=== PATIENT | female | born 1945 | race Caucasian/White ===

== ENCOUNTER → 2016-08-07 | Outpatient (CLI) | payer MEDICARE, OTHER ==
[2016-08-07 14:55] LABS: ABSOLUTE LYMPHOCYTES (AUTO) 1.2 10^3/uL (0.5-4.7); ABSOLUTE MONOCYTES (AUTO) 0.3 10^3/uL (0.1-1.4); ABSOLUTE NEUT (AUTO) 13.1 10^3/uL (1.7-8.2); BASOPHILS % (AUTO) 0.1 % (0-2); HEMATOCRIT 38.4 % (36.0-47.0); HEMOGLOBIN 11.7 g/dL (12.0-15.5); HGB HCT DIFFERENCE -3.3; LYMPHOCYTES % (AUTO) 7.9 % (13-45); MEAN CORPUSCULAR HEMOGLOBIN 24.1 pg (27.0-33.4); MEAN CORPUSCULAR HGB CONC 30.4 g/dL (32.0-36.0); MEAN CORPUSCULAR VOLUME 79 fl (80-97); MONOCYTES % (AUTO) 2.3 % (3-13); RED BLOOD COUNT 4.85 10^6/uL (3.72-5.28); RED CELL DISTRIBUTION WIDTH 16.5 % (11.5-14.0); SEGMENTED NEUTROPHILS % (AUTO) 89.7 % (42-78); WHITE BLOOD COUNT 14.6 10^3/uL (4.0-10.5)
== END ==
LOC: OD 14:00
PROVIDERS: ATTEND Nurse Practitioner Adult Health
DX: R05 Cough (principal)
CPT/HCPCS: 36415; 71020; 85025

== ENCOUNTER 2016-08-18 13:41 | Inpatient (IN) | payer MEDICARE, OTHER ==
[2016-08-18] MEDS ORDERED: GLUCAGON,HUMAN RECOMB 1 MG INJ IM PRN (16:46)
[2016-08-18] MEDS ORDERED: DEXTROSE 50%-WATER 25 GM/50 ML DISP.SYRIN IV PRN ×2 (16:46)
[2016-08-18] MEDS ORDERED: DEXTROSE 40% GEL 15 GM TUBE PO PRN ×2 (16:46)
--- NOTE | 2016-08-18 17:06 | PDOC H&P ---
History of Present Illness Admission Date/PCP: 08/18/16 13:41 ELIZABETH SOLER NP Patient complains of: The patient comes into the office complaining of bilateral breast lesions that are draining and perineum bowel occult abscess that is draining with some lower extremity lesions that are draining. She has been referred to the wound clinic but did not make an appointment and have been discharged History of Present Illness: ABISAI JOHNSON is a 71 year old female Past Medical History Cardiac Medical History: Reports: Coronary Artery Disease, Hyperlipidema, Hypertension, Peripheral Vascular Disease Pulmonary Medical History: Reports: Asthma, Chronic Obstructive Pulmonary Disease (COPD) Endocrine Medical History: Reports: Diabetes Mellitus Type 2, Hypothyroidism Renal/ Medical History: Reports: Chronic Kidney Disease GI Medical History: Reports: Gastroesophageal Reflux Disease, Hiatal Hernia Musculoskeltal Medical History: Reports: Arthritis - Rheumatoid arthritis Skin Medical History: Reports: Other Psychiatric Medical History: Reports: Depression Past Surgical History Past Surgical History: Reports: Cardiac Catheterization, Cholecystectomy, Hysterectomy, Orthopedic Surgery - back surgery x 2, left ankle ORIF, Vascular Surgery - Left renal artery stent Social History Information Source: Patient Lives with: Family Smoking Status: Former Smoker Frequency of Alcohol Use: None Hx Recreational Drug Use: No Drugs: None Hx Prescription Drug Abuse: No Family History Family History: Reviewed & Not Pertinent, CAD Parental Family History Reviewed: Yes Children Family History Reviewed: Yes Sibling(s) Family History Reviewed.: Yes Medication/Allergy Home Medications: Amlodipine Besylate [Norvasc 10 mg Tablet] 10 mg PO QAM 08/18/16 Duloxetine HCl [Cymbalta] 60 mg PO DAILY 08/18/16 Empagliflozin [Jardiance] 10 mg PO QAM 08/18/16 Glipizide [Glucotrol 10 mg Tablet] 10 mg PO BID 08/18/16 Insulin Glargine,Hum.rec.anlog [Toujeo Solostar] 60 units SQ DAILY 08/18/16 Levothyroxine Sodium [Synthroid] 125 mcg PO QAM 08/18/16 Lisinopril [Prinivil] 20 mg PO QAM 08/18/16 Lorazepam [Ativan] 1.5 mg PO QHS 08/18/16 Metformin HCl [Metformin HCl ER] 500 mg PO BID 08/18/16 Montelukast Sodium [Singulair 10 mg Tablet] 10 mg PO QHS 08/18/16 Mupirocin [Bactroban 2% Ointment 22 gm] 1 applic TOP TID 08/18/16 NPH, Human Insulin Isophane [Humulin N (NPH) Insulin 100 unit/mL] 25 units SQ AC 08/18/16 [place]-3 Acid Ethyl Esters [Lovaza 1 gm Capsule] 1 cap PO BID 08/18/16 Omeprazole 20 mg PO QHS 08/18/16 Prednisone [Deltasone 20 mg Tablet] 20 mg PO DAILY 08/18/16 Travoprost (Benzalkonium) [Travatan 0.004% Eye Drop] 1 drop OP QHS 08/18/16 Allergies/Adverse Reactions: codeine [Codeine] Allergy (Intermediate, Verified 12/30/15 18:36) itching Review of Systems All systems: reviewed and no additional remarkable complaints except as stated Physical Exam Vital Signs: Temp Pulse Resp BP Pulse Ox 97.8 F 105 H 18 173/97 H 95 08/18/16 14:02 08/18/16 14:02 08/18/16 14:02 08/18/16 14:02 08/18/16 14:02 Intake & Output 08/17/16 08/18/16 08/19/16 06:59 06:59 06:59 Weight 95 kg General appearance: PRESENT: severe distress Head exam: PRESENT: atraumatic Eye exam: PRESENT: conjunctiva pink Neck exam: ABSENT: carotid bruit Respiratory exam: PRESENT: rhonchi Cardiovascular exam: PRESENT: RRR, +S1, +S2 Pulses: PRESENT: +1 pedal pulses bilateral GI/Abdominal exam: PRESENT: normal bowel sounds, soft Extremities exam: PRESENT: tenderness Musculoskeletal exam: PRESENT: tenderness Neurological exam: PRESENT: awake Skin exam: PRESENT: erythema, skin tears, warm Additional comments: Bilateral medial aspect breast open sores with drainage. Periumbilical abscess with drainage of pus Right mid tibial shaft open wound with drainage. Left multiple excoriations lower extremity Assessment & Plan - Diagnosis (1) Cellulitis of foot Is this a current diagnosis for this admission?: YesPlan: Surgical evaluation. Leg elevation. Antibiotics (2) Failure of outpatient treatment Is this a current diagnosis for this admission?: Yes (3) Insulin dependent diabetes mellitus Is this a current diagnosis for this admission?: YesPlan: We'll start Accu-Cheks and insulin protocol (4) Cellulitis Qualifiers: Site of cellulitis: trunk Site of cellulitis of trunk: abdominal wall Qualified Code(s): L03.311 - Cellulitis of abdominal wall Is this a current diagnosis for this admission?: YesPlan: Surgical evaluation with local wound care and IV antibiotics (5) COPD (chronic obstructive pulmonary disease) Is this a current diagnosis for this admission?: YesPlan: We'll continue with nebulization treatments (6) Obstructive sleep apnea Is this a current diagnosis for this admission?: YesPlan: We'll start this CPap (7) CAD (coronary artery disease) Qualifiers: Coronary Disease-Associated Artery/Lesion type: [place] artery [place] vs. transplanted heart: [place] heart Is this a current diagnosis for this admission?: YesPlan: Continue present medications (8) Hypothyroidism (acquired) Is this a current diagnosis for this admission?: YesPlan: Continue current treatment
[2016-08-18] MEDS ORDERED: (PENDING PHARMACY ID) (Metformin Hcl [Metformin Hcl Er] 500 MG) PO SCH (18:00)
[2016-08-18 18:08] LABS: HEMATOCRIT 32.9 % (36.0-47.0); HEMOGLOBIN 10.5 g/dL (12.0-15.5); HGB HCT DIFFERENCE -1.4; MEAN CORPUSCULAR HEMOGLOBIN 24.3 pg (27.0-33.4); MEAN CORPUSCULAR HGB CONC 31.8 g/dL (32.0-36.0); MEAN CORPUSCULAR VOLUME 76 fl (80-97); RED BLOOD COUNT 4.31 10^6/uL (3.72-5.28); RED CELL DISTRIBUTION WIDTH 16.5 % (11.5-14.0); WHITE BLOOD COUNT 12.9 10^3/uL (4.0-10.5)
[2016-08-18 18:20] LABS: ALANINE AMINOTRANSFERASE 52 U/L (9-52); ALBUMIN 3.3 g/dL (3.5-5.0); ALKALINE PHOSPHATASE 122 U/L (38-126); ANION GAP 9 (5-19); ASPARTATE AMINO TRANSFERASE 47 U/L (14-36); BILIRUBIN,TOTAL 0.5 mg/dL (0.2-1.3); BLOOD UREA NITROGEN 16 mg/dL (7-20); CALCIUM 9.1 mg/dL (8.4-10.2); CARBON DIOXIDE 33 mmol/L (22-30); CHLORIDE 96 mmol/L (98-107); CREATININE RESULT 0.69 mg/dL (0.52-1.25); GLUCOSE 156 mg/dL (75-110); POTASSIUM 3.6 mmol/L (3.6-5.0); SODIUM 138.3 mmol/L (137-145); TOTAL PROTEIN 6.3 g/dL (6.3-8.2)
[2016-08-18] MEDS: INSULIN LISPRO 100 UNIT/ML 3 ML VIAL SUBCUT PRN ×2 (18:30→21:15)
[2016-08-18] MEDS: NORMAL SALINE 1000 ML 1,000 ML IV PRN (18:30)
[2016-08-18] MEDS: OMEGA-3 ACID ETHYL ESTERS 1 GM CAPSULE PO SCH (18:30)
[2016-08-18 19:11] LABS: BAND NEUTROPHILS % (MANUAL) 1 % (3-5); BASOPHILS % (MANUAL) 1 % (0-2); EOSINOPHILS % (MANUAL) 0 % (0-6); LYMPHOCYTES % (MANUAL) 15 % (13-45); TOTAL CELLS COUNTED 100
[2016-08-18 19:15] LABS: ANISOCYTOSIS 1+; HYPOCHROMASIA 1+; MICROCYTOSIS SLIGHT; OVALOCYTES SLIGHT; POIKILOCYTOSIS SLIGHT; POLYCHROMASIA SLIGHT
[2016-08-18] MEDS ORDERED: ENOXAPARIN SODIUM INJ 40 MG/0.4 ML DISP.SYRIN SUBCUT ONE (19:30)
[2016-08-18] MEDS: IPRATROPIUM/ALBUTEROL 0.5-2.5 MG/3 ML AMPUL NEB SCH (19:32)
[2016-08-18] MEDS: OXYCODONE HCL IR 5 MG TABLET PO PRN (21:01)
[2016-08-18] MEDS: LANSOPRAZOLE 15 MG TAB.RAP.DR PO SCH (21:01)
[2016-08-18] MEDS: LORAZEPAM 1 MG TABLET PO SCH (21:15)
[2016-08-18] MEDS ORDERED: (PENDING PHARMACY ID) (Travoprost (Benzalkonium) [Travatan 0.004% Eye Drop] 1 DROP) OU SCH (22:00)
[2016-08-18] MEDS ORDERED: VANCOMYCIN HCL 0 MG in DEXTROSE 5%-WATER 250 ML IV NR (23:00)
[2016-08-18] MEDS: PIPERACILLIN SODIUM/TAZOBACTAM 3.375 GM in NORMAL SALINE 100 ML IV SCH (23:05)
[2016-08-18] MEDS ORDERED: VANCOMYCIN HCL INJ 1000 MG VIAL ONE (23:31)
[2016-08-19] MEDS ORDERED: VANCOMYCIN HCL 750 MG in DEXTROSE 5%-WATER 250 ML IV ONE ×2
[2016-08-19] MEDS: PIPERACILLIN SODIUM/TAZOBACTAM 3.375 GM in NORMAL SALINE 100 ML IV SCH ×4 (02:28→21:37)
[2016-08-19] MEDS: OXYCODONE HCL IR 5 MG TABLET PO PRN ×3 (04:56→18:15)
[2016-08-19] MEDS ORDERED: (PENDING PHARMACY ID) (Lisinopril [Prinivil] 20 MG) PO SCH (08:00)
[2016-08-19] MEDS ORDERED: VANCOMYCIN HCL 750 MG in DEXTROSE 5%-WATER 250 ML IV SCH (08:00)
[2016-08-19] MEDS ORDERED: (PENDING PHARMACY ID) (Levothyroxine Sodium [Synthroid] 125 MCG) PO SCH (08:00)
[2016-08-19] MEDS: ENOXAPARIN SODIUM INJ 40 MG/0.4 ML DISP.SYRIN SUBCUT SCH (08:28)
[2016-08-19] MEDS: LISINOPRIL 10 MG TABLET PO SCH (08:29)
[2016-08-19] MEDS: LEVOTHYROXINE SODIUM 0.025 MG TABLET PO SCH (08:29)
[2016-08-19] MEDS: LEVOTHYROXINE SODIUM 0.1 MG TABLET PO SCH (08:29)
[2016-08-19] MEDS: AMLODIPINE BESYLATE 10 MG TABLET PO SCH (08:29)
--- NOTE | 2016-08-19 08:49 | PDOC PROGRESS REPORT ---
Subjective Progress Note for:: 08/19/16 Subjective:: The patient states to feel much better. The wounds have been cleaned by nursing and is presently awaiting surgical evaluation for possible debridement Physical Exam Vital Signs: Temp Pulse Resp BP Pulse Ox 98.1 F 85 18 166/68 H 100 08/19/16 00:00 08/19/16 00:00 08/19/16 00:00 08/19/16 00:00 08/19/16 00:00 Intake & Output 08/18/16 08/19/16 08/20/16 06:59 06:59 06:59 Intake Total 1150 Output Total 3200 Balance -205 Weight 95 kg General appearance: PRESENT: mild distress Head exam: PRESENT: atraumatic Eye exam: PRESENT: conjunctiva pink Neck exam: ABSENT: carotid bruit Respiratory exam: PRESENT: rhonchi Cardiovascular exam: PRESENT: RRR, +S1, +S2 Pulses: PRESENT: +1 pedal pulses bilateral GI/Abdominal exam: PRESENT: normal bowel sounds, soft Extremities exam: PRESENT: tenderness Neurological exam: PRESENT: alert, awake Skin exam: PRESENT: abrasion, erythema, skin tears Results Laboratory Results: 08/18/16 17:50 08/18/16 17:50 08/18/16 08/18/16 08/19/16 17:50 17:50 04:41 WBC 12.9 H RBC 4.31 Hgb 10.5 L Hct 32.9 L MCV 76 L MCH 24.3 L MCHC 31.8 L RDW 16.5 H Plt Count 233 Seg Neutrophils % Not Reportable Lymphocytes % Not Reportable Monocytes % Not Reportable Eosinophils % Not Reportable Basophils % Not Reportable Absolute Neutrophils Not Reportable Absolute Lymphocytes Not Reportable Absolute Monocytes Not Reportable Absolute Eosinophils Not Reportable Absolute Basophils Not Reportable Sodium 138.3 Potassium 3.6 Chloride 96 L Carbon Dioxide 33 H Anion Gap 9 BUN 16 Creatinine 0.69 Est GFR ( Amer) > 60 Est GFR (Non-Af Amer) > 60 Glucose 156 H Calcium 9.1 Magnesium 1.9 Total Bilirubin 0.5 AST 47 H ALT 52 Alkaline Phosphatase 122 Total Protein 6.3 Albumin 3.3 L TSH 08/19/16 04:41 WBC RBC Hgb Hct MCV MCH MCHC RDW Plt Count Seg Neutrophils % Lymphocytes % Monocytes % Eosinophils % Basophils % Absolute Neutrophils Absolute Lymphocytes Absolute Monocytes Absolute Eosinophils Absolute Basophils Sodium Potassium Chloride Carbon Dioxide Anion Gap BUN Creatinine Est GFR ( Amer) Est GFR (Non-Af Amer) Glucose Calcium Magnesium Total Bilirubin AST ALT Alkaline Phosphatase Total Protein Albumin TSH 0.47 Assessment & Plan - Diagnosis (1) Cellulitis of foot Is this a current diagnosis for this admission?: YesPlan: Surgical evaluation. Leg elevation. Antibiotics (2) Failure of outpatient treatment Is this a current diagnosis for this admission?: Yes (3) Insulin dependent diabetes mellitus Is this a current diagnosis for this admission?: YesPlan: We'll start Accu-Cheks and insulin protocol (4) Cellulitis Qualifiers: Site of cellulitis: trunk Site of cellulitis of trunk: abdominal wall Qualified Code(s): L03.311 - Cellulitis of abdominal wall Is this a current diagnosis for this admission?: YesPlan: Surgical evaluation with local wound care and IV antibiotics (5) COPD (chronic obstructive pulmonary disease) Is this a current diagnosis for this admission?: YesPlan: We'll continue with nebulization treatments (6) Obstructive sleep apnea Is this a current diagnosis for this admission?: Yes (7) CAD (coronary artery disease) Qualifiers: Coronary Disease-Associated Artery/Lesion type: [place] artery [place] vs. transplanted heart: [place] heart Is this a current diagnosis for this admission?: YesPlan: Continue present medications (8) Hypothyroidism (acquired) Is this a current diagnosis for this admission?: YesPlan: Continue current treatment
[2016-08-19] MEDS: IPRATROPIUM/ALBUTEROL 0.5-2.5 MG/3 ML AMPUL NEB SCH ×4 (09:08→19:25)
[2016-08-19] MEDS: DULOXETINE HCL 30 MG CAPSULE.DR PO SCH (09:21)
[2016-08-19] MEDS: INSULIN LISPRO 100 UNIT/ML 3 ML VIAL SUBCUT PRN ×4 (09:21→22:20)
[2016-08-19] MEDS: OMEGA-3 ACID ETHYL ESTERS 1 GM CAPSULE PO SCH ×2 (09:21→16:55)
[2016-08-19] MEDS: NORMAL SALINE 1000 ML 1,000 ML IV PRN ×2 (09:22→23:20)
[2016-08-19] MEDS ORDERED: INSULIN GLARGINE HUM REC ANLOG 60 UNIT SQ SCH (10:00)
[2016-08-19] MEDS: VANCOMYCIN HCL 1,250 MG in DEXTROSE 5%-WATER 250 ML IV SCH ×2 (11:15→23:15)
[2016-08-19] MEDS: PREDNISONE 10 MG TABLET PO SCH (11:25)
[2016-08-19] MEDS: BACITRACIN ZINC OINTMENT 15 GM TP SCH (12:28)
[2016-08-19] MEDS ORDERED: INSULIN LISPRO 100 UNIT/ML 3 ML VIAL SUBCUT ONE (12:30)
[2016-08-19] MEDS: INSULIN LISPRO 100 UNIT/ML 3 ML VIAL SUBCUT SCH (16:54)
[2016-08-19] MEDS: METFORMIN HCL 500 MG TABLET PO SCH (16:55)
[2016-08-19] MEDS: INSULIN GLARGINE SUBCUT SCH ×2 (20:23→22:23)
[2016-08-19] MEDS: TAPENTADOL PO SCH ×2 (20:23→22:29)
[2016-08-19] MEDS: LORAZEPAM 1 MG TABLET PO SCH (21:37)
[2016-08-19] MEDS: LANSOPRAZOLE 15 MG TAB.RAP.DR PO SCH (21:37)
[2016-08-19] MEDS ORDERED: INSULIN GLARGINE,HUM.REC.ANLOG 300 UNIT/3 ML INSULN.PEN SUBCUT SCH (22:00)
--- NOTE | 2016-08-20 00:05 | PDOC CONSULTATION ---
History of Present Illness Admission Date/PCP: 08/18/16 13:41 ELIZABETH SOLER NP History of Present Illness: 71-year-old white female with multiple skin lesions. Patient reports history of skin lesions for years. The wounds are diffuse throughout her body. Some of her current skin lesions have been present for a year. She denies ever having an abscess. She denies picking at the lesions. She reports diabetes and rheumatoid arthritis. Her rheumatoid arthritis is refractory to multiple treatments. She has been on therapy, methotrexate and is currently on 20 mg prednisone per day. She reports diffuse pain and at times debilitation due to pain secondary to her arthritis. Approximately 1.5 years ago she was found in wound care clinic and tried a variety of ointments and dressings. In addition she has tried various [id number] solutions as well including triple antibiotic ointment, Neosporin ointment and other creams. She reports these wounds typically are covered and have a thin exudate type drainage. Currently 2 of the areas have surrounding skin changes including erythema and swelling. The tissue areas involved with surrounding skin changes are one lesion on her abdomen and another lesion on her left neff. Other than the skin lesions she reports chronic pain and debilitation secondary to her diabetic neuropathy and rheumatoid arthritis. She denies fevers, chills, nausea, vomiting, chest pain, shortness breath. Although her records states she has coronary artery disease, she reports having coronary catheterization and having conflicting information from the same doctor at different times, once telling her she had no disease in her coronary vessels, and another time informing her she had disease. She does have a history of peripheral vascular disease in that she has had left renal artery stenting. Past Medical History Cardiac Medical History: Reports: Coronary Artery Disease, DVT - Reports history of right knee blood clot, Hyperlipidema, Hypertension, Peripheral Vascular Disease - Left renal artery stenting Pulmonary Medical History: Reports: Asthma, Chronic Obstructive Pulmonary Disease (COPD), Sleep Apnea Endocrine Medical History: Reports: Diabetes Mellitus Type 2, Hypothyroidism Renal/ Medical History: Reports: Chronic Kidney Disease Malignancy Medical History: Reports: Cervical Cancer GI Medical History: Reports: Gastroesophageal Reflux Disease, Hiatal Hernia Musculoskeltal Medical History: Reports: Arthritis - Rheumatoid arthritis Skin Medical History: Reports: Other - Long history of skin lesions Psychiatric Medical History: Reports: Depression Past Surgical History Past Surgical History: Reports: Cardiac Catheterization, Cholecystectomy, Hysterectomy, Orthopedic Surgery - back surgery x 2, left ankle ORIF, right ankle surgery, Vascular Surgery - Left renal artery stent, Other - Right eardrum surgery in 1969 Social History Information Source: Patient Lives with: Spouse/Significant other Smoking Status: Former Smoker Number of Years Smokin Last Time Smoked: 2003 Frequency of Alcohol Use: None Hx Recreational Drug Use: No Drugs: None Hx Prescription Drug Abuse: No Family History Family History: CAD, COPD, CVA, DM, Malignancy Parental Family History Reviewed: Yes Children Family History Reviewed: Yes Sibling(s) Family History Reviewed.: Yes Medication/Allergy Home Medications: Albuterol Sulfate [Proair HFA] 2 puff PO Q4 08/18/16 Amlodipine Besylate [Norvasc 10 mg Tablet] 10 mg PO QAM 08/18/16 Doxycycline Hyclate 100 mg PO Q12 08/18/16 Duloxetine HCl [Cymbalta] 60 mg PO DAILY 08/18/16 Empagliflozin [Jardiance] 10 mg PO QAM 08/18/16 Glipizide [Glucotrol 10 mg Tablet] 10 mg PO BID 08/18/16 Insulin Glargine,Hum.rec.anlog [Toujeo Solostar] 60 units SQ DAILY 08/18/16 Levothyroxine Sodium [Synthroid] 125 mcg PO QAM 08/18/16 Lisinopril [Prinivil] 20 mg PO QAM 08/18/16 Lorazepam [Ativan] 1.5 mg PO QHS 08/18/16 Metformin HCl [Metformin HCl ER] 500 mg PO BID 08/18/16 Montelukast Sodium [Singulair 10 mg Tablet] 10 mg PO QHS 08/18/16 Mupirocin [Bactroban 2% Ointment 22 gm] 1 applic TOP TID 08/18/16 NPH, Human Insulin Isophane [Humulin N (NPH) Insulin 100 unit/mL] 25 units SQ AC 08/18/16 [place]-3 Acid Ethyl Esters [Lovaza 1 gm Capsule] 1 cap PO BID 08/18/16 Omeprazole 20 mg PO QHS 08/18/16 Oxycodone HCl 15 mg PO TIDP PRN 08/18/16 Prednisone [Deltasone 20 mg Tablet] 20 mg PO DAILY 08/18/16 Tapentadol HCl [Nucynta ER] 150 mg PO Q12 08/18/16 Travoprost (Benzalkonium) [Travatan 0.004% Eye Drop] 1 drop OP QHS 08/18/16 Allergies/Adverse Reactions: codeine [Codeine] Allergy (Intermediate, Verified 08/18/16 20:31) itching Review of Systems All systems: reviewed and no additional remarkable complaints except as stated Physical Exam Vital Signs: Temp Pulse Resp BP Pulse Ox 98.5 F 73 20 152/88 H 100 08/19/16 11:24 08/19/16 15:49 08/19/16 15:49 08/19/16 11:24 08/19/16 15:49 Intake & Output 08/18/16 08/19/16 08/20/16 06:59 06:59 06:59 Intake Total 1150 2150 Output Total 3200 2400 Balance -2050 -250 Weight 95 kg General appearance: PRESENT: no acute distress, obese Head exam: PRESENT: normocephalic Eye exam: PRESENT: EOMI Mouth exam: PRESENT: tongue midline Teeth exam: PRESENT: other - Upper dentures Neck exam: ABSENT: JVD, lymphadenopathy, tenderness, thyromegaly Respiratory exam: PRESENT: wheezes Cardiovascular exam: PRESENT: RRR, systolic murmur GI/Abdominal exam: PRESENT: soft. ABSENT: distended, tenderness Musculoskeletal exam: PRESENT: deformity - Arthritic changes of her joints, as well as Charcot deformities of her bilateral feet/toes. Neurological exam: PRESENT: alert, oriented to person, oriented to place, oriented to time, oriented to situation Psychiatric exam: PRESENT: appropriate affect, normal mood Skin exam: PRESENT: other - All skin lesions are stage II with the exception of the left neff lesion which is stage III. Right breast: 4 lesions, 1.5 cm, 1 cm, 8 mm, 8 mm. Left breast: 3 lesions, 5 cm, 7 mm, 5 mm. Abdomen/suprapubic: 4 lesions, 1.5 cm, 1.2 cm, 9 mm, and one large one in her central abdomen which measures 7 cm x 4 cm. This large lesion has anywhere from 5-10 cm of circumferential surrounding blanching erythema consistent with cellulitis. Left neff: 1.5 cm with anywhere from 5-8 cm of circumferential surrounding blanching erythema consistent with cellulitis. Some sub-5 mm skin lesions on toes around toenail beds and other places not specifically itemized above. Results Laboratory Results: 08/18/16 17:50 08/18/16 17:50 08/18/16 08/19/16 08/19/16 17:50 04:41 04:41 WBC 12.9 H RBC 4.31 Hgb 10.5 L Hct 32.9 L MCV 76 L MCH 24.3 L MCHC 31.8 L RDW 16.5 H Plt Count 233 Magnesium 1.9 TSH 0.47 Assessment & Plan - Diagnosis (1) Cellulitis of foot Is this a current diagnosis for this admission?: YesPlan: Agree with Broad-spectrum antimicrobial coverage. Anticipate the cellulitis will heal, but healing of the lesions will be more difficult. See below. (2) Chronic skin ulcer Qualifiers: Non-pressure ulcer stage: limited to breakdown of skin Qualified Code(s ): L98.491 - Non-pressure chronic ulcer of skin of other sites limited to breakdown of skin Is this a current diagnosis for this admission?: YesPlan: Long-standing lesions. Suspect multifactorial etiology: Potential factors include rheumatoid disease itself, diabetes, poor wound healing of what may otherwise be insignificant small lesions. We discussed her high-dose prednisone , her diabetic neuropathy, her diabetic suppression of the immune/wound healing system, diabetic microvascular changes as likely contributory etiologies. Maybe some form of diabetic dermopathy. She may well have a relative malnutrition despite her obesity which may impair wound healing. I recommended that she consult her industrial relations manager to see if rheumatoid arthritis itself may be causative in the skin lesions. Also recommend dermatology consult. Recommend the patient be patched back into wound care clinic. Recommend daily dressings with a small amount of bacitracin on the sore with a small clean dry dressing over that. Avoid neomycin, Neosporin, triple antibiotic ointment due to potential acquired sensitivities. Surgery will sign off. Please reconsult as needed.
[2016-08-20] MEDS: OXYCODONE HCL IR 5 MG TABLET PO PRN ×3 (01:00→15:18)
[2016-08-20] MEDS: PIPERACILLIN SODIUM/TAZOBACTAM 3.375 GM in NORMAL SALINE 100 ML IV SCH ×4 (02:24→21:09)
[2016-08-20 05:23] LABS: HEMATOCRIT 32.1 % (36.0-47.0); HEMOGLOBIN 10.3 g/dL (12.0-15.5); HGB HCT DIFFERENCE -1.2; MEAN CORPUSCULAR HEMOGLOBIN 24.8 pg (27.0-33.4); MEAN CORPUSCULAR HGB CONC 32.2 g/dL (32.0-36.0); MEAN CORPUSCULAR VOLUME 77 fl (80-97); RED BLOOD COUNT 4.16 10^6/uL (3.72-5.28); RED CELL DISTRIBUTION WIDTH 16.3 % (11.5-14.0); WHITE BLOOD COUNT 9.2 10^3/uL (4.0-10.5)
[2016-08-20 05:33] LABS: ANION GAP 9 (5-19); BLOOD UREA NITROGEN 10 mg/dL (7-20); CARBON DIOXIDE 31 mmol/L (22-30); CHLORIDE 100 mmol/L (98-107); CREATININE RESULT 0.72 mg/dL (0.52-1.25); GLUCOSE 274 mg/dL (75-110); POTASSIUM 3.6 mmol/L (3.6-5.0); SODIUM 140.2 mmol/L (137-145)
[2016-08-20 06:03] LABS: BAND NEUTROPHILS % (MANUAL) 1 % (3-5); BASOPHILS % (MANUAL) 0 % (0-2); EOSINOPHILS % (MANUAL) 1 % (0-6); LYMPHOCYTES % (MANUAL) 16 % (13-45); TOTAL CELLS COUNTED 100
[2016-08-20 06:04] LABS: MICROCYTOSIS SLIGHT
[2016-08-20 06:05] LABS: OVALOCYTES SLIGHT; POLYCHROMASIA SLIGHT; TEAR DROP CELLS SLIGHT
[2016-08-20] MEDS: IPRATROPIUM/ALBUTEROL 0.5-2.5 MG/3 ML AMPUL NEB SCH ×4 (07:25→20:50)
[2016-08-20] MEDS: INSULIN LISPRO 100 UNIT/ML 3 ML VIAL SUBCUT PRN ×4 (08:24→21:09)
[2016-08-20] MEDS: LISINOPRIL 10 MG TABLET PO SCH (08:24)
[2016-08-20] MEDS: INSULIN LISPRO 100 UNIT/ML 3 ML VIAL SUBCUT SCH ×3 (08:24→16:56)
[2016-08-20] MEDS: ENOXAPARIN SODIUM INJ 40 MG/0.4 ML DISP.SYRIN SUBCUT SCH (08:24)
[2016-08-20] MEDS: LEVOTHYROXINE SODIUM 0.025 MG TABLET PO SCH (08:24)
[2016-08-20] MEDS: METFORMIN HCL 500 MG TABLET PO SCH ×2 (08:24→17:00)
[2016-08-20] MEDS: AMLODIPINE BESYLATE 10 MG TABLET PO SCH (08:25)
[2016-08-20] MEDS: LEVOTHYROXINE SODIUM 0.1 MG TABLET PO SCH (08:25)
--- NOTE | 2016-08-20 09:02 | PDOC PROGRESS REPORT ---
Subjective Progress Note for:: 08/20/16 Subjective:: The patient states to feel slightly better. She was seen by surgery and several of her wounds have been cleaned up. There has been a lot of confusion about her home medications and how she takes it. Physical Exam Vital Signs: Temp Pulse Resp BP Pulse Ox 98.3 F 95 16 151/65 H 99 08/20/16 07:44 08/20/16 07:44 08/20/16 07:44 08/20/16 07:44 08/20/16 07:44 Intake & Output 08/19/16 08/20/16 08/21/16 06:59 06:59 06:59 Intake Total 1150 4040 Output Total 3200 4900 Balance -0 -860 Weight 95 kg General appearance: PRESENT: mild distress Head exam: PRESENT: atraumatic Eye exam: PRESENT: conjunctiva pink Neck exam: ABSENT: carotid bruit Respiratory exam: PRESENT: rhonchi Cardiovascular exam: PRESENT: RRR, +S1, +S2 Pulses: PRESENT: +1 pedal pulses bilateral GI/Abdominal exam: PRESENT: soft Extremities exam: PRESENT: tenderness Musculoskeletal exam: PRESENT: other Neurological exam: PRESENT: alert Skin exam: PRESENT: abrasion, skin tears Results Laboratory Results: 08/20/16 04:31 08/20/16 04:31 08/18/16 08/20/16 08/20/16 17:50 04:31 04:31 WBC 12.9 H 9.2 RBC 4.31 4.16 Hgb 10.5 L 10.3 L Hct 32.9 L 32.1 L MCV 76 L 77 L MCH 24.3 L 24.8 L MCHC 31.8 L 32.2 RDW 16.5 H 16.3 H Plt Count 233 199 Seg Neutrophils % Not Reportable Lymphocytes % Not Reportable Monocytes % Not Reportable Eosinophils % Not Reportable Basophils % Not Reportable Absolute Neutrophils Not Reportable Absolute Lymphocytes Not Reportable Absolute Monocytes Not Reportable Absolute Eosinophils Not Reportable Absolute Basophils Not Reportable Sodium 140.2 Potassium 3.6 Chloride 100 Carbon Dioxide 31 H Anion Gap 9 BUN 10 Creatinine 0.72 Est GFR ( Amer) > 60 Est GFR (Non-Af Amer) > 60 Glucose 274 H Calcium 9.0 Assessment & Plan - Diagnosis (1) Cellulitis of foot Is this a current diagnosis for this admission?: YesPlan: Surgical evaluation. Leg elevation. Antibiotics (2) Failure of outpatient treatment Is this a current diagnosis for this admission?: YesPlan: The superficial wounds wearing not responding to outpatient treatment (3) Insulin dependent diabetes mellitus Is this a current diagnosis for this admission?: YesPlan: Poorly controlled because of need to readjust medications. (4) Cellulitis Qualifiers: Site of cellulitis: trunk Site of cellulitis of trunk: abdominal wall Qualified Code(s): L03.311 - Cellulitis of abdominal wall Is this a current diagnosis for this admission?: YesPlan: Controlled with local care and IV antibiotics (5) COPD (chronic obstructive pulmonary disease) Is this a current diagnosis for this admission?: YesPlan: We'll continue with nebulization treatments (6) Obstructive sleep apnea Is this a current diagnosis for this admission?: Yes (7) CAD (coronary artery disease) Qualifiers: Coronary Disease-Associated Artery/Lesion type: [place] artery [place] vs. transplanted heart: [place] heart Is this a current diagnosis for this admission?: Yes (8) Hypothyroidism (acquired) Is this a current diagnosis for this admission?: Yes (9) Rheumatoid arthritis Is this a current diagnosis for this admission?: YesPlan: Presently only on prednisone. The patient states that none of the other biologicals worked or had side effects. We will continue with prednisone and refer patient comes in outpatient to see a demurrage man
[2016-08-20] MEDS ORDERED: (PENDING PHARMACY ID) (Tapentadol Hcl [Nucynta Er] 150 MG) PO SCH (10:00)
[2016-08-20] MEDS: OMEGA-3 ACID ETHYL ESTERS 1 GM CAPSULE PO SCH ×2 (10:44→16:58)
[2016-08-20] MEDS: DULOXETINE HCL 30 MG CAPSULE.DR PO SCH (10:44)
[2016-08-20] MEDS: PREDNISONE 10 MG TABLET PO SCH (10:44)
[2016-08-20] MEDS: DOCUSATE SODIUM 100 MG CAPSULE PO SCH ×2 (10:44→16:58)
[2016-08-20] MEDS: POLYETHYLENE GLYCOL 3350 POWDER 17 GM/1 PACKET PO SCH (10:45)
[2016-08-20] MEDS: TAPENTADOL PO SCH ×2 (10:45→21:00)
[2016-08-20] MEDS: VANCOMYCIN HCL 1,250 MG in DEXTROSE 5%-WATER 250 ML IV SCH ×2 (10:46→22:25)
[2016-08-20] MEDS: BACITRACIN ZINC OINTMENT 15 GM TP SCH (12:08)
[2016-08-20] MEDS: LATANOPROST 0.005% OPH SOLN 2.5 ML OU SCH (21:00)
[2016-08-20] MEDS: INSULIN GLARGINE SUBCUT SCH (21:00)
[2016-08-20] MEDS: LANSOPRAZOLE 15 MG TAB.RAP.DR PO SCH (21:09)
[2016-08-20] MEDS: LORAZEPAM 1 MG TABLET PO SCH (21:09)
[2016-08-20] MEDS ORDERED: INSULIN GLARGINE,HUM.REC.ANLOG 300 UNIT/3 ML INSULN.PEN SUBCUT SCH (22:00)
[2016-08-21] MEDS: PIPERACILLIN SODIUM/TAZOBACTAM 3.375 GM in NORMAL SALINE 100 ML IV SCH ×4 (02:15→20:08)
[2016-08-21] MEDS: ACETAMINOPHEN 325 MG TABLET PO PRN ×2 (04:20→14:23)
[2016-08-21] MEDS: AMLODIPINE BESYLATE 10 MG TABLET PO SCH (07:31)
[2016-08-21] MEDS: LEVOTHYROXINE SODIUM 0.025 MG TABLET PO SCH (07:31)
[2016-08-21] MEDS: LISINOPRIL 10 MG TABLET PO SCH (07:31)
[2016-08-21] MEDS: METFORMIN HCL 500 MG TABLET PO SCH (07:32)
[2016-08-21] MEDS: LEVOTHYROXINE SODIUM 0.1 MG TABLET PO SCH (07:32)
[2016-08-21] MEDS: INSULIN LISPRO 100 UNIT/ML 3 ML VIAL SUBCUT SCH ×3 (07:32→17:01)
[2016-08-21] MEDS: OXYCODONE HCL IR 5 MG TABLET PO PRN ×3 (07:32→23:42)
[2016-08-21] MEDS: INSULIN LISPRO 100 UNIT/ML 3 ML VIAL SUBCUT PRN ×3 (07:47→17:12)
[2016-08-21] MEDS: ENOXAPARIN SODIUM INJ 40 MG/0.4 ML DISP.SYRIN SUBCUT SCH (07:48)
[2016-08-21] MEDS: IPRATROPIUM/ALBUTEROL 0.5-2.5 MG/3 ML AMPUL NEB SCH ×4 (07:49→20:41)
[2016-08-21] MEDS: VANCOMYCIN HCL 1,250 MG in DEXTROSE 5%-WATER 250 ML IV SCH ×2 (09:44→21:23)
[2016-08-21] MEDS: POLYETHYLENE GLYCOL 3350 POWDER 17 GM/1 PACKET PO SCH (09:44)
[2016-08-21] MEDS: PREDNISONE 10 MG TABLET PO SCH (09:44)
[2016-08-21] MEDS: DULOXETINE HCL 30 MG CAPSULE.DR PO SCH (09:44)
[2016-08-21] MEDS: DOCUSATE SODIUM 100 MG CAPSULE PO SCH ×2 (09:44→17:00)
[2016-08-21] MEDS: OMEGA-3 ACID ETHYL ESTERS 1 GM CAPSULE PO SCH ×2 (09:44→17:00)
[2016-08-21] MEDS ORDERED: INSULIN GLARGINE,HUM.REC.ANLOG 300 UNIT/3 ML INSULN.PEN SUBCUT SCH (10:00)
[2016-08-21] MEDS: TAPENTADOL PO SCH ×2 (10:51→21:55)
[2016-08-21] MEDS: BACITRACIN ZINC OINTMENT 15 GM TP SCH (11:49)
--- NOTE | 2016-08-21 15:54 | PDOC PROGRESS REPORT ---
Subjective Progress Note for:: 08/21/16 Subjective:: Patient states that redness and discomfort in her left leg has improved. She also states that she does not take metformin and has not taken his medication for years. He complaints of somatic pain and would like pain medication. She is in a pain contract outside of the hospital. Patient denies fever, chills, headache, new focal weakness, chest pain, shortness of breath, abdominal pain, nausea, vomiting, diarrhea, constipation. Physical Exam Vital Signs: Temp Pulse Resp BP Pulse Ox 98.0 F 101 H 14 147/68 H 98 08/21/16 11:29 08/21/16 12:52 08/21/16 12:52 08/21/16 11:29 08/21/16 12:52 Intake & Output 08/20/16 08/21/16 08/22/16 06:59 06:59 06:59 Intake Total 4040 5030 Output Total 4900 2900 Balance -860 2130 Weight 97.6 kg GENERAL: No acute distress HEENT: Conjunctiva clear, nonicteric, moist mucous membranes, no JVD, midline trachea RESPIRATORY: Clear to auscultation bilaterally, no wheezes, no rhonchi CARDIAC: Regular rate and rhythm, no murmurs/gallops/rubs ABDOMEN: Soft, nondistended, nontender, positive bowel sounds, no rebound, no guarding EXTREMETIES: No edema, cyanosis, clubbing NEUROLOGIC: Alert, oriented to person/place/time, CN's grossly intact, no focal deficits SKIN: Numerous small ulcerative skin lesions (approximately 1 cm) over multiple areas on chest, abdomen, and lower extremities PSYCH: Normal mood, normal affect Results Laboratory Results: 08/20/16 04:31 08/20/16 04:31 Assessment & Plan - Diagnosis (1) Multiple wounds of skin Is this a current diagnosis for this admission?: YesPlan: Appearance looks like disseminated MRSA infection. Continue IV Zosyn and IV vancomycin for now. Blood cultures negative. Check wound culture. (2) Cellulitis of leg without foot, left Is this a current diagnosis for this admission?: Yes (3) Chronic pain Is this a current diagnosis for this admission?: YesPlan: Continue when necessary oxycodone. Continue Cymbalta. Patient is an outpatient pain management contract. (4) HTN (hypertension) Qualifiers: Hypertension type: essential hypertension Qualified Code(s): I10 - Essential (primary) hypertension Is this a current diagnosis for this admission?: YesPlan: Continue Norvasc 10 mg daily, lisinopril 20 mg daily. (5) Hypothyroidism Qualifiers: Hypothyroidism type: unspecified Qualified Code(s): E03.9 - Hypothyroidism, unspecified Is this a current diagnosis for this admission?: YesPlan: Continue Synthroid. (6) Insulin dependent diabetes mellitus Is this a current diagnosis for this admission?: YesPlan: Remains uncontrolled. Toujeo increased to 80 units subcutaneous daily on 2016. Increase Humalog to 25 units subcutaneous every before meals. Resume glipizide 10 mg twice daily. Discontinue metformin as patient states she does not take this medication. Check hemoglobin A1c. (7) Iron deficiency anemia Qualifiers: Iron deficiency anemia type: unspecified iron deficiency Qualified Code (s): D50.9 - Iron deficiency anemia, unspecified Is this a current diagnosis for this admission?: Yes - Time Time Spent with patient: 35 or more minutes
[2016-08-21] MEDS ORDERED: METFORMIN HCL 500 MG TABLET PO SCH (16:00)
[2016-08-21] MEDS: GLIPIZIDE 10 MG TABLET PO SCH (17:00)
[2016-08-21] MEDS: LORAZEPAM 1 MG TABLET PO SCH (21:23)
[2016-08-21] MEDS: LANSOPRAZOLE 15 MG TAB.RAP.DR PO SCH (21:23)
[2016-08-21] MEDS: LATANOPROST 0.005% OPH SOLN 2.5 ML OU SCH (21:39)
[2016-08-21] MEDS: INSULIN GLARGINE SUBCUT SCH (21:45)
[2016-08-22] MEDS: PIPERACILLIN SODIUM/TAZOBACTAM 3.375 GM in NORMAL SALINE 100 ML IV SCH ×4 (02:55→20:56)
[2016-08-22 04:30] LABS: HEMATOCRIT 31.4 % (36.0-47.0); HEMOGLOBIN 10.1 g/dL (12.0-15.5); HGB HCT DIFFERENCE -1.1; MEAN CORPUSCULAR HEMOGLOBIN 24.7 pg (27.0-33.4); MEAN CORPUSCULAR HGB CONC 32.2 g/dL (32.0-36.0); MEAN CORPUSCULAR VOLUME 77 fl (80-97); RED BLOOD COUNT 4.09 10^6/uL (3.72-5.28); RED CELL DISTRIBUTION WIDTH 16.4 % (11.5-14.0); WHITE BLOOD COUNT 8.7 10^3/uL (4.0-10.5)
[2016-08-22 04:43] LABS: ANION GAP 10 (5-19); BLOOD UREA NITROGEN 13 mg/dL (7-20); CALCIUM 9.4 mg/dL (8.4-10.2); CARBON DIOXIDE 29 mmol/L (22-30); CHLORIDE 103 mmol/L (98-107); GLUCOSE 177 mg/dL (75-110); POTASSIUM 3.7 mmol/L (3.6-5.0); SODIUM 141.6 mmol/L (137-145)
[2016-08-22 04:51] LABS: BAND NEUTROPHILS % (MANUAL) 2 % (3-5); BASOPHILS % (MANUAL) 0 % (0-2); EOSINOPHILS % (MANUAL) 3 % (0-6); LYMPHOCYTES % (MANUAL) 17 % (13-45); TOTAL CELLS COUNTED 100
[2016-08-22 04:53] LABS: ANISOCYTOSIS 1+; HYPOCHROMASIA 1+; POLYCHROMASIA SLIGHT; TOXIC GRANULATION SLIGHT
[2016-08-22] MEDS: ACETAMINOPHEN 325 MG TABLET PO PRN ×2 (05:55→15:17)
[2016-08-22] MEDS: IPRATROPIUM/ALBUTEROL 0.5-2.5 MG/3 ML AMPUL NEB SCH ×4 (08:11→19:49)
[2016-08-22] MEDS: LEVOTHYROXINE SODIUM 0.1 MG TABLET PO SCH (08:24)
[2016-08-22] MEDS: LEVOTHYROXINE SODIUM 0.025 MG TABLET PO SCH (08:24)
[2016-08-22] MEDS: INSULIN LISPRO 100 UNIT/ML 3 ML VIAL SUBCUT PRN ×3 (08:25→16:30)
[2016-08-22] MEDS: OXYCODONE HCL IR 5 MG TABLET PO PRN ×2 (08:25→16:59)
[2016-08-22] MEDS: AMLODIPINE BESYLATE 10 MG TABLET PO SCH (08:25)
[2016-08-22] MEDS: INSULIN LISPRO 100 UNIT/ML 3 ML VIAL SUBCUT SCH ×3 (08:25→16:59)
[2016-08-22] MEDS: ENOXAPARIN SODIUM INJ 40 MG/0.4 ML DISP.SYRIN SUBCUT SCH (08:25)
[2016-08-22] MEDS: LISINOPRIL 10 MG TABLET PO SCH (08:25)
[2016-08-22] MEDS: VANCOMYCIN HCL 1,250 MG in DEXTROSE 5%-WATER 250 ML IV SCH ×2 (11:09→21:48)
[2016-08-22] MEDS: GLIPIZIDE 10 MG TABLET PO SCH ×2 (11:13→17:01)
[2016-08-22] MEDS: PREDNISONE 10 MG TABLET PO SCH (11:13)
[2016-08-22] MEDS: DULOXETINE HCL 30 MG CAPSULE.DR PO SCH (11:14)
[2016-08-22] MEDS: POLYETHYLENE GLYCOL 3350 POWDER 17 GM/1 PACKET PO SCH (11:14)
[2016-08-22] MEDS: OMEGA-3 ACID ETHYL ESTERS 1 GM CAPSULE PO SCH ×2 (11:14→17:00)
[2016-08-22] MEDS: DOCUSATE SODIUM 100 MG CAPSULE PO SCH ×2 (11:14→17:01)
--- NOTE | 2016-08-22 14:43 | PDOC PROGRESS REPORT ---
Subjective Progress Note for:: 08/22/16 Subjective:: Patient states that redness and discomfort in her left leg has improved. She complaints of somatic pain and would like pain medication. She is in a pain contract outside of the hospital. Patient denies fever, chills, headache, new focal weakness, chest pain, shortness of breath, abdominal pain, nausea, vomiting, diarrhea, constipation. Physical Exam Vital Signs: Temp Pulse Resp BP Pulse Ox 97.7 F 82 16 146/77 H 100 08/22/16 12:00 08/22/16 12:17 08/22/16 12:08/22/16 12:00 08/22/16 12:00 Intake & Output 08/21/16 08/22/16 08/23/16 06:59 06:59 06:59 Intake Total 5030 2830 410 Output Total 2900 7300 1100 Balance 2130 -9460 -690 Weight 97.6 kg 97.7 kg GENERAL: No acute distress HEENT: Conjunctiva clear, nonicteric, moist mucous membranes, no JVD, midline trachea RESPIRATORY: Clear to auscultation bilaterally, no wheezes, no rhonchi CARDIAC: Regular rate and rhythm, no murmurs/gallops/rubs ABDOMEN: Soft, nondistended, nontender, positive bowel sounds, no rebound, no guarding EXTREMETIES: No edema, cyanosis, clubbing NEUROLOGIC: Alert, oriented to person/place/time, CN's grossly intact, no focal deficits SKIN: Numerous small ulcerative skin lesions (approximately 1 cm) over multiple areas on chest, abdomen, and lower extremities PSYCH: Normal mood, normal affect Results Laboratory Results: 08/22/16 03:50 08/22/16 03:50 08/22/16 08/22/16 03:50 03:50 WBC 8.7 RBC 4.09 Hgb 10.1 L Hct 31.4 L MCV 77 L MCH 24.7 L MCHC 32.2 RDW 16.4 H Plt Count 200 Seg Neutrophils % Not Reportable Lymphocytes % Not Reportable Monocytes % Not Reportable Eosinophils % Not Reportable Basophils % Not Reportable Absolute Neutrophils Not Reportable Absolute Lymphocytes Not Reportable Absolute Monocytes Not Reportable Absolute Eosinophils Not Reportable Absolute Basophils Not Reportable Sodium 141.6 Potassium 3.7 Chloride 103 Carbon Dioxide 29 Anion Gap 10 BUN 13 Creatinine 0.70 Est GFR ( Amer) > 60 Est GFR (Non-Af Amer) > 60 Glucose 177 H Calcium 9.4 Assessment & Plan - Diagnosis (1) Multiple wounds of skin Is this a current diagnosis for this admission?: YesPlan: Appearance looks like disseminated MRSA infection. Wound culture growing gram- positive cocci. Continue IV Zosyn and IV vancomycin for now. Blood cultures negative. (2) Cellulitis of leg without foot, left Is this a current diagnosis for this admission?: Yes (3) Chronic pain Is this a current diagnosis for this admission?: YesPlan: Continue when necessary oxycodone. Continue Cymbalta. Add MS Contin 15 mg twice daily. Patient is an outpatient pain management contract. (4) HTN (hypertension) Qualifiers: Hypertension type: essential hypertension Qualified Code(s): I10 - Essential (primary) hypertension Is this a current diagnosis for this admission?: YesPlan: Continue Norvasc 10 mg daily, lisinopril 20 mg daily. (5) Hypothyroidism Qualifiers: Hypothyroidism type: unspecified Qualified Code(s): E03.9 - Hypothyroidism, unspecified Is this a current diagnosis for this admission?: YesPlan: Continue Synthroid. (6) Insulin dependent diabetes mellitus Is this a current diagnosis for this admission?: YesPlan: Toujeo increased to 80 units subcutaneous daily on 08/20/2016. Increase Humalog to 25 units subcutaneous every before meals. Resume glipizide 10 mg twice daily. Discontinue metformin as patient states she does not take this medication. Hemoglobin A1c 9.7 indicating poor overall control. (7) Iron deficiency anemia Qualifiers: Iron deficiency anemia type: unspecified iron deficiency Qualified Code (s): D50.9 - Iron deficiency anemia, unspecified Is this a current diagnosis for this admission?: YesPlan: Start iron supplementation. - Time Time Spent with patient: 35 or more minutes
[2016-08-22] MEDS: BACITRACIN ZINC OINTMENT 15 GM TP SCH (15:23)
[2016-08-22] MEDS ORDERED: MORPHINE SULFATE SR 15 MG TABLET PO SCH (18:00)
[2016-08-22] MEDS: LORAZEPAM 1 MG TABLET PO SCH (21:47)
[2016-08-22] MEDS: INSULIN GLARGINE SUBCUT SCH (21:47)
[2016-08-22] MEDS: LATANOPROST 0.005% OPH SOLN 2.5 ML OU SCH (21:47)
[2016-08-22] MEDS: LANSOPRAZOLE 15 MG TAB.RAP.DR PO SCH (21:47)
[2016-08-22] MEDS: TAPENTADOL PO SCH (21:59)
[2016-08-23] MEDS: OXYCODONE HCL IR 5 MG TABLET PO PRN ×3 (00:27→16:57)
[2016-08-23] MEDS: PIPERACILLIN SODIUM/TAZOBACTAM 3.375 GM in NORMAL SALINE 100 ML IV SCH ×4 (05:21→20:40)
[2016-08-23] MEDS: TAPENTADOL PO SCH ×3 (05:22→22:23)
[2016-08-23] MEDS: IPRATROPIUM/ALBUTEROL 0.5-2.5 MG/3 ML AMPUL NEB SCH ×2 (07:45→12:00)
[2016-08-23] MEDS: INSULIN LISPRO 100 UNIT/ML 3 ML VIAL SUBCUT SCH ×3 (08:37→16:57)
[2016-08-23] MEDS: LISINOPRIL 10 MG TABLET PO SCH ×2 (08:37→22:20)
[2016-08-23] MEDS: ENOXAPARIN SODIUM INJ 40 MG/0.4 ML DISP.SYRIN SUBCUT SCH (08:37)
[2016-08-23] MEDS: INSULIN LISPRO 100 UNIT/ML 3 ML VIAL SUBCUT PRN ×2 (08:37→16:57)
[2016-08-23] MEDS: LEVOTHYROXINE SODIUM 0.1 MG TABLET PO SCH (08:38)
[2016-08-23] MEDS: AMLODIPINE BESYLATE 10 MG TABLET PO SCH (08:38)
[2016-08-23] MEDS: LEVOTHYROXINE SODIUM 0.025 MG TABLET PO SCH (08:38)
[2016-08-23] MEDS: GLIPIZIDE 10 MG TABLET PO SCH ×2 (10:12→16:58)
[2016-08-23] MEDS: VANCOMYCIN HCL 1,250 MG in DEXTROSE 5%-WATER 250 ML IV SCH ×2 (10:13→22:21)
[2016-08-23] MEDS: DULOXETINE HCL 30 MG CAPSULE.DR PO SCH (10:13)
[2016-08-23] MEDS: POLYETHYLENE GLYCOL 3350 POWDER 17 GM/1 PACKET PO SCH (10:13)
[2016-08-23] MEDS: FERROUS SULFATE 325 MG TABLET PO SCH (10:13)
[2016-08-23] MEDS: PREDNISONE 10 MG TABLET PO SCH (10:13)
[2016-08-23] MEDS: DOCUSATE SODIUM 100 MG CAPSULE PO SCH ×2 (10:13→16:57)
[2016-08-23] MEDS: OMEGA-3 ACID ETHYL ESTERS 1 GM CAPSULE PO SCH ×2 (10:13→16:58)
[2016-08-23] MEDS ORDERED: PREDNISONE 20 MG TABLET PO ONE (12:00)
[2016-08-23] MEDS ORDERED: IPRATROPIUM/ALBUTEROL 0.5-2.5 MG/3 ML AMPUL NEB PRN (12:07)
[2016-08-23] MEDS: BACITRACIN ZINC OINTMENT 15 GM TP SCH (13:10)
--- NOTE | 2016-08-23 14:09 | PDOC PROGRESS REPORT ---
Subjective Progress Note for:: 08/23/16 Subjective:: Patient states that redness and discomfort in her left leg has improved. She complaints of somatic pain and would like pain medication. She is in a pain contract outside of the hospital. Patient denies fever, chills, headache, new focal weakness, chest pain, shortness of breath, abdominal pain, nausea, vomiting, diarrhea, constipation. Physical Exam Vital Signs: Temp Pulse Resp BP Pulse Ox 98.6 F 90 16 176/92 H 99 08/23/16 12:00 08/23/16 12:00 08/23/16 12:00 08/23/16 12:00 08/23/16 12:00 Intake & Output 08/22/16 08/23/16 08/24/16 06:59 06:59 06:59 Intake Total 2830 4057 Output Total 7300 4950 Balance -4240 -893 Weight 97.7 kg 98.7 kg GENERAL: No acute distress HEENT: Conjunctiva clear, nonicteric, moist mucous membranes, no JVD, midline trachea RESPIRATORY: Clear to auscultation bilaterally, no wheezes, no rhonchi CARDIAC: Regular rate and rhythm, no murmurs/gallops/rubs ABDOMEN: Soft, nondistended, nontender, positive bowel sounds, no rebound, no guarding EXTREMETIES: No edema, cyanosis, clubbing NEUROLOGIC: Alert, oriented to person/place/time, CN's grossly intact, no focal deficits SKIN: Numerous small ulcerative skin lesions (approximately 1 cm) over multiple areas on chest, abdomen, and lower extremities PSYCH: Normal mood, normal affect Results Laboratory Results: 08/22/16 03:50 08/22/16 03:50 08/21/16 16:02 Leg - Left Gram Stain - Final Assessment & Plan - Diagnosis (1) Multiple wounds of skin Is this a current diagnosis for this admission?: YesPlan: Appearance looks like disseminated MRSA infection. Wound culture growing gram- positive cocci. Continue IV Zosyn and IV vancomycin for now. Blood cultures negative. (2) Cellulitis of leg without foot, left Is this a current diagnosis for this admission?: Yes (3) Chronic pain Is this a current diagnosis for this admission?: YesPlan: Chronic opiate dependent secondary to severe long-standing rheumatoid arthritis. Continue when necessary oxycodone. Continue Cymbalta. Continue outpatient Nucynta. Patient is an outpatient pain management contract. (4) HTN (hypertension) Qualifiers: Hypertension type: essential hypertension Qualified Code(s): I10 - Essential (primary) hypertension Is this a current diagnosis for this admission?: Yes (5) Hypothyroidism Qualifiers: Hypothyroidism type: unspecified Qualified Code(s): E03.9 - Hypothyroidism, unspecified Is this a current diagnosis for this admission?: Yes (6) Insulin dependent diabetes mellitus Is this a current diagnosis for this admission?: Yes (7) Iron deficiency anemia Qualifiers: Iron deficiency anemia type: unspecified iron deficiency Qualified Code (s): D50.9 - Iron deficiency anemia, unspecified Is this a current diagnosis for this admission?: Yes (8) Rheumatoid arthritis Is this a current diagnosis for this admission?: YesPlan: Increase prednisone to 20 mg daily. In discussion with patient she has failed/ attempted multiple disease modifying agents to include methotrexate, Enbrel. - Time Time Spent with patient: 35 or more minutes
[2016-08-23] MEDS: LATANOPROST 0.005% OPH SOLN 2.5 ML OU SCH (22:20)
[2016-08-23] MEDS: LORAZEPAM 1 MG TABLET PO SCH (22:20)
[2016-08-23] MEDS: LANSOPRAZOLE 15 MG TAB.RAP.DR PO SCH (22:20)
[2016-08-23] MEDS: INSULIN GLARGINE SUBCUT SCH (22:21)
[2016-08-23] MEDS: LORAZEPAM INJ 2 MG/1 ML VIAL IV PRN (23:03)
[2016-08-24] MEDS: PIPERACILLIN SODIUM/TAZOBACTAM 3.375 GM in NORMAL SALINE 100 ML IV SCH (03:27)
[2016-08-24] MEDS: TAPENTADOL PO SCH ×3 (06:25→21:33)
--- NOTE | 2016-08-24 08:00 | PDOC PROGRESS REPORT ---
Subjective Progress Note for:: 08/24/16 Subjective:: The patient states to feel better. She is still having a lot of pain in her joints. Her wounds are healing well. Her blood sugars better controlled. Physical Exam Vital Signs: Temp Pulse Resp BP Pulse Ox 98.3 F 73 17 149/60 H 100 08/23/16 23:47 08/23/16 23:47 08/23/16 23:47 08/23/16 23:47 08/23/16 23:47 Intake & Output 08/23/16 08/24/16 08/25/16 06:59 06:59 06:59 Intake Total 4057 3065 Output Total 4950 7060 Balance -893 -9251 Weight 98.7 kg 101.3 kg General appearance: PRESENT: mild distress Head exam: PRESENT: atraumatic Eye exam: PRESENT: conjunctiva pink Neck exam: PRESENT: tenderness Respiratory exam: PRESENT: rhonchi Cardiovascular exam: PRESENT: +S1, +S2 Pulses: PRESENT: +1 pedal pulses bilateral Vascular exam: PRESENT: other GI/Abdominal exam: PRESENT: soft Extremities exam: PRESENT: tenderness Musculoskeletal exam: PRESENT: tenderness Neurological exam: PRESENT: alert, awake Skin exam: PRESENT: skin tears Results Laboratory Results: 08/22/16 03:50 08/22/16 03:50 08/18/16 19:20 Blood Blood Culture - Final NO GROWTH IN 5 DAYS 08/18/16 17:50 Blood Blood Culture - Final NO GROWTH IN 5 DAYS 08/21/16 16:02 Leg - Left Gram Stain - Final 08/21/16 16:02 Leg - Left Wound Culture - Final Staphylococcus Aureus Skin Angela Assessment & Plan - Diagnosis (1) Cellulitis of foot Is this a current diagnosis for this admission?: YesPlan: Improving. We'll stop the IV antibiotics and start by mouth. The patient is growing staph aureus (2) Failure of outpatient treatment Is this a current diagnosis for this admission?: Yes (3) Insulin dependent diabetes mellitus Is this a current diagnosis for this admission?: YesPlan: The blood sugars are still high but improving with adjustment on insulin and other medications (4) Cellulitis Qualifiers: Site of cellulitis: trunk Site of cellulitis of trunk: abdominal wall Qualified Code(s): L03.311 - Cellulitis of abdominal wall Is this a current diagnosis for this admission?: YesPlan: Several open wounds with positive cultures for staph aureus (5) COPD (chronic obstructive pulmonary disease) Is this a current diagnosis for this admission?: Yes (6) Obstructive sleep apnea Is this a current diagnosis for this admission?: Yes (7) CAD (coronary artery disease) Qualifiers: Coronary Disease-Associated Artery/Lesion type: [place] artery [place] vs. transplanted heart: [place] heart Is this a current diagnosis for this admission?: Yes (8) Hypothyroidism (acquired) Is this a current diagnosis for this admission?: Yes (9) Rheumatoid arthritis Is this a current diagnosis for this admission?: YesPlan: Diffuse pain in the joint with high rheumatoid factor. Will need further evaluation as an outpatient with fire safety inspector
[2016-08-24] MEDS: OXYCODONE HCL IR 5 MG TABLET PO PRN ×2 (09:10→17:28)
[2016-08-24] MEDS: DOCUSATE SODIUM 100 MG CAPSULE PO SCH ×2 (09:10→17:22)
[2016-08-24] MEDS: FERROUS SULFATE 325 MG TABLET PO SCH (09:10)
[2016-08-24] MEDS: LEVOTHYROXINE SODIUM 0.1 MG TABLET PO SCH (09:10)
[2016-08-24] MEDS: AMLODIPINE BESYLATE 10 MG TABLET PO SCH (09:11)
[2016-08-24] MEDS: SULFAMETHOXAZOLE/TRIMETHOPRIM 800-160 MG TABLET PO SCH ×2 (09:12→17:21)
[2016-08-24] MEDS: DULOXETINE HCL 30 MG CAPSULE.DR PO SCH (09:12)
[2016-08-24] MEDS: LISINOPRIL 10 MG TABLET PO SCH ×2 (09:13→21:33)
[2016-08-24] MEDS: ENOXAPARIN SODIUM INJ 40 MG/0.4 ML DISP.SYRIN SUBCUT SCH (09:13)
[2016-08-24] MEDS: LEVOTHYROXINE SODIUM 0.025 MG TABLET PO SCH (09:13)
[2016-08-24] MEDS: POLYETHYLENE GLYCOL 3350 POWDER 17 GM/1 PACKET PO SCH (09:13)
[2016-08-24] MEDS: OMEGA-3 ACID ETHYL ESTERS 1 GM CAPSULE PO SCH ×2 (09:13→17:21)
[2016-08-24] MEDS: GLIPIZIDE 10 MG TABLET PO SCH ×2 (09:13→17:22)
[2016-08-24] MEDS: INSULIN LISPRO 100 UNIT/ML 3 ML VIAL SUBCUT PRN (09:14)
[2016-08-24] MEDS ORDERED: PREDNISONE 10 MG TABLET PO SCH (10:00)
[2016-08-24] MEDS: INSULIN LISPRO 100 UNIT/ML 3 ML VIAL SUBCUT SCH ×2 (11:32→16:33)
[2016-08-24] MEDS: BACITRACIN ZINC OINTMENT 15 GM TP SCH (11:32)
[2016-08-24] MEDS: LANSOPRAZOLE 15 MG TAB.RAP.DR PO SCH (21:33)
[2016-08-24] MEDS: LORAZEPAM 1 MG TABLET PO SCH (21:33)
[2016-08-24] MEDS: INSULIN GLARGINE SUBCUT SCH (21:33)
[2016-08-24] MEDS: LATANOPROST 0.005% OPH SOLN 2.5 ML OU SCH (21:33)
[2016-08-25] MEDS: OXYCODONE HCL IR 5 MG TABLET PO PRN (01:10)
[2016-08-25] MEDS: LORAZEPAM INJ 2 MG/1 ML VIAL IV PRN (01:10)
[2016-08-25] MEDS: TAPENTADOL PO SCH (05:10)
--- NOTE | 2016-08-25 08:12 | PDOC DISCHARGE SUMMARY ---
General - Admit/Disc Date/PCP Admission Date/Primary Care Provider: 08/18/16 13:41 ELIZABETH SOLER NP Discharge Date: 08/25/16 - Discharge Diagnosis (1) Cellulitis of foot Is this a current diagnosis for this admission?: YesSummary: Improved with local treatment and antibiotics (2) Failure of outpatient treatment Is this a current diagnosis for this admission?: Yes (3) Insulin dependent diabetes mellitus Is this a current diagnosis for this admission?: YesSummary: Improved control with adjustment of insulin's (4) Cellulitis Is this a current diagnosis for this admission?: YesSummary: Improved with local treatment and debridement by surgery (5) COPD (chronic obstructive pulmonary disease) Is this a current diagnosis for this admission?: YesSummary: Stable (6) Obstructive sleep apnea Is this a current diagnosis for this admission?: YesSummary: Stable and controlled with inhalers (7) CAD (coronary artery disease) Is this a current diagnosis for this admission?: YesSummary: Stable and controlled with medications. (8) Hypothyroidism (acquired) Is this a current diagnosis for this admission?: YesSummary: Controlled with medication (9) Rheumatoid arthritis Is this a current diagnosis for this admission?: YesSummary: Poorly controlled. The patient is intolerant to multiple medications. She is presently scheduled for a follow-up with sap crm developer for possible use of new Biologics - Additional Information Discharge Diet: Diabetic Discharge Activity: Activity As Tolerated Home Medications: Albuterol Sulfate [Proair HFA] 2 puff PO Q4 08/18/16 Amlodipine Besylate [Norvasc 10 mg Tablet] 10 mg PO QAM 08/18/16 Duloxetine HCl [Cymbalta] 60 mg PO DAILY 08/18/16 Empagliflozin [Jardiance] 10 mg PO QAM 08/18/16 Glipizide [Glucotrol 10 mg Tablet] 10 mg PO BID 08/18/16 Insulin Glargine,Hum.rec.anlog [Ebony Cardoso] 60 units SQ DAILY 08/18/16 Levothyroxine Sodium [Synthroid] 125 mcg PO QAM 08/18/16 Lisinopril [Prinivil] 20 mg PO QAM 08/18/16 Lorazepam [Ativan] 1.5 mg PO QHS 08/18/16 Metformin HCl [Metformin HCl ER] 500 mg PO BID 08/18/16 Montelukast Sodium [Singulair 10 mg Tablet] 10 mg PO QHS 08/18/16 Mupirocin [Bactroban 2% Ointment 22 gm] 1 applic TOP TID 08/18/16 NPH, Human Insulin Isophane [Humulin N (NPH) Insulin 100 unit/mL] 25 units SQ AC 08/18/16 [place]-3 Acid Ethyl Esters [Lovaza 1 gm Capsule] 1 cap PO BID 08/18/16 Omeprazole 20 mg PO QHS 08/18/16 Oxycodone HCl 15 mg PO TIDP PRN 08/18/16 Prednisone [Deltasone 20 mg Tablet] 20 mg PO DAILY 08/18/16 Tapentadol HCl [Nucynta ER] 150 mg PO Q12 08/18/16 Travoprost (Benzalkonium) [Travatan 0.004% Eye Drop] 1 drop OP QHS 08/18/16 Sulfamethoxazole/Trimethoprim [Septra-Ds 800-160 mg Tablet] 1 tab PO BID #20 tablet 08/25/16 Hospital Course Hospital Course: The patient did well after the hospitalization she was seen by the surgery and had her wounds clean debridement and addressed. She was started on IV antibiotics which have helped with her symptomatology. She was started on paper sealant and vancomycin. Her cultures grew staph aureus which was sensitive to Bactrim. The patient was switched to Bactrim. Her ROM rheumatoid arthritis was acting up and prednisone needed to be readjusted. her blood sugars were not well-controlled because of high dose of prednisone and needed to be adjusted with insulin Physical Exam Vital Signs: Temp Pulse Resp BP Pulse Ox 98.3 F 74 17 168/77 H 99 08/25/16 00:04 08/25/16 00:04 08/25/16 00:04 08/25/16 00:04 08/25/16 01:57 Intake & Output 08/24/16 08/25/16 08/26/16 06:59 06:59 06:59 Intake Total 3065 2935 Output Total 8780 3400 Balance -1785 -465 Weight 101.3 kg 102.8 kg General appearance: PRESENT: no acute distress Head exam: PRESENT: atraumatic Eye exam: PRESENT: conjunctiva pink Neck exam: ABSENT: carotid bruit, JVD Respiratory exam: PRESENT: rhonchi Cardiovascular exam: PRESENT: RRR, +S1, +S2 Pulses: PRESENT: +1 pedal pulses bilateral GI/Abdominal exam: PRESENT: normal bowel sounds, soft Extremities exam: PRESENT: tenderness Musculoskeletal exam: PRESENT: other Neurological exam: PRESENT: alert, awake Skin exam: PRESENT: abrasion, skin tears Results Laboratory Results: 08/22/16 03:50 08/22/16 03:50
[2016-08-25 08:33] VITALS: BP 173/97
[2016-08-25] MEDS: LEVOTHYROXINE SODIUM 0.025 MG TABLET PO SCH (08:46)
[2016-08-25] MEDS: AMLODIPINE BESYLATE 10 MG TABLET PO SCH (08:46)
[2016-08-25] MEDS: LEVOTHYROXINE SODIUM 0.1 MG TABLET PO SCH (08:46)
[2016-08-25] MEDS: INSULIN LISPRO 100 UNIT/ML 3 ML VIAL SUBCUT SCH (08:48)
[2016-08-25] MEDS: ENOXAPARIN SODIUM INJ 40 MG/0.4 ML DISP.SYRIN SUBCUT SCH (08:53)
[2016-08-25] MEDS ORDERED: BACITRACIN ZINC OINTMENT 15 GM TP SCH (11:00)
[2016-08-25] MEDS ORDERED: LORAZEPAM 1 MG TABLET PO SCH (22:00)
== END 2016-08-25 09:45 | disposition home health service (06) | DRG 593 ==
LOC: 5 13:41
PROVIDERS: ADMIT Internal Medicine; ATTEND Internal Medicine
DX: L97.821 Non-pressure chronic ulcer of other part of left lower leg limited to breakdown of skin (principal); L03.116 Cellulitis of left lower limb; L03.311 Cellulitis of abdominal wall; F11.20 Opioid dependence, uncomplicated; N61.1 Abscess of the breast and nipple; L98.491 Non-pressure chronic ulcer of skin of other sites limited to breakdown of skin; L98.9 Disorder of the skin and subcutaneous tissue, unspecified; G89.29 Other chronic pain; M06.9 Rheumatoid arthritis, unspecified; I25.10 Atherosclerotic heart disease of native coronary artery without angina pectoris; E03.9 Hypothyroidism, unspecified; E11.9 Type 2 diabetes mellitus without complications; E78.5 Hyperlipidemia, unspecified; I10 Essential (primary) hypertension; I73.9 Peripheral vascular disease, unspecified; J44.9 Chronic obstructive pulmonary disease, unspecified; J45.909 Unspecified asthma, uncomplicated; D50.9 Iron deficiency anemia, unspecified; K21.9 Gastro-esophageal reflux disease without esophagitis; G47.33 Obstructive sleep apnea (adult) (pediatric); B95.61 Methicillin susceptible Staphylococcus aureus infection as the cause of diseases classified elsewhere; Z87.891 Personal history of nicotine dependence; Z79.84 Long term (current) use of oral hypoglycemic drugs; Z79.4 Long term (current) use of insulin; Z79.899 Other long term (current) drug therapy
CPT/HCPCS: 36415; 80048; 80053; 80202; 82962; 83036; 83735; 84443; 85025; 86430; 87040; 87070; 87077; 87186; 87205; 94640; 94799; G8978-GP; G8979-GP; J1650; J1815; J2060; J2543; J3370; J3490; J7030; J7060; J7512; J7620

== ENCOUNTER 2016-10-07 12:23 | Emergency (ER) | payer MEDICARE, OTHER ==
--- NOTE | 2016-10-07 12:46 | ER Document Report ---
ED General - General Stated Complaint: NAUSEA/VOMITING Mode of Arrival: Medic Information source: Patient, Emergency Med Personnel TRAVEL OUTSIDE OF THE [place] IN LAST 30 DAYS: No - HPI Onset: Other - 2-3 WEEKS Onset/Duration: Gradual Quality of pain: Dull - CHRONIC, IN L.E.'s, POST-TRAUMATIC Severity: Moderate Associated symptoms: Nausea, Vomiting, Sweating - NOCTURNAL. denies: Chest pain , Chills, Fever Exacerbated by: Food Relieved by: Denies Similar symptoms previously: Yes Recently seen / treated by doctor: Yes - 2 WKS AGO, VOMITING PROBLEM NOT DISCUSSED - Related Data Allergies/Adverse Reactions: codeine [Codeine] Allergy (Intermediate, Verified 08/18/16 20:31) itching Past Medical History - General Information source: Patient - Social History Smoking Status: Never Smoker Cigarette use (# per day): No Chew tobacco use (# tins/day): No Frequency of alcohol use: None Drug Abuse: None Lives with: Family Family History: CAD, COPD, CVA, DM, Malignancy - Past Medical History Cardiac Medical History: Reports: Hx Coronary Artery Disease, Hx DVT - Reports history of right knee blood clot, Hx Hypercholesterolemia, Hx Hypertension, Hx Peripheral Vascular Disease - Left renal artery stenting Pulmonary Medical History: Reports: Hx Asthma, Hx COPD, Hx Sleep Apnea EENT Medical History: Reports: None Neurological Medical History: Reports: None Endocrine Medical History: Reports: Hx Diabetes Mellitus Type 2, Hx Hypothyroidism Renal/ Medical History: Reports: None Malignancy Medical History: Reports: Hx Cervical Cancer GI Medical History: Reports: Hx Gastroesophageal Reflux Disease, Hx Hiatal Hernia Musculoskeltal Medical History: Reports Hx Arthritis - Rheumatoid arthritis Psychiatric Medical History: Reports: Hx Depression Traumatic Medical History: Reports: Hx Fractures Past Surgical History: Reports: Hx Cardiac Catheterization, Hx Cholecystectomy, Hx Hysterectomy, Hx Orthopedic Surgery - back surgery x 2, left ankle ORIF, right ankle surgery, Hx Vascular Surgery - Left renal artery stent, Other - Right eardrum surgery in 1968 - Immunizations Hx Diphtheria, Pertussis, Tetanus Vaccination: No Review of Systems - Review of Systems Constitutional: Diaphoresis, Weakness. denies: Chills, Fever EENT: No symptoms reported Cardiovascular: No symptoms reported Respiratory: No symptoms reported Gastrointestinal: See HPI Genitourinary: No symptoms reported Female Genitourinary: Post menopausal Musculoskeletal: See HPI Skin: No symptoms reported Neurological/Psychological: No symptoms reported Physical Exam - Vital signs Vitals: Resp Pulse Ox 10 L 81 L 10/07/16 13:13 10/07/16 13:13 Interpretation: Hypertensive - General General appearance: Appears well, Alert In distress: None - HEENT Head: Normocephalic Eyes: Normal Conjunctiva: Normal Ears: Normal Nasal: Normal Mouth/Lips: Normal Mucous membranes: Dry Pharynx: Normal Neck: Normal, Supple - Respiratory Respiratory status: No respiratory distress Breath sounds: Normal - Cardiovascular Rhythm: Regular Heart sounds: Normal auscultation Murmur: No - Abdominal Inspection: Normal Distension: No distension Bowel sounds: Normal Tenderness: Nontender - Back Back: Normal - Extremities General upper extremity: Normal inspection General lower extremity: Normal inspection - Neurological Neuro grossly intact: Yes Cognition: Normal Orientation: AAOx4 - Psychological Associated symptoms: Normal affect, Normal mood - Skin Skin Temperature: Warm Skin Moisture: Dry Skin Color: Normal Skin Turgor: Elastic Skin irregularity: other - NUMEROUS ECCHYMOSES OF VARYING AGES. SEVERAL PARTIAL- THICKNESS ULCERATIONS SCATTERED ON TORSO & L.E.'s Course - Re-evaluation Re-evalutation: 10/07/16 18:55 Patient states she feels somewhat improved. Results of laboratory and radiographic studies discussed. Strategies for managing nausea and maintaining hydration discussed. - Vital Signs Vital signs: Temp Pulse Resp BP Pulse Ox 98.1 F 72 22 H 174/84 H 100 10/07/16 13:25 10/07/16 13:25 10/07/16 18:01 10/07/16 18:01 10/07/16 18:01 - Laboratory Result Diagrams: 10/07/16 13:16 10/07/16 13:16 Laboratory results interpreted by me: 10/07/16 10/07/16 10/07/16 13:16 13:16 14:52 WBC 14.5 H Hgb 11.4 L Hct 35.8 L MCV 75 L MCH 24.0 L MCHC 31.8 L RDW 17.9 H Seg Neuts % (Manual) 81 H Band Neutrophils % 1 L Lymphocytes % (Manual) 8 L Metamyelocytes % 2 H Myelocytes % 1 H Abs Neuts (Manual) 12.3 H Potassium 3.4 L Alkaline Phosphatase 131 H Urine Protein >=500 H - Diagnostic Test Radiology reviewed: Image reviewed, Reports reviewed Discharge - Discharge Clinical Impression: Dehydration Vomiting Qualifiers: Vomiting type: unspecified Vomiting Intractability: non-intractable Nausea presence: with nausea Qualified Code(s): R11.2 - Nausea with vomiting, unspecified Condition: Stable Disposition: HOME, SELF-CARE Instructions: Vomiting ([facility]), Intravenous (IV) Fluids ([facility]), Dehydration ([facility]) Additional Instructions: REST, DRINK PLENTY OF FLUIDS. YOU MAY TAKE ZOFRAN IF NEEDED FOR NAUSEA CONTROL. CONTINUE ALL OTHER MEDS USUAL. FOLLOW UP WITH DR. Vivar, CALL OFFICE TOMORROW FOR APPOINTMENT. Prescriptions: Ondansetron [Zofran Odt 4 mg Tablet] 1 - 2 tab PO Q4H #10 [email or web address] Referrals: ETHAN LATHAM MD [Primary Care Provider] - Follow up in 3-5 days
[2016-10-07 13:51] LABS: HEMATOCRIT 35.8 % (36.0-47.0); HEMOGLOBIN 11.4 g/dL (12.0-15.5); HGB HCT DIFFERENCE -1.6; MEAN CORPUSCULAR HGB CONC 31.8 g/dL (32.0-36.0); MEAN CORPUSCULAR VOLUME 75 fl (80-97); RED BLOOD COUNT 4.74 10^6/uL (3.72-5.28); RED CELL DISTRIBUTION WIDTH 17.9 % (11.5-14.0); WHITE BLOOD COUNT 14.5 10^3/uL (4.0-10.5)
[2016-10-07 14:14] LABS: ALANINE AMINOTRANSFERASE 49 U/L (9-52); ALBUMIN 3.7 g/dL (3.5-5.0); ALKALINE PHOSPHATASE 131 U/L (38-126); ANION GAP 15 (5-19); ASPARTATE AMINO TRANSFERASE 35 U/L (14-36); BILIRUBIN,DIRECT 0.3 mg/dL (0.0-0.4); BILIRUBIN,TOTAL 0.6 mg/dL (0.2-1.3); BLOOD UREA NITROGEN 19 mg/dL (7-20); CALCIUM 9.3 mg/dL (8.4-10.2); CARBON DIOXIDE 29 mmol/L (22-30); CHLORIDE 101 mmol/L (98-107); CREATININE RESULT 0.79 mg/dL (0.52-1.25); GLUCOSE 92 mg/dL (75-110); LIPASE 224.3 U/L (23-300); POTASSIUM 3.4 mmol/L (3.6-5.0); SODIUM 144.6 mmol/L (137-145); TOTAL PROTEIN 6.3 g/dL (6.3-8.2)
[2016-10-07 14:21] LABS: BAND NEUTROPHILS % (MANUAL) 1 % (3-5); BASOPHILS % (MANUAL) 0 % (0-2); EOSINOPHILS % (MANUAL) 0 % (0-6); LYMPHOCYTES % (MANUAL) 8 % (13-45); TOTAL CELLS COUNTED 100
[2016-10-07 14:23] LABS: ANISOCYTOSIS 1+; MICROCYTOSIS 1+; TOXIC GRANULATION SLIGHT
[2016-10-07] MEDS ORDERED: NORMAL SALINE 1000 ML 1,000 ML IV ONE ×2 (14:51→16:36)
[2016-10-07 15:04] LABS: APPEARANCE,URINE SLIGHTLY-CLOUDY; BILIRUBIN,URINE NEGATIVE (NEGATIVE); GLUCOSE, URINE NEGATIVE (NEGATIVE); KETONES,URINE NEGATIVE (NEGATIVE); LEUKOCYTE ESTERASE,URINE NEGATIVE (NEGATIVE); NITRITE,URINE NEGATIVE (NEGATIVE); PROTEIN,URINE >=500 mg/dL (NEGATIVE); UROBILINOGEN,URINE NEGATIVE mg/dL (<2.0)
[2016-10-07] MEDS ORDERED: HYDROMORPHONE HCL INJ/PF 2 MG/ML AMPULE IV ONE (16:00)
[2016-10-07] MEDS ORDERED: ONDANSETRON HCL INJ/PF 4 MG/2 ML SDV IV ONE (16:00)
[2016-10-07] MEDS ORDERED: ONDANSETRON ODT 4 MG TAB (6 TAB/DSPK) PO PRN (19:01)
[2016-10-07 20:48] VITALS: BP 169/86
[2016-10-08 16:42] LABS: PATH REVIEW PATHOLOGIST REVIEWED
== END 2016-10-07 20:15 | disposition home or self-care (01) ==
LOC: ER 12:23
DX: R11.2 Nausea with vomiting, unspecified (principal); R61 Generalized hyperhidrosis; R53.1 Weakness; R58 Hemorrhage, not elsewhere classified; E11.622 Type 2 diabetes mellitus with other skin ulcer; L98.499 Non-pressure chronic ulcer of skin of other sites with unspecified severity; I25.10 Atherosclerotic heart disease of native coronary artery without angina pectoris; I10 Essential (primary) hypertension; J44.9 Chronic obstructive pulmonary disease, unspecified; Z85.41 Personal history of malignant neoplasm of cervix uteri; Z88.5 Allergy status to narcotic agent; Z86.718 Personal history of other venous thrombosis and embolism
CPT/HCPCS: 99284; 96361; 96374; 96375; 36415; 83690; 85025; 80053; 81001; 74022; J1170; J2405; J7030; A9270

== ENCOUNTER 2016-11-05 12:34 | Emergency (ER) | payer MEDICARE, OTHER ==
[2016-11-05] MEDS ORDERED: NORMAL SALINE 1000 ML 1,000 ML IV ONE ×2 (12:53→14:27)
[2016-11-05] MEDS ORDERED: KETOROLAC TROMETHAMINE INJ/PF 30 MG/1 ML SDV IV ONE (13:08)
[2016-11-05 14:02] LABS: HEMOGLOBIN 10.3 g/dL (12.0-15.5); HGB HCT DIFFERENCE -2.1; MEAN CORPUSCULAR HGB CONC 31.3 g/dL (32.0-36.0); MEAN CORPUSCULAR VOLUME 77 fl (80-97); RED BLOOD COUNT 4.31 10^6/uL (3.72-5.28); RED CELL DISTRIBUTION WIDTH 17.7 % (11.5-14.0); WHITE BLOOD COUNT 12.6 10^3/uL (4.0-10.5)
[2016-11-05 14:13] LABS: BLOOD UREA NITROGEN 24 mg/dL (7-20); CALCIUM 8.6 mg/dL (8.4-10.2); CARBON DIOXIDE 25 mmol/L (22-30); CHLORIDE 98 mmol/L (98-107); CREATININE RESULT 0.79 mg/dL (0.52-1.25); POTASSIUM 5.1 mmol/L (3.6-5.0)
[2016-11-05 14:14] LABS: ANION GAP 14 (5-19); LIPASE 179.6 U/L (23-300)
[2016-11-05 14:15] LABS: CREATINE KINASE < 20 U/L (30-135)
[2016-11-05 14:22] LABS: GLUCOSE 457 mg/dL (75-110)
[2016-11-05 14:26] LABS: BAND NEUTROPHILS % (MANUAL) 1 % (3-5); BASOPHILS % (MANUAL) 1 % (0-2); EOSINOPHILS % (MANUAL) 0 % (0-6); LYMPHOCYTES % (MANUAL) 8 % (13-45); TOTAL CELLS COUNTED 100
[2016-11-05] MEDS ORDERED: INSULIN REG, HUMAN 100 UNIT/ML 3 ML VIAL (PYX) SUBCUT ONE ×2 (14:27→15:22)
[2016-11-05 14:29] LABS: ANISOCYTOSIS 1+; MICROCYTOSIS SLIGHT; TOXIC GRANULATION 1+
[2016-11-05 15:24] LABS: APPEARANCE,URINE CLEAR; BILIRUBIN,URINE NEGATIVE (NEGATIVE); GLUCOSE, URINE >=500 mg/dL (NEGATIVE); KETONES,URINE NEGATIVE (NEGATIVE); LEUKOCYTE ESTERASE,URINE NEGATIVE (NEGATIVE); NITRITE,URINE NEGATIVE (NEGATIVE); PROTEIN,URINE 30 mg/dL (NEGATIVE); URINE SPECIFIC GRAVITY 1.024; UROBILINOGEN,URINE NEGATIVE mg/dL (<2.0)
[2016-11-05] MEDS ORDERED: CLINDAMYCIN HCL 150 MG CAPSULE PO ONE (15:54)
--- NOTE | 2016-11-05 16:01 | ER Document Report ---
ED General - General Chief Complaint: Pain All Over Stated Complaint: BLOOD SUGAR PROBLEM TRAVEL OUTSIDE OF THE [place] IN LAST 30 DAYS: No - HPI Patient complains to provider of: diffuse pain elevated blood sugar Notes: Patient coming in complaining of pain all over ongoing for greater than a week. Patient states recently was seen by her primary care physician due to some skin ulcerations that may be infected was prescribed clindamycin. Patient states she also does see a chronic pain management however that she is having diffuse myalgias. Denies any fevers chills nausea vomiting diarrhea. Patient also is concerned her blood sugars are elevated. Blood sugar was good at 500 upon EMS arrival. Patient denies any recent travel or changes in her medications so for the antibiotic which she has not filled yet. - Related Data Allergies/Adverse Reactions: codeine [Codeine] Allergy (Intermediate, Verified 11/05/16 14:07) itching Past Medical History - Social History Smoking Status: Former Smoker Chew tobacco use (# tins/day): No Frequency of alcohol use: None Drug Abuse: None Family History: CAD, COPD, CVA, DM, Malignancy - Past Medical History Cardiac Medical History: Reports: Hx Coronary Artery Disease, Hx DVT - Reports history of right knee blood clot, Hx Hypercholesterolemia, Hx Hypertension, Hx Peripheral Vascular Disease - Left renal artery stenting Pulmonary Medical History: Reports: Hx Asthma, Hx Bronchitis, Hx COPD, Hx Pneumonia, Hx Sleep Apnea Endocrine Medical History: Reports: Hx Diabetes Mellitus Type 2, Hx Hypothyroidism Renal/ Medical History: Denies: Hx Peritoneal Dialysis Malignancy Medical History: Reports: Hx Cervical Cancer GI Medical History: Reports: Hx Gastroesophageal Reflux Disease, Hx Hiatal Hernia, Hx Ulcer - Diabetic wounds Musculoskeltal Medical History: Reports Hx Arthritis - Rheumatoid arthritis Psychiatric Medical History: Reports: Hx Depression Traumatic Medical History: Reports: Hx Fractures Past Surgical History: Reports: Hx Cardiac Catheterization, Hx Cholecystectomy, Hx Hysterectomy, Hx Orthopedic Surgery - back surgery x 2, left ankle ORIF, right ankle surgery, Hx Vascular Surgery - Left renal artery stent, Other - Right eardrum surgery in 1968 - Immunizations Hx Diphtheria, Pertussis, Tetanus Vaccination: No Review of Systems - Review of Systems Constitutional: No symptoms reported EENT: No symptoms reported Cardiovascular: No symptoms reported Respiratory: No symptoms reported Gastrointestinal: No symptoms reported Genitourinary: No symptoms reported Female Genitourinary: No symptoms reported Musculoskeletal: Other - Diffuse myalgias with wound infections Skin: No symptoms reported Hematologic/Lymphatic: No symptoms reported Neurological/Psychological: No symptoms reported Physical Exam - Vital signs Vitals: Resp Pulse Ox 16 96 11/05/16 13:52 11/05/16 13:52 Interpretation: Normal - General General appearance: Appears well, Alert - HEENT Head: Normocephalic, Atraumatic Eyes: Normal Pupils: PERRL - Respiratory Respiratory status: No respiratory distress Chest status: Nontender Breath sounds: Normal Chest palpation: Normal - Cardiovascular Rhythm: Regular Heart sounds: Normal auscultation Murmur: No - Abdominal Inspection: Normal Distension: No distension Bowel sounds: Normal Tenderness: Nontender Organomegaly: No organomegaly Notes: Patient has no abdominal wall wound looks to be infected with some surrounding cellulitis. Patient also has a wound on the left lower leg that is partially recently by 3 cm with some surrounding cellulitis. - Back Back: Normal, Nontender - Extremities General upper extremity: Normal inspection, Nontender, Normal color, Normal ROM , Normal temperature General lower extremity: Normal inspection, Nontender, Normal color, Normal ROM , Normal temperature, Normal weight bearing. No: Rao's sign - Neurological Neuro grossly intact: Yes Cognition: Normal Orientation: AAOx4 Rony Coma Scale Eye Opening: Spontaneous [place] Coma Scale Verbal: Oriented Rony Coma Scale Motor: Obeys Commands Rony Coma Scale Total: 15 Speech: Normal Motor strength normal: LUE, RUE, LLE, RLE Sensory: Normal - Psychological Associated symptoms: Normal affect, Normal mood - Skin Skin Temperature: Warm Skin Moisture: Dry Skin Color: Normal Course - Re-evaluation Re-evalutation: 11/05/16 15:59 Patient's lab work does not show any signs of a hHS or DKA. Patient was given subcutaneous insulin IV fluids urinalysis was negative. Patient will be given a dose or clindamycin here encouraged patient to have the prescription filled on her way home however no critical etiologies patient will be discharged home 11/05/16 16:00 Patient requesting to eat. - Vital Signs Vital signs: Temp Pulse Resp BP Pulse Ox 17 166/81 H 97 11/05/16 15:01 11/05/16 15:01 11/05/16 15:01 - Laboratory Result Diagrams: 11/05/16 13:49 11/05/16 13:49 Laboratory results interpreted by me: 11/05/16 11/05/16 11/05/16 13:49 13:49 13:49 WBC 12.6 H Hgb 10.3 L Hct 33.0 L MCV 77 L MCH 24.0 L MCHC 31.3 L RDW 17.7 H Seg Neuts % (Manual) 88 H Band Neutrophils % 1 L Lymphocytes % (Manual) 8 L Monocytes % (Manual) 1 L Myelocytes % 1 H Abs Neuts (Manual) 11.3 H Potassium 5.1 H BUN 24 H Glucose 457 H* POC Glucose Hemoglobin A1c % 9.4 H Creatine Kinase < 20 L Urine Protein Urine Glucose (UA) Urine Blood 11/05/16 11/05/16 15:10 15:19 WBC Hgb Hct MCV MCH MCHC RDW Seg Neuts % (Manual) Band Neutrophils % Lymphocytes % (Manual) Monocytes % (Manual) Myelocytes % Abs Neuts (Manual) Potassium BUN Glucose POC Glucose 429 H* Hemoglobin A1c % Creatine Kinase Urine Protein 30 H Urine Glucose (UA) >=500 H Urine Blood SMALL H Discharge - Discharge Clinical Impression: Hyperglycemia, Multiple wounds of skin, Wound infection Condition: Good Instructions: Wound Infection ([facility]), Hyperglycemia ([facility]) Additional Instructions: Please take your medication as prescribed. Please have your antibiotics filled. Return to the ER if symptoms worsen. Follow-up your primary care physician in the next 3-5 days Referrals: ETHAN LATHAM MD [Primary Care Provider] - Follow up in 3-5 days
[2016-11-05 16:50] VITALS: BP 177/88
[2016-11-06 19:54] LABS: PATH REVIEW PATHOLOGIST REVIEWED
== END 2016-11-05 16:54 | disposition home or self-care (01) ==
LOC: ER 12:34
DX: E11.65 Type 2 diabetes mellitus with hyperglycemia (principal); R52 Pain, unspecified; R73.9 Hyperglycemia, unspecified; Z87.891 Personal history of nicotine dependence; G89.29 Other chronic pain
CPT/HCPCS: 99285; 96361; 96374; 36415; 82962; 82550; 83690; 85025; 80048; 81001; 83036; A9270 ×2; J1885; J7030; J1815

== ENCOUNTER → 2016-11-16 | Outpatient (CLI) | payer MEDICARE, OTHER ==
[2016-11-16 13:39] LABS: HEMATOCRIT 34.4 % (36.0-47.0); HEMOGLOBIN 10.6 g/dL (12.0-15.5); HGB HCT DIFFERENCE -2.6; MEAN CORPUSCULAR HEMOGLOBIN 23.8 pg (27.0-33.4); MEAN CORPUSCULAR HGB CONC 30.8 g/dL (32.0-36.0); MEAN CORPUSCULAR VOLUME 77 fl (80-97); RED BLOOD COUNT 4.46 10^6/uL (3.72-5.28); RED CELL DISTRIBUTION WIDTH 17.5 % (11.5-14.0); WHITE BLOOD COUNT 17.4 10^3/uL (4.0-10.5)
[2016-11-16 13:58] LABS: ALANINE AMINOTRANSFERASE 69 U/L (9-52); ALBUMIN 3.8 g/dL (3.5-5.0); ALKALINE PHOSPHATASE 176 U/L (38-126); ANION GAP 13 (5-19); ASPARTATE AMINO TRANSFERASE 50 U/L (14-36); BASOPHILS % (MANUAL) 2 % (0-2); BILIRUBIN,DIRECT 0.4 mg/dL (0.0-0.4); BILIRUBIN,TOTAL 0.7 mg/dL (0.2-1.3); BLOOD UREA NITROGEN 19 mg/dL (7-20); CALCIUM 9.2 mg/dL (8.4-10.2); CARBON DIOXIDE 29 mmol/L (22-30); CHLORIDE 96 mmol/L (98-107); CREATININE RESULT 0.89 mg/dL (0.52-1.25); EOSINOPHILS % (MANUAL) 1 % (0-6); LYMPHOCYTES % (MANUAL) 6 % (13-45); POTASSIUM 4.7 mmol/L (3.6-5.0); SODIUM 138.3 mmol/L (137-145); TOTAL CELLS COUNTED 100; TOTAL PROTEIN 6.5 g/dL (6.3-8.2)
[2016-11-16 14:03] LABS: ANISOCYTOSIS 2+; HYPOCHROMASIA SLIGHT; MICROCYTOSIS SLIGHT; OVALOCYTES 1+; POIKILOCYTOSIS 1+; POLYCHROMASIA 1+; ROULEAUX 1+; TEAR DROP CELLS SLIGHT; TOXIC GRANULATION SLIGHT
[2016-11-16 14:09] LABS: GLUCOSE 416 mg/dL (75-110)
[2016-11-16 14:21] LABS: ERYTHROCYTE SEDIMENTATION RATE 53 mm/hr (0-30)
[2016-11-17 15:27] LABS: PATH REVIEW PATHOLOGIST REVIEWED
== END ==
LOC: WC 12:47
PROVIDERS: ATTEND Nurse Practitioner Family
DX: E11.621 Type 2 diabetes mellitus with foot ulcer (principal); L97.312 Non-pressure chronic ulcer of right ankle with fat layer exposed; L97.222 Non-pressure chronic ulcer of left calf with fat layer exposed
CPT/HCPCS: 36415; 80053; 83036; 85025; 85652; 86140

== ENCOUNTER 2016-11-18 15:33 | Emergency (ER) | payer MEDICARE ==
--- NOTE | 2016-11-18 15:51 | ER Document Report ---
ED Blood Sugar Problem - General Mode of Arrival: Medic Information source: Patient TRAVEL OUTSIDE OF THE [place] IN LAST 30 DAYS: No - HPI Patient complains to provider of: Hyperglycemia Onset: Just prior to arrival Associated symptoms: Other - see notes above <BHARAT HARVEY - Last Filed: 11/18/16 15:57> <MOI HUDSON - Last Filed: 11/18/16 19:46> - General Chief Complaint: High Blood Sugar Stated Complaint: BLOOD SUGAR ISSUE Time Seen by Provider: 11/18/16 15:43 Notes: 71 year old female with history of diabetes mellitus type I, CAD, hypertension, and hyperlipidema presents to the ED via EMS after having a blood sugar of 527 at a wound care clinic at 1455 this afternoon. Patient reports that she was not treated at the wound care clinic prior to arrival. Patient additionally complains of nausea, right rib pain, and hip pain. Patient reports to taking insulin this morning after checking her blood sugar which was in the "300s". Patient is on 40 mg Oxycontin QID and Ativan BID. (BHAART HARVEY) - Related Data Allergies/Adverse Reactions: codeine [Codeine] Allergy (Intermediate, Verified 11/18/16 16:57) itching Past Medical History - General Information source: Patient - Social History Smoking Status: Unknown if Ever Smoked Family History: CAD, COPD, CVA, DM, Malignancy - Past Medical History Cardiac Medical History: Reports: Hx Coronary Artery Disease, Hx DVT - Reports history of right knee blood clot, Hx Hypercholesterolemia, Hx Hypertension, Hx Peripheral Vascular Disease - Left renal artery stenting Pulmonary Medical History: Reports: Hx Asthma, Hx Bronchitis, Hx COPD, Hx Pneumonia, Hx Sleep Apnea Endocrine Medical History: Reports: Hx Diabetes Mellitus Type 2, Hx Hypothyroidism Renal/ Medical History: Denies: Hx Peritoneal Dialysis Malignancy Medical History: Reports: Hx Cervical Cancer GI Medical History: Reports: Hx Gastroesophageal Reflux Disease, Hx Hiatal Hernia, Hx Ulcer - Diabetic wounds Musculoskeltal Medical History: Reports Hx Arthritis - Rheumatoid arthritis Psychiatric Medical History: Reports: Hx Depression Traumatic Medical History: Reports: Hx Fractures Past Surgical History: Reports: Hx Cardiac Catheterization, Hx Cholecystectomy, Hx Hysterectomy, Hx Orthopedic Surgery - back surgery x 2, left ankle ORIF, right ankle surgery, Hx Vascular Surgery - Left renal artery stent, Other - Right eardrum surgery in 1968 - Immunizations Hx Diphtheria, Pertussis, Tetanus Vaccination: No <BHARAT HARVEY - Last Filed: 11/18/16 15:57> Review of Systems - Review of Systems Constitutional: No symptoms reported EENT: No symptoms reported Cardiovascular: See HPI, Other - hyperglycemia Respiratory: No symptoms reported Gastrointestinal: See HPI, Nausea Genitourinary: No symptoms reported Female Genitourinary: No symptoms reported Musculoskeletal: See HPI, Other - hip and right rib pain. Skin: No symptoms reported Hematologic/Lymphatic: No symptoms reported Neurological/Psychological: No symptoms reported -: Yes All other systems reviewed and negative <DEVENDRA HARVEYUR - Last Filed: 11/18/16 15:57> Physical Exam - General General appearance: Alert In distress: None - HEENT Head: Normocephalic, Atraumatic Eyes: Normal Extraocular movements intact: Yes Pupils: PERRL - Respiratory Respiratory status: No respiratory distress Breath sounds: Normal - Cardiovascular Rhythm: Regular Heart sounds: Normal auscultation - Abdominal Inspection: Obese, Other - Skin sores with surrounding erythema to the lower abdomen and perineum.. No: Normal Distension: No distension Bowel sounds: Normal Tenderness: Nontender - Back Back: Normal - Extremities General upper extremity: Normal inspection, Normal ROM General lower extremity: Other - Skin sores with surrounding erythema to the left anterior leg. No: Normal inspection - Neurological Neuro grossly intact: Yes - Psychological Associated symptoms: Normal affect, Normal mood - Skin Skin Temperature: Warm Skin Moisture: Dry Skin Color: Normal Skin irregularity: other - See extremity exam above. <HARVEYBHARAT - Last Filed: 11/18/16 15:57> Course <HARVEYBHARAT - Last Filed: 11/18/16 15:57> - Laboratory Result Diagrams: 11/18/16 16:15 11/18/16 16:15 <MOI HUDSON - Last Filed: 11/18/16 19:46> - Re-evaluation Re-evalutation: 11/18/16 19:41 I attempted to discuss the patient's management of her diabetes. She is in such tremendous denial it was a waste of time. When I advised her to drink more fluids, she states she drinks lots of water started describing the containers and how much she is drinking, tiny how everyone tells her they can understand how she can be drinking so much water. Her urine specific gravity 1.028 and this discussion with nowhere. When trying to discuss her insulin regimens, she keeps saying she is tried all kinds of his insulins she keeps mentioning FRANSICO, she says Dr. Latham gave her a type and swelling and she couldn't afford. She cannot name any of the insulin that she is taking, she cannot tell me any doses that she is taking. When I asked her about using regular insulin for sliding scale, she states she has tried all that nothing works and she just related to give out. I've advised her to drink plenty of water despite what she thinks she is doing, to use her insulin dosing based on her blood sugars this evening, and to follow- up with her primary care provider tomorrow to review her diabetes management. An Accu-Chek is now 434. I had ordered insulin prior to 4 PM this afternoon, at the same time I ordered her Zofran. It appears that the ngmoco kicked out the insulin order an only put through the Zofran ordered. I discover this about 6 PM that she had never received insulin. She was then given 10 units of regular insulin, I suspect between the amount of time it has been since being given, and her unwillingness to drink plenty of water and stay hydrated, it may take some time before that regular insulin begins to act. (MOI HUDSON) - Vital Signs Vital signs: Temp Pulse Resp BP Pulse Ox 98.1 F 102 H 18 144/69 H 97 11/18/16 18:11 11/18/16 18:11 11/18/16 18:11 11/18/16 18:11 11/18/16 18:11 - Laboratory Laboratory results interpreted by me: 11/18/16 11/18/16 11/18/16 16:15 16:15 17:16 Hgb 9.8 L Hct 31.7 L MCV 77 L MCH 23.9 L MCHC 30.9 L RDW 17.5 H Band Neutrophils % 1 L Monocytes % (Manual) 0 L Metamyelocytes % 6 H Myelocytes % 1 H Abs Monocytes (Manual) 0.0 L Sodium 134.3 L Chloride 94 L Carbon Dioxide 32 H BUN 26 H Est GFR ( Amer) 51 L Est GFR (Non-Af Amer) 42 L Glucose 509 H* Direct Bilirubin 0.6 H ALT 57 H Alkaline Phosphatase 165 H Total Protein 6.0 L Albumin 3.3 L Urine Protein 30 H Urine Glucose (UA) >=500 H Discharge <BHARAT HARVEY - Last Filed: 11/18/16 15:57> <MOI HUDSON - Last Filed: 11/18/16 19:46> - Discharge Clinical Impression: Poorly controlled diabetes mellitus, 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 Chest her sugars and take additional insulin as needed. Drink more water. Follow-up with your doctor tomorrow to discuss your blood sugar management problems. RETURN TO THE EMERGENCY ROOM IF ANY NEW OR WORSENING SYMPTOMS. Referrals: ETHAN LATHAM MD [Primary Care Provider] - Follow up tomorrow [place] Attestation: 11/18/16 19:46 I personally performed the services described in the documentation, reviewed and edited the documentation which was dictated to the scribe in my presence, and it accurately records my words and actions. (MOI HUDSON) Scribe Documentation - Scribe Written by Ghazal:: Ghazal Mitchell, 11/18/2016 1608 acting as scribe for :: Hue <BHARAT HARVEY - Last Filed: 11/18/16 15:57>
[2016-11-18] MEDS ORDERED: ONDANSETRON 4 MG TAB.RAPDIS PO ONE (15:52)
[2016-11-18 17:00] LABS: HEMATOCRIT 31.7 % (36.0-47.0); HEMOGLOBIN 9.8 g/dL (12.0-15.5); HGB HCT DIFFERENCE -2.3; MEAN CORPUSCULAR HEMOGLOBIN 23.9 pg (27.0-33.4); MEAN CORPUSCULAR HGB CONC 30.9 g/dL (32.0-36.0); MEAN CORPUSCULAR VOLUME 77 fl (80-97); RED BLOOD COUNT 4.09 10^6/uL (3.72-5.28); RED CELL DISTRIBUTION WIDTH 17.5 % (11.5-14.0); WHITE BLOOD COUNT 9.1 10^3/uL (4.0-10.5)
[2016-11-18 17:18] LABS: ALANINE AMINOTRANSFERASE 57 U/L (9-52); ALBUMIN 3.3 g/dL (3.5-5.0); ALKALINE PHOSPHATASE 165 U/L (38-126); ANION GAP 8 (5-19); ASPARTATE AMINO TRANSFERASE 34 U/L (14-36); BILIRUBIN,DIRECT 0.6 mg/dL (0.0-0.4); BILIRUBIN,TOTAL 0.9 mg/dL (0.2-1.3); BLOOD UREA NITROGEN 26 mg/dL (7-20); CALCIUM 8.7 mg/dL (8.4-10.2); CARBON DIOXIDE 32 mmol/L (22-30); CHLORIDE 94 mmol/L (98-107); CREATININE RESULT 1.25 mg/dL (0.52-1.25); POTASSIUM 4.1 mmol/L (3.6-5.0); SODIUM 134.3 mmol/L (137-145)
[2016-11-18 17:40] LABS: GLUCOSE 509 mg/dL (75-110)
[2016-11-18 17:41] LABS: APPEARANCE,URINE CLEAR; BILIRUBIN,URINE NEGATIVE (NEGATIVE); GLUCOSE, URINE >=500 mg/dL (NEGATIVE); KETONES,URINE NEGATIVE (NEGATIVE); LEUKOCYTE ESTERASE,URINE NEGATIVE (NEGATIVE); NITRITE,URINE NEGATIVE (NEGATIVE); PROTEIN,URINE 30 mg/dL (NEGATIVE); URINE SPECIFIC GRAVITY 1.028; UROBILINOGEN,URINE NEGATIVE mg/dL (<2.0)
[2016-11-18 17:53] LABS: BAND NEUTROPHILS % (MANUAL) 1 % (3-5); BASOPHILS % (MANUAL) 0 % (0-2); EOSINOPHILS % (MANUAL) 1 % (0-6); LYMPHOCYTES % (MANUAL) 31 % (13-45); TOTAL CELLS COUNTED 100
[2016-11-18 17:56] LABS: ANISOCYTOSIS 1+; HYPOCHROMASIA 1+; MICROCYTOSIS SLIGHT; POLYCHROMASIA SLIGHT; TOXIC GRANULATION SLIGHT
[2016-11-18 17:57] LABS: TEAR DROP CELLS SLIGHT
[2016-11-18 18:12] VITALS: BP 144/69
[2016-11-18] MEDS ORDERED: INSULIN REG, HUMAN 100 UNIT/ML 3 ML VIAL (PYX) SUBCUT ONE (18:14)
[2016-11-20 15:09] LABS: PATH REVIEW PATHOLOGIST REVIEWED
== END 2016-11-18 20:33 | disposition home or self-care (01) ==
LOC: ER 15:33
DX: E11.622 Type 2 diabetes mellitus with other skin ulcer (principal); L98.499 Non-pressure chronic ulcer of skin of other sites with unspecified severity; Z79.4 Long term (current) use of insulin; I25.10 Atherosclerotic heart disease of native coronary artery without angina pectoris; I10 Essential (primary) hypertension; R11.0 Nausea; R07.81 Pleurodynia; M25.559 Pain in unspecified hip; J44.9 Chronic obstructive pulmonary disease, unspecified; Z79.891 Long term (current) use of opiate analgesic; Z79.899 Other long term (current) drug therapy; Z88.5 Allergy status to narcotic agent; Z86.718 Personal history of other venous thrombosis and embolism; Z85.41 Personal history of malignant neoplasm of cervix uteri
CPT/HCPCS: 99284; 36415; 82962; 85025; 80053; 81001; A9270 ×2; J1815; S0119

== ENCOUNTER 2016-11-19 18:31 | Inpatient (IN) | payer MEDICARE ==
--- NOTE | 2016-11-19 19:09 | ER Document Report ---
ED Hip Pain/Injury - General Chief Complaint: Hip Pain Stated Complaint: FALL/RIGHT HIP PAIN Time Seen by Provider: 11/19/16 18:40 Notes: The patient is a 71-year-old female, past medical history diabetes, COPD (on home 2L O2), chronic back pain, presents with right hip pain after she fell off a bedside commode earlier today. She was given 50 g of fentanyl by EMS prior to arrival. Pain is controlled. Patient denies numbness, tingling, head injury or neck pain. TRAVEL OUTSIDE OF THE [place] IN LAST 30 DAYS: No - Related Data Allergies/Adverse Reactions: codeine [Codeine] Allergy (Intermediate, Verified 11/19/16 18:33) itching Past Medical History - General Information source: Patient, Emergency Med Personnel - Social History Smoking Status: Unknown if Ever Smoked Family History: CAD, COPD, CVA, DM, Malignancy - Past Medical History Cardiac Medical History: Reports: Hx Coronary Artery Disease, Hx DVT - Reports history of right knee blood clot, Hx Hypercholesterolemia, Hx Hypertension, Hx Peripheral Vascular Disease - Left renal artery stenting Pulmonary Medical History: Reports: Hx Asthma, Hx Bronchitis, Hx COPD, Hx Pneumonia, Hx Sleep Apnea Endocrine Medical History: Reports: Hx Diabetes Mellitus Type 1, Hx Diabetes Mellitus Type 2, Hx Hypothyroidism Renal/ Medical History: Denies: Hx Peritoneal Dialysis Malignancy Medical History: Reports: Hx Cervical Cancer GI Medical History: Reports: Hx Gastroesophageal Reflux Disease, Hx Hiatal Hernia, Hx Ulcer - Diabetic wounds Musculoskeltal Medical History: Reports Hx Arthritis - Rheumatoid arthritis Psychiatric Medical History: Reports: Hx Depression Traumatic Medical History: Reports: Hx Fractures Past Surgical History: Reports: Hx Cardiac Catheterization, Hx Cholecystectomy, Hx Hysterectomy, Hx Orthopedic Surgery - back surgery x 2, left ankle ORIF, right ankle surgery, Hx Vascular Surgery - Left renal artery stent, Other - Right eardrum surgery in 1968 - Immunizations Hx Diphtheria, Pertussis, Tetanus Vaccination: No Review of Systems - Review of Systems Notes: REVIEW OF SYSTEMS: CONSTITUTIONAL: -fevers, -chills EENT: -eye pain, -difficulty swallowing, -nasal congestion CARDIOVASCULAR:-chest pain, -syncope. RESPIRATORY: -cough, -SOB GASTROINTESTINAL: -abdominal pain, -nausea, -vomiting, -diarrhea GENITOURINARY: -dysuria, -hematuria MUSCULOSKELETAL: -back pain, -neck pain, +right hip pain SKIN: -rash or skin lesions. HEMATOLOGIC: -easy bruising or bleeding. LYMPHATIC: -swollen, enlarged glands. NEUROLOGICAL: -altered mental status or loss of consciousness, -headache, - neurologic symptoms PSYCHIATRIC: -anxiety, -depression. ALL OTHER SYSTEMS REVIEWED AND NEGATIVE. Physical Exam - Vital signs Vitals: Resp 18 11/19/16 18:33 - Notes Notes: PHYSICAL EXAMINATION: GENERAL: In no acute distress. HEAD: Atraumatic, normocephalic. EYES: Extraocular movements intact, sclera anicteric, conjunctiva are normal. ENT: nares patent, oropharynx clear without exudates. Moist mucous membranes. NECK: Normal range of motion, supple without lymphadenopathy LUNGS: Breath sounds clear to auscultation bilaterally and equal. No wheezes rales or rhonchi. HEART: Regular rate and rhythm without murmurs ABDOMEN: Soft, nontender, normoactive bowel sounds. No guarding, no rebound. No masses appreciated. EXTREMITIES: Tenderness over right lateral hip with ecchymosis, Painful range of motion, no pitting or edema. No cyanosis. Strong distal pulses. NEUROLOGICAL: Cranial nerves grossly intact. Normal speech. Normal sensory, motor, and reflex exams. PSYCH: Normal mood, normal affect. SKIN: Warm, Dry, normal turgor, no rashes or lesions noted. Course - Re-evaluation Re-evalutation: 11/19/16 20:18 Pt with a spiral femur fracture. Spoke to Dr. Van and he recommends admission to hospitalist, nothing by mouth after midnight and he will operate tomorrow morning. Patient is neurovascularly intact distally. 11/19/16 22:[address] Houser and he recommends BiPAP for this patient because she often becomes hypercapnic, especially with pain medicine on board. Bicarbonate on chemistry is 34. Will admit patient to [facility] with plans for operation in the morning. - Vital Signs Vital signs: Temp Pulse Resp BP Pulse Ox 98.3 F 96 18 154/47 H 91 L 11/19/16 18:52 11/19/16 18:52 11/19/16 18:52 11/19/16 18:52 11/19/16 18:52 - Laboratory Result Diagrams: 11/19/16 20:04 11/19/16 20:04 Laboratory results interpreted by me: 11/19/16 11/19/16 20:04 20:04 WBC 10.9 H Hgb 9.3 L Hct 29.7 L MCV 76 L MCH 23.8 L MCHC 31.4 L RDW 17.9 H Band Neutrophils % 2 L Sodium 134.8 L Chloride 92 L Carbon Dioxide 34 H Glucose 286 H - Diagnostic Test Radiology reviewed: Image reviewed, Reports reviewed Radiology results interpreted by me: Right hip x-ray: Spiral proximal right femoral metaphyseal fracture with 3 cm of displacement and mild varus angulation. CXR: NAD Discharge - Discharge Clinical Impression: Femur fracture, right Qualifiers: Encounter type: initial encounter Femur location: proximal physis (incl. Salter -Mahmood) Salter-Mahmood Fracture Type: unspecified configuration Qualified Code(s ): S79.001A - Unspecified physeal fracture of upper end of right femur, initial encounter for closed fracture Condition: Stable Disposition: ADMITTED INPATIENT Admitting Provider: Hospitalist - [facility] Admitted: [facility] Referrals: ETHAN LATHAM MD [Primary Care Provider] - Follow up as needed
[2016-11-19 20:18] LABS: HEMATOCRIT 29.7 % (36.0-47.0); HEMOGLOBIN 9.3 g/dL (12.0-15.5); HGB HCT DIFFERENCE -1.8; MEAN CORPUSCULAR HEMOGLOBIN 23.8 pg (27.0-33.4); MEAN CORPUSCULAR HGB CONC 31.4 g/dL (32.0-36.0); MEAN CORPUSCULAR VOLUME 76 fl (80-97); RED BLOOD COUNT 3.91 10^6/uL (3.72-5.28); RED CELL DISTRIBUTION WIDTH 17.9 % (11.5-14.0); WHITE BLOOD COUNT 10.9 10^3/uL (4.0-10.5)
[2016-11-19] MEDS: MORPHINE SULFATE 10 MG/ML INJ IV PRN (20:19)
[2016-11-19 20:26] LABS: PROTHROMBIN TIME 12.9 SEC (11.4-15.4)
[2016-11-19 20:27] LABS: PARTIAL THROMBOPLASTIN TIME 29.3 SEC (23.5-35.8)
[2016-11-19 20:35] LABS: ANION GAP 9 (5-19); BLOOD UREA NITROGEN 12 mg/dL (7-20); CALCIUM 8.7 mg/dL (8.4-10.2); CARBON DIOXIDE 34 mmol/L (22-30); CHLORIDE 92 mmol/L (98-107); CREATININE RESULT 0.75 mg/dL (0.52-1.25); GLUCOSE 286 mg/dL (75-110); POTASSIUM 3.7 mmol/L (3.6-5.0); SODIUM 134.8 mmol/L (137-145)
[2016-11-19 20:40] LABS: BAND NEUTROPHILS % (MANUAL) 2 % (3-5); BASOPHILS % (MANUAL) 1 % (0-2); EOSINOPHILS % (MANUAL) 1 % (0-6); LYMPHOCYTES % (MANUAL) 17 % (13-45); TOTAL CELLS COUNTED 100
[2016-11-19 20:41] LABS: ANISOCYTOSIS 1+; HYPOCHROMASIA SLIGHT; MICROCYTOSIS 1+
[2016-11-19] MEDS ORDERED: ONDANSETRON HCL INJ/PF 4 MG/2 ML SDV IV PRN (22:08)
[2016-11-19] MEDS ORDERED: INSULIN LISPRO 100 UNIT/ML 3 ML VIAL SUBCUT PRN (22:08)
[2016-11-19] MEDS ORDERED: DEXTROSE 40% GEL 15 GM TUBE PO PRN ×2 (22:08)
[2016-11-19] MEDS ORDERED: GLUCAGON,HUMAN RECOMB 1 MG INJ IM PRN (22:08)
[2016-11-19] MEDS ORDERED: MAGNESIUM HYDROXIDE SUSP 30 ML UDCUP PO PRN (22:08)
[2016-11-19] MEDS ORDERED: MAG HYDROX/AL HYDROX/SIMETH SUSP 30 ML UDCUP PO PRN (22:08)
[2016-11-19] MEDS ORDERED: DEXTROSE 50%-WATER 25 GM/50 ML DISP.SYRIN IV PRN ×2 (22:08)
[2016-11-19] MEDS ORDERED: NORMAL SALINE 1000 ML 1,000 ML IV ONE (22:17)
[2016-11-19] MEDS ORDERED: IRON SUCROSE COMPLEX 100 MG in NORMAL SALINE 100 ML IV ONE (22:19)
[2016-11-19 22:48] LABS: ARTERIAL BLOOD BASE EXCESS 8.6 mmol/L; ARTERIAL BLOOD O2 SATURATION 97.8 % (94-98)
[2016-11-19 22:58] LABS: CREATINE KINASE MB 0.41 ng/mL (<4.55); TROPONIN I 0.03 ng/mL
[2016-11-19] MEDS ORDERED: IRON SUCROSE COMPLEX INJ/PF 100 MG/5 ML SDV IV PRN (23:01)
[2016-11-20] MEDS: MORPHINE SULFATE 10 MG/ML INJ IV PRN ×6 (00:38→20:02)
--- NOTE | 2016-11-20 01:05 | PDOC H&P ---
History of Present Illness Admission Date/PCP: 11/19/16 22:09 ETHAN LATHAM, Patient complains of: Fall and right hip pain History of Present Illness: ABISAI JOHNSON is a 71 year old female with a past medical history of home option dependent COPD, chronic pain, poorly controlled diabetes, recurrentCellulitis Will obtain blood and wound culture repeat CBC, continue empiric antibiotic coverage for community-acquired MRSA with double coverage and symptomatic management. Consider surgical consultation if not significantly improved with follow-up evaluation. , Diabetic foot, morbid obesity, obstructive sleep apnea , iron deficiency anemia, coronary artery disease, peripheral vascular disease, Rheumatoid arthritis and depression. Patient been her usual state of health until approximately 1 hour prior to presentation sustaining a fall off the bedside commode resulting in right-sided hip pain and deformity with external rotation and shortening. In the emergency room she has imaging of the hip revealing fracture. She is treated symptomatically and referred to the hospitalist for admission. Patient denies prior dizziness palpitations or chest pain and admits to multiple previous falls. She denies loss of consciousness or other injuries. Past Medical History Cardiac Medical History: Reports: Coronary Artery Disease, DVT - Reports history of right knee blood clot, Hyperlipidema, Hypertension, Peripheral Vascular Disease - Left renal artery stenting Pulmonary Medical History: Reports: Asthma, Bronchitis, Chronic Obstructive Pulmonary Disease (COPD), Pneumonia, Sleep Apnea Endocrine Medical History: Reports: Diabetes Mellitus Type 1, Diabetes Mellitus Type 2, Hypothyroidism Malignancy Medical History: Reports: Cervical Cancer GI Medical History: Reports: Gastroesophageal Reflux Disease, Hiatal Hernia Musculoskeltal Medical History: Reports: Arthritis - Rheumatoid arthritis Psychiatric Medical History: Reports: Depression Past Surgical History Past Surgical History: Reports: Cardiac Catheterization, Cholecystectomy, Hysterectomy, Orthopedic Surgery - back surgery x 2, left ankle ORIF, right ankle surgery, Vascular Surgery - Left renal artery stent, Other - Right eardrum surgery in 1968 Social History Information Source: Patient, [facility] Records Smoking Status: Unknown if Ever Smoked Frequency of Alcohol Use: None Hx Recreational Drug Use: No Drugs: None Hx Prescription Drug Abuse: No - Advance Directive Resuscitation Status: Full Code Family History Family History: CAD, COPD, CVA, DM, Malignancy Parental Family History Reviewed: Yes Children Family History Reviewed: Yes Sibling(s) Family History Reviewed.: Yes Medication/Allergy Home Medications: Albuterol Sulfate [Proair HFA] 2 puff PO Q4 08/18/16 Amlodipine Besylate [Norvasc 10 mg Tablet] 10 mg PO QAM 08/18/16 Duloxetine HCl [Cymbalta] 60 mg PO DAILY 08/18/16 Empagliflozin [Jardiance] 10 mg PO QAM 08/18/16 Glipizide [Glucotrol 10 mg Tablet] 10 mg PO BID 08/18/16 Insulin Glargine,Hum.rec.anlog [Toujeo Solostar] 60 units SQ DAILY 08/18/16 Levothyroxine Sodium [Synthroid] 125 mcg PO QAM 08/18/16 Lisinopril [Prinivil] 20 mg PO QAM 08/18/16 Lorazepam [Ativan] 1.5 mg PO QHS 08/18/16 Metformin HCl [Metformin HCl ER] 500 mg PO BID 08/18/16 Montelukast Sodium [Singulair 10 mg Tablet] 10 mg PO QHS 08/18/16 Mupirocin [Bactroban 2% Ointment 22 gm] 1 applic TOP TID 08/18/16 NPH, Human Insulin Isophane [Humulin N (NPH) Insulin 100 unit/mL] 25 units SQ AC 08/18/16 [place]-3 Acid Ethyl Esters [Lovaza 1 gm Capsule] 1 cap PO BID 08/18/16 Omeprazole 20 mg PO QHS 08/18/16 Oxycodone HCl 15 mg PO TIDP PRN 08/18/16 Prednisone [Deltasone 20 mg Tablet] 20 mg PO DAILY 08/18/16 Tapentadol HCl [Nucynta ER] 150 mg PO Q12 08/18/16 Travoprost (Benzalkonium) [Travatan 0.004% Eye Drop] 1 drop OP QHS 08/18/16 Sulfamethoxazole/Trimethoprim [Septra-Ds 800-160 mg Tablet] 1 tab PO BID #20 tablet 08/25/16 Ondansetron [Zofran Odt 4 mg Tablet] 1 - 2 tab PO Q4H #10 tab.rapdis 10/07/16 Allergies/Adverse Reactions: codeine [Codeine] Allergy (Intermediate, Verified 11/19/16 18:33) itching Review of Systems Constitutional: PRESENT: fatigue, weakness. ABSENT: chills, fever(s), headache( s), night sweats Eyes: PRESENT: other. ABSENT: visual disturbances Ears: ABSENT: hearing changes Cardiovascular: ABSENT: chest pain, dyspnea on exertion, edema, orthropnea, palpitations Respiratory: PRESENT: dyspnea. ABSENT: cough, hemoptysis, sputum Gastrointestinal: PRESENT: abdominal pain - Several 2 cm x 2 cm eschar and associated erythema, bloating, constipation, heartburn. ABSENT: coffee ground emesis, diarrhea, dysphagia, melena, nausea, vomiting Genitourinary: ABSENT: dysuria, hematuria Musculoskeletal: PRESENT: back pain, deformity, muscle weakness Integumentary: PRESENT: other - Several eschar and associated erythema to anterior abdominal wall, right leg erythema and edema Neurological: ABSENT: abnormal gait, abnormal speech, confusion, convulsions, dizziness, focal weakness, syncope, tingling, tremor(s), vertigo Psychiatric: ABSENT: anxiety, depression, homidical ideation, suicidal ideation Endocrine: ABSENT: cold intolerance, heat intolerance, polydipsia, polyuria Hematologic/Lymphatic: ABSENT: easy bleeding, easy bruising Physical Exam Vital Signs: Temp Pulse Resp BP Pulse Ox 98.3 F 96 16 110/99 H 99 11/19/16 18:52 11/19/16 18:52 11/19/16 23:01 11/19/16 23:01 11/19/16 23:01 General appearance: PRESENT: cooperative, disheveled, mild distress, morbidly obese Head exam: PRESENT: atraumatic, normocephalic Eye exam: PRESENT: conjunctival injection, EOMI, PERRLA. ABSENT: nystagmus, periorbital swelling, scleral icterus Ear exam: PRESENT: normal external ear exam Mouth exam: PRESENT: moist, tongue midline Neck exam: ABSENT: carotid bruit, JVD, lymphadenopathy, thyromegaly Respiratory exam: PRESENT: crackles, decreased breath sounds, prolonged expiratory phas, symmetrical. ABSENT: rhonchi, stridor, wheezes Cardiovascular exam: PRESENT: RRR. ABSENT: bradycardia, clicks, diastolic murmur, gallop Pulses: PRESENT: normal dorsalis pedis pul Vascular exam: PRESENT: normal capillary refill GI/Abdominal exam: PRESENT: hypoactive bowel sounds, normal bowel sounds, soft. ABSENT: distended, guarding, mass, organolmegaly, rebound, tenderness Torso Front/Back Image: 1 - Several eschar and associated erythema to anterior abdominal wall Rectal exam: PRESENT: deferred Extremities exam: PRESENT: +1 edema, other - Right thigh externally rotated and short, right leg erythema and edema. ABSENT: calf tenderness, clubbing Musculoskeletal exam: PRESENT: deformity - Right thigh externally rotated and shortened. ABSENT: ambulatory Neurological exam: PRESENT: awake, oriented to person, oriented to place, CN II- XII grossly intact. ABSENT: oriented to time, oriented to situation Psychiatric exam: PRESENT: appropriate affect, normal mood. ABSENT: homicidal ideation, suicidal ideation Skin exam: PRESENT: erythema - Several areas of ecchymosis and abdominal erythema, right leg erythema and edema. ABSENT: cyanosis, jaundice, mottled, pallor, petechiae, skin tears, urticaria, vesicles Results Laboratory Results: 11/19/16 22:32 Carbonic Acid 1.50 H HCO3/H2CO3 Ratio 22:1 ABG pH 7.45 ABG pCO2 49.7 H ABG pO2 100.8 H ABG HCO3 33.7 H ABG O2 Saturation 97.8 ABG Base Excess 8.6 FiO2 40% Impressions: Hip/Pelvis X-Ray 11/19/16 00:00 IMPRESSION: Spiral proximal right femoral metaphyseal fracture with 3 cm of displacement and mild varus angulation. Chest X-Ray 11/19/16 18:58 IMPRESSION: NO ACUTE RADIOGRAPHIC FINDING IN THE CHEST. Assessment & Plan - Diagnosis (1) Femur fracture, right Qualifiers: Encounter type: initial encounter Femur location: proximal physis ( incl. Salter-Mahmood) Salter-Mahmood Fracture Type: unspecified configuration Qualified Code(s): S79.001A - Unspecified physeal fracture of upper end of right femur, initial encounter for closed fracture Is this a current diagnosis for this admission?: YesPlan: Mechanical fall from commode, and minimally ambulatory with transfer from bed to commode only, complicated by coronary artery disease, oxygen dependent COPD, anemia, obstructive sleep apnea, diabetes, neuropathy, opiate dependent chronic pain and generalized deconditioning. She is at elevated risk for cardiopulmonary event at baseline and deconditioned secondary to chronic illness will obtain neurology consultation given history of chronic hypercapnic respiratory failure. (2) Opiate dependence, continuous Is this a current diagnosis for this admission?: YesPlan: Home regiment ordered with when necessary IV morphine (3) COPD (chronic obstructive pulmonary disease) Is this a current diagnosis for this admission?: YesPlan: Albuterol, Atrovent, incentive spirometry, flutter valve, BiPAP and pulmonology consult for high risk of hypercapnic respiratory failure perioperatively. (4) Cellulitis Qualifiers: Site of cellulitis: trunk Site of cellulitis of trunk: abdominal wall Qualified Code(s): L03.311 - Cellulitis of abdominal wall Is this a current diagnosis for this admission?: YesPlan: Including several lesions to the anterior abdominal wall. Will initiate empiric antibiotics, obtain blood cultures, CBC and surgical consultation for eschar removal (5) Cellulitis of leg without foot, left Is this a current diagnosis for this admission?: YesPlan: Complicated by peripheral vascular disease and uncontrolled diabetes. Empiric antibiotics and surgical consult (7) Iron deficiency anemia Qualifiers: Iron deficiency anemia type: unspecified iron deficiency Qualified Code (s): D50.9 - Iron deficiency anemia, unspecified Is this a current diagnosis for this admission?: YesPlan: Evaluate with anemia studies, transfuse for hemoglobin greater than 8 when necessary (8) Obstructive sleep apnea Is this a current diagnosis for this admission?: YesPlan: BiPAP and supportive care - Time Time Spent: 50 to 70 Minutes
[2016-11-20] MEDS ORDERED: IRON SUCROSE COMPLEX INJ/PF 100 MG/5 ML SDV IV ONE (01:40)
[2016-11-20] MEDS ORDERED: CEFTRIAXONE INJ 1000 MG VIAL IV PRN (02:00)
[2016-11-20] MEDS ORDERED: CEFTRIAXONE 1 GM/D5W RTU 1 GM/50 ML RTUPB IV ONE (02:00)
[2016-11-20] MEDS: IPRATROPIUM/ALBUTEROL 0.5-2.5 MG/3 ML AMPUL NEB SCH ×4 (02:29→20:39)
[2016-11-20 02:37] LABS: HEMATOCRIT 28.7 % (36.0-47.0); HEMOGLOBIN 9.1 g/dL (12.0-15.5); HGB HCT DIFFERENCE -1.4; MEAN CORPUSCULAR HEMOGLOBIN 23.6 pg (27.0-33.4); MEAN CORPUSCULAR HGB CONC 31.8 g/dL (32.0-36.0); MEAN CORPUSCULAR VOLUME 74 fl (80-97); RED BLOOD COUNT 3.87 10^6/uL (3.72-5.28); RED CELL DISTRIBUTION WIDTH 17.5 % (11.5-14.0); WHITE BLOOD COUNT 9.8 10^3/uL (4.0-10.5)
[2016-11-20 02:40] LABS: PROTHROMBIN TIME 13.1 SEC (11.4-15.4)
[2016-11-20 02:54] LABS: ANION GAP 10 (5-19); BLOOD UREA NITROGEN 10 mg/dL (7-20); CALCIUM 8.7 mg/dL (8.4-10.2); CARBON DIOXIDE 31 mmol/L (22-30); CHLORIDE 94 mmol/L (98-107); CREATINE KINASE 104 U/L (30-135); CREATININE RESULT 0.73 mg/dL (0.52-1.25); GLUCOSE 256 mg/dL (75-110); MAGNESIUM 1.7 mg/dL (1.6-2.3); POTASSIUM 3.4 mmol/L (3.6-5.0); SODIUM 135.2 mmol/L (137-145)
[2016-11-20 03:05] LABS: CREATINE KINASE MB 0.41 ng/mL (<4.55); TROPONIN I 0.029 ng/mL
[2016-11-20 03:12] LABS: BAND NEUTROPHILS % (MANUAL) 1 % (3-5); BASOPHILS % (MANUAL) 0 % (0-2); EOSINOPHILS % (MANUAL) 2 % (0-6); LYMPHOCYTES % (MANUAL) 12 % (13-45); TOTAL CELLS COUNTED 100
[2016-11-20 03:14] LABS: HYPOCHROMASIA 1+; POLYCHROMASIA SLIGHT; TOXIC GRANULATION SLIGHT
[2016-11-20 03:15] LABS: ANISOCYTOSIS 1+; MICROCYTOSIS 1+; POIKILOCYTOSIS 1+
[2016-11-20 03:16] LABS: STOMATOCYTES 1+
[2016-11-20] MEDS: HEPARIN SOD (PORCINE) 5,000 UNIT/ML 1 ML SYRINGE SUBCUT SCH ×3 (05:07→21:06)
[2016-11-20 09:31] LABS: CREATINE KINASE MB 0.36 ng/mL (<4.55); TROPONIN I 0.027 ng/mL
[2016-11-20] MEDS: AMLODIPINE BESYLATE 10 MG TABLET PO SCH (10:36)
[2016-11-20] MEDS: DULOXETINE HCL 30 MG CAPSULE.DR PO SCH (10:39)
[2016-11-20] MEDS: LISINOPRIL 10 MG TABLET PO SCH (10:39)
[2016-11-20] MEDS: DOCUSATE SODIUM 100 MG CAPSULE PO SCH ×2 (10:39→16:59)
[2016-11-20] MEDS: INSULIN GLARGINE,HUM.REC.ANLOG 300 UNIT/3 ML INSULN.PEN SUBCUT SCH (10:49)
--- NOTE | 2016-11-20 11:13 | PDOC PROGRESS REPORT ---
Subjective Progress Note for:: 11/20/16 Subjective:: Complains of pain in her hip. Physical Exam Vital Signs: Temp Pulse Resp BP Pulse Ox 100.3 F 103 H 18 167/74 H 96 11/20/16 07:16 11/20/16 07:16 11/20/16 07:16 11/20/16 07:16 11/20/16 07:16 Intake & Output 11/19/16 11/20/16 11/21/16 06:59 06:59 06:59 Intake Total 555 Output Total 700 Balance -145 Weight 93.6 kg General appearance: PRESENT: no acute distress Eye exam: PRESENT: conjunctiva pink. ABSENT: scleral icterus Ear exam: PRESENT: normal external ear exam Mouth exam: PRESENT: moist, tongue midline Neck exam: ABSENT: JVD Respiratory exam: PRESENT: clear to auscultation jaclyn. ABSENT: rales, rhonchi, wheezes Cardiovascular exam: PRESENT: RRR. ABSENT: diastolic murmur, rubs, systolic murmur GI/Abdominal exam: PRESENT: normal bowel sounds, soft. ABSENT: distended, guarding, mass, organolmegaly, rebound, tenderness Extremities exam: ABSENT: calf tenderness, clubbing, pedal edema Neurological exam: PRESENT: alert, awake, oriented to person, oriented to place , oriented to time, oriented to situation, CN II-XII grossly intact. ABSENT: motor sensory deficit Psychiatric exam: PRESENT: appropriate affect Skin exam: PRESENT: dry, intact, warm. ABSENT: cyanosis, rash Results Laboratory Results: 11/20/16 02:25 11/20/16 02:25 11/19/16 11/20/16 11/20/16 22:32 02:25 02:25 WBC 9.8 RBC 3.87 Hgb 9.1 L Hct 28.7 L MCV 74 L MCH 23.6 L MCHC 31.8 L RDW 17.5 H Plt Count 229 Seg Neutrophils % Not Reportable Lymphocytes % Not Reportable Monocytes % Not Reportable Eosinophils % Not Reportable Basophils % Not Reportable Absolute Neutrophils Not Reportable Absolute Lymphocytes Not Reportable Absolute Monocytes Not Reportable Absolute Eosinophils Not Reportable Absolute Basophils Not Reportable Carbonic Acid 1.50 H HCO3/H2CO3 Ratio 22:1 ABG pH 7.45 ABG pCO2 49.7 H ABG pO2 100.8 H ABG HCO3 33.7 H ABG O2 Saturation 97.8 ABG Base Excess 8.6 FiO2 40% Sodium 135.2 L Potassium 3.4 L Chloride 94 L Carbon Dioxide 31 H Anion Gap 10 BUN 10 Creatinine 0.73 Est GFR ( Amer) > 60 Est GFR (Non-Af Amer) > 60 Glucose 256 H Calcium 8.7 Magnesium 1.7 11/20/16 11/20/16 11/20/16 02:25 02:25 08:37 Creatine Kinase 104 113 CK-MB (CK-2) 0.41 Troponin I 0.029 11/20/16 08:37 Creatine Kinase CK-MB (CK-2) 0.36 Troponin I 0.027 Impressions: Hip/Pelvis X-Ray 11/19/16 00:00 IMPRESSION: Spiral proximal right femoral metaphyseal fracture with 3 cm of displacement and mild varus angulation. Chest X-Ray 11/19/16 18:58 IMPRESSION: NO ACUTE RADIOGRAPHIC FINDING IN THE CHEST. Assessment & Plan - Diagnosis (1) Femur fracture, right Qualifiers: Encounter type: initial encounter Femur location: proximal physis ( incl. Salter-Mahmood) Salter-Mahmood Fracture Type: unspecified configuration Qualified Code(s): S79.001A - Unspecified physeal fracture of upper end of right femur, initial encounter for closed fracture Is this a current diagnosis for this admission?: YesPlan: Patient have surgical repair once cleared from cardiology. I discussed with the family that the patient is high risk but will most likely need surgery. (2) Opiate dependence, continuous Is this a current diagnosis for this admission?: YesPlan: Continue with morphine when necessary. (3) Cellulitis of leg without foot, left Is this a current diagnosis for this admission?: YesPlan: Patient is on Rocephin. General surgery has been consulted because of this lesion. She reports that she had an outpatient arterial Doppler scheduled for today. (4) Rheumatoid arthritis Qualifiers: Rheumatoid arthritis location: multiple sites Rheumatoid factor presence: without rheumatoid factor Qualified Code(s): M06.09 - Rheumatoid arthritis without rheumatoid factor, multiple sites Is this a current diagnosis for this admission?: Yes (5) CAD (coronary artery disease) Qualifiers: Coronary Disease-Associated Artery/Lesion type: [place] artery [place] vs. transplanted heart: [place] heart Is this a current diagnosis for this admission?: YesPlan: Denies any chest pain. She is to be evaluated by cardiology today. (6) COPD (chronic obstructive pulmonary disease) Is this a current diagnosis for this admission?: YesPlan: Continue with nebulizers. Pulmonary consultation has been requested. 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 (8) Depression Is this a current diagnosis for this admission?: Yes (9) HTN (hypertension) Qualifiers: Hypertension type: essential hypertension Qualified Code(s): I10 - Essential (primary) hypertension Is this a current diagnosis for this admission?: YesPlan: Continue with lisinopril and Norvasc. (10) Hypothyroidism Qualifiers: Hypothyroidism type: unspecified Qualified Code(s): E03.9 - Hypothyroidism, unspecified Is this a current diagnosis for this admission?: YesPlan: Continue with home Synthroid dose. (11) Iron deficiency anemia Qualifiers: Iron deficiency anemia type: unspecified iron deficiency Qualified Code (s): D50.9 - Iron deficiency anemia, unspecified Is this a current diagnosis for this admission?: YesPlan: Patient has IV iron ordered. (12) Obstructive sleep apnea Is this a current diagnosis for this admission?: YesPlan: We'll use CPAP as needed. - Time Time Spent with patient: 25-34 minutes - Inpatient Certification Medical Necessity: Need Close Monitoring Due to Risk of Patient Decompensation, Need for Pain Control - Plan Summary Plan Summary: Patient will most likely go to surgery once cleared by pulmonary and cardiology.
--- NOTE | 2016-11-20 12:06 | EKG REPORT ---
SEVERITY:- ABNORMAL ECG - SINUS RHYTHM POSSIBLE LVH : Confirmed by: Vivian Donnelly 20-Nov-2016 12:06:05
--- NOTE | 2016-11-20 14:48 | CONSULTATION REPORT E ---
Consultation Report NAME: ABISAI JOHNSON : 1945 AGE: 71Y DATE: 11/20/2016 ROOM: 326 A TO: NILDA JOEL M.D. FROM: TORRIE MCCOLLUM M.D. Requesting Physician REASON FOR CONSULTATION: Patient with eschars in the abdomen with one area with redness. HISTORY OF PRESENT ILLNESS: This is a 71-year-old female who was admitted for a fracture of the right hip after a fall. She was noted to have some areas of eschar in the abdominal wall. The patient and daughter claim that this is from the needle for diabetes, injection with insulin. PAST HISTORY: The patient is a diabetic with coronary artery disease, DVT, hyperlipidemia, and peripheral vascular disease. Left artery stenting. Hypertension. Pulmonary: History of COPD, asthma and bronchitis. The patient used to smoke. Endocrine: Diabetes mellitus type 1 and type 2 and hypothyroidism. Malignancy medical history reports cervical cancer. GI: Reports GERD and hiatal hernia. Musculoskeletal medical history: History of rheumatoid arthritis. Psychiatric exam: Reports depression. PAST SURGICAL HISTORY: Cardiac catheterization, cholecystectomy, hysterectomy, back surgery x2, left ankle ORIF, right ankle, vascular surgery, left femoral artery stent, right eardrum surgery in 1968. SOCIAL HISTORY: Unknown if ever smoked. No alcohol use. No drug use. However, patient used to take OxyContin 60 mg t.i.d. for back pains. At the present time she takes 40 mg of OxyContin twice a day and oxycodone 5 mg p.o. every 4 hours p.r.n. for breakthrough pain. Denies drug or alcohol use. FAMILY HISTORY: COPD, coronary artery disease, CVA, diabetes mellitus, and malignancy. MEDICATION HISTORY: 1. Albuterol. 2. Amlodipine. 3. Duloxetine. 4. Glipizide. 5. Insulin Humulin. 6. Levothyroxine. 7. Metformin. 8. Lisinopril. 9. NPH. 10. Omeprazole. 11. Prednisone 20 mg p.o. daily. 12. Nucynta 150 mg p.o. every 12 hours. 13. Benzalkonium eye drops. 14. Ondansetron 1-2 times p.o. every 4 hours. ALLERGIES: CODEINE. REVIEW OF SYSTEMS: GENERAL: Complains of fatigue, weakness. EYES: No visual disturbance. EARS: No hearing changes. CARDIOVASCULAR: No chest pains. No dyspnea. RESPIRATORY: Present dyspnea with cough, hemoptysis, and sputum. GASTROINTESTINAL: Abdominal pains. PHYSICAL EXAMINATION: ABDOMEN: Has several 2 x 2 and 1 x 1-cm eschars in the abdomen. There is an area of associated erythema around the larger eschar in the upper abdomen or just above the umbilicus roughly measuring about 3 cm x 5 cm. There is no evidence of abscess but there is an area of redness around the larger eschar of the abdominal wall which roughly measures about 3 x 5 cm. LUNGS: Clear. HEART: Regular sinus rhythm. EXTREMITIES: Right leg is flexed, shortened and markedly tender on the right hip. She does have a fractured right hip. IMPRESSION: 1. Fractured right hip. 2. Multiple areas of small patches of skin necrosis about 1.5 cm x 2 cm in several spots with some mild cellulitis around the larger skin necrosis above the umbilicus. RECOMMENDATIONS: 1. I do not think there is need to drain since there is nothing to drain around the eschars. 2. Continue with IV antibiotic therapy. 3. Repair of the right hip fracture which will be done tomorrow. I will follow up the patient in the hospital to make sure she does not develop any abscess on all those eschars. FINAL DIAGNOSES: 1. Fractured right hip. 2. Eschars of the abdominal wall with mild cellulitis. DICTATING PHYSICIAN: NILDA JOEL M.D. [id number] [id number] ID: [id number] JOB#: [id number] ACCT: [id number] cc:NILDA JOEL M.D. >
[2016-11-20] MEDS: OXYCODONE HCL IR 5 MG TABLET PO PRN (14:50)
--- NOTE | 2016-11-20 15:23 | PDOC CONSULTATION ---
Consultation Consult Date: 11/20/16 Attending physician:: ASTRID CHACON Consult reason:: Right intertrochanteric hip fracture History of Present Illness Admission Date/PCP: 11/19/16 22:09 ETHAN FRANSICOBETSYMICHIIRINA, Patient complains of: Right hip pain History of Present Illness: 71-year-old female with several significant comorbidities who suffered a fall and suffered a right displaced intertrochanteric hip fracture. In the groin. Pain with any attempted range of motion. Has baseline poor sensation in bilateral lower extremities due to several decades of diabetes which is poorly controlled. He did have pain 10 out of 10. Pain anterior hip and lateral hip. Describes the pain is sharp when moved and dull at rest. Denies any other extremity injuries. Denies any lacerations or abrasions on the right hip. She does have a nonhealing ulcer in the left tibia. Patient was brought to the hospital by EMS. Past Medical History Cardiac Medical History: Reports: Coronary Artery Disease, DVT - Reports history of right knee blood clot, Hyperlipidema, Hypertension, Peripheral Vascular Disease - Left renal artery stenting Pulmonary Medical History: Reports: Asthma, Bronchitis, Chronic Obstructive Pulmonary Disease (COPD), Pneumonia, Sleep Apnea Endocrine Medical History: Reports: Diabetes Mellitus Type 1, Diabetes Mellitus Type 2, Hypothyroidism Malignancy Medical History: Reports: Cervical Cancer GI Medical History: Reports: Gastroesophageal Reflux Disease, Hiatal Hernia Musculoskeltal Medical History: Reports: Arthritis - Rheumatoid arthritis Psychiatric Medical History: Reports: Depression Past Surgical History Past Surgical History: Reports: Cardiac Catheterization, Cholecystectomy, Hysterectomy, Orthopedic Surgery - back surgery x 2, left ankle ORIF, right ankle surgery, Vascular Surgery - Left renal artery stent, Other - Right eardrum surgery in 1968 Social History Smoking Status: Unknown if Ever Smoked Frequency of Alcohol Use: None Hx Recreational Drug Use: No Drugs: None Hx Prescription Drug Abuse: No - Advance Directive Resuscitation Status: Full Code Family History Family History: CAD, COPD, CVA, DM, Malignancy Parental Family History Reviewed: No Children Family History Reviewed: No Sibling(s) Family History Reviewed.: No Medication/Allergy Home Medications: Amlodipine Besylate [Norvasc 10 mg Tablet] 10 mg PO QAM 08/18/16 Glipizide [Glucotrol 10 mg Tablet] 10 mg PO Q12 08/18/16 Insulin Glargine,Hum.rec.anlog [Toujeo Solostar] 60 units SQ DAILY 08/18/16 Levothyroxine Sodium [Synthroid] 125 mcg PO QAM 08/18/16 Lisinopril [Prinivil] 20 mg PO QAM 08/18/16 Lorazepam [Ativan] 1.5 mg PO QHS 08/18/16 Montelukast Sodium [Singulair 10 mg Tablet] 10 mg PO QHS 08/18/16 NPH, Human Insulin Isophane [Humulin N (NPH) Insulin 100 unit/mL] 40 units SQ AC 08/18/16 Omeprazole 20 mg PO QHS 08/18/16 Oxycodone HCl 15 mg PO TIDP PRN 08/18/16 Prednisone [Deltasone 20 mg Tablet] 20 mg PO DAILY 08/18/16 Travoprost (Benzalkonium) [Travatan 0.004% Eye Drop] 1 drop OU QHS 08/18/16 Duloxetine HCl 30 mg PO QHS 11/20/16 Allergies/Adverse Reactions: codeine [Codeine] Allergy (Intermediate, Verified 11/19/16 18:33) itching Review of Systems Constitutional: ABSENT: fever(s), headache(s) Eyes: ABSENT: visual disturbances Ears: ABSENT: hearing changes Cardiovascular: ABSENT: chest pain, palpitations Respiratory: ABSENT: cough, dyspnea, hemoptysis Gastrointestinal: ABSENT: abdominal pain, dysphagia, nausea, vomiting Genitourinary: ABSENT: difficulty urinating, hematuria Musculoskeletal: PRESENT: as per HPI Integumentary: PRESENT: wounds - 1 x 1 cm Nonhealing ulcer left anterior tibia Neurological: PRESENT: tingling, weakness Psychiatric: ABSENT: hallucinations, homidical ideation, suicidal ideation Hematologic/Lymphatic: ABSENT: easy bleeding, easy bruising Allergic/Immunologic: ABSENT: seasonal rhinorrhea Physical Exam Vital Signs: Temp Pulse Resp BP Pulse Ox 37.6 C 95 22 H 122/46 L 99 11/20/16 12:53 11/20/16 12:53 11/20/16 12:53 11/20/16 12:53 11/20/16 12:53 Intake & Output 11/19/16 11/20/16 11/21/16 06:59 06:59 06:59 Intake Total 555 0 Output Total 700 600 Balance -145 -600 Weight 93.6 kg General appearance: PRESENT: no acute distress, well-nourished Head exam: PRESENT: atraumatic Eye exam: PRESENT: EOMI. ABSENT: conjunctiva pink, nystagmus Ear exam: PRESENT: normal external ear exam Neck exam: ABSENT: lymphadenopathy, tenderness, thyromegaly Respiratory exam: PRESENT: symmetrical, unlabored. ABSENT: accessory muscle use , chest wall tenderness, tachypnea Pulses: PRESENT: +1 pedal pulses bilateral Vascular exam: PRESENT: normal capillary refill GI/Abdominal exam: PRESENT: soft. ABSENT: distended, organolmegaly, tenderness Skin exam: ABSENT: cyanosis, jaundice, rash, skin tears Adult Front & Back Image: 1 - Right lower extremity mildly shortened compared to the left. Paresthesias of the lower extremity second to diabetes neuropathy. She does have extension of the ankle and flexion of the ankle and extension and flexion of the toes. Good capillary refill. She is tender palpation over the anterior groin and lateral aspect of the hip. Any attempted range of motion is very painful. Results Laboratory Results: 11/20/16 02:25 11/20/16 02:25 11/19/16 11/20/16 11/20/16 22:32 02:25 02:25 WBC 9.8 RBC 3.87 Hgb 9.1 L Hct 28.7 L MCV 74 L MCH 23.6 L MCHC 31.8 L RDW 17.5 H Plt Count 229 Seg Neutrophils % Not Reportable Lymphocytes % Not Reportable Monocytes % Not Reportable Eosinophils % Not Reportable Basophils % Not Reportable Absolute Neutrophils Not Reportable Absolute Lymphocytes Not Reportable Absolute Monocytes Not Reportable Absolute Eosinophils Not Reportable Absolute Basophils Not Reportable Carbonic Acid 1.50 H HCO3/H2CO3 Ratio 22:1 ABG pH 7.45 ABG pCO2 49.7 H ABG pO2 100.8 H ABG HCO3 33.7 H ABG O2 Saturation 97.8 ABG Base Excess 8.6 FiO2 40% Sodium 135.2 L Potassium 3.4 L Chloride 94 L Carbon Dioxide 31 H Anion Gap 10 BUN 10 Creatinine 0.73 Est GFR ( Amer) > 60 Est GFR (Non-Af Amer) > 60 Glucose 256 H Calcium 8.7 Magnesium 1.7 11/20/16 11/20/16 11/20/16 02:25 02:25 08:37 Creatine Kinase 104 113 CK-MB (CK-2) 0.41 Troponin I 0.029 11/20/16 08:37 Creatine Kinase CK-MB (CK-2) 0.36 Troponin I 0.027 Impressions: Hip/Pelvis X-Ray 11/19/16 00:00 IMPRESSION: Spiral proximal right femoral metaphyseal fracture with 3 cm of displacement and mild varus angulation. Chest X-Ray 11/19/16 18:58 IMPRESSION: NO ACUTE RADIOGRAPHIC FINDING IN THE CHEST. Status: Image reviewed by me Assessment & Plan - Diagnosis (1) Intertrochanteric fracture of right femur Qualifiers: Encounter type: initial encounter Fracture type: closed Qualified Code(s): S72.141A - Displaced intertrochanteric fracture of right femur, initial encounter for closed fracture Is this a current diagnosis for this admission?: YesPlan: 71-year-old female with severe comorbidities with right displaced intertrochanteric hip fracture. Patient should be bedrest for now. Patient needs clearance from multiple specialties. Once she is optimized medically we can then proceed with intramedullary nailing of her right hip fracture. She is well aware that she is a high-risk candidate and was can benefits were discussed. Patient elected to proceed with surgery when possible.
[2016-11-20] MEDS: INSULIN LISPRO 100 UNIT/ML 3 ML VIAL SUBCUT PRN ×2 (16:58→23:23)
--- NOTE | 2016-11-20 18:06 | XCELERA REPORT ---
[address] [address] Transthoracic Echocardiogram Report Name: ABISAI JOHNSON Age: 71 yrs Gender: Female : 1945 Patient Status: Inpatient Patient Location: [id number]\S\326\S\A Study Date: 11/20/2016 11:59 AM Height: 63 in Weight: 206 lb BSA: 2.0 m2 Procedure: A two-dimensional transthoracic echocardiogram with color flow and Doppler was performed. Study Quality: Technically suboptimal. The study was technically limited with all images being suboptimal in quality. Reason For Study: MURMUR / PRE-OPERATIVE CARDIAC RISK ASSESSMENT. History: MURMUR / PRE-OPERATIVE CARDIAC RISK ASSESSMENT. Ordering Physician: JASMIN RENTERIA Performed By: Belinda Cabrera Interpretation Summary The left ventricle is normal in size. There is moderate concentric left ventricular hypertrophy. LV EF is > THAN 60% Left ventricular systolic function is normal. Doppler measurements suggest pseudonormalized left ventricular relaxation, which is associated with grade II/IV or mild to moderate diastolic dysfunction The left ventricular wall motion is normal. The right ventricle is grossly normal size. Cannot exclude RVH.Normal RV systolic function. The left atrium is mildly dilated. There is no evidence of mitral valve prolapse. There is no mitral valve stenosis. There is a trace amount of mitral regurgitation There is mild aortic stenosis There is a peak gradient of 19 mm of Hg. No aortic regurgitation is present. There is no tricuspid stenosis. There is a mild amount of tricuspid regurgitation Right ventricular systolic pressure is normal. RVSP is 28 mm of Hg , with RA mean of 5. There is no pericardial effusion. MMode/2D Measurements \T\ Calculations RVDd: 3.7 cm LVIDd: 4.2 cm FS: 29.2 % Ao root diam: 2.7 cm IVSd: 1.5 cm LVIDs: 2.9 cm EDV(Teich): 77.1 ml LVPWd: 1.5 cm ESV(Teich): 33.6 ml Ao root area: 5.7 cm2 EF(Teich): 56.5 % LA dimension: 4.1 cm Doppler Measurements \T\ Calculations MV E max ange: MV P1/2t max ange: Ao V2 max: LV V1 max P.0 cm/sec 89.8 cm/sec 214.2 cm/sec 13.5 mmHg MV A max ange: MV P1/2t: 67.5 msec Ao max PG: LV V1 max: 135.1 cm/sec 18.3 mmHg 183.7 cm/sec MV E/A: 0.71 MVA(P1/2t): 3.3 cm2 MV dec slope: 389.4 cm/sec2 MV dec time: 0.24 sec PA V2 max: TR max ange: 113.0 cm/sec 239.8 cm/sec PA max P.1 mmHgTR max P.0 mmHg Left Ventricle The left ventricle is normal in size. There is moderate concentric left ventricular hypertrophy. LV EF is > THAN 60%. Left ventricular systolic function is normal. Doppler measurements suggest pseudonormalized left ventricular relaxation, which is associated with grade II/IV or mild to moderate diastolic dysfunction. The left ventricular wall motion is normal. There is no thrombus. Right Ventricle The right ventricle is grossly normal size. The right ventricle is not well visualized secondary to technical limitations. Cannot exclude RVH.Normal RV systolic function. Atria The right atrium is normal. The left atrium is mildly dilated. Mitral Valve There is moderate mitral annular calcification. There is no evidence of mitral valve prolapse. There is no vegetation seen on the mitral valve. There is no mitral valve stenosis. There is a trace amount of mitral regurgitation. Aortic Valve There is no aortic valvular vegetation. There is mild aortic stenosis. There is a peak gradient of 19 mm of Hg. There is no LVOT obstruction. No aortic regurgitation is present. Tricuspid Valve There is no tricuspid stenosis. There is a mild amount of tricuspid regurgitation. Right ventricular systolic pressure is normal. RVSP is 28 mm of Hg , with RA mean of 5. Pulmonic Valve The pulmonic valve is not well visualized. Great Vessels The aortic root is not well visualized but is probably normal size. Effusions There is no pericardial effusion. : JASMIN RENTERIA > Jasmin Renteria
[2016-11-20] MEDS: MONTELUKAST SODIUM 10 MG TABLET PO SCH (21:12)
[2016-11-20] MEDS: CEFTRIAXONE 1 GM/D5W RTU 1 GM/50 ML RTUPB IV SCH (21:12)
[2016-11-20] MEDS ORDERED: (PENDING PHARMACY ID) (Travoprost (Benzalkonium) [Travatan 0.004% Eye Drop] 1 DROP) OU SCH (22:00)
[2016-11-20] MEDS ORDERED: TIOTROPIUM BROMIDE DPI 5 CAP/KIT (18 MCG/CAP) IH SCH (22:00)
[2016-11-20] MEDS: FLUTICASONE/SALMETEROL DISKUS 250-50 MCG/DOSE IH SCH (23:16)
[2016-11-21] MEDS: MORPHINE SULFATE 10 MG/ML INJ IV PRN ×7 (00:53→21:11)
[2016-11-21] MEDS: ACETAMINOPHEN 325 MG TABLET PO PRN (01:42)
[2016-11-21] MEDS: IPRATROPIUM/ALBUTEROL 0.5-2.5 MG/3 ML AMPUL NEB SCH ×4 (02:23→20:17)
[2016-11-21] MEDS: HEPARIN SOD (PORCINE) 5,000 UNIT/ML 1 ML SYRINGE SUBCUT SCH ×3 (05:06→21:10)
[2016-11-21 05:48] LABS: ABSOLUTE BASOPHILS # (AUTO) 0.1 10^3/uL (0.0-0.2); ABSOLUTE EOSINOPHILS # (AUTO) 0.1 10^3/uL (0.0-0.6); ABSOLUTE LYMPHOCYTES (AUTO) 1.6 10^3/uL (0.5-4.7); ABSOLUTE MONOCYTES (AUTO) 1.5 10^3/uL (0.1-1.4); ABSOLUTE NEUT (AUTO) 8.4 10^3/uL (1.7-8.2); BASOPHILS % (AUTO) 0.7 % (0-2); HEMATOCRIT 26.8 % (36.0-47.0); HEMOGLOBIN 8.5 g/dL (12.0-15.5); HGB HCT DIFFERENCE -1.3; LYMPHOCYTES % (AUTO) 13.4 % (13-45); MEAN CORPUSCULAR HEMOGLOBIN 23.8 pg (27.0-33.4); MEAN CORPUSCULAR HGB CONC 31.8 g/dL (32.0-36.0); MEAN CORPUSCULAR VOLUME 75 fl (80-97); MONOCYTES % (AUTO) 12.9 % (3-13); RED BLOOD COUNT 3.58 10^6/uL (3.72-5.28); RED CELL DISTRIBUTION WIDTH 17.5 % (11.5-14.0); WHITE BLOOD COUNT 11.6 10^3/uL (4.0-10.5)
[2016-11-21 06:05] LABS: ANION GAP 11 (5-19); BLOOD UREA NITROGEN 10 mg/dL (7-20); CALCIUM 8.3 mg/dL (8.4-10.2); CARBON DIOXIDE 28 mmol/L (22-30); CHLORIDE 92 mmol/L (98-107); CREATININE RESULT 0.83 mg/dL (0.52-1.25); GLUCOSE 235 mg/dL (75-110); POTASSIUM 3.4 mmol/L (3.6-5.0); SODIUM 131.2 mmol/L (137-145)
[2016-11-21] MEDS: INSULIN LISPRO 100 UNIT/ML 3 ML VIAL SUBCUT PRN ×3 (08:03→16:33)
[2016-11-21] MEDS: LISINOPRIL 10 MG TABLET PO SCH (08:37)
[2016-11-21] MEDS: AMLODIPINE BESYLATE 10 MG TABLET PO SCH (08:37)
[2016-11-21] MEDS: DULOXETINE HCL 30 MG CAPSULE.DR PO SCH (10:06)
[2016-11-21] MEDS: FLUTICASONE/SALMETEROL DISKUS 250-50 MCG/DOSE IH SCH (10:07)
[2016-11-21] MEDS: DOCUSATE SODIUM 100 MG CAPSULE PO SCH ×2 (10:07→17:04)
[2016-11-21] MEDS: INSULIN GLARGINE,HUM.REC.ANLOG 300 UNIT/3 ML INSULN.PEN SUBCUT SCH (10:09)
--- NOTE | 2016-11-21 10:42 | PDOC PROGRESS REPORT ---
Subjective Progress Note for:: 11/21/16 Subjective:: Complains of pain in her hip. Physical Exam Vital Signs: Temp Pulse Resp BP Pulse Ox 98.5 F 91 16 147/51 H 97 11/21/16 07:30 11/21/16 08:00 11/21/16 08:00 11/21/16 07:30 11/21/16 08:00 Intake & Output 11/20/16 11/21/16 11/22/16 06:59 06:59 06:59 Intake Total 555 1473 Output Total 700 1050 Balance -145 423 Weight 93.6 kg 95.8 kg General appearance: PRESENT: no acute distress Eye exam: PRESENT: conjunctiva pink. ABSENT: scleral icterus Ear exam: PRESENT: normal external ear exam Mouth exam: PRESENT: moist, tongue midline Neck exam: ABSENT: JVD Respiratory exam: PRESENT: clear to auscultation jaclyn. ABSENT: rales, rhonchi, wheezes Cardiovascular exam: PRESENT: RRR, systolic murmur. ABSENT: diastolic murmur, rubs GI/Abdominal exam: PRESENT: normal bowel sounds, soft. ABSENT: distended, guarding, mass, organolmegaly, rebound, tenderness Extremities exam: ABSENT: calf tenderness, clubbing, pedal edema Neurological exam: PRESENT: alert, awake, oriented to person, oriented to place , oriented to time, oriented to situation, CN II-XII grossly intact. ABSENT: motor sensory deficit Psychiatric exam: PRESENT: appropriate affect Skin exam: PRESENT: dry, intact, warm, other - Patient has ulcer on the left neff that is not erythematous or draining.. ABSENT: cyanosis, rash Results Laboratory Results: 11/21/16 05:36 11/21/16 05:36 11/21/16 11/21/16 05:36 05:36 WBC 11.6 H RBC 3.58 L Hgb 8.5 L Hct 26.8 L MCV 75 L MCH 23.8 L MCHC 31.8 L RDW 17.5 H Plt Count 236 Seg Neutrophils % 72.0 Lymphocytes % 13.4 Monocytes % 12.9 Eosinophils % 1.0 Basophils % 0.7 Absolute Neutrophils 8.4 H Absolute Lymphocytes 1.6 Absolute Monocytes 1.5 H Absolute Eosinophils 0.1 Absolute Basophils 0.1 Sodium 131.2 L Potassium 3.4 L Chloride 92 L Carbon Dioxide 28 Anion Gap 11 BUN 10 Creatinine 0.83 Est GFR ( Amer) > 60 Est GFR (Non-Af Amer) > 60 Glucose 235 H Calcium 8.3 L 11/20/16 11/20/16 11/20/16 02:25 02:25 08:37 Creatine Kinase 104 113 CK-MB (CK-2) 0.41 Troponin I 0.029 11/20/16 08:37 Creatine Kinase CK-MB (CK-2) 0.36 Troponin I 0.027 Impressions: Hip/Pelvis X-Ray 11/19/16 00:00 IMPRESSION: Spiral proximal right femoral metaphyseal fracture with 3 cm of displacement and mild varus angulation. Chest X-Ray 11/19/16 18:58 IMPRESSION: NO ACUTE RADIOGRAPHIC FINDING IN THE CHEST. Assessment & Plan - Diagnosis (1) Femur fracture, right Qualifiers: Encounter type: initial encounter Femur location: proximal physis ( incl. Salter-Mahmood) Salter-Mahmood Fracture Type: unspecified configuration Qualified Code(s): S79.001A - Unspecified physeal fracture of upper end of right femur, initial encounter for closed fracture Is this a current diagnosis for this admission?: YesPlan: Patient have surgical repair once cleared from cardiology. I discussed with the family that the patient is high risk but will need surgery. (2) Opiate dependence, continuous Is this a current diagnosis for this admission?: YesPlan: Continue with morphine when necessary. (3) Cellulitis of leg without foot, left Is this a current diagnosis for this admission?: YesPlan: Patient is on Rocephin. General surgery is following because of this lesion. (4) Rheumatoid arthritis Qualifiers: Rheumatoid arthritis location: multiple sites Rheumatoid factor presence: without rheumatoid factor Qualified Code(s): M06.09 - Rheumatoid arthritis without rheumatoid factor, multiple sites Is this a current diagnosis for this admission?: Yes (5) CAD (coronary artery disease) Qualifiers: Coronary Disease-Associated Artery/Lesion type: [place] artery [place] vs. transplanted heart: [place] heart Is this a current diagnosis for this admission?: YesPlan: Denies any chest pain. She has been evaluated by cardiology. (6) COPD (chronic obstructive pulmonary disease) Is this a current diagnosis for this admission?: YesPlan: Continue with nebulizers. 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 (8) Depression Is this a current diagnosis for this admission?: Yes (9) HTN (hypertension) Qualifiers: Hypertension type: essential hypertension Qualified Code(s): I10 - Essential (primary) hypertension Is this a current diagnosis for this admission?: YesPlan: Continue with lisinopril and Norvasc. (10) Hypothyroidism Qualifiers: Hypothyroidism type: unspecified Qualified Code(s): E03.9 - Hypothyroidism, unspecified Is this a current diagnosis for this admission?: YesPlan: Continue with home Synthroid dose. (11) Iron deficiency anemia Qualifiers: Iron deficiency anemia type: unspecified iron deficiency Qualified Code (s): D50.9 - Iron deficiency anemia, unspecified Is this a current diagnosis for this admission?: YesPlan: Patient has IV iron ordered. (12) Obstructive sleep apnea Is this a current diagnosis for this admission?: YesPlan: We'll use CPAP as needed. - Time Time Spent with patient: 25-34 minutes - Inpatient Certification Medical Necessity: Need Close Monitoring Due to Risk of Patient Decompensation
--- NOTE | 2016-11-21 11:51 | PDOC CONSULTATION ---
Consultation Consult Date: 11/21/16 Attending physician:: ASTRID LOZANOTEDARI Consult reason:: dyspnea/pre-op History of Present Illness Admission Date/PCP: 11/19/16 22:09 ETHAN LATHAM, History of Present Illness: 71-year-old female who suffered a fall and suffered a right displaced intertrochanteric hip fracture.She has AIDE,RA.COPD D Mellitus HTN.She is a poor historian but has BRYANT with ADL's She denies cough,hemoptysis and her PPD status is unknown.She denies h(x) of lung disease as a child or adolescent.She admits to exsposure to passive smoke as a child and adult.She has smoked 2 ppd 16 yo to 57 yo+ 81 py hx.She is uncertain as to her occupational exsposure to potential respiratory toxins.She has one dog and denies any recent travel.She denies anginal like chest pain ,sleeps 2 pillows admits to liited PND deies nocturnal cough andmits to edema.She has dianosis of AIDE with limited compliance with CPAP Past Medical History Cardiac Medical History: Reports: Coronary Artery Disease, DVT - Reports history of right knee blood clot, Hyperlipidema, Hypertension, Peripheral Vascular Disease - Left renal artery stenting Pulmonary Medical History: Reports: Asthma, Bronchitis, Chronic Obstructive Pulmonary Disease (COPD), Pneumonia, Respiratory Failure - hypercapnic, Sleep Apnea Endocrine Medical History: Reports: Diabetes Mellitus Type 1, Diabetes Mellitus Type 2, Hypothyroidism, Obesity Malignancy Medical History: Reports: Cervical Cancer GI Medical History: Reports: Gastroesophageal Reflux Disease, Hiatal Hernia Musculoskeltal Medical History: Reports: Arthritis - steroid dependent Rheumatoid arthritis Psychiatric Medical History: Reports: Depression Past Surgical History Past Surgical History: Reports: Cardiac Catheterization, Cholecystectomy, Hysterectomy, Orthopedic Surgery - back surgery x 2, left ankle ORIF, right ankle surgery, Vascular Surgery - Left renal artery stent, Other - Right eardrum surgery in 1968 Social History Information Source: Parent, [facility] Records Lives with: Alone Smoking Status: Former Smoker Cigarettes Packs Per Day: 2 Number of Years Smokin Last Time Smoked: 20 Passive smoke exposure as: Both Frequency of Alcohol Use: None Hx Recreational Drug Use: No Drugs: None Hx Prescription Drug Abuse: No Do you have pets?: Yes Have you had any respiratory illnesses as a child?: No Have you been exposed to any sick contacts recently?: No Have you had any recent respiratory illnesses?: No Have you travelled outside of [place] in the past 12 months?: No - Advance Directive Resuscitation Status: Full Code Family History Family History: CAD, COPD, CVA, DM, Malignancy Parental Family History Reviewed: Yes Children Family History Reviewed: Yes Sibling(s) Family History Reviewed.: Yes Medication/Allergy Home Medications: Amlodipine Besylate [Norvasc 10 mg Tablet] 10 mg PO QAM 08/18/16 Glipizide [Glucotrol 10 mg Tablet] 10 mg PO Q12 08/18/16 Insulin Glargine,Hum.rec.anlog [Toujeo Solostar] 60 units SQ DAILY 08/18/16 Levothyroxine Sodium [Synthroid] 125 mcg PO QAM 08/18/16 Lisinopril [Prinivil] 20 mg PO QAM 08/18/16 Lorazepam [Ativan] 1.5 mg PO QHS 08/18/16 Montelukast Sodium [Singulair 10 mg Tablet] 10 mg PO QHS 08/18/16 NPH, Human Insulin Isophane [Humulin N (NPH) Insulin 100 unit/mL] 40 units SQ AC 08/18/16 Omeprazole 20 mg PO QHS 08/18/16 Oxycodone HCl 15 mg PO TIDP PRN 08/18/16 Prednisone [Deltasone 20 mg Tablet] 20 mg PO DAILY 08/18/16 Travoprost (Benzalkonium) [Travatan 0.004% Eye Drop] 1 drop OU QHS 08/18/16 Duloxetine HCl 30 mg PO QHS 11/20/16 Allergies/Adverse Reactions: codeine [Codeine] Allergy (Intermediate, Verified 11/19/16 18:33) itching Physical Exam Vital Signs: Temp Pulse Resp BP Pulse Ox 98.5 F 91 16 147/51 H 97 11/21/16 07:30 11/21/16 08:00 11/21/16 08:00 11/21/16 07:30 11/21/16 08:00 Intake & Output 11/20/16 11/21/16 11/22/16 06:59 06:59 06:59 Intake Total 555 1473 Output Total 700 1050 Balance -145 423 Weight 93.6 kg 95.8 kg General appearance: PRESENT: cooperative, disheveled, mild distress, obese, well -developed Head exam: PRESENT: atraumatic, normocephalic Eye exam: PRESENT: conjunctiva pink, EOMI Mouth exam: PRESENT: dry mucosa, neck supple Neck exam: ABSENT: carotid bruit, JVD, lymphadenopathy, thyromegaly Respiratory exam: PRESENT: decreased breath sounds, prolonged expiratory phas, symmetrical, unlabored, wheezes Cardiovascular exam: PRESENT: RRR, +S1, +S2 Pulses: PRESENT: normal radial pulses GI/Abdominal exam: PRESENT: normal bowel sounds, soft. ABSENT: distended, guarding, mass, organolmegaly, rebound, tenderness Rectal exam: PRESENT: deferred Gentrourinary exam: PRESENT: indwelling catheter Neurological exam: PRESENT: awake Psychiatric exam: PRESENT: unusual affect Skin exam: PRESENT: dry, warm, other - diffuse subcutaneous eccymosis Results Laboratory Results: 11/21/16 05:36 11/21/16 05:36 11/21/16 11/21/16 05:36 05:36 WBC 11.6 H RBC 3.58 L Hgb 8.5 L Hct 26.8 L MCV 75 L MCH 23.8 L MCHC 31.8 L RDW 17.5 H Plt Count 236 Seg Neutrophils % 72.0 Lymphocytes % 13.4 Monocytes % 12.9 Eosinophils % 1.0 Basophils % 0.7 Absolute Neutrophils 8.4 H Absolute Lymphocytes 1.6 Absolute Monocytes 1.5 H Absolute Eosinophils 0.1 Absolute Basophils 0.1 Sodium 131.2 L Potassium 3.4 L Chloride 92 L Carbon Dioxide 28 Anion Gap 11 BUN 10 Creatinine 0.83 Est GFR ( Amer) > 60 Est GFR (Non-Af Amer) > 60 Glucose 235 H Calcium 8.3 L 11/20/16 11/20/16 11/20/16 02:25 02:25 08:37 Creatine Kinase 104 113 CK-MB (CK-2) 0.41 Troponin I 0.029 11/20/16 08:37 Creatine Kinase CK-MB (CK-2) 0.36 Troponin I 0.027 Impressions: Hip/Pelvis X-Ray 11/19/16 00:00 IMPRESSION: Spiral proximal right femoral metaphyseal fracture with 3 cm of displacement and mild varus angulation. Chest X-Ray 11/19/16 18:58 IMPRESSION: NO ACUTE RADIOGRAPHIC FINDING IN THE CHEST. Assessment & Plan - Diagnosis (1) Femur fracture, right Qualifiers: Encounter type: initial encounter Femur location: proximal physis ( incl. Salter-Mahmood) Salter-Mahmood Fracture Type: unspecified configuration Qualified Code(s): S79.001A - Unspecified physeal fracture of upper end of right femur, initial encounter for closed fracture Is this a current diagnosis for this admission?: YesPlan: as per surgery (2) Opiate dependence, continuous Is this a current diagnosis for this admission?: Yes (3) Rheumatoid arthritis Qualifiers: Rheumatoid arthritis location: multiple sites Rheumatoid factor presence: without rheumatoid factor Qualified Code(s): M06.09 - Rheumatoid arthritis without rheumatoid factor, multiple sites Is this a current diagnosis for this admission?: YesPlan: pain control will be a little more challenging than usual patient has been on lowdose prednisone for quite a while will need stress doses (4) COPD (chronic obstructive pulmonary disease) Is this a current diagnosis for this admission?: YesPlan: all bronchodilators per n patient appears to be a PCO2 retainer (5) 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
[2016-11-21] MEDS: IPRATROPIUM/ALBUTEROL 0.5-2.5 MG/3 ML AMPUL NEB PRN (12:03)
[2016-11-21] MEDS ORDERED: BUDESONIDE NEB 0.5 MG/2 ML AMPUL NEB ONE (13:00)
[2016-11-21] MEDS: METHYLPREDNISOLONE INJ 125 MG/2 ML SDV IV SCH ×2 (14:16→21:10)
--- NOTE | 2016-11-21 18:24 | PROGRESS NOTE E ---
Progress Note NAME: ABISAI JOHNSON : 1945 AGE: 71Y DATE: 11/21/2016 ROOM: 326 SUBJECTIVE: Her pain is better controlled now as far as her right hip fracture is concerned. Her eschars in the abdominal wall appear stable. They are still mild and reddish discolorization on the mid part but still no evidence of abscess. Impression: Cellulitis around eschars in mid abdomen PLAN: Continue on IV antibiotics. She is supposed to have her right hip fracture repaired tomorrow after cardiology clearance. DICTATING PHYSICIAN: NILDA JOEL M.D. [id number] PHY#: [id number] ID: [id number] JOB#: [id number] ACCT: [id number] cc: > MTDD
--- NOTE | 2016-11-21 18:29 | PROGRESS NOTE E ---
Progress Note NAME: ABISAI JOHNSON : 1945 AGE: 71Y DATE: 11/21/2016 ROOM: 326 SUBJECTIVE: Note that the patient was seen from 3:00 p.m. to 3:30 p.m. The patient complains of right hip pain and wants her surgery done. She has been seen by Dr. Granados, the systems software engineer. His consultation is awaited. The patient denies any chest pain or discomfort. There is no shortness of breath. There is no cough or wheezing. There is no PND or orthopnea. Her left lower leg ulcer is much improved. The eschar on the abdominal wall is also improved. There is no arrhythmia seen on the monitor. There are no TIA or CVA symptoms. There are no anginal symptoms. OBJECTIVE: GENERAL: On examination, the patient is moderately obese, in distress due to right hip pain. VITAL SIGNS: She is afebrile with a temperature of 98.2 degrees Fahrenheit. Pulse is 92 beats per minute. Blood pressure 127/97. Her respirations are 18 per minute. O2 saturations are 97% on 3 liters nasal cannula. HEAD: Atraumatic/normocephalic. EYES: Pupils are equal, round, regular, reactive to light and accommodation. Extraocular movements are normal. There is no conjunctival pallor. There is no scleral icterus. EARS, NOSE, AND THROAT: Negative. SKIN: There are multiple superficial ulcers of the skin of the abdomen, especially of the lower abdomen. There is also an ulcer on the left lower leg which seems to be healing. NECK: Supple. There is no JVD. Carotids are equal. There is no bruit. There is no JVD. There is no lymphadenopathy. There is no goiter. Trachea is central. LUNGS: Show diminished air entry, prolonged expiration, otherwise without any rhonchi, rales, or wheezing. On percussion, the patient is hyperresonant. HEART: S1, S2 is heard. There is no S3 gallop. There is no S4 gallop. There is a systolic murmur in the left sternal border and the apex. There is no rub. ABDOMEN: Soft, nontender. There is no hepatosplenomegaly. Bowel sounds are well heard. There are no tender areas or masses. EXTREMITIES: Femorals are diminished. There is no femoral bruit. Leg pulses are diminished. There is a healing ulcer on the left lower leg on the medial aspect. There is no DVT. There is no cyanosis or clubbing. CENTRAL NERVOUS SYSTEM: The patient is conscious, awake, alert, oriented x3 with no focal deficit. PSYCHIATRIC: The patient's judgement and insight are intact. Her affect is normal. DIAGNOSTIC DATA: The patient's echocardiogram done yesterday showed moderate concentric left ventricular hypertrophy with normal wall motion, LV diastolic dysfunction, LV ejection fraction of 60%. There is trace MR, and there is mild aortic stenosis which is hemodynamic insignificant. There is no aortic regurgitation. There is no tricuspid stenosis. There is mild amount of tricuspid regurgitation. Right ventricular systolic pressure is normal. Right ventricular systolic pressure is 28 mmHg with a RA mean of 5, and there is no pericardial effusion. The patient's white count is 11,600, hemoglobin is 8.5, hematocrit is 26.8, platelet count is 236,000. The patient's sodium is 131.2, potassium is 3.4, chloride is 92, the patient's CO2 is 28, the patient's BUN is 10, creatinine is 0.83, GFR is greater than 60, glucose is 264, calcium is 8.8. ASSESSMENT: 1. RIGHT HIP FRACTURE, FOR SURGERY. 2. COPD, SIGNIFICANT, ON HOME OXYGEN. 3. HYPERTENSION, WELL CONTROLLED. 4. HYPOKALEMIA AND HYPONATREMIA. 5. HISTORY OF LEFT RENAL ARTERY STENOSIS, STATUS POST STENT. 6. DIABETES MELLITUS TYPE 2, INSULIN DEPENDENT. 7. RHEUMATOID ARTHRITIS. 8. OBSTRUCTIVE SLEEP APNEA, INTOLERANT TO CPAP. 9. HISTORY OF ASTHMA. 10. HYPOTHYROIDISM. 11. DEPRESSION. 12. BACK PAIN, BY HISTORY. 13. SKIN ULCERS AND CELLULITIS OF THE ABDOMINAL WALL AND A HEALING ULCER OF THE LEFT LOWER LEG. 14. PREOPERATIVE CARDIOVASCULAR EXAMINATION FOR ASSESSMENT OF CARDIAC RISK OF THE PATIENT BEFORE SURGERY. RECOMMENDATIONS: Cardiac status is stable. Continue current medications. Note, I would address the patient's anemia or watch the patient's hemoglobin closely and transfuse when necessary. Also would get postoperatively serial cardiac enzymes and troponin-I. Also would monitor the patient perioperatively. As mentioned earlier, the patient will be at least moderate cardiac risk for this procedure. The pulmonary risks for this procedure will be determined by Dr. Granados. Note that this is highly complex medical decision making in this case in view of the patient's multiple comorbid conditions. Will follow with you postoperatively. Note 30 minutes spent on this patient with more than 50% of time spent on reviewing the patient medications and also discussion with other care-giving providers on the case. DICTATING PHYSICIAN: ISAEL RENTERIA M.D. [id number] PHY#: [id number] ID: [id number] JOB#: [id number] ACCT: [id number] cc:ISAEL RENTERIA M.D. >
--- NOTE | 2016-11-21 18:33 | CONSULTATION REPORT E ---
Consultation Report NAME: ABISAI JOHNSON : 1945 AGE: 71Y DATE: 11/20/2016 326 A TO: ISAEL RENTERIA M.D. FROM: TORRIE MCCOLLUM M.D. Requesting Physician REASON FOR CONSULTATION: Patient with murmur, diabetes mellitus, and multiple other medical problems, with hip fracture. Patient for preoperative cardiac risk assessment. HISTORY: The patient is a poor historian. The patient was seen and formal consultation rendered at 6:30 p.m. to 7:20 p.m., a total of 50 minutes was spent on this patient. The patient is a 71-year-old female with a history of oxygen dependent COPD, chronic pain, diabetes mellitus poorly controlled, history of frequent skin ulcers, eschar and cellulitis, and multiple other medical problems, who states that she accidentally tripped and fell and started having pain in the right hip region, and was found to have a right femoral neck fracture. The patient is for surgery for that. The patient denies any chest pain or discomfort. She denies any increased shortness of breath. There is no wheezing, cough, or sputum production. She has no chest pain. She has chronic orthopnea. There is no PND. There are no palpitations. There is no syncope. There is no history of dizziness, but does admit to multiple previous falls. PAST MEDICAL HISTORY: 1. No history of coronary artery disease, TN, or anginal symptoms. 2. History of diabetes mellitus. The patient states is very brittle and very difficult to control. 3. She also states she has recurrent ulcers in the foot and abdominal wall, and presently has a skin ulcer, eschar, and cellulitis of the abdominal wall, and also cellulitis and ulcer of the left leg. 4. History of rheumatoid arthritis and is steroid dependent. 5. History of significant COPD on home oxygen. She quit smoking many years ago. 6. History of obstructive sleep apnea and is intolerant to CPAP. 7. She states that she has had about 5 cardiac catheterizations. The last one was about 5 years ago, and was told that there was no significant coronary artery disease. 8. No history of congestive heart failure. 9. She does have palpitations, but there is no documented arrhythmia. 10. There is no history of TIA or CVA. 11. She has a history of hypertension and states that many years ago she had a left renal artery stent placed. She is on multiple medications and blood pressure is well controlled. 12. History of hypothyroidism. 13. History of depression. PAST SURGICAL HISTORY: 1. Cholecystectomy. 2. Hysterectomy. 3. Back surgery x2. 4. Left open reduction and internal fixation of the left ankle. 5. Acute trimalleolar fracture of the right ankle. 6. History of left renal artery stent placement for uncontrolled hypertension. ALLERGIES: Codeine makes her nauseated. FAMILY HISTORY: Positive for coronary artery disease and congestive heart failure in her mother. REVIEW OF SYMPTOMS: CONSTITUTIONAL: Denies any fever, chills, or rigors, but has generalized fatigue and malaise. HEAD: Denies any headaches or dizziness. EYES: No history of diplopia. No history of amaurosis fugax. EARS/NOSE: No history of hearing loss. No history of vertigo. No history of Meniere's disease. No history of hay fever, no history of nosebleeds, no history of nasal polyps. No history of altered taste sensation. No history of ulcers. No bleeding from gums. THROAT: There is no odynophagia or dysphagia. There is no recurrent sore throat. SKIN: History of recurrent ulcers and cellulitis as mentioned earlier in the abdominal wall and in the left leg. NECK: She has no history of swelling in the neck. There is no goiter. There is no neck pain. LUNGS: History of COPD, which is significant. She is on home oxygen. No recent symptoms suggestive of acute bronchitis or pneumonia. There is no history of pulmonary emboli. No history of pleuritic chest pain. No history of hemoptysis. She has a history of obstructive sleep apnea and is intolerant to CPAP. CARDIAC: History of hypertension. History of left renal artery stenosis, status post stent in the remote past. No history of TN. No history of congestive heart failure. No angina symptoms. No history of coronary artery disease. History of palpitations with no documented arrhythmia. No history of PND. She does have orthopnea. She has mild edema of the right lower extremity. She has dyspnea on exertion and is not very active. Dyspnea on exertion is because of COPD. She walks short distances with a walker. GI: There is a past history of GI bleed in December 2014. She states she did not have an endoscopy at that time because she did not want to be put to sleep, but since then she has not had any GI bleed. There is no fatty food intolerance. She has a history of IBS. Symptoms very occasional. There is no history of jaundice, no history of abdominal pain, no history of altered bowel movements, no hematemesis. 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 She says that she is not able to come off prednisone because of her rheumatoid arthritis. She has chronic back pain and has had 2 back surgeries. DIVISION SERVICE MANAGER: There is no history of TIA or CVA. No history of seizure or headaches. History of sleep apnea, intolerant to CPAP. The patient does have frequent falls, but no history of loss of consciousness. ENDOCRINE: History of brittle diabetes mellitus, insulin dependent. Does have some polyuria. She has history of hypothyroidism, on replacement. In December 2014, she was admitted with DKA. There is no hirsutism. PSYCHIATRIC: There is no history of anxiety. She has a history of depression. There is no suicidal or homicidal ideation. VASCULAR: No history of calf or buttock claudication. No history of DVT. HEMATOLOGY: No history of bleeding diathesis. No clotting disorders. RENAL: No history of chronic kidney disease. No symptoms of UTI. No history of hematuria or dysuria or pyuria. METABOLIC: The patient has a history of moderate obesity. There is no history of hyperlipidemia. She is a full code. Her daughter is her surrogate healthcare decision maker. MEDICATIONS: 1. Acetaminophen 650 mg q.4 hours as needed. 2. Amlodipine 10 mg p.o. daily. 3. Ceftriaxone 1 gram IVPB x1. 4. She is on hypoglycemic precautions that include dextrose gel 15 grams p.o. PRN and 30 grams p.o. PRN hypoglycemia. She is also on hypoglycemic precautions with dextrose 50 % IV and 25 grams IV PRN hypoglycemia, and also glucagon 1 mg IM PRN. 5. Cymbalta 60 mg p.o. daily. 6. Colace 100 mg p.o. twice daily. 7. Heparin 5000 units subcutaneously q.8 hours. 8. Ceftriaxone 1 gram IV piggyback at bedtime. 9. Iron sucrose 100 mg in normal saline x1 IV. 10. She did get NS 1000 mg IV. 11. Lantus insulin 30 units subcutaneously daily. 12. Accuchecks AC TID and HS with sliding scale regular insulin coverage.. 13. Ipratropium/albuterol [id number] treatment q.4 hours as needed. 14. Ipratropium/albuterol 3ml nebulizer treatment q.6 hours. 15. Levothyroxine 0.125 mg p.o. daily. 16. Lisinopril 20 mg p.o. every morning. 17. Magnesium hydroxide 30 mL p.o. at bedtime as needed. 18. Singulair 10 mg p.o. at bedtime. 19. Morphine sulfate 80 mg IV q.2 hours as needed. 20. Zofran 4 mg IV q.8 hours as needed. 21. Oxycodone 15 mg p.o. three times daily as needed. EXAMINATION: GENERAL: The patient is moderately obese. At this time, the patient is in minor distress due to pain in the right hip. VITAL SIGNS: Earlier, her temperature was 102 degrees Fahrenheit. The patient is not very well groomed. Her pulse is 97 beats per minute, blood pressure 139/45. Respirations 20 per minute. O2 sat is 93% on 2 liters nasal cannula. HEENT: Atraumatic/normocephalic. Pupils are equal, round, and regular, reactive to light and accommodation. Extraocular movements are normal. There is no conjunctival pallor. There is no scleral icterus. Ears: Tympanic membranes are intact. External auditory canals are clear. Nose: There is no deviated nasal septum. There is no inflammation of the nasal mucosa. Mouth: Mucous membranes in the mouth are moist. There are no ulcers. There is no bleeding of the gums. Throat: There is no redness of the oropharynx. There is no exudate in the throat. SKIN: There is ulcer, eschar, and cellulitis of the abdominal wall. She also has cellulitis of the left leg. There is some redness of the right leg with some edema. NECK: Supple. There is no JVD. Carotids equal. There is no bruit. There is no lymphadenopathy. There is no goiter. Trachea is center. LUNGS: Diminished air entry. Prolonged expiration, otherwise without rhonchi, rales, or wheezing. HEART: S1, S2 is heard. There is no S3 gallop. There is no S4 gallop. There is a systolic murmur in the left sternal border at the apex. There is no radiation. There is no rub. ABDOMEN: Soft, nontender. There is no hepatosplenomegaly. Bowel sounds well heard. Eschar, ulcer, and cellulitis of the abdominal wall, as mentioned earlier. EXTREMITIES: Leg pulses diminished. The right lower extremity has some redness to it. There are some ulcers of the left leg with eschar and cellulitis. DIVISION SERVICE MANAGER: The patient is conscious, awake, alert, oriented x3 with no deficits. PSYCHIATRIC: The patient's judgment and insight are intact. Her affect is slow. The patient's echocardiogram shows moderate LVH, normal left ventricular chamber size. LV ejection fraction 60%. Left ventricular systolic function is normal. Doppler measurements suggest pseudonormalization of the left ventricular relaxation, which is associated with grade 2/4, which is mild to moderate diastolic dysfunction. The right ventricular wall motion is normal. Right ventricle is grossly normal in size. Cannot exclude right ventricular hypertrophy. Normal right ventricular systolic function. The left atrium is mildly dilated. There is no evidence of mitral valve prolapse. There is no mitral valve stenosis. There is trace amount of mitral regurgitation. There is mild aortic stenosis, which is insignificant with peak gradient of 19 mmHg. There is no aortic regurgitation present. There is no tricuspid stenosis. There is a mild amount of tricuspid regurgitation. Right ventricular systolic pressure is normal with RVSP of 28 mmHg with RA mean of 5. There is no pericardial effusion. Note that this is a suboptimal quality study and technically limited with all images being suboptimal in quality. The patient's chest x-ray shows there is no acute infiltrate. There is no definite evidence of congestive heart failure. There is some cardiomegaly. The patient's EKG shows sinus rhythm, possible left ventricular hypertrophy. No acute ST changes. The patient's hip and pelvis x-ray shows a spiral proximal right femoral and metaphyseal fracture with 3 cm displacement and mild varus angulation. The patient's sodium was 135.2, potassium was 3.4, chloride 94, CO2 is 31. The patient's BUN is 10, creatinine 0.73. GFR is greater than 60. Glucose 240, calcium 8.7, magnesium 1.7. The patient's troponin-I is 0.03, 0.029, 0.27. The patient has a white count of 9800, hemoglobin 9.1, hematocrit 28.7, and platelet count is 229,000. The patient's pro time is 13.1, INR 0.97, PTT 29.3. The patient's ABG showed pH of 7.45, pCO2 of 49.7, pO2 is 100.8. O2 sats are 97.8% on FiO2 of 40%. IMPRESSION: 1. Right femoral fracture. 2. Chronic obstructive pulmonary disease, significant, on home oxygen. At present seems to be at baseline. 3. Hypertension. 4. History of left renal artery stenosis, status post stent. 5. Diabetes mellitus type 2, insulin dependent. 6. Rheumatoid arthritis. 7. Obstructive sleep apnea, intolerant to CPAP. 8. History of asthma, no recent attacks in a long time. 9. Hypothyroidism. 10. Depression. 11. Back pain per history, which is chronic. 12. Ulcer with eschar and cellulitis of the abdominal wall and cellulitis of the left leg. 13. Obesity. 14. Mild aortic stenosis which is hemodynamically insignificant. 15. Pre-operative cardiovascular exam for cardiac risk assessment. RECOMMENDATIONS: Cardiac status is stable. The patient has moderate LVH and has LV diastolic dysfunction, and needs to watch out for postoperative congestive heart failure or arrhythmias. Also, in spite of the lack of history of coronary artery disease, the patient has multiple CAD risk factors and preoperatively needs to be monitored for development of arrhythmias, and also the patient should have preoperative EKGs and cardiac enzymes. The patient will be moderate risk for this surgery. Continue oxygen and respiratory treatments. Continue antibiotics. Note a total of 50 minutes were spent on this patient, including more than 50% of the time spent in direct patient care, reviewing the patient's medications, and discussions of the echo findings, EKG findings, and laboratory findings with the patient. Note the patient's medications have been reviewed. Would not add any further medications. As mentioned earlier, will follow the patient postoperatively. Would get serial EKGs and enzymes and watch the patient for arrhythmias and for development of congestive heart failure. Note this is a patient with multiple medical problems, and also multiple CAD risk factors, and hence decision making is moderate to high complexity. Discussed with the hospitalist taking care of the patient. Will discuss with the orthopedic surgeon. Discussed with the patient. DICTATING PHYSICIAN: ISAEL RENTERIA M.D. [id number] PHLeslie#: [id number] ID: [id number] JOB#: [id number] ACCT: [id number] cc:ISAEL RENTERIA M.D. > RUPESH
--- NOTE | 2016-11-21 18:37 | CONSULTATION REPORT E ---
Consultation Report NAME: ABISAI JOHNSON : 1945 AGE: 71Y DATE: 11/20/2016 326 A TO: HERNÁN COSTA M.D. FROM: TORRIE MCCOLLUM M.D. Requesting Physician HISTORY OF PRESENT ILLNESS: The patient is a 71-year-old female with a past medical history of oxygen-dependent COPD, chronic back pain, poorly controlled diabetes, recurrent cellulitis, admitted today after sustaining a right hip fracture following a fall from the bedside commode. The patient is scheduled for surgery tomorrow. Consulted for preop pulmonary evaluation to [id number] respiratory failure. The patient denies any fever, chills, increased coughing or purulent sputum production or hemoptysis. The patient denies any chest pain. Basically she takes an inhaler but she forgot. The patient appeared to be slightly confused. No nausea, vomiting, diarrhea or abdominal pain. PAST MEDICAL HISTORY: 1. History of Coronary artery disease. 2. DVT, right knee. 3. Hyperlipidemia. 4. Hypertension. 5. Peripheral vascular disease. 6. Left renal artery stenting. 7. History of asthma. 8. Bronchitis. 9. COPD. 10. Pneumonia. 11. Sleep apnea. 12. Diabetes mellitus type 2. 13. Hypothyroidism. 14. Cervical cancer. 16. GERD. 17. Hiatal hernia. 18. Major depression. 19. Moderate arthritis. PAST SURGICAL HISTORY: 1. Cardiac cath. 2. Cholecystectomy. 3. Hysterectomy. 4. surgery. 5. Left ankle ORIF. 6. Right ankle surgery. 7. Vascular surgery, left. SOCIAL HISTORY: Smoking status: Unknown if ever smoked. Denies any alcohol use or recreational drug use. FAMILY HISTORY: CAD, COPD, stroke, diabetes and malignancy. HOME MEDICATIONS: 1. Albuterol inhaler. 2. Amlodipine. 3. Duloxetine. 4. Empagliflozin or Jardiance. 5. Glipizide. 6. Insulin. 7. Synthroid. 8. Lisinopril. 9. . 10. Metformin. 11. Singulair. 12. Bactroban. 13. NPH. 14. Omeprazole. 15. Oxycodone. 16. Prednisone 20 mg tablet p.o. daily. 17. Nucynta ER. 18. Travoprost. 19. Bactrim DS. ALLERGIES: CODEINE. REVIEW OF SYSTEMS: CONSTITUTIONAL: No fever or chills or headache. EYES: No eye pain, blurry vision or jaundice. Conjunctival hemorrhage on left side. EARS, NOSE AND THROAT: No ear drainage, no nasal discharge. HEAD/NECK: No swelling. RESPIRATION: Denies any increased shortness of breath, denies any purulent sputum production, hemoptysis or chest pain. Denies any acutely worsening dyspnea. Has history of asthma and COPD. CARDIAC: No history of recent chest pain, angina, orthopnea, palpitations or . GASTROINTESTINAL: No nausea, vomiting or abdominal pain. Has an eschar scar 2 cm x 2 cm. GENITOURINARY: No dysuria, hematuria or passage of stones. MUSCULOSKELETAL: Back pain, deformity and muscle weakness. NERVOUS SYSTEM: Positive slight confusion. No syncopal episode. PSYCHIATRIC: No anxiety, depression or suicidal ideation. ENDOCRINE: No cold intolerance or heat intolerance. No polyuria or polydipsia. HEMATOLOGIC: No history of easy bruising. PHYSICAL EXAMINATION: GENERAL: the patient is awake, slightly incoherent, slightly confused. VITAL SIGNS: Afebrile, not in acute respiratory distress with temperature 99.4 and a T-max of 100.3 earlier today. Pulse rate is 93, sinus rhythm. Respirations are 14. EYES: No jaundice or pallor. Conjunctival hemorrhage involving the left side. No periorbital hematoma. EARS, NOSE AND THROAT: No ear drainage, no nasal discharge. HEAD/NECK: No scalp swelling or tenderness. Neck supple. CHEST/LUNGS: No wheezing, no rhonchi, no coarse crackles. CARDIOVASCULAR: S1,S2 distinct. Normal rate and regular rhythm. ABDOMEN: Flabby, positive bowel sounds, soft, nondistended. EXTREMITIES: No joint swelling or cellulitis. DIAGNOSTIC DATA: CBC done today showed a white count of 9.8, hemoglobin 9.1, hematocrit is 28.7, platelet count is 239, bands 1%. 100%. Today the PT is 13.1, INR is 0.97. Blood gas yesterday, 11/19/2016, showed a pH of 7.45, PCO2 of 49.7, bicarb of 100%. Chemistries today showed sodium 135, potassium 3.4, chloride 94, CO2 31, BUN 10, creatinine is 0.73 and anion gap is 10. Glucose is more than 200, was 287. Calcium 8.7, magnesium 1.7, creatine kinase 104. CK-MB 0.236 and troponin I is 0.27. Chest x-ray done yesterday on 11/19/2016 showed absence of pulmonary infiltrate or pleural effusion or pneumonia or pneumothorax. ASSESSMENT: 1. COPD/bronchial asthma. Currently stable and not in acute exacerbation. 2. Recent left hip fracture, status post surgery. 3. Obstructive sleep apnea. The patient has been on CPAP machine. PLAN/RECOMMENDATIONS: 1. Optimize COPD and asthma treatment. 2. Will start the patient on Spiriva inhaler. 3. Resume patient's medications: 1) Spiriva inhaler 1 capsule daily, 2) Advair 50 mcg Diskhaler 1 puff b.i.d., 3) albuterol inhaler as needed. 4. Oxygen therapy to titrate to keep saturation 91% to 94%. 5. Patient is at moderate risk for developing postoperative pulmonary complications such as pneumonia, acute respiratory failure requiring prolonged mechanical ventilation, pneumothorax. If you have any questions, feel free to call me. DICTATING PHYSICIAN: HERNÁN COSTA M.D. [id number] PHY#: [id number] ID: [id number] JOB#: [id number] ACCT: [id number] cc:HERNÁN COSTA M.D. >
[2016-11-21] MEDS: BUDESONIDE NEB 0.5 MG/2 ML AMPUL NEB SCH (20:18)
[2016-11-21] MEDS: CEFTRIAXONE 1 GM/D5W RTU 1 GM/50 ML RTUPB IV SCH (21:10)
[2016-11-21] MEDS: MONTELUKAST SODIUM 10 MG TABLET PO SCH (21:10)
[2016-11-21] MEDS: OXYCODONE HCL IR 5 MG TABLET PO PRN (23:30)
[2016-11-22] MEDS: INSULIN LISPRO 100 UNIT/ML 3 ML VIAL SUBCUT PRN ×5 (00:41→17:39)
[2016-11-22] MEDS ORDERED: INSULIN REG, HUMAN 100 UNIT/ML 3 ML VIAL (PYX) IV ONE ×3 (00:45→06:30)
[2016-11-22] MEDS: IPRATROPIUM/ALBUTEROL 0.5-2.5 MG/3 ML AMPUL NEB SCH ×4 (01:55→20:31)
[2016-11-22] MEDS: METHYLPREDNISOLONE INJ 125 MG/2 ML SDV IV SCH (05:28)
[2016-11-22] MEDS: HEPARIN SOD (PORCINE) 5,000 UNIT/ML 1 ML SYRINGE SUBCUT SCH ×3 (05:28→21:04)
[2016-11-22] MEDS: MORPHINE SULFATE 10 MG/ML INJ IV PRN ×3 (05:48→16:26)
[2016-11-22 05:58] LABS: ABSOLUTE LYMPHOCYTES (AUTO) 0.4 10^3/uL (0.5-4.7); ABSOLUTE MONOCYTES (AUTO) 0.4 10^3/uL (0.1-1.4); ABSOLUTE NEUT (AUTO) 7.9 10^3/uL (1.7-8.2); BASOPHILS % (AUTO) 0.1 % (0-2); HEMATOCRIT 27.5 % (36.0-47.0); HEMOGLOBIN 8.8 g/dL (12.0-15.5); HGB HCT DIFFERENCE -1.1; LYMPHOCYTES % (AUTO) 5.1 % (13-45); MEAN CORPUSCULAR HEMOGLOBIN 24.7 pg (27.0-33.4); MEAN CORPUSCULAR HGB CONC 32.2 g/dL (32.0-36.0); MEAN CORPUSCULAR VOLUME 77 fl (80-97); MONOCYTES % (AUTO) 4.4 % (3-13); RED BLOOD COUNT 3.57 10^6/uL (3.72-5.28); RED CELL DISTRIBUTION WIDTH 17.5 % (11.5-14.0); SEGMENTED NEUTROPHILS % (AUTO) 90.4 % (42-78); WHITE BLOOD COUNT 8.7 10^3/uL (4.0-10.5)
[2016-11-22 06:24] LABS: ANION GAP 14 (5-19); BLOOD UREA NITROGEN 18 mg/dL (7-20); CALCIUM 8.9 mg/dL (8.4-10.2); CARBON DIOXIDE 26 mmol/L (22-30); CHLORIDE 92 mmol/L (98-107); CREATININE RESULT 0.81 mg/dL (0.52-1.25); SODIUM 131.6 mmol/L (137-145)
[2016-11-22] MEDS ORDERED: INSULIN REG, HUMAN 100 UNIT/ML 3 ML VIAL (PYX) ONE (06:33)
[2016-11-22 06:40] LABS: POTASSIUM 4.5 mmol/L (3.6-5.0)
[2016-11-22 07:10] LABS: GLUCOSE 542 mg/dL (75-110)
[2016-11-22] MEDS: BUDESONIDE NEB 0.5 MG/2 ML AMPUL NEB SCH ×2 (08:49→20:31)
[2016-11-22] MEDS: DULOXETINE HCL 30 MG CAPSULE.DR PO SCH ×2 (09:39→21:03)
[2016-11-22] MEDS: LISINOPRIL 10 MG TABLET PO SCH ×2 (09:39→21:02)
[2016-11-22] MEDS: AMLODIPINE BESYLATE 10 MG TABLET PO SCH (09:40)
[2016-11-22] MEDS: DOCUSATE SODIUM 100 MG CAPSULE PO SCH ×2 (09:40→17:03)
[2016-11-22] MEDS: INSULIN GLARGINE,HUM.REC.ANLOG 300 UNIT/3 ML INSULN.PEN SUBCUT SCH (09:41)
--- NOTE | 2016-11-22 11:48 | PROGRESS NOTE E ---
Progress Note NAME: ABISAI JOHNSON : 1945 AGE: 71Y DATE: 11/22/2016 ROOM: [facility] SUBJECTIVE: The cellulitis on her abdominal wall appears to be improving. Her white count remains normal at 8.7. However, her glucose today is markedly elevated to about 542. PLAN: She is awaiting medical clearance prior to repair of her hip fracture. In the meantime, continue with IV antibiotics. DICTATING PHYSICIAN: NILDA JOEL M.D. [id number] PHY#: [id number] ID: [id number] JOB#: [id number] ACCT: [id number] cc: >
[2016-11-22] MEDS ORDERED: LISINOPRIL 10 MG TABLET PO ONE (12:30)
[2016-11-22] MEDS ORDERED: OXYCODONE HCL SR 40 MG TABLET PO ONE (14:30)
--- NOTE | 2016-11-22 17:28 | PROGRESS NOTE E ---
Progress Note NAME: ABISAI JOHNSON : 1945 AGE: 71Y DATE: 11/22/2016 ROOM: 326 SUBJECTIVE: Note that the patient was seen between 9:45 a.m. and 10:15 a.m., a total of 30 minutes spent on this patient. The patient continues to have pain in the right hip but she denies any chest pain or discomfort. There is no shortness of breath. There is no PND or orthopnea. There is no arrhythmia seen on the monitor. The leg ulcer and cellulitis is much improved. As per the nurse and the patient, the patient's surgery has been postponed until tomorrow. OBJECTIVE: GENERAL: On examination, the patient is moderately obese, in distress due to right hip pain. VITAL SIGNS: She is afebrile with a temperature of 98 degrees Fahrenheit. Pulse is 85 beats per minute. Blood pressure 160/68. Respirations are 16 per minute. O2 saturations are 98% on 2 L nasal cannula. HEAD: Atraumatic, normocephalic. EYES: Pupils are equal, round, regular, reactive to light and accommodation. Extraocular movements are normal. There is no conjunctival pallor. There is no scleral icterus. EARS, NOSE, AND THROAT: Negative. SKIN: There are multiple superficial ulcers of the skin of the abdomen, especially of the lower abdomen with some cellulitis, which is much improved. There is also an ulcer on the left lower leg in the medial aspect which is also much improved. NECK: Supple. There is no JVD. Carotids are equal. There is no bruit. There is no JVD. There is no lymphadenopathy. There is no goiter. Trachea is central. LUNGS: Show diminished air entry, prolonged expiration, otherwise without any rhonchi, rales, or wheezing. On percussion, there is hyperresonance over the lungs. HEART: S1, S2 is heard. There is no S3 gallop. There is no S4 gallop. There is a systolic murmur in the left sternal border and the apex. There is no rub. ABDOMEN: Soft, obese, nontender. There is no hepatosplenomegaly. Bowel sounds are well heard. Superficial ulcer with eschar and cellulitis which is much improved in the abdominal wall. EXTREMITIES: Femorals are diminished. There are no femoral bruits. Leg pulses are diminished. There is a healing ulcer on the medial aspect. There is no DVT. There is no cyanosis or clubbing. CENTRAL NERVOUS SYSTEM: The patient is conscious, awake, alert, oriented x3 with no focal deficit. PSYCHIATRIC: The patient's judgment and insight are intact. Her affect is normal. DIAGNOSTIC DATA: The patient's white count is 8700, hemoglobin is 8.8, hematocrit is 37.5, platelet count is 235,000. The patient's sodium is 131.6, potassium is 4.5, chloride is 92, CO2 is 26. The patient's BUN is 18, creatinine is 0.81. GFR is greater than 60. Glucose is 542; earlier this morning it was 543. The patient's calcium is 8.9. The patient's serum iron is low at 11.8, TIBC is 286. The patient's ferritin at this time is 66. The patient's B12 is greater than 1000. Folate is 12. ASSESSMENT: 1. RIGHT HIP FRACTURE, FOR SURGERY. 2. COPD, SIGNIFICANT, ON HOME OXYGEN. 3. HYPERTENSION. Blood pressure elevated. Will give an extra dose of lisinopril now 20 mg and increase the lisinopril 20 mg to p.o. q.12 h. 4. HYPOKALEMIA, RESOLVED. 5. HYPONATREMIA. Sodium is still slightly low. 6. HISTORY OF LEFT RENAL ARTERY STENOSIS, STATUS POST STENT. 7. DIABETES MELLITUS TYPE 2, INSULIN DEPENDENT. 8. RHEUMATOID ARTHRITIS. 9. OBSTRUCTIVE SLEEP APNEA, INTOLERANT TO CPAP. 10. HISTORY OF ASTHMA. 11. HYPOTHYROIDISM. 12. DEPRESSION. 13. CHRONIC BACK PAIN. 14. SKIN ULCERS AND CELLULITIS OF THE ABDOMINAL WALL AND A HEALING ULCER OF THE LEFT LOWER LEG. Look much improved. 15. ANEMIA, IRON DEFICIT BUT WITH A HIGH FERRITIN. 16. PREOPERATIVE CARDIOVASCULAR EXAMINATION FOR CARDIAC RISK ASSESSMENT FOR THE SURGERY. RECOMMENDATIONS: The patient's medications were reviewed and the patient was given 1 extra dose of lisinopril p.o. now and we will increase the lisinopril to 20 mg p.o. q.12 h. We will watch and make sure the blood pressure is in stable condition. Note: I do not see the point of giving any iron since the patient's ferritin is high in spite of low serum iron. Continue her other medications. As mentioned earlier, the patient is for surgery tomorrow and she will be, as mentioned earlier, at moderate risk for the surgery for cardiac and pulmonary complications. The patient continues to be in need of high complex medical decision making in view of the patient's multiple comorbid conditions including the recent development of anemia. Will follow with you postoperatively. Postoperatively we will get serial cardiac enzymes, which is troponin I and also EKG. Note 30 minutes spent on this patient with more than 50% of the time spent on direct patient care, medication review, and also discussed with the hospitalist taking care of the patient. Will follow with you. Thanking you. DICTATING PHYSICIAN: ISAEL RENTERIA M.D. [id number] PHY#: [id number] ID: [id number] JOB#: [id number] ACCT: [id number] cc: >
[2016-11-22] MEDS: CEFTRIAXONE 1 GM/D5W RTU 1 GM/50 ML RTUPB IV SCH (21:02)
[2016-11-22] MEDS: OXYCODONE HCL SR 40 MG TABLET PO SCH (21:03)
[2016-11-22] MEDS: MONTELUKAST SODIUM 10 MG TABLET PO SCH (21:03)
[2016-11-22] MEDS: LORAZEPAM 1 MG TABLET PO PRN (23:14)
[2016-11-23] MEDS: INSULIN LISPRO 100 UNIT/ML 3 ML VIAL SUBCUT PRN ×5 (00:23→22:20)
[2016-11-23] MEDS ORDERED: INSULIN REG, HUMAN 100 UNIT/ML 3 ML VIAL (PYX) IV ONE ×2 (00:30→06:30)
[2016-11-23] MEDS: IPRATROPIUM/ALBUTEROL 0.5-2.5 MG/3 ML AMPUL NEB SCH ×4 (02:27→20:00)
[2016-11-23] MEDS: HEPARIN SOD (PORCINE) 5,000 UNIT/ML 1 ML SYRINGE SUBCUT SCH ×3 (05:09→21:09)
[2016-11-23 06:05] LABS: HEMATOCRIT 25.6 % (36.0-47.0); HGB HCT DIFFERENCE -1.6; MEAN CORPUSCULAR HGB CONC 31.4 g/dL (32.0-36.0); MEAN CORPUSCULAR VOLUME 76 fl (80-97); RED BLOOD COUNT 3.35 10^6/uL (3.72-5.28); RED CELL DISTRIBUTION WIDTH 17.6 % (11.5-14.0); WHITE BLOOD COUNT 15.1 10^3/uL (4.0-10.5)
[2016-11-23 06:23] LABS: ALANINE AMINOTRANSFERASE 31 U/L (9-52); ALKALINE PHOSPHATASE 111 U/L (38-126); ANION GAP 11 (5-19); ASPARTATE AMINO TRANSFERASE 15 U/L (14-36); BILIRUBIN,DIRECT 0.5 mg/dL (0.0-0.4); BILIRUBIN,TOTAL 0.6 mg/dL (0.2-1.3); BLOOD UREA NITROGEN 37 mg/dL (7-20); CALCIUM 9.3 mg/dL (8.4-10.2); CARBON DIOXIDE 29 mmol/L (22-30); CHLORIDE 91 mmol/L (98-107); CREATININE RESULT 1.07 mg/dL (0.52-1.25); MAGNESIUM 2.4 mg/dL (1.6-2.3); POTASSIUM 4.2 mmol/L (3.6-5.0); SODIUM 131.3 mmol/L (137-145); TOTAL PROTEIN 5.8 g/dL (6.3-8.2)
[2016-11-23] MEDS ORDERED: INSULIN REG, HUMAN 100 UNIT/ML 3 ML VIAL (PYX) ONE (06:24)
[2016-11-23] MEDS ORDERED: INSULIN REG, HUMAN 100 UNIT/ML 3 ML VIAL (PYX) SUBCUT ONE (06:30)
[2016-11-23] MEDS ORDERED: INSULIN REG, HUMAN 100 UNIT/ML 3 ML VIAL SUBCUT ONE (06:30)
[2016-11-23 06:31] LABS: BAND NEUTROPHILS % (MANUAL) 1 % (3-5); BASOPHILS % (MANUAL) 0 % (0-2); EOSINOPHILS % (MANUAL) 0 % (0-6); LYMPHOCYTES % (MANUAL) 6 % (13-45); TOTAL CELLS COUNTED 100
[2016-11-23 06:32] LABS: ANISOCYTOSIS 2+; POLYCHROMASIA SLIGHT
[2016-11-23 06:38] LABS: GLUCOSE 461 mg/dL (75-110)
[2016-11-23] MEDS ORDERED: NORMAL SALINE 250 ML IV PRN ×2 (08:36)
[2016-11-23] MEDS: BUDESONIDE NEB 0.5 MG/2 ML AMPUL NEB SCH ×2 (08:36→20:00)
--- NOTE | 2016-11-23 08:44 | PDOC PROGRESS REPORT ---
Subjective Progress Note for:: 11/23/16 Subjective:: The patient is complaining of some discomfort in that fractured hip. She denies any shortness of breath or chest pain. Her blood sugars are still elevated. Her labs show her to be anemic. Physical Exam Vital Signs: Temp Pulse Resp BP Pulse Ox 98.2 F 70 18 133/61 H 100 11/23/16 08:30 11/23/16 08:30 11/23/16 08:30 11/23/16 08:30 11/23/16 08:30 Intake & Output 11/22/16 11/23/16 11/24/16 06:59 06:59 06:59 Intake Total 2630 2120 Output Total 3550 3200 Balance -920 -1080 Weight 99 kg 99.5 kg General appearance: PRESENT: mild distress Head exam: PRESENT: atraumatic Eye exam: PRESENT: conjunctiva pink Neck exam: PRESENT: carotid bruit Respiratory exam: PRESENT: rhonchi Cardiovascular exam: PRESENT: RRR, +S1, +S2 Pulses: PRESENT: +1 pedal pulses bilateral Vascular exam: PRESENT: pallor GI/Abdominal exam: PRESENT: normal bowel sounds, soft Extremities exam: PRESENT: tenderness Musculoskeletal exam: PRESENT: tenderness Neurological exam: PRESENT: alert, awake Skin exam: PRESENT: skin tears Results Laboratory Results: 11/23/16 05:22 11/23/16 05:22 11/22/16 11/22/16 11/23/16 05:28 05:28 05:22 WBC 15.1 H RBC 3.35 L Hgb 8.0 L Hct 25.6 L MCV 76 L MCH 24.0 L MCHC 31.4 L RDW 17.6 H Plt Count 265 Seg Neutrophils % Not Reportable Lymphocytes % Not Reportable Monocytes % Not Reportable Eosinophils % Not Reportable Basophils % Not Reportable Absolute Neutrophils Not Reportable Absolute Lymphocytes Not Reportable Absolute Monocytes Not Reportable Absolute Eosinophils Not Reportable Absolute Basophils Not Reportable Retic Count (auto) 4.30 H Absolute Retic 0.154 H Sodium Potassium Chloride Carbon Dioxide Anion Gap BUN Creatinine Est GFR ( Amer) Est GFR (Non-Af Amer) Glucose Calcium Magnesium Iron 11.8 L TIBC 286 % Saturation 4 Ferritin 566.00 H Total Bilirubin AST ALT Alkaline Phosphatase Total Protein Albumin Vitamin B12 > 1000.0 H Folate 12.90 11/23/16 05:22 WBC RBC Hgb Hct MCV MCH MCHC RDW Plt Count Seg Neutrophils % Lymphocytes % Monocytes % Eosinophils % Basophils % Absolute Neutrophils Absolute Lymphocytes Absolute Monocytes Absolute Eosinophils Absolute Basophils Retic Count (auto) Absolute Retic Sodium 131.3 L Potassium 4.2 Chloride 91 L Carbon Dioxide 29 Anion Gap 11 BUN 37 H Creatinine 1.07 Est GFR ( Amer) > 60 Est GFR (Non-Af Amer) 51 L Glucose 461 H* Calcium 9.3 Magnesium 2.4 H Iron TIBC % Saturation Ferritin Total Bilirubin 0.6 AST 15 ALT 31 Alkaline Phosphatase 111 Total Protein 5.8 L Albumin 3.0 L Vitamin B12 Folate 11/20/16 11/20/16 11/20/16 02:25 02:25 08:37 Creatine Kinase 104 113 CK-MB (CK-2) 0.41 Troponin I 0.029 11/20/16 08:37 Creatine Kinase CK-MB (CK-2) 0.36 Troponin I 0.027 Impressions: Hip/Pelvis X-Ray 11/19/16 00:00 IMPRESSION: Spiral proximal right femoral metaphyseal fracture with 3 cm of displacement and mild varus angulation. Chest X-Ray 11/19/16 18:58 IMPRESSION: NO ACUTE RADIOGRAPHIC FINDING IN THE CHEST. Assessment & Plan - Diagnosis (1) Femur fracture, right Qualifiers: Encounter type: initial encounter Femur location: proximal physis ( incl. Salter-Mahmood) Salter-Mahmood Fracture Type: unspecified configuration Qualified Code(s): S79.001A - Unspecified physeal fracture of upper end of right femur, initial encounter for closed fracture Is this a current diagnosis for this admission?: YesPlan: Orthopedic on the case awaiting medical clearance for surgery (2) DM type 2 with diabetic chronic skin ulcer Is this a current diagnosis for this admission?: YesPlan: Poorly controlled due to noncompliance and high doses of steroids. We'll decrease the steroids. We'll start insulin with meals and basal. We'll continue with sliding scale (3) Rheumatoid arthritis Is this a current diagnosis for this admission?: YesPlan: We'll continue with prednisone (4) Obstructive sleep apnea Is this a current diagnosis for this admission?: YesPlan: Continue CPap (5) Hypothyroidism Qualifiers: Hypothyroidism type: unspecified Qualified Code(s): E03.9 - Hypothyroidism, unspecified Is this a current diagnosis for this admission?: YesPlan: Continue current treatment (6) Opiate dependence, continuous Is this a current diagnosis for this admission?: YesPlan: The patient is being followed by the pain management as an outpatient. We'll continue present narcotics (7) CAD (coronary artery disease) Qualifiers: Coronary Disease-Associated Artery/Lesion type: [place] artery [place] vs. transplanted heart: [place] heart Is this a current diagnosis for this admission?: YesPlan: We'll continue with cardiology recommendations (8) COPD (chronic obstructive pulmonary disease) Is this a current diagnosis for this admission?: YesPlan: We'll continue low dose steroids and inhalers as recommended by pulmonary (9) Chronic skin ulcer Qualifiers: Non-pressure ulcer stage: limited to breakdown of skin Qualified Code(s ): L98.491 - Non-pressure chronic ulcer of skin of other sites limited to breakdown of skin Is this a current diagnosis for this admission?: YesPlan: Continue antibiotics and recommendation by surgery.
[2016-11-23] MEDS: AMLODIPINE BESYLATE 10 MG TABLET PO SCH (09:20)
[2016-11-23] MEDS: OXYCODONE HCL SR 40 MG TABLET PO SCH ×2 (09:21→21:07)
[2016-11-23] MEDS: DOCUSATE SODIUM 100 MG CAPSULE PO SCH ×2 (09:21→17:29)
[2016-11-23] MEDS: PREDNISONE 20 MG TABLET PO SCH (09:21)
[2016-11-23] MEDS: LISINOPRIL 10 MG TABLET PO SCH ×2 (09:21→21:06)
[2016-11-23] MEDS ORDERED: INSULIN GLARGINE,HUM.REC.ANLOG 300 UNIT/3 ML INSULN.PEN SUBCUT SCH (10:00)
[2016-11-23] MEDS ORDERED: FUROSEMIDE INJ/PF 20 MG/2 ML SDV IV PRN (11:17)
--- NOTE | 2016-11-23 12:01 | PDOC PROGRESS REPORT ---
Subjective Progress Note for:: 11/22/16 Subjective:: will sign off for now as Dr Zazueta on case Physical Exam Vital Signs: Temp Pulse Resp BP Pulse Ox 98.3 F 81 16 122/45 L 98 11/22/16 04:00 11/22/16 04:00 11/22/16 04:00 11/22/16 04:00 11/22/16 04:00 Intake & Output 11/21/16 11/22/16 11/23/16 06:59 06:59 06:59 Intake Total 1473 2630 Output Total 1050 3550 Balance 423 -920 Weight 95.8 kg 99 kg Results Laboratory Results: 11/22/16 05:28 11/22/16 05:28 11/22/16 11/22/16 05:28 05:28 WBC 8.7 RBC 3.57 L Hgb 8.8 L Hct 27.5 L MCV 77 L MCH 24.7 L MCHC 32.2 RDW 17.5 H Plt Count 235 Seg Neutrophils % 90.4 H Lymphocytes % 5.1 L Monocytes % 4.4 Eosinophils % 0.0 Basophils % 0.1 Absolute Neutrophils 7.9 Absolute Lymphocytes 0.4 L Absolute Monocytes 0.4 Absolute Eosinophils 0.0 Absolute Basophils 0.0 Sodium 131.6 L Potassium 4.5 D Chloride 92 L Carbon Dioxide 26 Anion Gap 14 BUN 18 Creatinine 0.81 Est GFR ( Amer) > 60 Est GFR (Non-Af Amer) > 60 Glucose 542 H* Calcium 8.9 11/20/16 11/20/16 11/20/16 02:25 02:25 08:37 Creatine Kinase 104 113 CK-MB (CK-2) 0.41 Troponin I 0.029 11/20/16 08:37 Creatine Kinase CK-MB (CK-2) 0.36 Troponin I 0.027 Impressions: Hip/Pelvis X-Ray 11/19/16 00:00 IMPRESSION: Spiral proximal right femoral metaphyseal fracture with 3 cm of displacement and mild varus angulation. Chest X-Ray 11/19/16 18:58 IMPRESSION: NO ACUTE RADIOGRAPHIC FINDING IN THE CHEST. Assessment & Plan - Diagnosis (1) Femur fracture, right Qualifiers: Encounter type: initial encounter Femur location: proximal physis ( incl. Salter-Mahmood) Salter-Mahmood Fracture Type: unspecified configuration Qualified Code(s): S79.001A - Unspecified physeal fracture of upper end of right femur, initial encounter for closed fracture Is this a current diagnosis for this admission?: Yes (2) Opiate dependence, continuous Is this a current diagnosis for this admission?: Yes (3) Rheumatoid arthritis Qualifiers: Rheumatoid arthritis location: multiple sites Rheumatoid factor presence: without rheumatoid factor Qualified Code(s): M06.09 - Rheumatoid arthritis without rheumatoid factor, multiple sites Is this a current diagnosis for this admission?: Yes (4) COPD (chronic obstructive pulmonary disease) Is this a current diagnosis for this admission?: Yes (5) 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
[2016-11-23] MEDS: INSULIN LISPRO 100 UNIT/ML 3 ML VIAL SUBCUT SCH ×2 (12:05→16:49)
[2016-11-23] MEDS: OXYCODONE HCL IR 5 MG TABLET PO PRN ×2 (16:45→23:56)
[2016-11-23] MEDS: MONTELUKAST SODIUM 10 MG TABLET PO SCH (21:07)
[2016-11-23] MEDS: DULOXETINE HCL 30 MG CAPSULE.DR PO SCH (21:07)
[2016-11-23] MEDS: CEFTRIAXONE 1 GM/D5W RTU 1 GM/50 ML RTUPB IV SCH (21:08)
[2016-11-23 21:31] LABS: HEMATOCRIT 31.1 % (36.0-47.0); HEMOGLOBIN 9.8 g/dL (12.0-15.5); HGB HCT DIFFERENCE -1.7; MEAN CORPUSCULAR HEMOGLOBIN 24.6 pg (27.0-33.4); MEAN CORPUSCULAR HGB CONC 31.6 g/dL (32.0-36.0); MEAN CORPUSCULAR VOLUME 78 fl (80-97); RED CELL DISTRIBUTION WIDTH 17.7 % (11.5-14.0); WHITE BLOOD COUNT 13.9 10^3/uL (4.0-10.5)
[2016-11-23] MEDS: LORAZEPAM 1 MG TABLET PO PRN (22:21)
--- NOTE | 2016-11-23 23:28 | PROGRESS NOTE E ---
Progress Note NAME: ABISAI JOHNSON : 1945 AGE: 71Y DATE: 11/23/2016 ROOM: 326 SUBJECTIVE: Note that the patient was seen from 8:20 a.m. to 8:50 a.m. The patient's surgery is still postponed since the patient's blood sugars are uncontrolled and hemoglobin dropped to 8. The patient denies any chest pain or discomfort; in fact, her pain control is much better today and she is in a better mood and she is smiling a lot. Her daughter is with her. The patient denies any chest pain or discomfort. There is no wheezing. There is no cough or sputum production. There is no PND or orthopnea. Her ulcers in the abdominal wall and the leg are healing. There is no arrhythmia seen on the monitor. There are no TIA or CVA symptoms. OBJECTIVE: GENERAL: On examination, the patient is moderately obese, in no acute distress. She is well groomed. VITAL SIGNS: She is afebrile with a temperature of 98.2 degrees Fahrenheit. Pulse is 70 beats per minute. Blood pressure 133/61. Respirations are 18 per minute. O2 saturations are 100% on 3 L nasal cannula. HEAD: Atraumatic, normocephalic. EYES: Pupils are equal, round, regular, reactive to light and accommodation. Extraocular movements are normal. There is no conjunctival pallor. There is no scleral icterus. EARS, NOSE, AND THROAT: Negative. SKIN: There are multiple superficial ulcers of the skin of the abdomen, especially of the lower abdomen with some cellulitis, which is much improved. There is an ulcer on the left lower leg in the medial aspect which is also much healed. NECK: Supple. There is no JVD. Carotids are equal. There is no bruit. There is no JVD. There is no lymphadenopathy. There is no goiter. Trachea is central. LUNGS: Show diminished air entry, prolonged expiration, otherwise without any rhonchi, rales or wheezing. On percussion, there is hyperresonance over the lungs. HEART: S1, S2 is heard. There is no S3 gallop. There is no S4 gallop. There is a systolic murmur in the left sternal border and the apex. There is no rub. ABDOMEN: Soft, obese, nontender. There is no hepatosplenomegaly. Bowel sounds are well heard. Superficial ulcers with eschar and cellulitis which are much improved in the abdominal wall. EXTREMITIES: Femorals are diminished. There are no femoral bruits. Leg pulses are diminished. There is an almost healed ulcer on the medial aspect of the left lower leg. There is no DVT. There is no cyanosis or clubbing. CENTRAL NERVOUS SYSTEM: The patient is conscious, awake, alert, oriented x3 with no focal deficit. PSYCHIATRIC: The patient's judgment and insight are intact. Her affect is normal. DIAGNOSTIC DATA: The patient's 24-hr intake is 2120 mL; output is 3200 mL. The patient's white count is 15,100, hemoglobin is 8, hematocrit is 25.6, platelet count is 265,000. The patient's sodium is 131.3, potassium is 4.2, chloride is 91, CO2 is 29. The patient's BUN is 37, creatinine is 1.07. GFR now is slightly reduced at 51. Glucose is 461. Her calcium is 9.3, magnesium is 2.4 and liver function tests are normal, albumin is 3.0, total protein is 5.8. ASSESSMENT: 1. RIGHT HIP FRACTURE, FOR SURGERY. Surgery postponed due to anemia and uncontrolled blood sugar. 2. ANEMIA. Hemoglobin has dropped to 8. The patient will be getting 2 units of blood transfusion today to get the hemoglobin up. 3. HYPERTENSION. Blood pressure are well controlled on current doses of lisinopril. 4. HYPOKALEMIA, RESOLVED. 5. HYPONATREMIA. Sodium is much improved. It is 131.3. 6. HISTORY OF LEFT RENAL ARTERY STENOSIS, STATUS POST STENT. 7. DIABETES MELLITUS TYPE 2, INSULIN DEPENDENT WITH UNCONTROLLED BLOOD SUGARS. The patient's insulin has been increased. 8. RHEUMATOID ARTHRITIS. 9. OBSTRUCTIVE SLEEP APNEA, INTOLERANT TO CPAP. The patient now promises that she will start wearing the CPAP. I have told her that her right heart pressures are normal, and hence, she should consider wearing CPAP regularly if she is intolerant to the regular CPAP, she should try at least the nasal CPAP. This has been discussed with patient and patient's daughter. 10. HISTORY OF ASTHMA. 11. HYPOTHYROIDISM. 12. DEPRESSION. 13. CHRONIC BACK PAIN. 14. SKIN ULCERS AND CELLULITIS OF THE ABDOMINAL WALL AND AN ALMOST HEALED ULCER OF THE LEFT LOWER LEG. 15. PREOPERATIVE CARDIOVASCULAR EXAMINATION FOR CARDIAC RISK ASSESSMENT FOR THE SURGERY. As mentioned earlier, the patient in view of the comorbid conditions will be at moderate risk. PLAN: As outlined above. The patient will get blood transfusion, continue current medications. Her insulin will be increased. Once these are all settled, then with the blood sugar being well controlled and the hemoglobin being in a good range, the patient should be going for surgery soon, hopefully tomorrow. Discussed with Dr. Sevilla, the attending. Discussed with the patient and the patient's daughter. The patient's medications have been reviewed. Note: Up to 30 minutes spent on this patient with more than 50% of the time spent on direct patient care. Note: In spite of the patient being a moderate risk for surgery as per my assessment, the patient's medical decision making is highly complex in view of the multiple comorbid conditions and the patient's hemoglobin dropping to 8. Also need to know whether this is why the patient's hemoglobin has dropped to 8. Anemia studies will be done. Thanking you. DICTATING PHYSICIAN: ISAEL RENTERIA M.D. [id number] PHY#: [id number] ID: [id number] JOB#: [id number] ACCT: [id number] cc: >
[2016-11-24] MEDS: IPRATROPIUM/ALBUTEROL 0.5-2.5 MG/3 ML AMPUL NEB SCH ×4 (02:12→20:11)
[2016-11-24] MEDS: HEPARIN SOD (PORCINE) 5,000 UNIT/ML 1 ML SYRINGE SUBCUT SCH ×3 (05:00→21:57)
[2016-11-24 05:34] LABS: ABSOLUTE LYMPHOCYTES (AUTO) 1.4 10^3/uL (0.5-4.7); ABSOLUTE MONOCYTES (AUTO) 1.3 10^3/uL (0.1-1.4); ABSOLUTE NEUT (AUTO) 9.6 10^3/uL (1.7-8.2); BASOPHILS % (AUTO) 0.2 % (0-2); EOSINOPHILS % (AUTO) 0.3 % (0-6); HEMATOCRIT 31.8 % (36.0-47.0); HEMOGLOBIN 10.3 g/dL (12.0-15.5); HGB HCT DIFFERENCE -0.9; LYMPHOCYTES % (AUTO) 11.6 % (13-45); MEAN CORPUSCULAR HEMOGLOBIN 24.7 pg (27.0-33.4); MEAN CORPUSCULAR HGB CONC 32.5 g/dL (32.0-36.0); MEAN CORPUSCULAR VOLUME 76 fl (80-97); MONOCYTES % (AUTO) 10.4 % (3-13); RED BLOOD COUNT 4.18 10^6/uL (3.72-5.28); RED CELL DISTRIBUTION WIDTH 17.5 % (11.5-14.0); SEGMENTED NEUTROPHILS % (AUTO) 77.5 % (42-78); WHITE BLOOD COUNT 12.4 10^3/uL (4.0-10.5)
[2016-11-24 05:57] LABS: ALANINE AMINOTRANSFERASE 35 U/L (9-52); ALBUMIN 3.2 g/dL (3.5-5.0); ALKALINE PHOSPHATASE 114 U/L (38-126); ANION GAP 9 (5-19); ASPARTATE AMINO TRANSFERASE 21 U/L (14-36); BILIRUBIN,DIRECT 0.5 mg/dL (0.0-0.4); BILIRUBIN,TOTAL 0.8 mg/dL (0.2-1.3); BLOOD UREA NITROGEN 35 mg/dL (7-20); CALCIUM 9.6 mg/dL (8.4-10.2); CARBON DIOXIDE 34 mmol/L (22-30); CHLORIDE 95 mmol/L (98-107); CREATININE RESULT 0.88 mg/dL (0.52-1.25); GLUCOSE 257 mg/dL (75-110); POTASSIUM 4.2 mmol/L (3.6-5.0); SODIUM 138.2 mmol/L (137-145); TOTAL PROTEIN 6.1 g/dL (6.3-8.2)
[2016-11-24 06:16] LABS: PROTHROMBIN TIME 12.8 SEC (11.4-15.4)
[2016-11-24] MEDS: BUDESONIDE NEB 0.5 MG/2 ML AMPUL NEB SCH ×2 (08:22→20:11)
--- NOTE | 2016-11-24 08:50 | PDOC PROGRESS REPORT ---
Subjective Progress Note for:: 11/24/16 Subjective:: The patient is resting comfortably. She is still complaining of pain in the fractured hip. Her blood sugars are much better controlled. She is tolerated transfusion well. Physical Exam Vital Signs: Temp Pulse Resp BP Pulse Ox 98.2 F 76 18 163/76 H 96 11/24/16 07:23 11/24/16 08:24 11/24/16 08:24 11/24/16 07:23 11/24/16 08:24 Intake & Output 11/23/16 11/24/16 11/25/16 06:59 06:59 06:59 Intake Total 2120 1850 Output Total 3200 2600 Balance -1080 -750 Weight 99.5 kg 98.8 kg General appearance: PRESENT: mild distress Head exam: PRESENT: atraumatic Eye exam: PRESENT: conjunctiva pink Neck exam: ABSENT: carotid bruit Respiratory exam: PRESENT: rhonchi. ABSENT: wheezes Cardiovascular exam: PRESENT: +S1, +S2 Pulses: PRESENT: +1 pedal pulses bilateral Vascular exam: PRESENT: other GI/Abdominal exam: PRESENT: normal bowel sounds, soft Extremities exam: PRESENT: tenderness Musculoskeletal exam: PRESENT: tenderness Neurological exam: PRESENT: alert, awake Results Laboratory Results: 11/24/16 05:05 11/24/16 05:05 11/22/16 11/23/16 11/23/16 05:28 09:04 21:24 WBC 13.9 H RBC 4.00 Hgb 9.8 L Hct 31.1 L MCV 78 L MCH 24.6 L MCHC 31.6 L RDW 17.7 H Plt Count 277 Seg Neutrophils % Lymphocytes % Monocytes % Eosinophils % Basophils % Absolute Neutrophils Absolute Lymphocytes Absolute Monocytes Absolute Eosinophils Absolute Basophils Sodium Potassium Chloride Carbon Dioxide Anion Gap BUN Creatinine Est GFR ( Amer) Est GFR (Non-Af Amer) Glucose Calcium Transferrin 233 Total Bilirubin AST ALT Alkaline Phosphatase Total Protein Albumin TSH Blood Type O POSITIVE Antibody Screen NEGATIVE 11/24/16 11/24/16 11/24/16 05:05 05:05 05:05 WBC 12.4 H RBC 4.18 Hgb 10.3 L Hct 31.8 L MCV 76 L MCH 24.7 L MCHC 32.5 RDW 17.5 H Plt Count 285 Seg Neutrophils % 77.5 Lymphocytes % 11.6 L Monocytes % 10.4 Eosinophils % 0.3 Basophils % 0.2 Absolute Neutrophils 9.6 H Absolute Lymphocytes 1.4 Absolute Monocytes 1.3 Absolute Eosinophils 0.0 Absolute Basophils 0.0 Sodium 138.2 Potassium 4.2 Chloride 95 L Carbon Dioxide 34 H Anion Gap 9 BUN 35 H Creatinine 0.88 Est GFR ( Amer) > 60 Est GFR (Non-Af Amer) > 60 Glucose 257 H Calcium 9.6 Transferrin Total Bilirubin 0.8 AST 21 ALT 35 Alkaline Phosphatase 114 Total Protein 6.1 L Albumin 3.2 L TSH 1.74 Blood Type Antibody Screen 11/20/16 11/20/16 11/20/16 02:25 02:25 08:37 Creatine Kinase 104 113 CK-MB (CK-2) 0.41 Troponin I 0.029 11/20/16 08:37 Creatine Kinase CK-MB (CK-2) 0.36 Troponin I 0.027 Impressions: Hip/Pelvis X-Ray 11/19/16 00:00 IMPRESSION: Spiral proximal right femoral metaphyseal fracture with 3 cm of displacement and mild varus angulation. Chest X-Ray 11/19/16 18:58 IMPRESSION: NO ACUTE RADIOGRAPHIC FINDING IN THE CHEST. Assessment & Plan - Diagnosis (1) Femur fracture, right Qualifiers: Encounter type: initial encounter Femur location: proximal physis ( incl. 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 Is this a current diagnosis for this admission?: YesPlan: Blood sugars have improved with adjustment in insulin coverage (3) Rheumatoid arthritis Is this a current diagnosis for this admission?: YesPlan: Stable on current medications (4) Obstructive sleep apnea Is this a current diagnosis for this admission?: YesPlan: Continue CPap (5) Hypothyroidism Qualifiers: Hypothyroidism type: unspecified Qualified Code(s): E03.9 - Hypothyroidism, unspecified Is this a current diagnosis for this admission?: YesPlan: Continue current treatment (6) Opiate dependence, continuous Is this a current diagnosis for this admission?: Yes (7) CAD (coronary artery disease) Qualifiers: Coronary Disease-Associated Artery/Lesion type: [place] artery [place] vs. transplanted heart: [place] heart Is this a current diagnosis for this admission?: YesPlan: After the transfusion I think patient is stable enough to proceed with surgery. We will discuss with cardiology. Her H&H is 10.8 over 31 (8) COPD (chronic obstructive pulmonary disease) Is this a current diagnosis for this admission?: Yes (9) Chronic skin ulcer Qualifiers: Non-pressure ulcer stage: limited to breakdown of skin Qualified Code(s ): L98.491 - Non-pressure chronic ulcer of skin of other sites limited to breakdown of skin Is this a current diagnosis for this admission?: YesPlan: Stable without any erythema or drainage
[2016-11-24] MEDS: DOCUSATE SODIUM 100 MG CAPSULE PO SCH ×2 (09:47→17:05)
[2016-11-24] MEDS: PREDNISONE 20 MG TABLET PO SCH (09:47)
[2016-11-24] MEDS: OXYCODONE HCL SR 40 MG TABLET PO SCH ×2 (11:06→21:55)
[2016-11-24] MEDS: MORPHINE SULFATE 10 MG/ML INJ IV PRN ×3 (11:07→19:56)
[2016-11-24] MEDS: LISINOPRIL 10 MG TABLET PO SCH ×2 (11:07→21:55)
[2016-11-24] MEDS: INSULIN LISPRO 100 UNIT/ML 3 ML VIAL SUBCUT SCH ×2 (11:28→17:01)
[2016-11-24] MEDS: INSULIN GLARGINE,HUM.REC.ANLOG 300 UNIT/3 ML INSULN.PEN SUBCUT SCH (12:05)
--- NOTE | 2016-11-24 12:56 | PDOC PROGRESS REPORT ---
Subjective Progress Note for:: 11/24/16 Subjective:: Patient seems stable but complaining of significant discomfort in the right hip. Patient received blood transfusion, hemoglobin has improved. Pt is denying any chest arm or neck discomfort. Patient denying any PND, orthopnea. Patient denied any sustained palpitations, dizziness, syncope, near syncope. Patient denying any fever chills. Patient denying any other significant discomfort. Patient is maintaining sinus rhythm. Review of systems: Rest review of systems negative. Medications: Medications have been reviewed. Physical Exam Vital Signs: Temp Pulse Resp BP Pulse Ox 98.1 F 86 19 114/66 96 11/24/16 11:20 11/24/16 11:20 11/24/16 11:20 11/24/16 11:20 11/24/16 11:20 Intake & Output 11/23/16 11/24/16 11/25/16 06:59 06:59 06:59 Intake Total 2120 1850 0 Output Total 3200 2600 1500 Balance -1080 -750 -1500 Weight 99.5 kg 98.8 kg Exam: GENERAL: well-nourished and in no acute distress. Alert and oriented x3 HEAD: Atraumatic, normocephalic. EYES: Pupils equal round and reactive to light, extraocular movements intact, sclera anicteric, conjunctiva are normal. ENT: TMs normal, nares patent, oropharynx clear without exudates. Moist mucous membranes. No oral ulcerations or bleeding gums noted NECK: supple without lymphadenopathy. Trachea is central. No cervical or axillary lymphadenopathy noted. Carotids are 2+, JVD WNL LUNGS: Respiration seems nonlabored, no significant accessory muscle action noted. Breath sounds clear to auscultation bilaterally and equal noted. No wheezes rales or rhonchi noted. No significant dullness noted on percussion. CHEST: Palpation of the chest wall shows no significant chest wall tenderness. No other significant abnormalities noted. HEART: [place] [employer], No PSH, 1/6 SERGIO aortic area, 1/6 [place] systolic murmur mitral area, no rubs, no gallops. ABDOMEN: Soft, no significant tenderness appreciated, normoactive bowel sounds. No guarding, no rebound. No rigidity noted . No masses appreciated. EXTREMITIES: Pedal pulses are 1-2+, no calf tenderness noted. No clubbing or cyanosis.trace to 1+ pedal edema noted NEUROLOGICAL: Focused neurological exam showed no significant neurologic deficit. Normal speech, no focal weakness appreciated. PSYCH: Normal mood, normal affect. Judgment and insight within normal limits. SKIN: No significant ecchymosis, rash, ulcerations or signs of pruritus noted. MUSCULOSKELETAL EXAM: No significant joint swelling noted. Findings consistent with right hip fracture noted. Results Laboratory Results: 11/24/16 05:05 11/24/16 05:05 11/22/16 11/23/16 11/23/16 05:28 09:04 21:24 WBC 13.9 H RBC 4.00 Hgb 9.8 L Hct 31.1 L MCV 78 L MCH 24.6 L MCHC 31.6 L RDW 17.7 H Plt Count 277 Seg Neutrophils % Lymphocytes % Monocytes % Eosinophils % Basophils % Absolute Neutrophils Absolute Lymphocytes Absolute Monocytes Absolute Eosinophils Absolute Basophils Sodium Potassium Chloride Carbon Dioxide Anion Gap BUN Creatinine Est GFR ( Amer) Est GFR (Non-Af Amer) Glucose Calcium Transferrin 233 Total Bilirubin AST ALT Alkaline Phosphatase Total Protein Albumin TSH Blood Type O POSITIVE Antibody Screen NEGATIVE 11/24/16 11/24/16 11/24/16 05:05 05:05 05:05 WBC 12.4 H RBC 4.18 Hgb 10.3 L Hct 31.8 L MCV 76 L MCH 24.7 L MCHC 32.5 RDW 17.5 H Plt Count 285 Seg Neutrophils % 77.5 Lymphocytes % 11.6 L Monocytes % 10.4 Eosinophils % 0.3 Basophils % 0.2 Absolute Neutrophils 9.6 H Absolute Lymphocytes 1.4 Absolute Monocytes 1.3 Absolute Eosinophils 0.0 Absolute Basophils 0.0 Sodium 138.2 Potassium 4.2 Chloride 95 L Carbon Dioxide 34 H Anion Gap 9 BUN 35 H Creatinine 0.88 Est GFR ( Amer) > 60 Est GFR (Non-Af Amer) > 60 Glucose 257 H Calcium 9.6 Transferrin Total Bilirubin 0.8 AST 21 ALT 35 Alkaline Phosphatase 114 Total Protein 6.1 L Albumin 3.2 L TSH 1.74 Blood Type Antibody Screen 11/20/16 11/20/16 11/20/16 02:25 02:25 08:37 Creatine Kinase 104 113 CK-MB (CK-2) 0.41 Troponin I 0.029 11/20/16 08:37 Creatine Kinase CK-MB (CK-2) 0.36 Troponin I 0.027 Impressions: Hip/Pelvis X-Ray 11/19/16 00:00 IMPRESSION: Spiral proximal right femoral metaphyseal fracture with 3 cm of displacement and mild varus angulation. Chest X-Ray 11/19/16 18:58 IMPRESSION: NO ACUTE RADIOGRAPHIC FINDING IN THE CHEST. Assessment & Plan - Diagnosis (1) Intertrochanteric fracture of right femur Qualifiers: Encounter type: subsequent encounter Fracture type: closed Is this a current diagnosis for this admission?: Yes (2) CAD (coronary artery disease) Qualifiers: Coronary Disease-Associated Artery/Lesion type: [place] artery [place] vs. transplanted heart: [place] heart Associated angina: angina presence unspecified Qualified Code(s): I25.10 - Atherosclerotic heart disease of [place] coronary artery without angina pectoris Is this a current diagnosis for this admission?: Yes (3) COPD (chronic obstructive pulmonary disease) Qualifiers: COPD type: unspecified COPD Qualified Code(s): J44.9 - Chronic obstructive pulmonary disease, unspecified Is this a current diagnosis for this admission?: Yes (4) HTN (hypertension) Qualifiers: Hypertension type: essential hypertension Qualified Code(s): I10 - Essential (primary) hypertension Is this a current diagnosis for this admission?: Yes (5) Hyperglycemia due to type 2 diabetes mellitus Qualifiers: Diabetes mellitus skilled nursing insulin use: with skilled nursing use Qualified Code(s): E11.65 - Type 2 diabetes mellitus with hyperglycemia Is this a current diagnosis for this admission?: Yes - Notes Notes: Intertrochanteric fracture of right femur: Patient noted to be in normal sinus rhythm, has clear lung velásquez on exam, sinus rhythm on EKG, no clinical CHF. Patient cleared from cardiac standpoint. CAD: Patient has CAD. Currently stable without any angina or angina equivalent symptoms. Recommend continuing aggressive risk factor modification and medical management. COPD: Patient seems to have significant COPD with chronic respiratory failure. Attention may need to be paid postop regarding respiratory status. It may be worthwhile to involve pulmonary physician. HTN: Blood pressure goal in this patient is on 35/85 or less. This was discussed with the patient. Currently blood pressure under reasonable control. Hyperglycemia: Coming under better control. Patient generally stable from cardiac standpoint. Will follow postop. 2-D echo reports reviewed. - Time Time with patient: Greater than 35 minutes - CODE STATUS was discussed, patient remains full code. Surrogate decision-maker unchanged. Multiple medical problems were addressed.More than 50% of the time spent coordinating care, discussing management plans with involved caregivers. Management plans discussed with involved personnels. Medical decision making was of moderate to high complexity, patient's has multiple severe comorbidities. Medications reviewed and adjusted accordingly: Yes
--- NOTE | 2016-11-24 17:01 | PDOC PROGRESS REPORT ---
Subjective Progress Note for:: 11/24/16 Subjective:: remains in pain Physical Exam Vital Signs: Temp Pulse Resp BP Pulse Ox 98.2 F 76 18 163/76 H 96 11/24/16 07:23 11/24/16 08:24 11/24/16 08:24 11/24/16 07:23 11/24/16 08:24 Intake & Output 11/23/16 11/24/16 11/25/16 06:59 06:59 06:59 Intake Total 2120 1850 Output Total 3200 2600 Balance -1080 -750 Weight 99.5 kg 98.8 kg General appearance: PRESENT: cooperative, disheveled, mild distress Head exam: PRESENT: atraumatic Eye exam: PRESENT: conjunctiva pale, EOMI Mouth exam: PRESENT: dry mucosa, neck supple Neck exam: ABSENT: carotid bruit, JVD, lymphadenopathy, thyromegaly Respiratory exam: PRESENT: prolonged expiratory phas, rhonchi, symmetrical, unlabored, wheezes Cardiovascular exam: PRESENT: RRR, +S1, +S2 Pulses: PRESENT: normal radial pulses GI/Abdominal exam: PRESENT: normal bowel sounds, soft. ABSENT: distended, guarding, mass, organolmegaly, rebound, tenderness Rectal exam: PRESENT: deferred Neurological exam: PRESENT: alert, awake Psychiatric exam: PRESENT: agitated, anxious Skin exam: PRESENT: dry Results Laboratory Results: 11/24/16 05:05 11/24/16 05:05 11/22/16 11/23/16 11/23/16 05:28 09:04 21:24 WBC 13.9 H RBC 4.00 Hgb 9.8 L Hct 31.1 L MCV 78 L MCH 24.6 L MCHC 31.6 L RDW 17.7 H Plt Count 277 Seg Neutrophils % Lymphocytes % Monocytes % Eosinophils % Basophils % Absolute Neutrophils Absolute Lymphocytes Absolute Monocytes Absolute Eosinophils Absolute Basophils Sodium Potassium Chloride Carbon Dioxide Anion Gap BUN Creatinine Est GFR ( Amer) Est GFR (Non-Af Amer) Glucose Calcium Transferrin 233 Total Bilirubin AST ALT Alkaline Phosphatase Total Protein Albumin TSH Blood Type O POSITIVE Antibody Screen NEGATIVE 11/24/16 11/24/16 11/24/16 05:05 05:05 05:05 WBC 12.4 H RBC 4.18 Hgb 10.3 L Hct 31.8 L MCV 76 L MCH 24.7 L MCHC 32.5 RDW 17.5 H Plt Count 285 Seg Neutrophils % 77.5 Lymphocytes % 11.6 L Monocytes % 10.4 Eosinophils % 0.3 Basophils % 0.2 Absolute Neutrophils 9.6 H Absolute Lymphocytes 1.4 Absolute Monocytes 1.3 Absolute Eosinophils 0.0 Absolute Basophils 0.0 Sodium 138.2 Potassium 4.2 Chloride 95 L Carbon Dioxide 34 H Anion Gap 9 BUN 35 H Creatinine 0.88 Est GFR ( Amer) > 60 Est GFR (Non-Af Amer) > 60 Glucose 257 H Calcium 9.6 Transferrin Total Bilirubin 0.8 AST 21 ALT 35 Alkaline Phosphatase 114 Total Protein 6.1 L Albumin 3.2 L TSH 1.74 Blood Type Antibody Screen 11/20/16 11/20/16 11/20/16 02:25 02:25 08:37 Creatine Kinase 104 113 CK-MB (CK-2) 0.41 Troponin I 0.029 11/20/16 08:37 Creatine Kinase CK-MB (CK-2) 0.36 Troponin I 0.027 Impressions: Hip/Pelvis X-Ray 11/19/16 00:00 IMPRESSION: Spiral proximal right femoral metaphyseal fracture with 3 cm of displacement and mild varus angulation. Chest X-Ray 11/19/16 18:58 IMPRESSION: NO ACUTE RADIOGRAPHIC FINDING IN THE CHEST. Assessment & Plan - Diagnosis (1) Femur fracture, right Qualifiers: Encounter type: initial encounter Femur location: proximal physis ( incl. Salter-Mahmood) Salter-Mahmood Fracture Type: unspecified configuration Qualified Code(s): S79.001A - Unspecified physeal fracture of upper end of right femur, initial encounter for closed fracture Is this a current diagnosis for this admission?: Yes (2) Opiate dependence, continuous Is this a current diagnosis for this admission?: Yes (3) Rheumatoid arthritis Qualifiers: Rheumatoid arthritis location: multiple sites Rheumatoid factor presence: without rheumatoid factor Qualified Code(s): M06.09 - Rheumatoid arthritis without rheumatoid factor, multiple sites Is this a current diagnosis for this admission?: Yes (4) COPD (chronic obstructive pulmonary disease) Qualifiers: COPD type: unspecified COPD Qualified Code(s): J44.9 - Chronic obstructive pulmonary disease, unspecified Is this a current diagnosis for this admission?: Yes (5) 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
[2016-11-24] MEDS: OXYCODONE HCL IR 5 MG TABLET PO PRN (17:05)
--- NOTE | 2016-11-24 21:04 | PDOC PROGRESS REPORT ---
Subjective Progress Note for:: 11/24/16 Subjective:: Patient bedside on 1 L of oxygen. Complaining of right hip pain and agitated and wanted to have her hip fracture addressed surgically. No issues overnight. Finally cleared by all services. Physical Exam Vital Signs: Temp Pulse Resp BP Pulse Ox 37.1 C 84 20 157/80 H 96 11/24/16 19:59 11/24/16 20:06 11/24/16 19:59 11/24/16 19:59 11/24/16 19:59 Intake & Output 11/23/16 11/24/16 11/25/16 06:59 06:59 06:59 Intake Total 2120 1850 681 Output Total 3200 2600 2600 Balance -1169 -143 -7996 Weight 99.5 kg 98.8 kg General appearance: PRESENT: no acute distress Vascular exam: PRESENT: normal capillary refill Adult Front & Back Image: 1 - Swelling and tenderness palpation over the right thigh and hip and groin region. Sure. Rotated extremity. Baseline neuropathy. Normal capillary refill. Intact motor with flexion-extension of the toes and ankle. Results Laboratory Results: 11/24/16 05:05 11/24/16 05:05 11/22/16 11/23/16 11/24/16 05:28 21:24 05:05 WBC 13.9 H 12.4 H RBC 4.00 4.18 Hgb 9.8 L 10.3 L Hct 31.1 L 31.8 L MCV 78 L 76 L MCH 24.6 L 24.7 L MCHC 31.6 L 32.5 RDW 17.7 H 17.5 H Plt Count 277 285 Seg Neutrophils % 77.5 Lymphocytes % 11.6 L Monocytes % 10.4 Eosinophils % 0.3 Basophils % 0.2 Absolute Neutrophils 9.6 H Absolute Lymphocytes 1.4 Absolute Monocytes 1.3 Absolute Eosinophils 0.0 Absolute Basophils 0.0 Sodium Potassium Chloride Carbon Dioxide Anion Gap BUN Creatinine Est GFR ( Amer) Est GFR (Non-Af Amer) Glucose Calcium Transferrin 233 Total Bilirubin AST ALT Alkaline Phosphatase Total Protein Albumin TSH 11/24/16 11/24/16 05:05 05:05 WBC RBC Hgb Hct MCV MCH MCHC RDW Plt Count Seg Neutrophils % Lymphocytes % Monocytes % Eosinophils % Basophils % Absolute Neutrophils Absolute Lymphocytes Absolute Monocytes Absolute Eosinophils Absolute Basophils Sodium 138.2 Potassium 4.2 Chloride 95 L Carbon Dioxide 34 H Anion Gap 9 BUN 35 H Creatinine 0.88 Est GFR ( Amer) > 60 Est GFR (Non-Af Amer) > 60 Glucose 257 H Calcium 9.6 Transferrin Total Bilirubin 0.8 AST 21 ALT 35 Alkaline Phosphatase 114 Total Protein 6.1 L Albumin 3.2 L TSH 1.74 11/20/16 11/20/16 11/20/16 02:25 02:25 08:37 Creatine Kinase 104 113 CK-MB (CK-2) 0.41 Troponin I 0.029 11/20/16 08:37 Creatine Kinase CK-MB (CK-2) 0.36 Troponin I 0.027 Impressions: Hip/Pelvis X-Ray 11/19/16 00:00 IMPRESSION: Spiral proximal right femoral metaphyseal fracture with 3 cm of displacement and mild varus angulation. Chest X-Ray 11/19/16 18:58 IMPRESSION: NO ACUTE RADIOGRAPHIC FINDING IN THE CHEST. Status: Image reviewed by me Assessment & Plan - Diagnosis (1) Intertrochanteric fracture of right femur Qualifiers: Encounter type: subsequent encounter Fracture type: closed Is this a current diagnosis for this admission?: Yes - Plan Summary Plan Summary: 71-year-old female who is cleared for surgery but is a high risk patient. OR unavailable today to proceed with surgery. We will schedule her for tomorrow. Nothing by mouth after midnight. IV fluids after NPO status. Hold subcutaneous heparin. We'll proceed with cephalo-medullary nailing of right intertrochanteric hip fracture barring any issues next 24 hours.
[2016-11-24] MEDS: LORAZEPAM 1 MG TABLET PO PRN (21:53)
[2016-11-24] MEDS: CEFTRIAXONE 1 GM/D5W RTU 1 GM/50 ML RTUPB IV SCH (21:54)
[2016-11-24] MEDS: MONTELUKAST SODIUM 10 MG TABLET PO SCH (21:55)
[2016-11-24] MEDS: DULOXETINE HCL 30 MG CAPSULE.DR PO SCH (21:55)
[2016-11-25] MEDS: IPRATROPIUM/ALBUTEROL 0.5-2.5 MG/3 ML AMPUL NEB SCH ×4 (01:41→20:43)
[2016-11-25] MEDS: HEPARIN SOD (PORCINE) 5,000 UNIT/ML 1 ML SYRINGE SUBCUT SCH ×3 (06:00→21:18)
[2016-11-25] MEDS: BUDESONIDE NEB 0.5 MG/2 ML AMPUL NEB SCH ×2 (08:00→20:43)
[2016-11-25] MEDS: INSULIN LISPRO 100 UNIT/ML 3 ML VIAL SUBCUT SCH ×3 (08:00→16:00)
[2016-11-25] MEDS: AMLODIPINE BESYLATE 10 MG TABLET PO SCH (08:00)
[2016-11-25] MEDS: OXYCODONE HCL SR 40 MG TABLET PO SCH ×2 (10:00→21:15)
[2016-11-25] MEDS: INSULIN GLARGINE,HUM.REC.ANLOG 300 UNIT/3 ML INSULN.PEN SUBCUT SCH (10:00)
[2016-11-25] MEDS: LISINOPRIL 10 MG TABLET PO SCH ×2 (10:00→21:16)
[2016-11-25] MEDS: PREDNISONE 20 MG TABLET PO SCH (10:00)
[2016-11-25] MEDS: DOCUSATE SODIUM 100 MG CAPSULE PO SCH ×2 (10:00→20:19)
--- NOTE | 2016-11-25 16:41 | PROGRESS NOTE E ---
Progress Note NAME: ABISAI JOHNSON : 1945 AGE: 71Y DATE: 11/25/2016 ROOM: 326 SUBJECTIVE: The patient is complaining of not feeling well. She has converted into an atrial fibrillation this morning. She was scheduled to have a hip surgery, but unfortunately that needed to be rescheduled. Case was discussed with Cardiology and the patient was started on amiodarone drip. OBJECTIVE: NECK: Supple. No JVD, no bruits. CHEST: Scattered rhonchi, but no wheezing and no rales. HEART: S1 and S2, irregularly irregular. ABDOMEN: Soft. Bowel sounds positive. EXTREMITIES: No edema, cyanosis, or clubbing. Decreased pulses bilaterally. Tender to palpation over the fractured hip. ASSESSMENT: 1. NEW ONSET ATRIAL FIBRILLATION WITH RAPID VENTRICULAR RESPONSE. 2. CHRONIC OBSTRUCTIVE PULMONARY DISEASE. 3. RHEUMATOID ARTHRITIS. 4. HIP FRACTURE. 5. UNCONTROLLED [id number] DIABETES MELLITUS. PLAN: 1. We will postpone surgery. 2. We will start amiodarone drip. 3. Cardiology followup. 4. Continue IV fluids. 5. Possibly reschedule surgery for tomorrow if the patient's rate is controlled. ADDENDUM: The patient's family has been very upset about having to postpone the surgery. They wanted to transfer the patient to [facility] in [place]. Phone call made to the transfer center. Case was discussed with the transfer center. After several conversations on the phone and more than 30 minutes have been spent on the phone discussing the case, the [facility] is at full capacity and since the surgery can be performed here at [facility], they have declined accepting the patient on the transfer only because of family request. DICTATING PHYSICIAN: ETHAN LATHAM M.D. [id number] PHY#: [id number] ID: [id number] JOB#: [id number] ACCT: [id number] cc: >
[2016-11-25] MEDS ORDERED: DEXTROSE 5%-WATER 500 ML with AMIODARONE HCL 900 MG IV PRN ×2 (18:30)
[2016-11-25] MEDS: MORPHINE SULFATE 10 MG/ML INJ IV PRN (20:18)
[2016-11-25] MEDS: CEFTRIAXONE 1 GM/D5W RTU 1 GM/50 ML RTUPB IV SCH (21:14)
[2016-11-25] MEDS: DULOXETINE HCL 30 MG CAPSULE.DR PO SCH (21:15)
[2016-11-25] MEDS: MONTELUKAST SODIUM 10 MG TABLET PO SCH (21:15)
--- NOTE | 2016-11-25 22:12 | PDOC PROGRESS REPORT ---
Subjective Progress Note for:: 11/25/16 Subjective:: Patient complains of mild shortness of breath but severely complaining of significant discomfort in the right hip. Patient received blood transfusion, hemoglobin has improved. Pt is denying any chest arm or neck discomfort. Patient denying any PND, orthopnea. Patient was noted to go into atrial fibrillation. There are some contraindication for chronic anticoagulation at this point because of anemia and need for transfusion. Since atrial fibrillation is recent, felt that amiodarone therapy may help convert the patient can maintain sinus rhythm. This was therefore ordered. Review of systems: Rest review of systems negative. Medications: Medications have been reviewed. Physical Exam Vital Signs: Temp Pulse Resp BP Pulse Ox 98.6 F 87 16 155/68 H 96 11/25/16 20:15 11/25/16 20:43 11/25/16 20:43 11/25/16 21:01 11/25/16 20:43 Intake & Output 11/24/16 11/25/16 11/26/16 06:59 06:59 06:59 Intake Total 1850 986 Output Total 2600 3600 Balance -750 -2614 Weight 98.8 kg Exam: GENERAL: well-nourished and in no acute distress. Alert and oriented x3 HEAD: Atraumatic, normocephalic. EYES: Pupils equal round and reactive to light, extraocular movements intact, sclera anicteric, conjunctiva are normal. ENT: TMs normal, nares patent, oropharynx clear without exudates. Moist mucous membranes. No oral ulcerations or bleeding gums noted NECK: supple without lymphadenopathy. Trachea is central. No cervical or axillary lymphadenopathy noted. Carotids are 2+, JVD WNL LUNGS: Respiration seems nonlabored, no significant accessory muscle action noted. Few bibasilar coarse crackles are noted. No significant dullness noted on percussion. CHEST: Palpation of the chest wall shows no significant chest wall tenderness. No other significant abnormalities noted. HEART: [place], No PSH, 1/6 SERGIO aortic area, 1/6 stinson systolic murmur mitral area, no rubs, no gallops. ABDOMEN: Soft, no significant tenderness appreciated, normoactive bowel sounds. No guarding, no rebound. No rigidity noted . No masses appreciated. EXTREMITIES: Pedal pulses are 1-2+, no calf tenderness noted. No clubbing or cyanosis.trace to 1+ pedal edema noted NEUROLOGICAL: Focused neurological exam showed no significant neurologic deficit. Normal speech, no focal weakness appreciated. PSYCH: Normal mood, normal affect. Judgment and insight within normal limits. SKIN: No significant ecchymosis, rash, ulcerations or signs of pruritus noted. MUSCULOSKELETAL EXAM: No significant joint swelling noted. Findings of right hip fracture noted. Results Laboratory Results: 11/24/16 05:05 11/24/16 05:05 11/20/16 11/20/16 11/20/16 02:25 02:25 08:37 Creatine Kinase 104 113 CK-MB (CK-2) 0.41 Troponin I 0.029 11/20/16 08:37 Creatine Kinase CK-MB (CK-2) 0.36 Troponin I 0.027 Impressions: Hip/Pelvis X-Ray 11/19/16 00:00 IMPRESSION: Spiral proximal right femoral metaphyseal fracture with 3 cm of displacement and mild varus angulation. Chest X-Ray 11/19/16 18:58 IMPRESSION: NO ACUTE RADIOGRAPHIC FINDING IN THE CHEST. Assessment & Plan - Diagnosis (1) Atrial fibrillation Qualifiers: Atrial fibrillation type: paroxysmal Qualified Code(s): I48.0 - Paroxysmal atrial fibrillation Is this a current diagnosis for this admission?: Yes (2) Intertrochanteric fracture of right femur Qualifiers: Encounter type: subsequent encounter Fracture type: closed Is this a current diagnosis for this admission?: Yes (3) CAD (coronary artery disease) Qualifiers: Coronary Disease-Associated Artery/Lesion type: [place] artery [place] vs. transplanted heart: [place] heart Associated angina: angina presence unspecified Qualified Code(s): I25.10 - Atherosclerotic heart disease of [place] coronary artery without angina pectoris Is this a current diagnosis for this admission?: Yes (4) COPD (chronic obstructive pulmonary disease) Qualifiers: COPD type: unspecified COPD Qualified Code(s): J44.9 - Chronic obstructive pulmonary disease, unspecified Is this a current diagnosis for this admission?: Yes (5) HTN (hypertension) Qualifiers: Hypertension type: essential hypertension Qualified Code(s): I10 - Essential (primary) hypertension Is this a current diagnosis for this admission?: Yes (6) Hyperglycemia due to type 2 diabetes mellitus Qualifiers: Diabetes mellitus long-term insulin use: with long-term use Qualified Code(s): E11.65 - Type 2 diabetes mellitus with hyperglycemia Is this a current diagnosis for this admission?: Yes - Notes Notes: Atrial fibrillation: New onset. Have ordered amiodarone drip after bolus protocol. Side effects discussed. Intertrochanteric fracture of the right femur: There is overall increased risk because of significant COPD, atrial fibrillation, feel that the risks are acceptable. CAD: Symptomatically stable without any angina or angina equivalent symptom COPD: Being expectantly managed by roll cleaner. Hypertension: Stable. Hyperglycemia: Currently blood sugar in the better controlled. We will continue to follow. Will repeat EKG in the morning. - Time Time with patient: Greater than 35 minutes - CODE STATUS was discussed, patient remains full code. Surrogate decision-maker unchanged. Multiple medical problems were addressed. More than 50% of the time spent coordinating care, discussing management plans with involved caregivers. Management plans discussed with involved personnels. Medical decision making was of moderate to high complexity, patient's has multiple severe comorbidities. Amiodarone drip if needed by bolus orders written. Side effects discussed. Discussed with primary care attending. Risks of surgery discussed with the patient. Events of the data reviewed. Patient was declined for transfer therefore to have surgery here tomorrow. Medications reviewed and adjusted accordingly: Yes
[2016-11-25 23:16] LABS: ANION GAP 13 (5-19); BLOOD UREA NITROGEN 22 mg/dL (7-20); CALCIUM 8.8 mg/dL (8.4-10.2); CARBON DIOXIDE 30 mmol/L (22-30); CHLORIDE 92 mmol/L (98-107); GLUCOSE 379 mg/dL (75-110); POTASSIUM 3.9 mmol/L (3.6-5.0); SODIUM 134.9 mmol/L (137-145)
[2016-11-26] MEDS: RINGERS SOLUTION,LACTATED 1,000 ML IV PRN ×2 (00:06→10:32)
[2016-11-26] MEDS: INSULIN LISPRO 100 UNIT/ML 3 ML VIAL SUBCUT PRN ×5 (00:09→22:02)
[2016-11-26] MEDS: IPRATROPIUM/ALBUTEROL 0.5-2.5 MG/3 ML AMPUL NEB SCH ×4 (01:37→19:45)
[2016-11-26] MEDS: MORPHINE SULFATE 10 MG/ML INJ IV PRN ×7 (02:08→22:55)
[2016-11-26 03:39] LABS: ABSOLUTE BASOPHILS # (AUTO) 0.1 10^3/uL (0.0-0.2); ABSOLUTE EOSINOPHILS # (AUTO) 0.2 10^3/uL (0.0-0.6); ABSOLUTE LYMPHOCYTES (AUTO) 2.2 10^3/uL (0.5-4.7); ABSOLUTE MONOCYTES (AUTO) 1.3 10^3/uL (0.1-1.4); ABSOLUTE NEUT (AUTO) 12.8 10^3/uL (1.7-8.2); BASOPHILS % (AUTO) 0.5 % (0-2); HEMATOCRIT 36.7 % (36.0-47.0); HEMOGLOBIN 11.3 g/dL (12.0-15.5); HGB HCT DIFFERENCE -2.8; LYMPHOCYTES % (AUTO) 13.4 % (13-45); MEAN CORPUSCULAR HGB CONC 30.7 g/dL (32.0-36.0); MEAN CORPUSCULAR VOLUME 78 fl (80-97); MONOCYTES % (AUTO) 7.8 % (3-13); RED BLOOD COUNT 4.69 10^6/uL (3.72-5.28); RED CELL DISTRIBUTION WIDTH 18.4 % (11.5-14.0); SEGMENTED NEUTROPHILS % (AUTO) 77.3 % (42-78); WHITE BLOOD COUNT 16.6 10^3/uL (4.0-10.5)
[2016-11-26 03:58] LABS: ALANINE AMINOTRANSFERASE 33 U/L (9-52); ALBUMIN 3.1 g/dL (3.5-5.0); ALKALINE PHOSPHATASE 131 U/L (38-126); ANION GAP 9 (5-19); ASPARTATE AMINO TRANSFERASE 25 U/L (14-36); BILIRUBIN,DIRECT 0.5 mg/dL (0.0-0.4); BILIRUBIN,TOTAL 0.9 mg/dL (0.2-1.3); BLOOD UREA NITROGEN 21 mg/dL (7-20); CALCIUM 9.1 mg/dL (8.4-10.2); CARBON DIOXIDE 29 mmol/L (22-30); CHLORIDE 96 mmol/L (98-107); CREATININE RESULT 0.79 mg/dL (0.52-1.25); GLUCOSE 315 mg/dL (75-110); MAGNESIUM 1.8 mg/dL (1.6-2.3); POTASSIUM 3.8 mmol/L (3.6-5.0); SODIUM 134.3 mmol/L (137-145); TOTAL PROTEIN 5.9 g/dL (6.3-8.2)
[2016-11-26 04:25] LABS: CREATINE KINASE MB < 0.22 ng/mL (<4.55); TROPONIN I < 0.012 ng/mL
[2016-11-26] MEDS: HEPARIN SOD (PORCINE) 5,000 UNIT/ML 1 ML SYRINGE SUBCUT SCH ×3 (05:05→21:19)
[2016-11-26 05:45] LABS: PROTHROMBIN TIME 13.1 SEC (11.4-15.4)
[2016-11-26] MEDS: BUDESONIDE NEB 0.5 MG/2 ML AMPUL NEB SCH ×2 (07:49→19:45)
[2016-11-26 07:58] LABS: ABSOLUTE EOSINOPHILS # (AUTO) 0.1 10^3/uL (0.0-0.6); ABSOLUTE LYMPHOCYTES (AUTO) 1.4 10^3/uL (0.5-4.7); ABSOLUTE NEUT (AUTO) 6.5 10^3/uL (1.7-8.2); BASOPHILS % (AUTO) 0.2 % (0-2); EOSINOPHILS % (AUTO) 0.9 % (0-6); HEMATOCRIT 35.5 % (36.0-47.0); HEMOGLOBIN 11.7 g/dL (12.0-15.5); HGB HCT DIFFERENCE -0.4; LYMPHOCYTES % (AUTO) 15.6 % (13-45); MEAN CORPUSCULAR HEMOGLOBIN 25.1 pg (27.0-33.4); MEAN CORPUSCULAR HGB CONC 32.8 g/dL (32.0-36.0); MEAN CORPUSCULAR VOLUME 76 fl (80-97); MONOCYTES % (AUTO) 10.9 % (3-13); RED BLOOD COUNT 4.65 10^6/uL (3.72-5.28); RED CELL DISTRIBUTION WIDTH 17.9 % (11.5-14.0); SEGMENTED NEUTROPHILS % (AUTO) 72.4 % (42-78)
[2016-11-26] MEDS ORDERED: PHENYLEPHRINE HCL INJ/PF 10 MG/1 ML SDV ONE (08:05)
[2016-11-26] MEDS ORDERED: DEXAMETHASONE SOD PHOSPHATE INJ 4 MG/1 ML VIAL ONE (08:05)
[2016-11-26] MEDS ORDERED: ONDANSETRON HCL INJ/PF 4 MG/2 ML SDV ONE (08:05)
[2016-11-26] MEDS: AMLODIPINE BESYLATE 10 MG TABLET PO SCH (08:18)
[2016-11-26] MEDS: INSULIN LISPRO 100 UNIT/ML 3 ML VIAL SUBCUT SCH ×4 (08:33→19:45)
--- NOTE | 2016-11-26 08:38 | PDOC PROGRESS REPORT ---
Subjective Progress Note for:: 11/26/16 Physical Exam Vital Signs: Temp Pulse Resp BP Pulse Ox 98.6 F 86 18 138/76 H 96 11/26/16 07:29 11/26/16 07:50 11/26/16 07:50 11/26/16 07:29 11/26/16 07:50 Intake & Output 11/25/16 11/26/16 11/27/16 06:59 06:59 06:59 Intake Total 986 852 Output Total 3600 725 Balance -2614 127 Weight 98.7 kg General appearance: PRESENT: mild distress Head exam: PRESENT: atraumatic Eye exam: PRESENT: conjunctival injection Neck exam: ABSENT: carotid bruit Respiratory exam: PRESENT: rhonchi Cardiovascular exam: PRESENT: irregular rhythm Vascular exam: PRESENT: other GI/Abdominal exam: PRESENT: normal bowel sounds, soft Extremities exam: PRESENT: tenderness Musculoskeletal exam: PRESENT: tenderness Neurological exam: PRESENT: alert, awake Results Laboratory Results: 11/26/16 03:19 11/26/16 03:19 11/25/16 11/26/16 11/26/16 22:56 03:19 03:19 WBC 16.6 H RBC 4.69 Hgb 11.3 L Hct 36.7 MCV 78 L MCH 24.0 L MCHC 30.7 L RDW 18.4 H Plt Count 270 Seg Neutrophils % 77.3 Lymphocytes % 13.4 Monocytes % 7.8 Eosinophils % 1.0 Basophils % 0.5 Absolute Neutrophils 12.8 H Absolute Lymphocytes 2.2 Absolute Monocytes 1.3 Absolute Eosinophils 0.2 Absolute Basophils 0.1 Sodium 134.9 L 134.3 L Potassium 3.9 3.8 Chloride 92 L 96 L Carbon Dioxide 30 29 Anion Gap 13 9 BUN 22 H 21 H Creatinine 0.80 0.79 Est GFR ( Amer) > 60 > 60 Est GFR (Non-Af Amer) > 60 > 60 Glucose 379 H 315 H Calcium 8.8 9.1 Magnesium 1.8 Total Bilirubin 0.9 AST 25 ALT 33 Alkaline Phosphatase 131 H Total Protein 5.9 L Albumin 3.1 L 11/20/16 11/20/16 11/20/16 02:25 02:25 08:37 Creatine Kinase 104 113 CK-MB (CK-2) 0.41 Troponin I 0.029 11/20/16 11/26/16 11/26/16 08:37 03:19 03:19 Creatine Kinase < 20 L CK-MB (CK-2) 0.36 < 0.22 Troponin I 0.027 < 0.012 Impressions: Hip/Pelvis X-Ray 11/19/16 00:00 IMPRESSION: Spiral proximal right femoral metaphyseal fracture with 3 cm of displacement and mild varus angulation. Chest X-Ray 11/19/16 18:58 IMPRESSION: NO ACUTE RADIOGRAPHIC FINDING IN THE CHEST. Assessment & Plan - Diagnosis (1) Femur fracture, right Qualifiers: Encounter type: initial encounter Femur location: proximal physis ( incl. 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 Is this a current diagnosis for this admission?: YesPlan: Blood sugars have improved with adjustment in insulin coverage (3) Rheumatoid arthritis Is this a current diagnosis for this admission?: YesPlan: Stable on current medications (4) Obstructive sleep apnea Is this a current diagnosis for this admission?: YesPlan: Continue CPap (5) Hypothyroidism Qualifiers: Hypothyroidism type: unspecified Qualified Code(s): E03.9 - Hypothyroidism, unspecified Is this a current diagnosis for this admission?: Yes (6) Opiate dependence, continuous Is this a current diagnosis for this admission?: Yes (7) CAD (coronary artery disease) Qualifiers: Coronary Disease-Associated Artery/Lesion type: [place] artery [place] vs. transplanted heart: [place] heart Associated angina: angina presence unspecified Qualified Code(s): I25.10 - Atherosclerotic heart disease of [place] coronary artery without angina pectoris Is this a current diagnosis for this admission?: YesPlan: After the transfusion I think patient is stable enough to proceed with surgery. We will discuss with cardiology. Her H&H is 10.8 over 31 (8) COPD (chronic obstructive pulmonary disease) Qualifiers: COPD type: unspecified COPD Qualified Code(s): J44.9 - Chronic obstructive pulmonary disease, unspecified Is this a current diagnosis for this admission?: YesPlan: We'll continue low dose steroids and inhalers as recommended by pulmonary (9) Chronic skin ulcer Qualifiers: Non-pressure ulcer stage: limited to breakdown of skin Qualified Code(s ): L98.491 - Non-pressure chronic ulcer of skin of other sites limited to breakdown of skin Is this a current diagnosis for this admission?: Yes
[2016-11-26] MEDS: DOCUSATE SODIUM 100 MG CAPSULE PO SCH ×2 (10:06→18:46)
[2016-11-26] MEDS: PREDNISONE 20 MG TABLET PO SCH (10:06)
[2016-11-26] MEDS: OXYCODONE HCL SR 40 MG TABLET PO SCH ×2 (10:06→21:17)
[2016-11-26] MEDS: INSULIN GLARGINE,HUM.REC.ANLOG 300 UNIT/3 ML INSULN.PEN SUBCUT SCH (10:34)
[2016-11-26] MEDS: LISINOPRIL 10 MG TABLET PO SCH ×2 (10:36→21:18)
--- NOTE | 2016-11-26 10:36 | EKG REPORT ---
SEVERITY:- ABNORMAL ECG - SINUS RHYTHM LEFT VENTRICULAR HYPERTROPHY BORDERLINE PROLONGED QT INTERVAL : Confirmed by: Jasmin Mathur MD 26-Nov-2016 10:36:02
--- NOTE | 2016-11-26 10:56 | PDOC PROGRESS REPORT ---
Subjective Progress Note for:: 11/25/16 Subjective:: Please give me something to eat, and pain Physical Exam Vital Signs: Temp Pulse Resp BP Pulse Ox 98.6 F 86 18 158/76 H 96 11/26/16 07:29 11/26/16 07:50 11/26/16 07:50 11/26/16 09:01 11/26/16 07:50 Intake & Output 11/25/16 11/26/16 11/27/16 06:59 06:59 06:59 Intake Total 986 852 Output Total 3600 725 Balance -2614 127 Weight 98.7 kg General appearance: PRESENT: cooperative, disheveled, mild distress, obese, well -developed Head exam: PRESENT: atraumatic, normocephalic Eye exam: PRESENT: conjunctiva pale, EOMI Mouth exam: PRESENT: dry mucosa, neck supple Neck exam: ABSENT: carotid bruit, JVD, lymphadenopathy, thyromegaly Respiratory exam: PRESENT: rhonchi, symmetrical, unlabored, wheezes Cardiovascular exam: PRESENT: irregular rhythm Pulses: PRESENT: normal radial pulses GI/Abdominal exam: PRESENT: normal bowel sounds, soft. ABSENT: distended, guarding, mass, organolmegaly, rebound, tenderness Rectal exam: PRESENT: deferred Gentrourinary exam: PRESENT: indwelling catheter Neurological exam: PRESENT: awake Psychiatric exam: PRESENT: agitated, anxious Skin exam: PRESENT: dry, warm Results Laboratory Results: 11/26/16 03:19 11/26/16 03:19 11/25/16 11/26/16 11/26/16 22:56 03:19 03:19 WBC 16.6 H RBC 4.69 Hgb 11.3 L Hct 36.7 MCV 78 L MCH 24.0 L MCHC 30.7 L RDW 18.4 H Plt Count 270 Seg Neutrophils % 77.3 Lymphocytes % 13.4 Monocytes % 7.8 Eosinophils % 1.0 Basophils % 0.5 Absolute Neutrophils 12.8 H Absolute Lymphocytes 2.2 Absolute Monocytes 1.3 Absolute Eosinophils 0.2 Absolute Basophils 0.1 Sodium 134.9 L 134.3 L Potassium 3.9 3.8 Chloride 92 L 96 L Carbon Dioxide 30 29 Anion Gap 13 9 BUN 22 H 21 H Creatinine 0.80 0.79 Est GFR ( Amer) > 60 > 60 Est GFR (Non-Af Amer) > 60 > 60 Glucose 379 H 315 H Calcium 8.8 9.1 Magnesium 1.8 Total Bilirubin 0.9 AST 25 ALT 33 Alkaline Phosphatase 131 H Total Protein 5.9 L Albumin 3.1 L 11/20/16 11/20/16 11/20/16 02:25 02:25 08:37 Creatine Kinase 104 113 CK-MB (CK-2) 0.41 Troponin I 0.029 11/20/16 11/26/16 11/26/16 08:37 03:19 03:19 Creatine Kinase < 20 L CK-MB (CK-2) 0.36 < 0.22 Troponin I 0.027 < 0.012 Impressions: Hip/Pelvis X-Ray 11/19/16 00:00 IMPRESSION: Spiral proximal right femoral metaphyseal fracture with 3 cm of displacement and mild varus angulation. Chest X-Ray 11/19/16 18:58 IMPRESSION: NO ACUTE RADIOGRAPHIC FINDING IN THE CHEST. Assessment & Plan - Diagnosis (1) Femur fracture, right Qualifiers: Encounter type: initial encounter Femur location: proximal physis ( incl. Salter-Mahmood) Salter-Mahmood Fracture Type: unspecified configuration Qualified Code(s): S79.001A - Unspecified physeal fracture of upper end of right femur, initial encounter for closed fracture Is this a current diagnosis for this admission?: Yes (2) Opiate dependence, continuous Is this a current diagnosis for this admission?: Yes (3) Rheumatoid arthritis Qualifiers: Rheumatoid arthritis location: multiple sites Rheumatoid factor presence: without rheumatoid factor Qualified Code(s): M06.09 - Rheumatoid arthritis without rheumatoid factor, multiple sites Is this a current diagnosis for this admission?: Yes (4) COPD (chronic obstructive pulmonary disease) Qualifiers: COPD type: unspecified COPD Qualified Code(s): J44.9 - Chronic obstructive pulmonary disease, unspecified Is this a current diagnosis for this admission?: Yes (5) Glaucoma Qualifiers: Glaucoma type: unspecified type Laterality: unspecified laterality Qualified Code(s): H40.9 - Unspecified glaucoma (6) HTN (hypertension) Qualifiers: Hypertension type: essential hypertension Qualified Code(s): I10 - Essential (primary) hypertension Is this a current diagnosis for this admission?: Yes (7) Iron deficiency anemia Qualifiers: Iron deficiency anemia type: unspecified iron deficiency Qualified Code (s): D50.9 - Iron deficiency anemia, unspecified Is this a current diagnosis for this admission?: Yes (8) Atrial fibrillation Qualifiers: Atrial fibrillation type: paroxysmal Qualified Code(s): I48.0 - Paroxysmal atrial fibrillation Is this a current diagnosis for this admission?: YesPlan: Improving current ventricular Sinus rate 84
--- NOTE | 2016-11-26 10:59 | PDOC PROGRESS REPORT ---
Subjective Progress Note for:: 11/26/16 Subjective:: I am in pain Physical Exam Vital Signs: Temp Pulse Resp BP Pulse Ox 98.6 F 86 18 158/76 H 96 11/26/16 07:29 11/26/16 07:50 11/26/16 07:50 11/26/16 09:01 11/26/16 07:50 Intake & Output 11/25/16 11/26/16 11/27/16 06:59 06:59 06:59 Intake Total 986 852 Output Total 3600 725 Balance -2614 127 Weight 98.7 kg General appearance: PRESENT: disheveled, mild distress, obese, well-developed Head exam: PRESENT: atraumatic, normocephalic Eye exam: PRESENT: conjunctiva pale, EOMI Mouth exam: PRESENT: dry mucosa, neck supple Neck exam: ABSENT: carotid bruit, JVD, lymphadenopathy, thyromegaly Respiratory exam: PRESENT: decreased breath sounds, prolonged expiratory phas, rhonchi, symmetrical, unlabored Cardiovascular exam: PRESENT: RRR, +S1, +S2, other - Currently in a regular sinus rhythm Pulses: PRESENT: normal radial pulses GI/Abdominal exam: PRESENT: normal bowel sounds, soft. ABSENT: distended, guarding, mass, organolmegaly, rebound, tenderness Rectal exam: PRESENT: deferred Musculoskeletal exam: PRESENT: other - Right hip fracture Neurological exam: PRESENT: awake Psychiatric exam: PRESENT: anxious Skin exam: PRESENT: dry, warm Results Laboratory Results: 11/26/16 03:19 11/26/16 03:19 11/25/16 11/26/16 11/26/16 22:56 03:19 03:19 WBC 16.6 H RBC 4.69 Hgb 11.3 L Hct 36.7 MCV 78 L MCH 24.0 L MCHC 30.7 L RDW 18.4 H Plt Count 270 Seg Neutrophils % 77.3 Lymphocytes % 13.4 Monocytes % 7.8 Eosinophils % 1.0 Basophils % 0.5 Absolute Neutrophils 12.8 H Absolute Lymphocytes 2.2 Absolute Monocytes 1.3 Absolute Eosinophils 0.2 Absolute Basophils 0.1 Sodium 134.9 L 134.3 L Potassium 3.9 3.8 Chloride 92 L 96 L Carbon Dioxide 30 29 Anion Gap 13 9 BUN 22 H 21 H Creatinine 0.80 0.79 Est GFR ( Amer) > 60 > 60 Est GFR (Non-Af Amer) > 60 > 60 Glucose 379 H 315 H Calcium 8.8 9.1 Magnesium 1.8 Total Bilirubin 0.9 AST 25 ALT 33 Alkaline Phosphatase 131 H Total Protein 5.9 L Albumin 3.1 L 11/20/16 11/20/16 11/20/16 02:25 02:25 08:37 Creatine Kinase 104 113 CK-MB (CK-2) 0.41 Troponin I 0.029 11/20/16 11/26/16 11/26/16 08:37 03:19 03:19 Creatine Kinase < 20 L CK-MB (CK-2) 0.36 < 0.22 Troponin I 0.027 < 0.012 Impressions: Hip/Pelvis X-Ray 11/19/16 00:00 IMPRESSION: Spiral proximal right femoral metaphyseal fracture with 3 cm of displacement and mild varus angulation. Chest X-Ray 11/19/16 18:58 IMPRESSION: NO ACUTE RADIOGRAPHIC FINDING IN THE CHEST. Assessment & Plan - Diagnosis (1) Femur fracture, right Qualifiers: Encounter type: initial encounter Femur location: proximal physis ( incl. Salter-Mahmood) Salter-Mahmood Fracture Type: unspecified configuration Qualified Code(s): S79.001A - Unspecified physeal fracture of upper end of right femur, initial encounter for closed fracture Is this a current diagnosis for this admission?: YesPlan: Patient is again n.p.o. hopefully surgery will proceed today (2) Opiate dependence, continuous Is this a current diagnosis for this admission?: Yes (3) Rheumatoid arthritis Qualifiers: Rheumatoid arthritis location: multiple sites Rheumatoid factor presence: without rheumatoid factor Qualified Code(s): M06.09 - Rheumatoid arthritis without rheumatoid factor, multiple sites Is this a current diagnosis for this admission?: Yes (4) COPD (chronic obstructive pulmonary disease) Qualifiers: COPD type: unspecified COPD Qualified Code(s): J44.9 - Chronic obstructive pulmonary disease, unspecified Is this a current diagnosis for this admission?: Yes (5) Glaucoma Qualifiers: Glaucoma type: unspecified type Laterality: unspecified laterality Qualified Code(s): H40.9 - Unspecified glaucoma (6) HTN (hypertension) Qualifiers: Hypertension type: essential hypertension Qualified Code(s): I10 - Essential (primary) hypertension Is this a current diagnosis for this admission?: Yes (7) Iron deficiency anemia Qualifiers: Iron deficiency anemia type: unspecified iron deficiency Qualified Code (s): D50.9 - Iron deficiency anemia, unspecified Is this a current diagnosis for this admission?: Yes (8) Atrial fibrillation Qualifiers: Atrial fibrillation type: paroxysmal Qualified Code(s): I48.0 - Paroxysmal atrial fibrillation Is this a current diagnosis for this admission?: Yes
--- NOTE | 2016-11-26 11:23 | PDOC PROGRESS REPORT ---
Subjective Progress Note for:: 11/26/16 Subjective:: feeling ok. schedualed for surgery. no palpitations Physical Exam Vital Signs: Temp Pulse Resp BP Pulse Ox 98.6 F 86 18 158/76 H 96 11/26/16 07:29 11/26/16 07:50 11/26/16 07:50 11/26/16 09:01 11/26/16 07:50 Intake & Output 11/25/16 11/26/16 11/27/16 06:59 06:59 06:59 Intake Total 986 852 Output Total 3600 725 Balance -2614 127 Weight 98.7 kg General appearance: PRESENT: no acute distress Head exam: PRESENT: atraumatic Eye exam: PRESENT: conjunctiva pink Neck exam: PRESENT: other Respiratory exam: PRESENT: rhonchi Cardiovascular exam: PRESENT: irregular rhythm Pulses: PRESENT: +1 pedal pulses bilateral Vascular exam: PRESENT: other GI/Abdominal exam: PRESENT: normal bowel sounds, soft Extremities exam: PRESENT: tenderness Musculoskeletal exam: PRESENT: tenderness Neurological exam: PRESENT: alert, awake Results Laboratory Results: 11/26/16 03:19 11/26/16 03:19 11/25/16 11/25/16 11/26/16 04:42 22:56 03:19 WBC 9.0 16.6 H RBC 4.65 4.69 Hgb 11.7 L 11.3 L Hct 35.5 L 36.7 MCV 76 L 78 L MCH 25.1 L 24.0 L MCHC 32.8 30.7 L RDW 17.9 H 18.4 H Plt Count 286 270 Seg Neutrophils % 72.4 77.3 Lymphocytes % 15.6 13.4 Monocytes % 10.9 7.8 Eosinophils % 0.9 1.0 Basophils % 0.2 0.5 Absolute Neutrophils 6.5 12.8 H Absolute Lymphocytes 1.4 2.2 Absolute Monocytes 1.0 1.3 Absolute Eosinophils 0.1 0.2 Absolute Basophils 0.0 0.1 Sodium 134.9 L Potassium 3.9 Chloride 92 L Carbon Dioxide 30 Anion Gap 13 BUN 22 H Creatinine 0.80 Est GFR ( Amer) > 60 Est GFR (Non-Af Amer) > 60 Glucose 379 H Calcium 8.8 Magnesium Total Bilirubin AST ALT Alkaline Phosphatase Total Protein Albumin 11/26/16 03:19 WBC RBC Hgb Hct MCV MCH MCHC RDW Plt Count Seg Neutrophils % Lymphocytes % Monocytes % Eosinophils % Basophils % Absolute Neutrophils Absolute Lymphocytes Absolute Monocytes Absolute Eosinophils Absolute Basophils Sodium 134.3 L Potassium 3.8 Chloride 96 L Carbon Dioxide 29 Anion Gap 9 BUN 21 H Creatinine 0.79 Est GFR ( Amer) > 60 Est GFR (Non-Af Amer) > 60 Glucose 315 H Calcium 9.1 Magnesium 1.8 Total Bilirubin 0.9 AST 25 ALT 33 Alkaline Phosphatase 131 H Total Protein 5.9 L Albumin 3.1 L 11/20/16 11/20/16 11/20/16 02:25 02:25 08:37 Creatine Kinase 104 113 CK-MB (CK-2) 0.41 Troponin I 0.029 11/20/16 11/26/16 11/26/16 08:37 03:19 03:19 Creatine Kinase < 20 L CK-MB (CK-2) 0.36 < 0.22 Troponin I 0.027 < 0.012 Impressions: Hip/Pelvis X-Ray 11/19/16 00:00 IMPRESSION: Spiral proximal right femoral metaphyseal fracture with 3 cm of displacement and mild varus angulation. Chest X-Ray 11/19/16 18:58 IMPRESSION: NO ACUTE RADIOGRAPHIC FINDING IN THE CHEST. Assessment & Plan - Diagnosis (1) Femur fracture, right Qualifiers: Encounter type: initial encounter Femur location: proximal physis ( incl. 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 Is this a current diagnosis for this admission?: Yes (3) Rheumatoid arthritis Is this a current diagnosis for this admission?: YesPlan: Stable on current medications (4) Obstructive sleep apnea Is this a current diagnosis for this admission?: Yes (5) Hypothyroidism Qualifiers: Hypothyroidism type: unspecified Qualified Code(s): E03.9 - Hypothyroidism, unspecified Is this a current diagnosis for this admission?: Yes (6) Opiate dependence, continuous Is this a current diagnosis for this admission?: Yes (7) CAD (coronary artery disease) Qualifiers: Coronary Disease-Associated Artery/Lesion type: [place] artery [place] vs. transplanted heart: [place] heart Associated angina: angina presence unspecified Qualified Code(s): I25.10 - Atherosclerotic heart disease of [place] coronary artery without angina pectoris Is this a current diagnosis for this admission?: YesPlan: After the transfusion I think patient is stable enough to proceed with surgery. We will discuss with cardiology. Her H&H is 10.8 over 31 (8) COPD (chronic obstructive pulmonary disease) Qualifiers: COPD type: unspecified COPD Qualified Code(s): J44.9 - Chronic obstructive pulmonary disease, unspecified Is this a current diagnosis for this admission?: Yes (9) Chronic skin ulcer Qualifiers: Non-pressure ulcer stage: limited to breakdown of skin Qualified Code(s ): L98.491 - Non-pressure chronic ulcer of skin of other sites limited to breakdown of skin Is this a current diagnosis for this admission?: Yes (10) Atrial fibrillation Qualifiers: Atrial fibrillation type: paroxysmal Qualified Code(s): I48.0 - Paroxysmal atrial fibrillation Is this a current diagnosis for this admission?: YesPlan: controled with Amiodarone
[2016-11-26 11:38] LABS: PROTHROMBIN TIME 12.7 SEC (11.4-15.4)
[2016-11-26 11:47] LABS: CREATINE KINASE MB 0.23 ng/mL (<4.55)
[2016-11-26 11:48] LABS: TROPONIN I < 0.012 ng/mL
[2016-11-26] MEDS ORDERED: FENTANYL CITRATE INJ/PF 250 MCG/5 ML AMPULE ONE (13:36)
[2016-11-26] MEDS ORDERED: MIDAZOLAM 2 MG/2 ML INJ ONE (13:36)
[2016-11-26] MEDS ORDERED: PROPOFOL INJ 200 MG/20 ML VIAL IV ONE (13:36)
[2016-11-26] MEDS ORDERED: NORMAL SALINE 1000 ML 1,000 ML IV PRN (14:00)
[2016-11-26] MEDS ORDERED: DEXTROSE 5%-WATER 500 ML with AMIODARONE HCL 900 MG IV PRN ×2 (14:02)
[2016-11-26] MEDS ORDERED: PROMETHAZINE HCL INJ 25 MG/1 ML VIAL IV PRN (15:46)
[2016-11-26] MEDS ORDERED: DIPHENHYDRAMINE HCL 50 MG/ML VIAL IV PRN (15:46)
[2016-11-26] MEDS ORDERED: MEPERIDINE HCL/PF INJ 25 MG/1 ML DISP.SYRIN IV PRN (15:46)
[2016-11-26] MEDS ORDERED: MORPHINE SULFATE 10 MG/ML INJ IV PRN (15:46)
[2016-11-26] MEDS ORDERED: FENTANYL CITRATE INJ/PF 100 MCG/2 ML AMPUL IV PRN (15:46)
--- NOTE | 2016-11-26 16:39 | Operative Report ---
Operative Report DATE OF SURGERY: 11/26/16 PREOPERATIVE DIAGNOSIS: Right peritrochanteric hip fracture POSTOPERATIVE DIAGNOSIS: Same OPERATION: Follow medullary nailing of right peritrochanteric hip fracture SURGEON: KYLIE LIMON ANESTHESIA: GA TISSUE REMOVED OR ALTERED: None COMPLICATIONS: None ESTIMATED BLOOD LOSS: 50 mL INTRAOPERATIVE FINDINGS: As above PROCEDURE: Patient was seen and evaluated in the preoperative holding area. The right lower extremity was initialized and marked. Patient received cefepime and therefore no preoperative antibiotics were given. Patient was taken back to the operative room where transferred operative table. Patient was placed under spinal anesthesia. Once adequate anesthetized he was carefully placed onto the hip positioner the nonoperative lower extremity and bilateral upper extremities were carefully padded and the peroneal nerve was padded and on the nonoperative extremity. The operative extremity was placed in a traction along with adduction and internal rotation. A surgical team debriefing was performed ensuring all instrumentation was available, the surgical procedure was discussed with possible concerns reviewed. A timeout was done identifying correct patient, procedure and extremity everyone in attendance agree with this and verbalized no concerns. Reduction maneuver with the use of the hip traction table were done and C-arm fluoroscopy was used to confirm optimal reduction of the intertrochanteric fracture. Once this was confirmed the lower extremity was prepped with chlor prep and draped in a sterile fashion. At this point a small skin incision was made proximal to the greater trochanter. The guidewire was placed onto the tip of the trochanter advanced down to the level of the lesser trochanter. AP and lateral fluoroscopy was used to confirm appropriate placement of the guidewire. The skin incision was then extended and the underlying fascia opened up carefully to the tip of the greater trochanter. The entry reamer was then used and advanced to the level of the lesser trochanter. I removed the pin and reamer and then placed the long guide tip wire. I was able to feed the guidewire from the proximal fragment through the distal fragment and femoral shaft way down to the knee. I measured the appropriate length and proceeded to ream the canal all the way up to a 12.5 mm reamer. At this point Jose Martin long gamma nail was opened up and placed onto the aiming arm and advanced down the shaft of the femur. AP and lateral fluoroscopy was then used to confirm appropriate placement of the nail. Then turned my attention to the compression screw fixation in the femoral head. The trochars were advanced to the skin, a skin incision was made, careful dissection down to the fascia to the lateral femoral cortex was then partaken. The guidewire was then used and placed in the center center position with the tip apex distance less than 25 mm. Once this position was obtained the size of the compression screw was measured. AP and lateral fluoroscopy used to confirm appropriate placement of our guide wire. The step reamer was used to drill up through the femoral neck and head. I then carefully advanced the compression screw into position. AP and lateral fluoroscopy was done to confirm appropriate placement of the compression screw this was then locked into position proximally. The compression screw was then disengaged from its mounting device and the guidewire was removed. Lastly proceeded with locking of the nail distally. After removing the aiming arm we loosen the traction and abducted the leg allowing the centimeters to come to lateral. We use magnification and make sure we had perfect circles. After obtaining perfect circles me that 2 stab wound incisions over the 2 distal locking holes. A skin incision was made. Careful dissection done with a hemostat to the lateral cortex of the femur. I then drilled the near and far cortices. Measured the appropriate sized distal locking screw and secured it into position. I made sure in the dynamic hole I went distal to allow me to dynamize the nail at a later point. I repeated this procedure for the more proximal locking screw. At this point AP/lateral and oblique views of the proximal and distal aspect of the nail were taken confirming appropriate placement of the compression screw, distal locking screws and intramedullary nail. Once this was confirmed I proceeded with copious irrigation of the proximal and distal wounds. The deep tissues were closed with 0 Vicryl suture, subcutaneous tissues were closed with 2-0 Vicryl suture. The skin was closed sanju. A dressing was placed. Sponge counts, instrument counts and needle counts were correct. Patient was then transferred from the operating room table to the operating room stretcher. The was no intraoperative complications patient tolerated procedure well was stable to PACU. Implants used: Orion 11 x 410 mm 130 Short Gamma Nail with a 95 mm compression screw
[2016-11-26] MEDS ORDERED: INSULIN LISPRO 100 UNIT/ML 3 ML VIAL ONE (16:47)
[2016-11-26 17:11] LABS: CREATINE KINASE MB 0.27 ng/mL (<4.55); TROPONIN I < 0.012 ng/mL
[2016-11-26 17:15] LABS: ALANINE AMINOTRANSFERASE 34 U/L (9-52); ALBUMIN 3.2 g/dL (3.5-5.0); ALKALINE PHOSPHATASE 125 U/L (38-126); ANION GAP 10 (5-19); ASPARTATE AMINO TRANSFERASE 29 U/L (14-36); BILIRUBIN,TOTAL 0.9 mg/dL (0.2-1.3); BLOOD UREA NITROGEN 23 mg/dL (7-20); CALCIUM 9.2 mg/dL (8.4-10.2); CARBON DIOXIDE 31 mmol/L (22-30); CHLORIDE 98 mmol/L (98-107); CREATININE RESULT 0.69 mg/dL (0.52-1.25); GLUCOSE 286 mg/dL (75-110); POTASSIUM 3.7 mmol/L (3.6-5.0); SODIUM 139.4 mmol/L (137-145)
[2016-11-26 17:17] LABS: BILIRUBIN,DIRECT 0.6 mg/dL (0.0-0.4); TOTAL PROTEIN 6.1 g/dL (6.3-8.2)
[2016-11-26] MEDS: OXYCODONE HCL IR 5 MG TABLET PO PRN (18:51)
[2016-11-26] MEDS ORDERED: OXYCODONE HCL IR 5 MG TABLET PO PRN (19:43)
[2016-11-26] MEDS: LANSOPRAZOLE 30 MG TAB.RAP.DR PO SCH (21:17)
[2016-11-26] MEDS: CEFTRIAXONE 1 GM/D5W RTU 1 GM/50 ML RTUPB IV SCH (21:17)
[2016-11-26] MEDS: MONTELUKAST SODIUM 10 MG TABLET PO SCH (21:17)
[2016-11-26] MEDS: DULOXETINE HCL 30 MG CAPSULE.DR PO SCH (21:18)
[2016-11-26] MEDS: LORAZEPAM 1 MG TABLET PO PRN (22:01)
[2016-11-27] MEDS: IPRATROPIUM/ALBUTEROL 0.5-2.5 MG/3 ML AMPUL NEB SCH ×4 (02:01→20:54)
[2016-11-27] MEDS: MORPHINE SULFATE 10 MG/ML INJ IV PRN ×3 (04:16→20:30)
[2016-11-27] MEDS: HEPARIN SOD (PORCINE) 5,000 UNIT/ML 1 ML SYRINGE SUBCUT SCH ×3 (05:27→21:07)
[2016-11-27 07:07] LABS: ABSOLUTE MONOCYTES (AUTO) 0.7 10^3/uL (0.1-1.4); ABSOLUTE NEUT (AUTO) 12.5 10^3/uL (1.7-8.2); BASOPHILS % (AUTO) 0.1 % (0-2); HEMATOCRIT 32.2 % (36.0-47.0); HEMOGLOBIN 10.2 g/dL (12.0-15.5); HGB HCT DIFFERENCE -1.6; LYMPHOCYTES % (AUTO) 7.1 % (13-45); MEAN CORPUSCULAR HEMOGLOBIN 24.7 pg (27.0-33.4); MEAN CORPUSCULAR HGB CONC 31.7 g/dL (32.0-36.0); MEAN CORPUSCULAR VOLUME 78 fl (80-97); MONOCYTES % (AUTO) 4.8 % (3-13); RED BLOOD COUNT 4.14 10^6/uL (3.72-5.28); RED CELL DISTRIBUTION WIDTH 18.2 % (11.5-14.0); WHITE BLOOD COUNT 14.2 10^3/uL (4.0-10.5)
[2016-11-27 07:21] LABS: ALANINE AMINOTRANSFERASE 42 U/L (9-52); ALBUMIN 2.9 g/dL (3.5-5.0); ALKALINE PHOSPHATASE 121 U/L (38-126); ANION GAP 10 (5-19); ASPARTATE AMINO TRANSFERASE 31 U/L (14-36); BILIRUBIN,DIRECT 0.3 mg/dL (0.0-0.4); BILIRUBIN,TOTAL 0.6 mg/dL (0.2-1.3); BLOOD UREA NITROGEN 20 mg/dL (7-20); CALCIUM 8.4 mg/dL (8.4-10.2); CARBON DIOXIDE 27 mmol/L (22-30); CHLORIDE 98 mmol/L (98-107); CREATININE RESULT 0.76 mg/dL (0.52-1.25); GLUCOSE 309 mg/dL (75-110); POTASSIUM 5.1 mmol/L (3.6-5.0); SODIUM 134.7 mmol/L (137-145); TOTAL PROTEIN 5.3 g/dL (6.3-8.2)
[2016-11-27] MEDS: BUDESONIDE NEB 0.5 MG/2 ML AMPUL NEB SCH ×2 (07:58→20:55)
[2016-11-27] MEDS: INSULIN LISPRO 100 UNIT/ML 3 ML VIAL SUBCUT PRN ×4 (08:07→22:11)
[2016-11-27] MEDS: AMLODIPINE BESYLATE 10 MG TABLET PO SCH (08:07)
--- NOTE | 2016-11-27 08:12 | PDOC PROGRESS REPORT ---
Subjective Progress Note for:: 11/27/16 Subjective:: The patient states to feel slightly better. She is still having pain in the hip but that seemed to be improving. Physical Exam Vital Signs: Temp Pulse Resp BP Pulse Ox 98.1 F 79 18 127/74 H 98 11/27/16 04:17 11/27/16 08:00 11/27/16 08:00 11/27/16 04:17 11/27/16 08:00 Intake & Output 11/26/16 11/27/16 11/28/16 06:59 06:59 06:59 Intake Total 852 5073 Output Total 725 3260 Balance 127 1813 Weight 98.7 kg 98.6 kg General appearance: PRESENT: mild distress Eye exam: PRESENT: conjunctiva pink Neck exam: ABSENT: carotid bruit - 9 Respiratory exam: PRESENT: rhonchi Cardiovascular exam: PRESENT: irregular rhythm Pulses: PRESENT: +1 pedal pulses bilateral GI/Abdominal exam: PRESENT: normal bowel sounds - Today, soft Musculoskeletal exam: PRESENT: tenderness Neurological exam: PRESENT: alert, awake Results Laboratory Results: 11/27/16 06:15 11/27/16 06:15 11/25/16 11/25/16 11/25/16 04:42 04:42 09:53 WBC 9.0 RBC 4.65 Hgb 11.7 L Hct 35.5 L MCV 76 L MCH 25.1 L MCHC 32.8 RDW 17.9 H Plt Count 286 Seg Neutrophils % 72.4 Lymphocytes % 15.6 Monocytes % 10.9 Eosinophils % 0.9 Basophils % 0.2 Absolute Neutrophils 6.5 Absolute Lymphocytes 1.4 Absolute Monocytes 1.0 Absolute Eosinophils 0.1 Absolute Basophils 0.0 Sodium 139.4 Potassium 3.7 Chloride 98 Carbon Dioxide 31 H Anion Gap 10 BUN 23 H Creatinine 0.69 Est GFR ( Amer) > 60 Est GFR (Non-Af Amer) > 60 Glucose 286 H Calcium 9.2 Magnesium 1.7 Total Bilirubin 0.9 AST 29 ALT 34 Alkaline Phosphatase 125 Total Protein 6.1 L Albumin 3.2 L 11/27/16 11/27/16 06:15 06:15 WBC 14.2 H RBC 4.14 Hgb 10.2 L Hct 32.2 L MCV 78 L MCH 24.7 L MCHC 31.7 L RDW 18.2 H Plt Count 237 Seg Neutrophils % 88.0 H Lymphocytes % 7.1 L Monocytes % 4.8 Eosinophils % 0.0 Basophils % 0.1 Absolute Neutrophils 12.5 H Absolute Lymphocytes 1.0 Absolute Monocytes 0.7 Absolute Eosinophils 0.0 Absolute Basophils 0.0 Sodium 134.7 L Potassium 5.1 H Chloride 98 Carbon Dioxide 27 Anion Gap 10 BUN 20 Creatinine 0.76 Est GFR ( Amer) > 60 Est GFR (Non-Af Amer) > 60 Glucose 309 H Calcium 8.4 Magnesium Total Bilirubin 0.6 AST 31 ALT 42 Alkaline Phosphatase 121 Total Protein 5.3 L Albumin 2.9 L 11/20/16 11/20/16 11/20/16 02:25 02:25 08:37 Creatine Kinase 104 113 CK-MB (CK-2) 0.41 Troponin I 0.029 11/20/16 11/25/16 11/26/16 08:37 09:53 03:19 Creatine Kinase < 20 L CK-MB (CK-2) 0.36 0.27 Troponin I 0.027 < 0.012 11/26/16 11/26/16 11/26/16 03:19 10:55 10:55 Creatine Kinase 23 L CK-MB (CK-2) < 0.22 0.23 Troponin I < 0.012 < 0.012 Impressions: Chest X-Ray 11/19/16 18:58 IMPRESSION: NO ACUTE RADIOGRAPHIC FINDING IN THE CHEST. Fluoroscopy 11/26/16 00:00 IMPRESSION: IMAGE(S) OBTAINED DURING PROCEDURE. Hip/Pelvis X-Ray 11/26/16 00:00 IMPRESSION: IMAGE(S) OBTAINED DURING PROCEDURE. Assessment & Plan - Diagnosis (1) Femur fracture, right Qualifiers: Encounter type: initial encounter Femur location: proximal physis ( incl. Salter-Mahmood) Salter-Mahmood Fracture Type: unspecified configuration Qualified Code(s): S79.001A - Unspecified physeal fracture of upper end of right femur, initial encounter for closed fracture Is this a current diagnosis for this admission?: YesPlan: Status post surgical repair (2) Rheumatoid arthritis Is this a current diagnosis for this admission?: YesPlan: Stable continue current medication (3) Obstructive sleep apnea Is this a current diagnosis for this admission?: Yes (4) Hypothyroidism Qualifiers: Hypothyroidism type: unspecified Qualified Code(s): E03.9 - Hypothyroidism, unspecified Is this a current diagnosis for this admission?: Yes (5) Opiate dependence, continuous Is this a current diagnosis for this admission?: Yes (6) CAD (coronary artery disease) Qualifiers: Coronary Disease-Associated Artery/Lesion type: [place] artery [place] vs. transplanted heart: [place] heart Associated angina: angina presence unspecified Qualified Code(s): I25.10 - Atherosclerotic heart disease of [place] coronary artery without angina pectoris Is this a current diagnosis for this admission?: Yes (7) COPD (chronic obstructive pulmonary disease) Qualifiers: COPD type: unspecified COPD Qualified Code(s): J44.9 - Chronic obstructive pulmonary disease, unspecified Is this a current diagnosis for this admission?: YesPlan: We'll continue low dose steroids and inhalers as recommended by pulmonary (8) Chronic skin ulcer Qualifiers: Non-pressure ulcer stage: limited to breakdown of skin Qualified Code(s ): L98.491 - Non-pressure chronic ulcer of skin of other sites limited to breakdown of skin Is this a current diagnosis for this admission?: Yes (9) Atrial fibrillation Qualifiers: Atrial fibrillation type: paroxysmal Qualified Code(s): I48.0 - Paroxysmal atrial fibrillation Is this a current diagnosis for this admission?: YesPlan: Presently in rate control atrial fibrillation on amiodarone
[2016-11-27] MEDS: OXYCODONE HCL IR 5 MG TABLET PO PRN ×3 (08:25→18:05)
[2016-11-27] MEDS: LISINOPRIL 10 MG TABLET PO SCH ×2 (09:09→21:11)
[2016-11-27] MEDS: DOCUSATE SODIUM 100 MG CAPSULE PO SCH ×4 (09:10→18:05)
[2016-11-27] MEDS: OXYCODONE HCL SR 40 MG TABLET PO SCH ×2 (09:10→21:11)
[2016-11-27] MEDS: PREDNISONE 20 MG TABLET PO SCH (09:10)
[2016-11-27] MEDS: AMIODARONE HCL 200 MG TABLET PO SCH ×2 (09:11→18:05)
[2016-11-27] MEDS: INSULIN GLARGINE,HUM.REC.ANLOG 300 UNIT/3 ML INSULN.PEN SUBCUT SCH (09:13)
[2016-11-27] MEDS ORDERED: MAGNESIUM CITRATE 296 ML BOTTLE PO PRN (09:22)
[2016-11-27] MEDS: POLYETHYLENE GLYCOL 3350 POWDER 17 GM/1 PACKET PO SCH (11:08)
[2016-11-27] MEDS: INSULIN LISPRO 100 UNIT/ML 3 ML VIAL SUBCUT SCH ×2 (11:12→16:43)
--- NOTE | 2016-11-27 16:41 | PDOC PROGRESS REPORT ---
Subjective Progress Note for:: 11/27/16 Subjective:: Patient resting in bed. No issues overnight. Complains of some pain in the right hip as expected after surgery. Physical Exam Vital Signs: Temp Pulse Resp BP Pulse Ox 36.7 C 83 18 143/70 H 96 11/27/16 12:45 11/27/16 14:00 11/27/16 13:57 11/27/16 12:45 11/27/16 13:57 Intake & Output 11/26/16 11/27/16 11/28/16 06:59 06:59 06:59 Intake Total 852 5073 798 Output Total 725 3260 400 Balance 127 1813 398 Weight 98.7 kg 98.6 kg General appearance: PRESENT: no acute distress Adult Front & Back Image: 1 - 3 dressings and incisions are dry clean and intact. 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 No gross deformity of the extremity. Leg lengths are grossly equal. Results Laboratory Results: 11/27/16 06:15 11/27/16 06:15 11/25/16 11/25/16 11/27/16 04:42 09:53 06:15 WBC 14.2 H RBC 4.14 Hgb 10.2 L Hct 32.2 L MCV 78 L MCH 24.7 L MCHC 31.7 L RDW 18.2 H Plt Count 237 Seg Neutrophils % 88.0 H Lymphocytes % 7.1 L Monocytes % 4.8 Eosinophils % 0.0 Basophils % 0.1 Absolute Neutrophils 12.5 H Absolute Lymphocytes 1.0 Absolute Monocytes 0.7 Absolute Eosinophils 0.0 Absolute Basophils 0.0 Sodium 139.4 Potassium 3.7 Chloride 98 Carbon Dioxide 31 H Anion Gap 10 BUN 23 H Creatinine 0.69 Est GFR ( Amer) > 60 Est GFR (Non-Af Amer) > 60 Glucose 286 H Calcium 9.2 Magnesium 1.7 Total Bilirubin 0.9 AST 29 ALT 34 Alkaline Phosphatase 125 Total Protein 6.1 L Albumin 3.2 L 11/27/16 06:15 WBC RBC Hgb Hct MCV MCH MCHC RDW Plt Count Seg Neutrophils % Lymphocytes % Monocytes % Eosinophils % Basophils % Absolute Neutrophils Absolute Lymphocytes Absolute Monocytes Absolute Eosinophils Absolute Basophils Sodium 134.7 L Potassium 5.1 H Chloride 98 Carbon Dioxide 27 Anion Gap 10 BUN 20 Creatinine 0.76 Est GFR ( Amer) > 60 Est GFR (Non-Af Amer) > 60 Glucose 309 H Calcium 8.4 Magnesium Total Bilirubin 0.6 AST 31 ALT 42 Alkaline Phosphatase 121 Total Protein 5.3 L Albumin 2.9 L 11/20/16 11/20/16 11/20/16 02:25 02:25 08:37 Creatine Kinase 104 113 CK-MB (CK-2) 0.41 Troponin I 0.029 11/20/16 11/25/16 11/26/16 08:37 09:53 03:19 Creatine Kinase < 20 L CK-MB (CK-2) 0.36 0.27 Troponin I 0.027 < 0.012 11/26/16 11/26/16 11/26/16 03:19 10:55 10:55 Creatine Kinase 23 L CK-MB (CK-2) < 0.22 0.23 Troponin I < 0.012 < 0.012 Impressions: Chest X-Ray 11/19/16 18:58 IMPRESSION: NO ACUTE RADIOGRAPHIC FINDING IN THE CHEST. Fluoroscopy 11/26/16 00:00 IMPRESSION: IMAGE(S) OBTAINED DURING PROCEDURE. Hip/Pelvis X-Ray 11/26/16 00:00 IMPRESSION: IMAGE(S) OBTAINED DURING PROCEDURE. Assessment & Plan - Diagnosis (1) Intertrochanteric fracture of right femur Qualifiers: Encounter type: subsequent encounter Fracture type: closed Is this a current diagnosis for this admission?: Yes - Plan Summary Plan Summary: 71-year-old female who is postop day 1 from cephalo-medullary nailing of the right peritrochanteric hip fracture Patient to be toe-touch weightbearing and participate with physical therapy DVT prophylaxis Pain control Anticipate patient requiring [facility] facility at discharge Dressing change on Wednesday unless she saturates the dressing
[2016-11-27] MEDS: DULOXETINE HCL 30 MG CAPSULE.DR PO SCH (21:11)
[2016-11-27] MEDS: MONTELUKAST SODIUM 10 MG TABLET PO SCH (21:11)
[2016-11-27] MEDS: LANSOPRAZOLE 30 MG TAB.RAP.DR PO SCH (21:11)
[2016-11-27] MEDS: LORAZEPAM 1 MG TABLET PO PRN (22:14)
[2016-11-28] MEDS: MORPHINE SULFATE 10 MG/ML INJ IV PRN ×6 (00:23→23:38)
[2016-11-28] MEDS: IPRATROPIUM/ALBUTEROL 0.5-2.5 MG/3 ML AMPUL NEB SCH ×4 (02:23→20:07)
[2016-11-28] MEDS: HEPARIN SOD (PORCINE) 5,000 UNIT/ML 1 ML SYRINGE SUBCUT SCH ×3 (05:25→21:51)
[2016-11-28] MEDS: AMLODIPINE BESYLATE 10 MG TABLET PO SCH (08:23)
[2016-11-28] MEDS: INSULIN LISPRO 100 UNIT/ML 3 ML VIAL SUBCUT SCH ×3 (08:24→17:39)
[2016-11-28] MEDS: INSULIN LISPRO 100 UNIT/ML 3 ML VIAL SUBCUT PRN ×4 (08:24→22:17)
[2016-11-28] MEDS: BUDESONIDE NEB 0.5 MG/2 ML AMPUL NEB SCH ×2 (08:45→20:07)
[2016-11-28] MEDS: DOCUSATE SODIUM 100 MG CAPSULE PO SCH ×3 (10:21→17:39)
[2016-11-28] MEDS: OXYCODONE HCL SR 40 MG TABLET PO SCH ×2 (10:21→21:52)
[2016-11-28] MEDS: PREDNISONE 20 MG TABLET PO SCH (10:21)
[2016-11-28] MEDS: POLYETHYLENE GLYCOL 3350 POWDER 17 GM/1 PACKET PO SCH (10:22)
[2016-11-28] MEDS: AMIODARONE HCL 200 MG TABLET PO SCH ×2 (10:22→17:39)
[2016-11-28] MEDS: LISINOPRIL 10 MG TABLET PO SCH ×2 (10:25→21:51)
[2016-11-28] MEDS: INSULIN GLARGINE,HUM.REC.ANLOG 300 UNIT/3 ML INSULN.PEN SUBCUT SCH (10:26)
--- NOTE | 2016-11-28 14:18 | PDOC PROGRESS REPORT ---
Subjective Progress Note for:: 11/28/16 Subjective:: Patient is seen on morning rounds. She is resting in bed. She states right hip incision is still painful but improved from previous da. She denies any shortness of breath, chest pain or dyspnea. She denies any chest pain, palpitations or dizziness. She denies any nausea, abominal pain or diarrhea. Rest of review of systems are negative. Physical Exam Vital Signs: Temp Pulse Resp BP Pulse Ox 98.1 F 76 18 142/62 H 94 11/28/16 11:23 11/28/16 11:23 11/28/16 11:23 11/28/16 11:23 11/28/16 11:23 Intake & Output 11/27/16 11/28/16 11/29/16 06:59 06:59 06:59 Intake Total 5073 2588 1650 Output Total 3260 2900 500 Balance 1813 -312 1150 Weight 98.6 kg 99.9 kg General appearance: PRESENT: no acute distress, obese, well-developed, well- nourished Head exam: PRESENT: atraumatic, normocephalic Eye exam: PRESENT: conjunctiva pink, EOMI, PERRLA. ABSENT: scleral icterus Ear exam: PRESENT: normal external ear exam Mouth exam: PRESENT: moist, tongue midline Neck exam: ABSENT: carotid bruit, JVD, lymphadenopathy, thyromegaly Respiratory exam: PRESENT: clear to auscultation jaclyn. ABSENT: rales, rhonchi, wheezes Cardiovascular exam: PRESENT: RRR. ABSENT: diastolic murmur, rubs, systolic murmur Pulses: PRESENT: normal dorsalis pedis pul Vascular exam: PRESENT: normal capillary refill GI/Abdominal exam: PRESENT: normal bowel sounds, soft. ABSENT: distended, guarding, mass, organolmegaly, rebound, tenderness Rectal exam: PRESENT: deferred Extremities exam: PRESENT: full ROM. ABSENT: calf tenderness, clubbing, pedal edema Musculoskeletal exam: PRESENT: tenderness - right hip Neurological exam: PRESENT: alert, awake, oriented to person, oriented to place , oriented to time, oriented to situation, CN II-XII grossly intact. ABSENT: motor sensory deficit Psychiatric exam: PRESENT: appropriate affect, normal mood. ABSENT: homicidal ideation, suicidal ideation Skin exam: PRESENT: dry, intact, warm. ABSENT: cyanosis, rash Results Laboratory Results: 11/27/16 06:15 11/27/16 06:15 11/20/16 11/20/16 11/20/16 02:25 02:25 08:37 Creatine Kinase 104 113 CK-MB (CK-2) 0.41 Troponin I 0.029 11/20/16 11/25/16 11/26/16 08:37 09:53 03:19 Creatine Kinase < 20 L CK-MB (CK-2) 0.36 0.27 Troponin I 0.027 < 0.012 11/26/16 11/26/16 11/26/16 03:19 10:55 10:55 Creatine Kinase 23 L CK-MB (CK-2) < 0.22 0.23 Troponin I < 0.012 < 0.012 Impressions: Chest X-Ray 11/19/16 18:58 IMPRESSION: NO ACUTE RADIOGRAPHIC FINDING IN THE CHEST. Fluoroscopy 11/26/16 00:00 IMPRESSION: IMAGE(S) OBTAINED DURING PROCEDURE. Hip/Pelvis X-Ray 11/26/16 00:00 IMPRESSION: IMAGE(S) OBTAINED DURING PROCEDURE. Femur X-Ray 11/27/16 09:00 IMPRESSION: SATISFACTORY POSTOP EVALUATION RIGHT FEMUR ABOVE. Assessment & Plan - Diagnosis (1) Intertrochanteric fracture of right femur Qualifiers: Encounter type: initial encounter Fracture type: closed Qualified Code(s): S72.141A - Displaced intertrochanteric fracture of right femur, initial encounter for closed fracture Is this a current diagnosis for this admission?: YesPlan: Patient is status post ORIF of right hip. She is slowly increasing activity with physical therapy and nursing. She is agreeable to short-term rehab placement at [place] (2) Hypothyroidism (acquired) Is this a current diagnosis for this admission?: YesPlan: Continue statin (3) Atrial fibrillation Qualifiers: Atrial fibrillation type: paroxysmal Qualified Code(s): I48.0 - Paroxysmal atrial fibrillation Is this a current diagnosis for this admission?: YesPlan: Presently normal sinus rhythm. (4) Rheumatoid arthritis Qualifiers: Rheumatoid arthritis location: multiple sites Rheumatoid factor presence: without rheumatoid factor Qualified Code(s): M06.09 - Rheumatoid arthritis without rheumatoid factor, multiple sites Is this a current diagnosis for this admission?: Yes (5) CAD (coronary artery disease) Qualifiers: Coronary Disease-Associated Artery/Lesion type: [place] artery [place] vs. transplanted heart: [place] heart Associated angina: angina presence unspecified Qualified Code(s): I25.10 - Atherosclerotic heart disease of [place] coronary artery without angina pectoris Is this a current diagnosis for this admission?: YesPlan: Continue current medications (6) COPD (chronic obstructive pulmonary disease) Qualifiers: COPD type: unspecified COPD Qualified Code(s): J44.9 - Chronic obstructive pulmonary disease, unspecified Is this a current diagnosis for this admission?: YesPlan: Continue inhalers (7) HTN (hypertension) Qualifiers: Hypertension type: essential hypertension Qualified Code(s): I10 - Essential (primary) hypertension Is this a current diagnosis for this admission?: YesPlan: Presently normotensive on current medications (8) Insulin dependent diabetes mellitus Is this a current diagnosis for this admission?: YesPlan: Continue with sliding scale coverage - Time Time Spent with patient: 25-34 minutes Critical Time spent with patient: 15-24 minutes Medications reviewed and adjusted accordingly: Yes
--- NOTE | 2016-11-28 15:37 | PDOC PROGRESS REPORT ---
Subjective Progress Note for:: 11/28/16 Subjective:: Patient lying in bed comfortably. Continues to have some pain along the incision site but is improving. Denies chest pain or shortness of breath. Physical Exam Vital Signs: Temp Pulse Resp BP Pulse Ox 98.1 F 82 20 142/62 H 95 11/28/16 11:23 11/28/16 14:29 11/28/16 14:29 11/28/16 11:23 11/28/16 14:29 Intake & Output 11/27/16 11/28/16 11/29/16 06:59 06:59 06:59 Intake Total 5040 2588 1650 Output Total 3260 2900 500 Balance 1813 -312 1150 Weight 98.6 kg 99.9 kg Musculoskeletal exam: PRESENT: other - Right lower extremity: Dressing clean/dry /intact no erythema or drainage. No calf tenderness. Intact plantar flexion/ dorsiflexion. Results Laboratory Results: 11/27/16 06:15 11/27/16 06:15 11/20/16 11/20/16 11/20/16 02:25 02:25 08:37 Creatine Kinase 104 113 CK-MB (CK-2) 0.41 Troponin I 0.029 11/20/16 11/25/16 11/26/16 08:37 09:53 03:19 Creatine Kinase < 20 L CK-MB (CK-2) 0.36 0.27 Troponin I 0.027 < 0.012 11/26/16 11/26/16 11/26/16 03:19 10:55 10:55 Creatine Kinase 23 L CK-MB (CK-2) < 0.22 0.23 Troponin I < 0.012 < 0.012 Impressions: Chest X-Ray 11/19/16 18:58 IMPRESSION: NO ACUTE RADIOGRAPHIC FINDING IN THE CHEST. Fluoroscopy 11/26/16 00:00 IMPRESSION: IMAGE(S) OBTAINED DURING PROCEDURE. Hip/Pelvis X-Ray 11/26/16 00:00 IMPRESSION: IMAGE(S) OBTAINED DURING PROCEDURE. Femur X-Ray 11/27/16 09:00 IMPRESSION: SATISFACTORY POSTOP EVALUATION RIGHT FEMUR ABOVE. Assessment & Plan - Diagnosis (1) Intertrochanteric fracture of right femur Qualifiers: Encounter type: subsequent encounter Fracture type: closed Is this a current diagnosis for this admission?: YesPlan: Status post IM nail right intertrochanteric fracture #1 physical therapy #2 pain control #3 heparin for DVT prophylaxis #4 discharge planning patient will require [facility] facility.
[2016-11-28] MEDS: OXYCODONE HCL IR 5 MG TABLET PO PRN ×2 (16:36→20:55)
--- NOTE | 2016-11-28 17:45 | EKG REPORT ---
SEVERITY:- ABNORMAL ECG - ATRIAL FIBRILLATION, V-RATE 76-122 LVH WITH SECONDARY REPOLARIZATION ABNORMALITY : Confirmed by: Jasmin Mathur MD 28-Nov-2016 17:44:43
--- NOTE | 2016-11-28 17:49 | PDOC PROGRESS REPORT ---
Subjective Progress Note for:: 11/26/16 Subjective:: Pt is denying any chest arm or neck discomfort. Patient denying any PND, orthopnea. Patient converted to sinus rhythm. There are some contraindication for chronic anticoagulation at this point because of anemia and need for transfusion. Patient ready to go for surgery. Patient was seen in the morning. Review of systems: Rest review of systems negative. Medications: Medications have been reviewed. Physical Exam Vital Signs: Temp Pulse Resp BP Pulse Ox 98.2 F 93 14 134/66 H 92 11/26/16 17:44 11/26/16 20:33 11/26/16 20:00 11/26/16 17:44 11/26/16 20:00 Intake & Output 11/25/16 11/26/16 11/27/16 06:59 06:59 06:59 Intake Total 280 998 4845 Output Total 3600 725 1860 Balance -2614 127 1337 Weight 98.7 kg Exam: GENERAL: well-nourished and in no acute distress. Alert and oriented x3 HEAD: Atraumatic, normocephalic. EYES: Pupils equal round and reactive to light, extraocular movements intact, sclera anicteric, conjunctiva are normal. ENT: TMs normal, nares patent, oropharynx clear without exudates. Moist mucous membranes. No oral ulcerations or bleeding gums noted NECK: supple without lymphadenopathy. Trachea is central. No cervical or axillary lymphadenopathy noted. Carotids are 2+, JVD WNL LUNGS: Respiration seems nonlabored, no significant accessory muscle action noted. Breath sounds clear to auscultation bilaterally and equal noted. No wheezes rales or rhonchi noted. No significant dullness noted on percussion. CHEST: Palpation of the chest wall shows no significant chest wall tenderness. No other significant abnormalities noted. 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 ABDOMEN: Soft, no significant tenderness appreciated, normoactive bowel sounds. No guarding, no rebound. No rigidity noted . No masses appreciated. EXTREMITIES: Pedal pulses are 1-2+, no calf tenderness noted. No clubbing or cyanosis.trace to 1+ pedal edema noted NEUROLOGICAL: Focused neurological exam showed no significant neurologic deficit. Normal speech, no focal weakness appreciated. PSYCH: Normal mood, normal affect. Judgment and insight within normal limits. SKIN: No significant ecchymosis, rash, ulcerations or signs of pruritus noted. MUSCULOSKELETAL EXAM: No significant joint swelling noted. Findings of right hip fracture noted. Results Laboratory Results: 11/26/16 03:19 11/26/16 03:19 11/25/16 11/25/16 11/25/16 04:42 04:42 09:53 WBC 9.0 RBC 4.65 Hgb 11.7 L Hct 35.5 L MCV 76 L MCH 25.1 L MCHC 32.8 RDW 17.9 H Plt Count 286 Seg Neutrophils % 72.4 Lymphocytes % 15.6 Monocytes % 10.9 Eosinophils % 0.9 Basophils % 0.2 Absolute Neutrophils 6.5 Absolute Lymphocytes 1.4 Absolute Monocytes 1.0 Absolute Eosinophils 0.1 Absolute Basophils 0.0 Sodium 139.4 Potassium 3.7 Chloride 98 Carbon Dioxide 31 H Anion Gap 10 BUN 23 H Creatinine 0.69 Est GFR ( Amer) > 60 Est GFR (Non-Af Amer) > 60 Glucose 286 H Calcium 9.2 Magnesium 1.7 Total Bilirubin 0.9 AST 29 ALT 34 Alkaline Phosphatase 125 Total Protein 6.1 L Albumin 3.2 L 11/25/16 11/26/16 11/26/16 22:56 03:19 03:19 WBC 16.6 H RBC 4.69 Hgb 11.3 L Hct 36.7 MCV 78 L MCH 24.0 L MCHC 30.7 L RDW 18.4 H Plt Count 270 Seg Neutrophils % 77.3 Lymphocytes % 13.4 Monocytes % 7.8 Eosinophils % 1.0 Basophils % 0.5 Absolute Neutrophils 12.8 H Absolute Lymphocytes 2.2 Absolute Monocytes 1.3 Absolute Eosinophils 0.2 Absolute Basophils 0.1 Sodium 134.9 L 134.3 L Potassium 3.9 3.8 Chloride 92 L 96 L Carbon Dioxide 30 29 Anion Gap 13 9 BUN 22 H 21 H Creatinine 0.80 0.79 Est GFR ( Amer) > 60 > 60 Est GFR (Non-Af Amer) > 60 > 60 Glucose 379 H 315 H Calcium 8.8 9.1 Magnesium 1.8 Total Bilirubin 0.9 AST 25 ALT 33 Alkaline Phosphatase 131 H Total Protein 5.9 L Albumin 3.1 L 11/20/16 11/20/16 11/20/16 02:25 02:25 08:37 Creatine Kinase 104 113 CK-MB (CK-2) 0.41 Troponin I 0.029 11/20/16 11/25/16 11/26/16 08:37 09:53 03:19 Creatine Kinase < 20 L CK-MB (CK-2) 0.36 0.27 Troponin I 0.027 < 0.012 11/26/16 11/26/16 11/26/16 03:19 10:55 10:55 Creatine Kinase 23 L CK-MB (CK-2) < 0.22 0.23 Troponin I < 0.012 < 0.012 Impressions: Chest X-Ray 11/19/16 18:58 IMPRESSION: NO ACUTE RADIOGRAPHIC FINDING IN THE CHEST. Fluoroscopy 11/26/16 00:00 IMPRESSION: IMAGE(S) OBTAINED DURING PROCEDURE. Hip/Pelvis X-Ray 11/26/16 00:00 IMPRESSION: IMAGE(S) OBTAINED DURING PROCEDURE. Assessment & Plan - Diagnosis (1) Atrial fibrillation Qualifiers: Atrial fibrillation type: paroxysmal Qualified Code(s): I48.0 - Paroxysmal atrial fibrillation Is this a current diagnosis for this admission?: Yes (2) Intertrochanteric fracture of right femur Qualifiers: Encounter type: subsequent encounter Fracture type: closed Is this a current diagnosis for this admission?: Yes (3) CAD (coronary artery disease) Qualifiers: Coronary Disease-Associated Artery/Lesion type: [place] artery [place] vs. transplanted heart: [place] heart Associated angina: angina presence unspecified Qualified Code(s): I25.10 - Atherosclerotic heart disease of [place] coronary artery without angina pectoris Is this a current diagnosis for this admission?: Yes (4) COPD (chronic obstructive pulmonary disease) Qualifiers: COPD type: unspecified COPD Qualified Code(s): J44.9 - Chronic obstructive pulmonary disease, unspecified Is this a current diagnosis for this admission?: Yes (5) HTN (hypertension) Qualifiers: Hypertension type: essential hypertension Qualified Code(s): I10 - Essential (primary) hypertension Is this a current diagnosis for this admission?: Yes (6) Hyperglycemia due to type 2 diabetes mellitus Qualifiers: Diabetes mellitus terminal clerk insulin use: with terminal clerk use Qualified Code(s): E11.65 - Type 2 diabetes mellitus with hyperglycemia Is this a current diagnosis for this admission?: Yes - Notes Notes: Patient cleared for surgery. Atrial fibrillation: New onset. Patient has converted to sinus rhythm. Amiodarone side effects discussed. Continue amiodarone until patient goes to surgery in intravenous form and then switch to p.o. This order was given to the nurse. Intertrochanteric fracture of the right femur: There is overall increased risk because of significant COPD, atrial fibrillation, feel that the risks are acceptable. CAD: Symptomatically stable without any angina or angina equivalent symptom COPD: Being expectantly managed by coal sample tester. Hypertension: Stable. Hyperglycemia: Currently blood sugar in the better controlled. We will continue to follow. Will repeat EKG in the morning. - Time Time with patient: 15-25 minutes - More than 50% of the time spent coordinating care, discussing management plans with involved caregivers. Management plans discussed with involved personnels. Medical decision making was of moderate to high complexity, patient's has multiple comorbidities. Medications reviewed and adjusted accordingly: Yes
--- NOTE | 2016-11-28 17:53 | PDOC PROGRESS REPORT ---
Subjective Progress Note for:: 11/27/16 Subjective:: Patient is postop day 1. Pt is denying any chest arm or neck discomfort. Patient denying any PND, orthopnea. Patient converted to sinus rhythm. There are some contraindication for chronic anticoagulation at this point because of anemia and need for transfusion. Patient had surgery and did well. Patient was seen in the morning. Review of systems: Rest review of systems negative. Medications: Medications have been reviewed. Physical Exam Vital Signs: Temp Pulse Resp BP Pulse Ox 98.2 F 83 20 128/63 H 94 11/27/16 19:39 11/27/16 20:55 11/27/16 20:55 11/27/16 19:39 11/27/16 20:55 Intake & Output 11/26/16 11/27/16 11/28/16 06:59 06:59 06:59 Intake Total 852 5073 1281 Output Total 725 3260 700 Balance 127 1813 581 Weight 98.7 kg 98.6 kg Exam: GENERAL: well-nourished and in no acute distress. Alert and oriented x3 HEAD: Atraumatic, normocephalic. EYES: Pupils equal round and reactive to light, extraocular movements intact, sclera anicteric, conjunctiva are normal. ENT: TMs normal, nares patent, oropharynx clear without exudates. Moist mucous membranes. No oral ulcerations or bleeding gums noted NECK: supple without lymphadenopathy. Trachea is central. No cervical or axillary lymphadenopathy noted. Carotids are 2+, JVD WNL LUNGS: Respiration seems nonlabored, no significant accessory muscle action noted. Breath sounds clear to auscultation bilaterally and equal noted. No wheezes rales or rhonchi noted. No significant dullness noted on percussion. CHEST: Palpation of the chest wall shows no significant chest wall tenderness. No other significant abnormalities noted. 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 ABDOMEN: Soft, no significant tenderness appreciated, normoactive bowel sounds. No guarding, no rebound. No rigidity noted . No masses appreciated. EXTREMITIES: Pedal pulses are 1-2+, no calf tenderness noted. No clubbing or cyanosis.trace to 1+ pedal edema noted NEUROLOGICAL: Focused neurological exam showed no significant neurologic deficit. Normal speech, no focal weakness appreciated. PSYCH: Normal mood, normal affect. Judgment and insight within normal limits. SKIN: No significant ecchymosis, rash, ulcerations or signs of pruritus noted. MUSCULOSKELETAL EXAM: No significant joint swelling noted. Patient is postop findings of hip surgery. Results Laboratory Results: 11/27/16 06:15 11/27/16 06:15 11/27/16 11/27/16 06:15 06:15 WBC 14.2 H RBC 4.14 Hgb 10.2 L Hct 32.2 L MCV 78 L MCH 24.7 L MCHC 31.7 L RDW 18.2 H Plt Count 237 Seg Neutrophils % 88.0 H Lymphocytes % 7.1 L Monocytes % 4.8 Eosinophils % 0.0 Basophils % 0.1 Absolute Neutrophils 12.5 H Absolute Lymphocytes 1.0 Absolute Monocytes 0.7 Absolute Eosinophils 0.0 Absolute Basophils 0.0 Sodium 134.7 L Potassium 5.1 H Chloride 98 Carbon Dioxide 27 Anion Gap 10 BUN 20 Creatinine 0.76 Est GFR ( Amer) > 60 Est GFR (Non-Af Amer) > 60 Glucose 309 H Calcium 8.4 Total Bilirubin 0.6 AST 31 ALT 42 Alkaline Phosphatase 121 Total Protein 5.3 L Albumin 2.9 L 11/20/16 11/20/16 11/20/16 02:25 02:25 08:37 Creatine Kinase 104 113 CK-MB (CK-2) 0.41 Troponin I 0.029 11/20/16 11/25/16 11/26/16 08:37 09:53 03:19 Creatine Kinase < 20 L CK-MB (CK-2) 0.36 0.27 Troponin I 0.027 < 0.012 11/26/16 11/26/16 11/26/16 03:19 10:55 10:55 Creatine Kinase 23 L CK-MB (CK-2) < 0.22 0.23 Troponin I < 0.012 < 0.012 Impressions: Chest X-Ray 11/19/16 18:58 IMPRESSION: NO ACUTE RADIOGRAPHIC FINDING IN THE CHEST. Fluoroscopy 11/26/16 00:00 IMPRESSION: IMAGE(S) OBTAINED DURING PROCEDURE. Hip/Pelvis X-Ray 11/26/16 00:00 IMPRESSION: IMAGE(S) OBTAINED DURING PROCEDURE. Femur X-Ray 11/27/16 09:00 IMPRESSION: SATISFACTORY POSTOP EVALUATION RIGHT FEMUR ABOVE. Assessment & Plan - Diagnosis (1) Atrial fibrillation Qualifiers: Atrial fibrillation type: paroxysmal Qualified Code(s): I48.0 - Paroxysmal atrial fibrillation Is this a current diagnosis for this admission?: Yes (2) Intertrochanteric fracture of right femur Qualifiers: Encounter type: subsequent encounter Fracture type: closed Is this a current diagnosis for this admission?: Yes (3) CAD (coronary artery disease) Qualifiers: Coronary Disease-Associated Artery/Lesion type: [place] artery [place] vs. transplanted heart: [place] heart Associated angina: angina presence unspecified Qualified Code(s): I25.10 - Atherosclerotic heart disease of [place] coronary artery without angina pectoris Is this a current diagnosis for this admission?: Yes (4) COPD (chronic obstructive pulmonary disease) Qualifiers: COPD type: unspecified COPD Qualified Code(s): J44.9 - Chronic obstructive pulmonary disease, unspecified Is this a current diagnosis for this admission?: Yes (5) HTN (hypertension) Qualifiers: Hypertension type: essential hypertension Qualified Code(s): I10 - Essential (primary) hypertension Is this a current diagnosis for this admission?: Yes (6) Hyperglycemia due to type 2 diabetes mellitus Qualifiers: Diabetes mellitus watermaster insulin use: with group home use Qualified Code(s): E11.65 - Type 2 diabetes mellitus with hyperglycemia Is this a current diagnosis for this admission?: Yes - Notes Notes: Atrial fibrillation: Patient now on p.o. amiodarone. Anticoagulation is not being considered at this time. Patient is maintaining sinus rhythm. Amiodarone side effects discussed. Aim would be to give it just for 1 month.. Intertrochanteric fracture of the right femur: Patient is now status post surgery and has done well.. CAD: Symptomatically stable without any angina or angina equivalent symptom COPD: Currently stable. Hypertension: Stable. Hyperglycemia: Currently blood sugar in the better controlled. We will continue to follow. If patient remains stable we will sign off in the morning. Patient should follow-up with me in the office for atrial fibrillation and amiodarone management. - Time Time with patient: 15-25 minutes - More than 50% of the time spent coordinating care, discussing management plans with involved caregivers. Management plans discussed with involved personnels. Medical decision making was of moderate to high complexity, patient's has multiple comorbidities. Medications reviewed and adjusted accordingly: Yes
--- NOTE | 2016-11-28 17:57 | PDOC PROGRESS REPORT ---
Subjective Progress Note for:: 11/28/16 Subjective:: Patient has remained stable postop. She has not ambulated much. Patient remains in sinus rhythm. Pt is denying any chest arm or neck discomfort. Patient denying any PND, orthopnea. Patient was seen in the morning. Review of systems: Rest review of systems negative. Medications: Medications have been reviewed. Physical Exam Vital Signs: Temp Pulse Resp BP Pulse Ox 98.0 F 77 17 150/64 H 96 11/28/16 16:24 11/28/16 16:24 11/28/16 16:24 11/28/16 16:24 11/28/16 16:24 Intake & Output 11/27/16 11/28/16 11/29/16 06:59 06:59 06:59 Intake Total 5073 2588 2476 Output Total 3260 2900 1425 Balance 1813 -312 1051 Weight 98.6 kg 99.9 kg Exam: GENERAL: well-nourished and in no acute distress. Alert and oriented x3 HEAD: Atraumatic, normocephalic. EYES: Pupils equal round and reactive to light, extraocular movements intact, sclera anicteric, conjunctiva are normal. ENT: TMs normal, nares patent, oropharynx clear without exudates. Moist mucous membranes. No oral ulcerations or bleeding gums noted NECK: supple without lymphadenopathy. Trachea is central. No cervical or axillary lymphadenopathy noted. Carotids are 2+, JVD WNL LUNGS: Respiration seems nonlabored, no significant accessory muscle action noted. Breath sounds clear to auscultation bilaterally and equal noted. No wheezes rales or rhonchi noted. No significant dullness noted on percussion. CHEST: Palpation of the chest wall shows no significant chest wall tenderness. No other significant abnormalities noted. 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 ABDOMEN: Soft, no significant tenderness appreciated, normoactive bowel sounds. No guarding, no rebound. No rigidity noted . No masses appreciated. EXTREMITIES: Pedal pulses are 1-2+, no calf tenderness noted. No clubbing or cyanosis.trace to 1+ pedal edema noted NEUROLOGICAL: Focused neurological exam showed no significant neurologic deficit. Normal speech, no focal weakness appreciated. PSYCH: Normal mood, normal affect. Judgment and insight within normal limits. SKIN: No significant ecchymosis, rash, ulcerations or signs of pruritus noted. MUSCULOSKELETAL EXAM: No significant joint swelling noted. Postop right hip surgery changes Results Laboratory Results: 11/27/16 06:15 11/27/16 06:15 11/20/16 11/20/16 11/20/16 02:25 02:25 08:37 Creatine Kinase 104 113 CK-MB (CK-2) 0.41 Troponin I 0.029 11/20/16 11/25/16 11/26/16 08:37 09:53 03:19 Creatine Kinase < 20 L CK-MB (CK-2) 0.36 0.27 Troponin I 0.027 < 0.012 11/26/16 11/26/16 11/26/16 03:19 10:55 10:55 Creatine Kinase 23 L CK-MB (CK-2) < 0.22 0.23 Troponin I < 0.012 < 0.012 Impressions: Chest X-Ray 11/19/16 18:58 IMPRESSION: NO ACUTE RADIOGRAPHIC FINDING IN THE CHEST. Fluoroscopy 11/26/16 00:00 IMPRESSION: IMAGE(S) OBTAINED DURING PROCEDURE. Hip/Pelvis X-Ray 11/26/16 00:00 IMPRESSION: IMAGE(S) OBTAINED DURING PROCEDURE. Femur X-Ray 11/27/16 09:00 IMPRESSION: SATISFACTORY POSTOP EVALUATION RIGHT FEMUR ABOVE. Assessment & Plan - Diagnosis (1) Atrial fibrillation Qualifiers: Atrial fibrillation type: paroxysmal Qualified Code(s): I48.0 - Paroxysmal atrial fibrillation Is this a current diagnosis for this admission?: Yes (2) Intertrochanteric fracture of right femur Qualifiers: Encounter type: subsequent encounter Fracture type: closed Is this a current diagnosis for this admission?: Yes (3) CAD (coronary artery disease) Qualifiers: Coronary Disease-Associated Artery/Lesion type: [place] artery [place] vs. transplanted heart: [place] heart Associated angina: angina presence unspecified Qualified Code(s): I25.10 - Atherosclerotic heart disease of [place] coronary artery without angina pectoris Is this a current diagnosis for this admission?: Yes (4) COPD (chronic obstructive pulmonary disease) Qualifiers: COPD type: unspecified COPD Qualified Code(s): J44.9 - Chronic obstructive pulmonary disease, unspecified Is this a current diagnosis for this admission?: Yes (5) HTN (hypertension) Qualifiers: Hypertension type: essential hypertension Qualified Code(s): I10 - Essential (primary) hypertension Is this a current diagnosis for this admission?: Yes (6) Hyperglycemia due to type 2 diabetes mellitus Qualifiers: Diabetes mellitus senior living insulin use: with senior living use Qualified Code(s): E11.65 - Type 2 diabetes mellitus with hyperglycemia Is this a current diagnosis for this admission?: Yes - Notes Notes: Atrial fibrillation: New onset. Continue amiodarone in twice daily dosing.. Side effects discussed. Intertrochanteric fracture of the right femur: Stable post surgery. Patient may need rehab. CAD: Symptomatically stable without any angina or angina equivalent symptom COPD: Being expectantly managed by supply chain engineer. Hypertension: Stable. Hyperglycemia: Currently blood sugar in the better controlled. We will be happy to follow patient in the office. - Time Time with patient: 15-25 minutes - Patient stable. Will sign off. Please reconsult if needed. Atrial fibrillation probably precipitated by pain. However if there is recurrence of atrial fibrillation, consider chronic anticoagulation Medications reviewed and adjusted accordingly: Yes
[2016-11-28 19:28] LABS: CREATINE KINASE MB 0.22 ng/mL (<4.55); TROPONIN I < 0.012 ng/mL
[2016-11-28] MEDS: LORAZEPAM 1 MG TABLET PO PRN (20:55)
[2016-11-28] MEDS: MONTELUKAST SODIUM 10 MG TABLET PO SCH (21:52)
[2016-11-28] MEDS: LANSOPRAZOLE 30 MG TAB.RAP.DR PO SCH (21:52)
[2016-11-28] MEDS: DULOXETINE HCL 30 MG CAPSULE.DR PO SCH (21:52)
[2016-11-29] MEDS: IPRATROPIUM/ALBUTEROL 0.5-2.5 MG/3 ML AMPUL NEB SCH ×4 (02:09→20:08)
[2016-11-29] MEDS: LEVOTHYROXINE SODIUM 0.05 MG TABLET PO SCH (06:01)
[2016-11-29] MEDS: HEPARIN SOD (PORCINE) 5,000 UNIT/ML 1 ML SYRINGE SUBCUT SCH ×3 (06:01→22:03)
[2016-11-29] MEDS: OXYCODONE HCL IR 5 MG TABLET PO PRN ×3 (06:45→19:34)
[2016-11-29] MEDS: BUDESONIDE NEB 0.5 MG/2 ML AMPUL NEB SCH ×2 (08:32→20:08)
[2016-11-29] MEDS: OXYCODONE HCL SR 40 MG TABLET PO SCH ×2 (09:05→22:03)
[2016-11-29] MEDS: DOCUSATE SODIUM 100 MG CAPSULE PO SCH ×3 (09:05→18:12)
[2016-11-29] MEDS: AMLODIPINE BESYLATE 10 MG TABLET PO SCH (09:05)
[2016-11-29] MEDS: PREDNISONE 20 MG TABLET PO SCH (09:05)
[2016-11-29] MEDS: INSULIN LISPRO 100 UNIT/ML 3 ML VIAL SUBCUT SCH ×3 (09:06→18:12)
[2016-11-29] MEDS: AMIODARONE HCL 200 MG TABLET PO SCH ×2 (09:06→18:12)
[2016-11-29] MEDS: INSULIN LISPRO 100 UNIT/ML 3 ML VIAL SUBCUT PRN ×4 (09:06→22:03)
[2016-11-29] MEDS: LISINOPRIL 10 MG TABLET PO SCH ×2 (09:06→22:02)
[2016-11-29] MEDS: POLYETHYLENE GLYCOL 3350 POWDER 17 GM/1 PACKET PO SCH (09:06)
[2016-11-29] MEDS: INSULIN GLARGINE,HUM.REC.ANLOG 300 UNIT/3 ML INSULN.PEN SUBCUT SCH (09:13)
[2016-11-29] MEDS: MORPHINE SULFATE 10 MG/ML INJ IV PRN ×3 (10:36→23:40)
--- NOTE | 2016-11-29 11:12 | PDOC PROGRESS REPORT ---
Subjective Progress Note for:: 11/29/16 Subjective:: Patient is seen on morning rounds. She is resting in bed. She states right hip is hurting at the present time because she just got done with physical therapy. She denies any shortness of breath, cough or dyspnea. She denies any chest pain, palpitations or dizziness. She denies any nausea, abdominal pain or diarrhea. Rest of review of systems are negative. Physical Exam Vital Signs: Temp Pulse Resp BP Pulse Ox 98.5 F 73 18 151/67 H 95 11/29/16 07:02 11/29/16 08:32 11/29/16 08:32 11/29/16 07:02 11/29/16 08:32 Intake & Output 11/28/16 11/29/16 11/30/16 06:59 06:59 06:59 Intake Total 2588 3429 Output Total 2900 4225 Balance -312 -796 Weight 99.9 kg 102 kg General appearance: PRESENT: no acute distress, obese, well-developed, well- nourished Head exam: PRESENT: atraumatic, normocephalic Eye exam: PRESENT: conjunctiva pink, EOMI, PERRLA. ABSENT: scleral icterus Ear exam: PRESENT: normal external ear exam Mouth exam: PRESENT: moist, tongue midline Neck exam: ABSENT: carotid bruit, JVD, lymphadenopathy, thyromegaly Respiratory exam: PRESENT: clear to auscultation jaclyn. ABSENT: rales, rhonchi, wheezes Cardiovascular exam: PRESENT: RRR. ABSENT: diastolic murmur, rubs, systolic murmur Pulses: PRESENT: normal [place] pedis pul Vascular exam: PRESENT: normal capillary refill GI/Abdominal exam: PRESENT: normal bowel sounds, soft. ABSENT: distended, guarding, mass, organolmegaly, rebound, tenderness Rectal exam: PRESENT: deferred Extremities exam: PRESENT: tenderness - right hip, other - left ankle chronic deformity Neurological exam: PRESENT: alert, awake, oriented to person, oriented to place , oriented to time, oriented to situation, CN II-XII grossly intact. ABSENT: motor sensory deficit Psychiatric exam: PRESENT: appropriate affect, normal mood. ABSENT: homicidal ideation, suicidal ideation Skin exam: PRESENT: dry, intact, warm. ABSENT: cyanosis, rash Results Laboratory Results: 11/27/16 06:15 11/27/16 06:15 11/20/16 11/20/16 11/20/16 02:25 02:25 08:37 Creatine Kinase 104 113 CK-MB (CK-2) 0.41 Troponin I 0.029 11/20/16 11/25/16 11/25/16 08:37 09:53 19:20 Creatine Kinase CK-MB (CK-2) 0.36 0.27 0.22 Troponin I 0.027 < 0.012 < 0.012 11/25/16 11/26/16 11/26/16 19:20 03:19 03:19 Creatine Kinase 23 L < 20 L CK-MB (CK-2) < 0.22 Troponin I < 0.012 11/26/16 11/26/16 10:55 10:55 Creatine Kinase 23 L CK-MB (CK-2) 0.23 Troponin I < 0.012 Impressions: Chest X-Ray 11/19/16 18:58 IMPRESSION: NO ACUTE RADIOGRAPHIC FINDING IN THE CHEST. Fluoroscopy 11/26/16 00:00 IMPRESSION: IMAGE(S) OBTAINED DURING PROCEDURE. Hip/Pelvis X-Ray 11/26/16 00:00 IMPRESSION: IMAGE(S) OBTAINED DURING PROCEDURE. Femur X-Ray 11/27/16 09:00 IMPRESSION: SATISFACTORY POSTOP EVALUATION RIGHT FEMUR ABOVE. Assessment & Plan - Diagnosis (1) Intertrochanteric fracture of right femur Qualifiers: Encounter type: subsequent encounter Fracture type: closed Is this a current diagnosis for this admission?: YesPlan: Patient is status post ORIF of right hip. She is slowly increasing activity with physical therapy and nursing. She is agreeable to short-term rehab placement at [facility] (2) Hypothyroidism (acquired) Is this a current diagnosis for this admission?: YesPlan: Continue statin (3) Atrial fibrillation Qualifiers: Atrial fibrillation type: paroxysmal Qualified Code(s): I48.0 - Paroxysmal atrial fibrillation Is this a current diagnosis for this admission?: YesPlan: Presently normal sinus rhythm. Cardiology is following (4) Rheumatoid arthritis Qualifiers: Rheumatoid arthritis location: multiple sites Rheumatoid factor presence: without rheumatoid factor Qualified Code(s): M06.09 - Rheumatoid arthritis without rheumatoid factor, multiple sites Is this a current diagnosis for this admission?: Yes (5) CAD (coronary artery disease) Qualifiers: Coronary Disease-Associated Artery/Lesion type: [place] artery [place] vs. transplanted heart: [place] heart Associated angina: angina presence unspecified Qualified Code(s): I25.10 - Atherosclerotic heart disease of [place] coronary artery without angina pectoris Is this a current diagnosis for this admission?: YesPlan: Continue current medications (6) COPD (chronic obstructive pulmonary disease) Qualifiers: COPD type: unspecified COPD Qualified Code(s): J44.9 - Chronic obstructive pulmonary disease, unspecified Is this a current diagnosis for this admission?: YesPlan: Continue inhalers (7) HTN (hypertension) Qualifiers: Hypertension type: essential hypertension Qualified Code(s): I10 - Essential (primary) hypertension Is this a current diagnosis for this admission?: YesPlan: Presently normotensive on current medications (8) Insulin dependent diabetes mellitus Is this a current diagnosis for this admission?: YesPlan: Continue with sliding scale coverage - Time Time Spent with patient: 25-34 minutes Critical Time spent with patient: 15-24 minutes Medications reviewed and adjusted accordingly: Yes Anticipated discharge: Acute Rehab Within: when bed available
[2016-11-29] MEDS: LORAZEPAM 1 MG TABLET PO PRN ×2 (12:29→22:12)
[2016-11-29] MEDS: DULOXETINE HCL 30 MG CAPSULE.DR PO SCH (22:02)
[2016-11-29] MEDS: LANSOPRAZOLE 30 MG TAB.RAP.DR PO SCH (22:02)
[2016-11-29] MEDS: GLIPIZIDE 10 MG TABLET PO SCH (22:02)
[2016-11-29] MEDS: MONTELUKAST SODIUM 10 MG TABLET PO SCH (22:02)
[2016-11-30] MEDS: IPRATROPIUM/ALBUTEROL 0.5-2.5 MG/3 ML AMPUL NEB SCH ×4 (02:10→20:19)
[2016-11-30] MEDS: HEPARIN SOD (PORCINE) 5,000 UNIT/ML 1 ML SYRINGE SUBCUT SCH ×3 (05:35→21:13)
[2016-11-30] MEDS: OXYCODONE HCL IR 5 MG TABLET PO PRN ×3 (05:39→19:55)
[2016-11-30 05:44] LABS: HEMOGLOBIN 9.8 g/dL (12.0-15.5); HGB HCT DIFFERENCE -0.6; MEAN CORPUSCULAR HGB CONC 32.6 g/dL (32.0-36.0); MEAN CORPUSCULAR VOLUME 77 fl (80-97); RED CELL DISTRIBUTION WIDTH 17.9 % (11.5-14.0); WHITE BLOOD COUNT 9.5 10^3/uL (4.0-10.5)
[2016-11-30] MEDS: LEVOTHYROXINE SODIUM 0.05 MG TABLET PO SCH (06:04)
[2016-11-30 06:05] LABS: ANION GAP 7 (5-19); BLOOD UREA NITROGEN 21 mg/dL (7-20); CALCIUM 8.9 mg/dL (8.4-10.2); CARBON DIOXIDE 32 mmol/L (22-30); CHLORIDE 101 mmol/L (98-107); CREATININE RESULT 0.75 mg/dL (0.52-1.25); GLUCOSE 74 mg/dL (75-110); POTASSIUM 4.2 mmol/L (3.6-5.0); SODIUM 139.8 mmol/L (137-145)
[2016-11-30] MEDS: MORPHINE SULFATE 10 MG/ML INJ IV PRN ×4 (06:34→22:53)
[2016-11-30 06:41] LABS: ANISOCYTOSIS 1+; BAND NEUTROPHILS % (MANUAL) 4 % (3-5); BASOPHILS % (MANUAL) 0 % (0-2); EOSINOPHILS % (MANUAL) 1 % (0-6); LYMPHOCYTES % (MANUAL) 19 % (13-45); MICROCYTOSIS SLIGHT; TOTAL CELLS COUNTED 100
[2016-11-30 06:44] LABS: OVALOCYTES SLIGHT; POIKILOCYTOSIS SLIGHT; POLYCHROMASIA SLIGHT; TARGET CELLS SLIGHT; TEAR DROP CELLS SLIGHT
[2016-11-30 06:45] LABS: HYPOCHROMASIA SLIGHT
[2016-11-30] MEDS: BUDESONIDE NEB 0.5 MG/2 ML AMPUL NEB SCH ×2 (07:52→20:19)
[2016-11-30] MEDS: INSULIN LISPRO 100 UNIT/ML 3 ML VIAL SUBCUT SCH ×3 (08:34→17:49)
[2016-11-30] MEDS: AMLODIPINE BESYLATE 10 MG TABLET PO SCH (08:34)
--- NOTE | 2016-11-30 08:46 | PDOC PROGRESS REPORT ---
Subjective Progress Note for:: 11/30/16 Subjective:: The patient states to feel better. She is still not able to ambulate. She did sit up in the bed with physical therapy. She is complaining of not having had a bowel movement. Long discussion about the rehab and possibly long term placement because of prior fusion of the left hip and no pending of the right hip Physical Exam Vital Signs: Temp Pulse Resp BP Pulse Ox 98.1 F 74 18 152/68 H 98 11/30/16 04:16 11/30/16 07:54 11/30/16 07:54 11/30/16 04:16 11/30/16 07:54 Intake & Output 11/29/16 11/30/16 12/01/16 06:59 06:59 06:59 Intake Total 3429 1940 Output Total 4225 4100 Balance -796 -2160 Weight 102 kg 101.1 kg General appearance: PRESENT: mild distress Head exam: PRESENT: atraumatic Eye exam: PRESENT: conjunctiva pink Respiratory exam: PRESENT: clear to auscultation jaclyn Cardiovascular exam: PRESENT: RRR, +S1, +S2 Pulses: PRESENT: +1 pedal pulses bilateral Vascular exam: PRESENT: other GI/Abdominal exam: PRESENT: normal bowel sounds, soft Extremities exam: PRESENT: tenderness Musculoskeletal exam: PRESENT: other. ABSENT: ambulatory Neurological exam: PRESENT: alert, awake Results Laboratory Results: 11/30/16 04:52 11/30/16 04:52 11/30/16 11/30/16 04:52 04:52 WBC 9.5 RBC 3.90 Hgb 9.8 L Hct 30.0 L MCV 77 L MCH 25.0 L MCHC 32.6 RDW 17.9 H Plt Count 256 Seg Neutrophils % Not Reportable Lymphocytes % Not Reportable Monocytes % Not Reportable Eosinophils % Not Reportable Basophils % Not Reportable Absolute Neutrophils Not Reportable Absolute Lymphocytes Not Reportable Absolute Monocytes Not Reportable Absolute Eosinophils Not Reportable Absolute Basophils Not Reportable Sodium 139.8 Potassium 4.2 Chloride 101 Carbon Dioxide 32 H Anion Gap 7 BUN 21 H Creatinine 0.75 Est GFR ( Amer) > 60 Est GFR (Non-Af Amer) > 60 Glucose 74 L Calcium 8.9 11/20/16 11/20/16 11/20/16 02:25 02:25 08:37 Creatine Kinase 104 113 CK-MB (CK-2) 0.41 Troponin I 0.029 11/20/16 11/25/16 11/25/16 08:37 09:53 19:20 Creatine Kinase CK-MB (CK-2) 0.36 0.27 0.22 Troponin I 0.027 < 0.012 < 0.012 11/25/16 11/26/16 11/26/16 19:20 03:19 03:19 Creatine Kinase 23 L < 20 L CK-MB (CK-2) < 0.22 Troponin I < 0.012 11/26/16 11/26/16 10:55 10:55 Creatine Kinase 23 L CK-MB (CK-2) 0.23 Troponin I < 0.012 Impressions: Chest X-Ray 11/19/16 18:58 IMPRESSION: NO ACUTE RADIOGRAPHIC FINDING IN THE CHEST. Fluoroscopy 11/26/16 00:00 IMPRESSION: IMAGE(S) OBTAINED DURING PROCEDURE. Hip/Pelvis X-Ray 11/26/16 00:00 IMPRESSION: IMAGE(S) OBTAINED DURING PROCEDURE. Femur X-Ray 11/27/16 09:00 IMPRESSION: SATISFACTORY POSTOP EVALUATION RIGHT FEMUR ABOVE. Assessment & Plan - Diagnosis (1) Femur fracture, right Qualifiers: Encounter type: initial encounter Femur location: proximal physis ( incl. Salter-Mahmood) Salter-Mahmood Fracture Type: unspecified configuration Qualified Code(s): S79.001A - Unspecified physeal fracture of upper end of right femur, initial encounter for closed fracture Is this a current diagnosis for this admission?: YesPlan: Continue with physical therapy. Discussing rehab placement (2) Rheumatoid arthritis Is this a current diagnosis for this admission?: YesPlan: We will continue current medications (3) Obstructive sleep apnea Is this a current diagnosis for this admission?: Yes (4) Hypothyroidism Qualifiers: Hypothyroidism type: unspecified Qualified Code(s): E03.9 - Hypothyroidism, unspecified Is this a current diagnosis for this admission?: YesPlan: Continue current treatment (5) Opiate dependence, continuous Is this a current diagnosis for this admission?: YesPlan: The patient is being followed by the pain management as an outpatient. We'll continue present narcotics (6) CAD (coronary artery disease) Qualifiers: Coronary Disease-Associated Artery/Lesion type: [place] artery [place] vs. transplanted heart: [place] heart Associated angina: angina presence unspecified Qualified Code(s): I25.10 - Atherosclerotic heart disease of [place] coronary artery without angina pectoris Is this a current diagnosis for this admission?: Yes (7) COPD (chronic obstructive pulmonary disease) Qualifiers: COPD type: unspecified COPD Qualified Code(s): J44.9 - Chronic obstructive pulmonary disease, unspecified Is this a current diagnosis for this admission?: YesPlan: Continue incentive spirometry and flutter valve with all the nab treatments (8) Chronic skin ulcer Qualifiers: Non-pressure ulcer stage: limited to breakdown of skin Qualified Code(s ): L98.491 - Non-pressure chronic ulcer of skin of other sites limited to breakdown of skin Is this a current diagnosis for this admission?: Yes (9) Atrial fibrillation Qualifiers: Atrial fibrillation type: paroxysmal Qualified Code(s): I48.0 - Paroxysmal atrial fibrillation Is this a current diagnosis for this admission?: YesPlan: Presently on amiodarone. Will discuss with cardiology if we need to stop it
[2016-11-30] MEDS ORDERED: MINERAL OIL ENEMA 133 ML PR PRN (10:00)
[2016-11-30] MEDS ORDERED: MAGNESIUM CITRATE 296 ML BOTTLE PO ONE (10:00)
[2016-11-30] MEDS: DOCUSATE SODIUM 100 MG CAPSULE PO SCH ×3 (10:12→17:49)
[2016-11-30] MEDS: OXYCODONE HCL SR 40 MG TABLET PO SCH ×2 (10:12→21:13)
[2016-11-30] MEDS: GLIPIZIDE 10 MG TABLET PO SCH ×2 (10:13→21:12)
[2016-11-30] MEDS: PREDNISONE 20 MG TABLET PO SCH (10:13)
[2016-11-30] MEDS: AMIODARONE HCL 200 MG TABLET PO SCH ×2 (10:13→17:49)
[2016-11-30] MEDS: LISINOPRIL 10 MG TABLET PO SCH ×2 (10:13→21:12)
[2016-11-30] MEDS: POLYETHYLENE GLYCOL 3350 POWDER 17 GM/1 PACKET PO SCH (10:16)
[2016-11-30] MEDS: INSULIN GLARGINE,HUM.REC.ANLOG 300 UNIT/3 ML INSULN.PEN SUBCUT SCH (10:56)
[2016-11-30] MEDS: LORAZEPAM 1 MG TABLET PO PRN (15:57)
[2016-11-30] MEDS: LANSOPRAZOLE 30 MG TAB.RAP.DR PO SCH (21:13)
[2016-11-30] MEDS: MONTELUKAST SODIUM 10 MG TABLET PO SCH (21:13)
[2016-11-30] MEDS: DULOXETINE HCL 30 MG CAPSULE.DR PO SCH (21:13)
[2016-11-30] MEDS: INSULIN LISPRO 100 UNIT/ML 3 ML VIAL SUBCUT PRN (22:56)
[2016-12-01] MEDS: IPRATROPIUM/ALBUTEROL 0.5-2.5 MG/3 ML AMPUL NEB SCH ×4 (01:55→20:43)
[2016-12-01] MEDS: OXYCODONE HCL IR 5 MG TABLET PO PRN ×4 (05:05→20:18)
[2016-12-01] MEDS: HEPARIN SOD (PORCINE) 5,000 UNIT/ML 1 ML SYRINGE SUBCUT SCH ×3 (05:06→21:26)
[2016-12-01] MEDS: MORPHINE SULFATE 10 MG/ML INJ IV PRN ×2 (06:26→10:15)
[2016-12-01] MEDS: AMLODIPINE BESYLATE 10 MG TABLET PO SCH (08:12)
[2016-12-01] MEDS: INSULIN LISPRO 100 UNIT/ML 3 ML VIAL SUBCUT PRN ×3 (08:13→22:27)
[2016-12-01] MEDS: INSULIN LISPRO 100 UNIT/ML 3 ML VIAL SUBCUT SCH ×3 (08:13→16:49)
[2016-12-01] MEDS: BUDESONIDE NEB 0.5 MG/2 ML AMPUL NEB SCH ×2 (08:25→20:43)
--- NOTE | 2016-12-01 08:39 | PDOC PROGRESS REPORT ---
Subjective Progress Note for:: 12/01/16 Subjective:: The patient states to feel better. Had a good bowel movement. Long discussion about the rehab. The patient does not want to go to [facility]. Physical Exam Vital Signs: Temp Pulse Resp BP Pulse Ox 98.3 F 87 16 147/63 H 95 12/01/16 07:12 12/01/16 08:27 12/01/16 08:27 12/01/16 07:12 12/01/16 08:27 Intake & Output 11/30/16 12/01/16 12/02/16 06:59 06:59 06:59 Intake Total 1940 1340 Output Total 4100 2750 Balance -2160 -1410 Weight 101.1 kg 101 kg General appearance: PRESENT: no acute distress Head exam: PRESENT: atraumatic Eye exam: PRESENT: conjunctiva pink Neck exam: ABSENT: carotid bruit Respiratory exam: PRESENT: rhonchi Cardiovascular exam: PRESENT: +S1, +S2 Pulses: PRESENT: +1 pedal pulses bilateral GI/Abdominal exam: PRESENT: normal bowel sounds, soft Extremities exam: PRESENT: tenderness Musculoskeletal exam: PRESENT: tenderness Neurological exam: PRESENT: alert, awake Results Laboratory Results: 11/30/16 04:52 11/30/16 04:52 11/20/16 11/20/16 11/20/16 02:25 02:25 08:37 Creatine Kinase 104 113 CK-MB (CK-2) 0.41 Troponin I 0.029 11/20/16 11/25/16 11/25/16 08:37 09:53 19:20 Creatine Kinase CK-MB (CK-2) 0.36 0.27 0.22 Troponin I 0.027 < 0.012 < 0.012 11/25/16 11/26/16 11/26/16 19:20 03:19 03:19 Creatine Kinase 23 L < 20 L CK-MB (CK-2) < 0.22 Troponin I < 0.012 11/26/16 11/26/16 10:55 10:55 Creatine Kinase 23 L CK-MB (CK-2) 0.23 Troponin I < 0.012 Impressions: Chest X-Ray 11/19/16 18:58 IMPRESSION: NO ACUTE RADIOGRAPHIC FINDING IN THE CHEST. Fluoroscopy 11/26/16 00:00 IMPRESSION: IMAGE(S) OBTAINED DURING PROCEDURE. Hip/Pelvis X-Ray 11/26/16 00:00 IMPRESSION: IMAGE(S) OBTAINED DURING PROCEDURE. Femur X-Ray 11/27/16 09:00 IMPRESSION: SATISFACTORY POSTOP EVALUATION RIGHT FEMUR ABOVE. Assessment & Plan - Diagnosis (1) Femur fracture, right Qualifiers: Encounter type: initial encounter Femur location: proximal physis ( incl. Salter-Mahmood) Salter-Mahmood Fracture Type: unspecified configuration Qualified Code(s): S79.001A - Unspecified physeal fracture of upper end of right femur, initial encounter for closed fracture Is this a current diagnosis for this admission?: YesPlan: Continue physical therapy and work on arrangements for the rehab (2) Rheumatoid arthritis Is this a current diagnosis for this admission?: YesPlan: We will continue current medications (3) Obstructive sleep apnea Is this a current diagnosis for this admission?: YesPlan: Continue CPap (4) Hypothyroidism Qualifiers: Hypothyroidism type: unspecified Qualified Code(s): E03.9 - Hypothyroidism, unspecified Is this a current diagnosis for this admission?: YesPlan: We will need to recheck a thyroid TSH level because of the amiodarone (5) Opiate dependence, continuous Is this a current diagnosis for this admission?: YesPlan: The patient is being followed by the pain management as an outpatient. We'll continue present narcotics (6) CAD (coronary artery disease) Qualifiers: Coronary Disease-Associated Artery/Lesion type: [place] artery [place] vs. transplanted heart: [place] heart Associated angina: angina presence unspecified Qualified Code(s): I25.10 - Atherosclerotic heart disease of [place] coronary artery without angina pectoris Is this a current diagnosis for this admission?: Yes (7) COPD (chronic obstructive pulmonary disease) Qualifiers: COPD type: unspecified COPD Qualified Code(s): J44.9 - Chronic obstructive pulmonary disease, unspecified Is this a current diagnosis for this admission?: Yes (8) Chronic skin ulcer Qualifiers: Non-pressure ulcer stage: limited to breakdown of skin Qualified Code(s ): L98.491 - Non-pressure chronic ulcer of skin of other sites limited to breakdown of skin Is this a current diagnosis for this admission?: Yes (9) Atrial fibrillation Qualifiers: Atrial fibrillation type: paroxysmal Qualified Code(s): I48.0 - Paroxysmal atrial fibrillation Is this a current diagnosis for this admission?: YesPlan: Past with cardiology. Continue amiodarone at 200 mg twice a day for 30 days
[2016-12-01] MEDS: GLIPIZIDE 10 MG TABLET PO SCH ×2 (09:20→21:16)
[2016-12-01] MEDS: LISINOPRIL 10 MG TABLET PO SCH ×2 (09:20→21:16)
[2016-12-01] MEDS: DOCUSATE SODIUM 100 MG CAPSULE PO SCH ×3 (09:20→18:41)
[2016-12-01] MEDS: AMIODARONE HCL 200 MG TABLET PO SCH ×2 (09:21→18:41)
[2016-12-01] MEDS: PREDNISONE 20 MG TABLET PO SCH (09:21)
[2016-12-01] MEDS: INSULIN GLARGINE,HUM.REC.ANLOG 300 UNIT/3 ML INSULN.PEN SUBCUT SCH (09:21)
[2016-12-01] MEDS: POLYETHYLENE GLYCOL 3350 POWDER 17 GM/1 PACKET PO SCH (09:21)
[2016-12-01] MEDS: OXYCODONE HCL SR 40 MG TABLET PO SCH ×2 (09:21→21:16)
--- NOTE | 2016-12-01 10:01 | PDOC PROGRESS REPORT ---
Subjective Subjective:: Patient undergoing physical therapy. Continues to have some pain along the incision site but is improving. Denies chest pain or shortness of breath. Physical Exam Vital Signs: Temp Pulse Resp BP Pulse Ox 98.3 F 87 16 147/63 H 95 12/01/16 07:12 12/01/16 08:27 12/01/16 08:27 12/01/16 07:12 12/01/16 08:27 Intake & Output 11/30/16 12/01/16 12/02/16 06:59 06:59 06:59 Intake Total 1940 1340 Output Total 4100 2750 Balance -2160 -1410 Weight 101.1 kg 101 kg Musculoskeletal exam: PRESENT: other - Right lower extremity: Dressing clean/dry /intact no erythema or drainage. No evidence of limb length inequality. No malrotation. Intact plantar flexion/dorsiflexion. No calf tenderness. Results Laboratory Results: 11/30/16 04:52 11/30/16 04:52 11/20/16 11/20/16 11/20/16 02:25 02:25 08:37 Creatine Kinase 104 113 CK-MB (CK-2) 0.41 Troponin I 0.029 11/20/16 11/25/16 11/25/16 08:37 09:53 19:20 Creatine Kinase CK-MB (CK-2) 0.36 0.27 0.22 Troponin I 0.027 < 0.012 < 0.012 11/25/16 11/26/16 11/26/16 19:20 03:19 03:19 Creatine Kinase 23 L < 20 L CK-MB (CK-2) < 0.22 Troponin I < 0.012 11/26/16 11/26/16 10:55 10:55 Creatine Kinase 23 L CK-MB (CK-2) 0.23 Troponin I < 0.012 Impressions: Chest X-Ray 11/19/16 18:58 IMPRESSION: NO ACUTE RADIOGRAPHIC FINDING IN THE CHEST. Fluoroscopy 11/26/16 00:00 IMPRESSION: IMAGE(S) OBTAINED DURING PROCEDURE. Hip/Pelvis X-Ray 11/26/16 00:00 IMPRESSION: IMAGE(S) OBTAINED DURING PROCEDURE. Femur X-Ray 11/27/16 09:00 IMPRESSION: SATISFACTORY POSTOP EVALUATION RIGHT FEMUR ABOVE. Assessment & Plan - Diagnosis (1) Intertrochanteric fracture of right femur Qualifiers: Encounter type: subsequent encounter Fracture type: closed Is this a current diagnosis for this admission?: YesPlan: Status post IM nail right intertrochanteric fracture #1 physical therapy touch down WB #2 pain control #3 heparin for DVT prophylaxis #4 discharge planning patient will require retirement facility.
[2016-12-01] MEDS: IPRATROPIUM/ALBUTEROL 0.5-2.5 MG/3 ML AMPUL NEB PRN (14:09)
--- NOTE | 2016-12-01 19:40 | PDOC PROGRESS REPORT ---
Subjective Progress Note for:: 12/01/16 Subjective:: Patient has remained stable postop. Patient remains in sinus rhythm. Pt is denying any chest arm or neck discomfort. Patient denying any PND, orthopnea. Patient was seen in the morning. Review of systems: Rest review of systems negative. Medications: Medications have been reviewed. Physical Exam Vital Signs: Temp Pulse Resp BP Pulse Ox 98.1 F 73 18 126/60 H 94 12/01/16 16:01 12/01/16 16:01 12/01/16 16:01 12/01/16 16:01 12/01/16 16:01 Intake & Output 11/30/16 12/01/16 12/02/16 06:59 06:59 06:59 Intake Total 1940 1340 1176 Output Total 4100 2750 1400 Balance -2160 -1410 -224 Weight 101.1 kg 101 kg Exam: GENERAL: well-nourished and in no acute distress. Alert and oriented x3 HEAD: Atraumatic, normocephalic. EYES: Pupils equal round and reactive to light, extraocular movements intact, sclera anicteric, conjunctiva are normal. ENT: TMs normal, nares patent, oropharynx clear without exudates. Moist mucous membranes. No oral ulcerations or bleeding gums noted NECK: supple without lymphadenopathy. Trachea is central. No cervical or axillary lymphadenopathy noted. Carotids are 2+, JVD WNL LUNGS: Respiration seems nonlabored, no significant accessory muscle action noted. Few bibasilar coarse crackles noted. CHEST: Palpation of the chest wall shows no significant chest wall tenderness. No other significant abnormalities noted. HEART: [place] [employer] GUM CANDY, No PSH, 1/6 SERGIO aortic area, 1/6 stinson systolic murmur mitral area, no rubs, no gallops. ABDOMEN: Soft, no significant tenderness appreciated, normoactive bowel sounds. No guarding, no rebound. No rigidity noted . No masses appreciated. EXTREMITIES: Pedal pulses are 1-2+, no calf tenderness noted. No clubbing or cyanosis.trace to 1+ pedal edema noted NEUROLOGICAL: Focused neurological exam showed no significant neurologic deficit. Normal speech, no focal weakness appreciated. PSYCH: Normal mood, normal affect. Judgment and insight within normal limits. SKIN: No significant ecchymosis, rash, slight ulceration noted in the left leg area MUSCULOSKELETAL EXAM: No significant joint swelling noted. Postsurgical changes noted right hip. Results Laboratory Results: 11/30/16 04:52 11/30/16 04:52 11/20/16 11/20/16 11/20/16 02:25 02:25 08:37 Creatine Kinase 104 113 CK-MB (CK-2) 0.41 Troponin I 0.029 11/20/16 11/25/16 11/25/16 08:37 09:53 19:20 Creatine Kinase CK-MB (CK-2) 0.36 0.27 0.22 Troponin I 0.027 < 0.012 < 0.012 11/25/16 11/26/16 11/26/16 19:20 03:19 03:19 Creatine Kinase 23 L < 20 L CK-MB (CK-2) < 0.22 Troponin I < 0.012 11/26/16 11/26/16 10:55 10:55 Creatine Kinase 23 L CK-MB (CK-2) 0.23 Troponin I < 0.012 Impressions: Chest X-Ray 11/19/16 18:58 IMPRESSION: NO ACUTE RADIOGRAPHIC FINDING IN THE CHEST. Fluoroscopy 11/26/16 00:00 IMPRESSION: IMAGE(S) OBTAINED DURING PROCEDURE. Hip/Pelvis X-Ray 11/26/16 00:00 IMPRESSION: IMAGE(S) OBTAINED DURING PROCEDURE. Femur X-Ray 11/27/16 09:00 IMPRESSION: SATISFACTORY POSTOP EVALUATION RIGHT FEMUR ABOVE. Assessment & Plan - Diagnosis (1) Atrial fibrillation Qualifiers: Atrial fibrillation type: paroxysmal Qualified Code(s): I48.0 - Paroxysmal atrial fibrillation Is this a current diagnosis for this admission?: Yes (2) Intertrochanteric fracture of right femur Qualifiers: Encounter type: subsequent encounter Fracture type: closed Is this a current diagnosis for this admission?: Yes (3) CAD (coronary artery disease) Qualifiers: Coronary Disease-Associated Artery/Lesion type: [place] artery [place] vs. transplanted heart: [place] heart Associated angina: angina presence unspecified Qualified Code(s): I25.10 - Atherosclerotic heart disease of [place] coronary artery without angina pectoris Is this a current diagnosis for this admission?: Yes (4) COPD (chronic obstructive pulmonary disease) Qualifiers: COPD type: unspecified COPD Qualified Code(s): J44.9 - Chronic obstructive pulmonary disease, unspecified Is this a current diagnosis for this admission?: Yes (5) HTN (hypertension) Qualifiers: Hypertension type: essential hypertension Qualified Code(s): I10 - Essential (primary) hypertension Is this a current diagnosis for this admission?: Yes (6) Hyperglycemia due to type 2 diabetes mellitus Qualifiers: Diabetes mellitus [place] insulin use: with halfway use Qualified Code(s): E11.65 - Type 2 diabetes mellitus with hyperglycemia Is this a current diagnosis for this admission?: Yes - Notes Notes: Patient has been seen intermittently but today I was called about duration of amiodarone therapy. At this point I would recommend just 1 month of amiodarone therapy. Patient has remained stable. Patient can follow-up with me if she wishes for dysrhythmia management. This was discussed with Dr. Sevilla. - Time Time with patient: Less than 15 minutes
[2016-12-01] MEDS: MONTELUKAST SODIUM 10 MG TABLET PO SCH (21:16)
[2016-12-01] MEDS: LANSOPRAZOLE 30 MG TAB.RAP.DR PO SCH (21:16)
[2016-12-01] MEDS: LORAZEPAM 1 MG TABLET PO PRN (21:17)
[2016-12-01] MEDS: DULOXETINE HCL 30 MG CAPSULE.DR PO SCH (21:17)
[2016-12-02] MEDS: OXYCODONE HCL IR 5 MG TABLET PO PRN ×5 (00:18→17:37)
[2016-12-02] MEDS: IPRATROPIUM/ALBUTEROL 0.5-2.5 MG/3 ML AMPUL NEB SCH ×4 (02:05→20:54)
[2016-12-02] MEDS: HEPARIN SOD (PORCINE) 5,000 UNIT/ML 1 ML SYRINGE SUBCUT SCH ×3 (05:39→22:27)
[2016-12-02 06:05] LABS: HEMOGLOBIN 9.7 g/dL (12.0-15.5); HGB HCT DIFFERENCE -1.9; MEAN CORPUSCULAR HEMOGLOBIN 24.4 pg (27.0-33.4); MEAN CORPUSCULAR HGB CONC 31.5 g/dL (32.0-36.0); MEAN CORPUSCULAR VOLUME 77 fl (80-97); RED CELL DISTRIBUTION WIDTH 18.5 % (11.5-14.0); WHITE BLOOD COUNT 10.7 10^3/uL (4.0-10.5)
[2016-12-02 06:22] LABS: ALANINE AMINOTRANSFERASE 52 U/L (9-52); ALKALINE PHOSPHATASE 151 U/L (38-126); ANION GAP 8 (5-19); ASPARTATE AMINO TRANSFERASE 42 U/L (14-36); BILIRUBIN,DIRECT 0.3 mg/dL (0.0-0.4); BILIRUBIN,TOTAL 0.5 mg/dL (0.2-1.3); BLOOD UREA NITROGEN 19 mg/dL (7-20); CALCIUM 9.5 mg/dL (8.4-10.2); CARBON DIOXIDE 32 mmol/L (22-30); CHLORIDE 100 mmol/L (98-107); CREATININE RESULT 0.79 mg/dL (0.52-1.25); GLUCOSE 110 mg/dL (75-110); POTASSIUM 4.7 mmol/L (3.6-5.0); TOTAL PROTEIN 5.6 g/dL (6.3-8.2)
[2016-12-02 06:32] LABS: BASOPHILS % (MANUAL) 0 % (0-2); EOSINOPHILS % (MANUAL) 3 % (0-6); LYMPHOCYTES % (MANUAL) 20 % (13-45); TOTAL CELLS COUNTED 100
[2016-12-02 06:36] LABS: ANISOCYTOSIS 1+; HYPOCHROMASIA 1+; MICROCYTOSIS SLIGHT; TOXIC GRANULATION SLIGHT
[2016-12-02] MEDS: BUDESONIDE NEB 0.5 MG/2 ML AMPUL NEB SCH ×2 (08:06→20:55)
--- NOTE | 2016-12-02 08:17 | PDOC PROGRESS REPORT ---
Subjective Progress Note for:: 12/02/16 Subjective:: The patient states to feel the same. She is still having pain in her hip Physical Exam Vital Signs: Temp Pulse Resp BP Pulse Ox 98.3 F 73 20 129/60 H 96 12/02/16 03:31 12/02/16 03:31 12/02/16 03:31 12/02/16 03:31 12/02/16 03:31 Intake & Output 12/01/16 12/02/16 12/03/16 06:59 06:59 06:59 Intake Total 1340 1886 Output Total 6460 4260 Balance -5261 -0298 Weight 101 kg 99.4 kg General appearance: PRESENT: mild distress Head exam: PRESENT: atraumatic Eye exam: PRESENT: conjunctiva pink Neck exam: ABSENT: carotid bruit Respiratory exam: PRESENT: rhonchi Cardiovascular exam: PRESENT: RRR, +S1, +S2 Pulses: PRESENT: +1 pedal pulses bilateral Vascular exam: PRESENT: pallor GI/Abdominal exam: PRESENT: soft Extremities exam: PRESENT: tenderness Musculoskeletal exam: PRESENT: tenderness Neurological exam: PRESENT: alert, awake Results Laboratory Results: 12/02/16 05:01 12/02/16 05:01 12/02/16 12/02/16 12/02/16 05:01 05:01 05:01 WBC 10.7 H RBC 4.00 Hgb 9.7 L Hct 31.0 L MCV 77 L MCH 24.4 L MCHC 31.5 L RDW 18.5 H Plt Count 288 Seg Neutrophils % Not Reportable Lymphocytes % Not Reportable Monocytes % Not Reportable Eosinophils % Not Reportable Basophils % Not Reportable Absolute Neutrophils Not Reportable Absolute Lymphocytes Not Reportable Absolute Monocytes Not Reportable Absolute Eosinophils Not Reportable Absolute Basophils Not Reportable Sodium 140.0 Potassium 4.7 Chloride 100 Carbon Dioxide 32 H Anion Gap 8 BUN 19 Creatinine 0.79 Est GFR ( Amer) > 60 Est GFR (Non-Af Amer) > 60 Glucose 110 Calcium 9.5 Total Bilirubin 0.5 AST 42 H ALT 52 Alkaline Phosphatase 151 H Total Protein 5.6 L Albumin 3.0 L TSH 2.98 11/20/16 11/20/16 11/20/16 02:25 02:25 08:37 Creatine Kinase 104 113 CK-MB (CK-2) 0.41 Troponin I 0.029 11/20/16 11/25/16 11/25/16 08:37 09:53 19:20 Creatine Kinase CK-MB (CK-2) 0.36 0.27 0.22 Troponin I 0.027 < 0.012 < 0.012 11/25/16 11/26/16 11/26/16 19:20 03:19 03:19 Creatine Kinase 23 L < 20 L CK-MB (CK-2) < 0.22 Troponin I < 0.012 11/26/16 11/26/16 10:55 10:55 Creatine Kinase 23 L CK-MB (CK-2) 0.23 Troponin I < 0.012 Impressions: Chest X-Ray 11/19/16 18:58 IMPRESSION: NO ACUTE RADIOGRAPHIC FINDING IN THE CHEST. Fluoroscopy 11/26/16 00:00 IMPRESSION: IMAGE(S) OBTAINED DURING PROCEDURE. Hip/Pelvis X-Ray 11/26/16 00:00 IMPRESSION: IMAGE(S) OBTAINED DURING PROCEDURE. Femur X-Ray 11/27/16 09:00 IMPRESSION: SATISFACTORY POSTOP EVALUATION RIGHT FEMUR ABOVE. Assessment & Plan - Diagnosis (1) Femur fracture, right Qualifiers: Encounter type: initial encounter Femur location: proximal physis ( incl. Salter-Mahmood) Salter-Mahmood Fracture Type: unspecified configuration Qualified Code(s): S79.001A - Unspecified physeal fracture of upper end of right femur, initial encounter for closed fracture Is this a current diagnosis for this admission?: YesPlan: Continue physical therapy and work on arrangements for the rehab (2) Rheumatoid arthritis Is this a current diagnosis for this admission?: YesPlan: We will continue current medications (3) Obstructive sleep apnea Is this a current diagnosis for this admission?: Yes (4) Hypothyroidism Qualifiers: Hypothyroidism type: unspecified Qualified Code(s): E03.9 - Hypothyroidism, unspecified Is this a current diagnosis for this admission?: YesPlan: We will need to recheck a thyroid TSH level because of the amiodarone (5) Opiate dependence, continuous Is this a current diagnosis for this admission?: YesPlan: The patient is being followed by the pain management as an outpatient. We'll continue present narcotics (6) CAD (coronary artery disease) Qualifiers: Coronary Disease-Associated Artery/Lesion type: [place] artery [place] vs. transplanted heart: [place] heart Associated angina: angina presence unspecified Qualified Code(s): I25.10 - Atherosclerotic heart disease of [place] coronary artery without angina pectoris Is this a current diagnosis for this admission?: Yes (7) COPD (chronic obstructive pulmonary disease) Qualifiers: COPD type: unspecified COPD Qualified Code(s): J44.9 - Chronic obstructive pulmonary disease, unspecified Is this a current diagnosis for this admission?: Yes (8) Chronic skin ulcer Qualifiers: Non-pressure ulcer stage: limited to breakdown of skin Qualified Code(s ): L98.491 - Non-pressure chronic ulcer of skin of other sites limited to breakdown of skin Is this a current diagnosis for this admission?: YesPlan: Stable without any erythema or drainage (9) Atrial fibrillation Qualifiers: Atrial fibrillation type: paroxysmal Qualified Code(s): I48.0 - Paroxysmal atrial fibrillation Is this a current diagnosis for this admission?: YesPlan: Past with cardiology. Continue amiodarone at 200 mg twice a day for 30 days
[2016-12-02] MEDS: GLIPIZIDE 10 MG TABLET PO SCH ×2 (09:04→22:26)
[2016-12-02] MEDS: OXYCODONE HCL SR 40 MG TABLET PO SCH ×2 (09:04→22:27)
[2016-12-02] MEDS: LISINOPRIL 10 MG TABLET PO SCH ×2 (09:04→22:26)
[2016-12-02] MEDS: AMIODARONE HCL 200 MG TABLET PO SCH ×2 (09:05→17:35)
[2016-12-02] MEDS: DOCUSATE SODIUM 100 MG CAPSULE PO SCH ×3 (09:05→17:37)
[2016-12-02] MEDS: AMLODIPINE BESYLATE 10 MG TABLET PO SCH (09:05)
[2016-12-02] MEDS: PREDNISONE 20 MG TABLET PO SCH (09:05)
[2016-12-02] MEDS: POLYETHYLENE GLYCOL 3350 POWDER 17 GM/1 PACKET PO SCH (09:05)
[2016-12-02] MEDS: INSULIN LISPRO 100 UNIT/ML 3 ML VIAL SUBCUT SCH ×3 (09:06→17:35)
[2016-12-02] MEDS: INSULIN GLARGINE,HUM.REC.ANLOG 300 UNIT/3 ML INSULN.PEN SUBCUT SCH (10:54)
[2016-12-02] MEDS: INSULIN LISPRO 100 UNIT/ML 3 ML VIAL SUBCUT PRN ×3 (12:22→22:27)
--- NOTE | 2016-12-02 12:51 | PDOC PROGRESS REPORT ---
Subjective Progress Note for:: 12/02/16 Subjective:: Patient seated in bed with physical therapy. Was unable to stand with a walker. Still complaining of hip pain. No issues overnight. Physical Exam Vital Signs: Temp Pulse Resp BP Pulse Ox 36.6 C 75 16 137/61 H 97 12/02/16 10:59 12/02/16 10:59 12/02/16 10:59 12/02/16 10:59 12/02/16 10:59 Intake & Output 12/01/16 12/02/16 12/03/16 06:59 06:59 06:59 Intake Total 1340 1886 Output Total 2750 4400 Balance -1410 -1638 Weight 101 kg 99.4 kg General appearance: PRESENT: no acute distress Adult Front & Back Image: 1 - Dressing with minimal drainage. Joseph and incision are dry clean and intact. Baseline neuropathy distally with motor intact 5 out of 5. Results Laboratory Results: 12/02/16 05:01 12/02/16 05:01 12/02/16 12/02/16 12/02/16 05:01 05:01 05:01 WBC 10.7 H RBC 4.00 Hgb 9.7 L Hct 31.0 L MCV 77 L MCH 24.4 L MCHC 31.5 L RDW 18.5 H Plt Count 288 Seg Neutrophils % Not Reportable Lymphocytes % Not Reportable Monocytes % Not Reportable Eosinophils % Not Reportable Basophils % Not Reportable Absolute Neutrophils Not Reportable Absolute Lymphocytes Not Reportable Absolute Monocytes Not Reportable Absolute Eosinophils Not Reportable Absolute Basophils Not Reportable Sodium 140.0 Potassium 4.7 Chloride 100 Carbon Dioxide 32 H Anion Gap 8 BUN 19 Creatinine 0.79 Est GFR ( Amer) > 60 Est GFR (Non-Af Amer) > 60 Glucose 110 Calcium 9.5 Total Bilirubin 0.5 AST 42 H ALT 52 Alkaline Phosphatase 151 H Total Protein 5.6 L Albumin 3.0 L TSH 2.98 11/20/16 11/20/16 11/20/16 02:25 02:25 08:37 Creatine Kinase 104 113 CK-MB (CK-2) 0.41 Troponin I 0.029 11/20/16 11/25/16 11/25/16 08:37 09:53 19:20 Creatine Kinase CK-MB (CK-2) 0.36 0.27 0.22 Troponin I 0.027 < 0.012 < 0.012 11/25/16 11/26/16 11/26/16 19:20 03:19 03:19 Creatine Kinase 23 L < 20 L CK-MB (CK-2) < 0.22 Troponin I < 0.012 11/26/16 11/26/16 10:55 10:55 Creatine Kinase 23 L CK-MB (CK-2) 0.23 Troponin I < 0.012 Impressions: Chest X-Ray 11/19/16 18:58 IMPRESSION: NO ACUTE RADIOGRAPHIC FINDING IN THE CHEST. Fluoroscopy 11/26/16 00:00 IMPRESSION: IMAGE(S) OBTAINED DURING PROCEDURE. Hip/Pelvis X-Ray 11/26/16 00:00 IMPRESSION: IMAGE(S) OBTAINED DURING PROCEDURE. Femur X-Ray 11/27/16 09:00 IMPRESSION: SATISFACTORY POSTOP EVALUATION RIGHT FEMUR ABOVE. Status: Image reviewed by me Assessment & Plan - Diagnosis (1) Intertrochanteric fracture of right femur Qualifiers: Encounter type: subsequent encounter Fracture type: closed Is this a current diagnosis for this admission?: Yes - Plan Summary Plan Summary: Patient is status post cephalo-medullary nailing of her hip fracture. Continue toe-touch weightbearing and physical therapy. Anticipate patient requiring alf facility. I understand she has a bed at [facility] potentially in the next 24-48 hours. Patient is a pain management patient with significant pain and requiring significant amount of narcotics. Dressing change will be done today. Continue DVT prophylaxis
[2016-12-02] MEDS ORDERED: LEVOTHYROXINE SODIUM 0.1 MG TABLET PO ONE (13:30)
[2016-12-02] MEDS ORDERED: LEVOTHYROXINE SODIUM 0.05 MG TABLET PO ONE (13:30)
[2016-12-02] MEDS ORDERED: LEVOTHYROXINE SODIUM 0.025 MG TABLET PO ONE (13:30)
--- NOTE | 2016-12-02 17:27 | Pulmonary Function Test ---
Pulmonary Function Test Date of Procedure:: 11/23/16 INDICATION:: Dyspnea preoperative Referring Provider: Tino Granados MD - Report Spirometry: FVC 1.50 L 55% postbronchodilator therapy 1.88 L 69% FEV1 1.08 % 50% postbronchodilator therapy 1.35 L 62% FVC/FEV1 68% postbronchodilator therapy therapy 72% predicted 72% Impression: No evidence for obstructive ventilatory defect. Significant restrictive ventilatory defect suggested by spirometry by way of decrease in FVC .Restrictive defect cannot be diagnosed based on spirometry alone if warranted a complete pulmonary function test suggested
[2016-12-02] MEDS: MONTELUKAST SODIUM 10 MG TABLET PO SCH (22:26)
[2016-12-02] MEDS: LANSOPRAZOLE 30 MG TAB.RAP.DR PO SCH (22:26)
[2016-12-02] MEDS: DULOXETINE HCL 30 MG CAPSULE.DR PO SCH (22:27)
[2016-12-02] MEDS: LORAZEPAM 1 MG TABLET PO PRN (23:58)
[2016-12-03] MEDS: IPRATROPIUM/ALBUTEROL 0.5-2.5 MG/3 ML AMPUL NEB SCH ×4 (01:34→19:30)
[2016-12-03] MEDS: OXYCODONE HCL IR 5 MG TABLET PO PRN ×5 (03:23→19:23)
[2016-12-03] MEDS: HEPARIN SOD (PORCINE) 5,000 UNIT/ML 1 ML SYRINGE SUBCUT SCH ×2 (05:58→14:47)
[2016-12-03] MEDS: ACETAMINOPHEN 325 MG TABLET PO PRN ×2 (06:01→14:46)
[2016-12-03] MEDS ORDERED: LEVOTHYROXINE SODIUM 0.1 MG TABLET PO SCH (07:00)
[2016-12-03] MEDS ORDERED: LEVOTHYROXINE SODIUM 0.025 MG TABLET PO SCH (07:00)
[2016-12-03] MEDS ORDERED: LEVOTHYROXINE SODIUM 0.05 MG TABLET PO SCH (07:00)
[2016-12-03] MEDS: INSULIN LISPRO 100 UNIT/ML 3 ML VIAL SUBCUT SCH ×3 (07:26→17:48)
[2016-12-03] MEDS: AMLODIPINE BESYLATE 10 MG TABLET PO SCH (07:28)
[2016-12-03] MEDS: LORAZEPAM 1 MG TABLET PO PRN ×2 (07:29→15:37)
[2016-12-03] MEDS: BUDESONIDE NEB 0.5 MG/2 ML AMPUL NEB SCH ×2 (08:26→19:30)
[2016-12-03] MEDS: DOCUSATE SODIUM 100 MG CAPSULE PO SCH ×3 (10:06→17:50)
[2016-12-03] MEDS: POLYETHYLENE GLYCOL 3350 POWDER 17 GM/1 PACKET PO SCH (10:06)
[2016-12-03] MEDS: GLIPIZIDE 10 MG TABLET PO SCH (10:06)
[2016-12-03] MEDS: LISINOPRIL 10 MG TABLET PO SCH (10:07)
[2016-12-03] MEDS: PREDNISONE 20 MG TABLET PO SCH (10:07)
[2016-12-03] MEDS: OXYCODONE HCL SR 40 MG TABLET PO SCH (10:07)
[2016-12-03] MEDS: AMIODARONE HCL 200 MG TABLET PO SCH ×2 (10:07→17:50)
[2016-12-03] MEDS: INSULIN GLARGINE,HUM.REC.ANLOG 300 UNIT/3 ML INSULN.PEN SUBCUT SCH (10:08)
--- NOTE | 2016-12-03 10:50 | RADIOLOGY REPORT (SQ) ---
EXAM DESCRIPTION: HIP RIGHT AP/LATERAL COMPLETED DATE/TIME: 12/03/2016 9:58 am REASON FOR STUDY: pain, sp surgery COMPARISON: None. NUMBER OF VIEWS: Two views. TECHNIQUE: AP pelvis and additional frog-leg view of the right hip. LIMITATIONS: None. FINDINGS: MINERALIZATION: Osteopenia. RIGHT HIP: There is been open reduction and internal fixation of a right hip fracture. A long medull pablo miguel ángel extends down to just above the knee were is secured by 2 screws. A long cannulated screw ext ends through the femoral neck. On the frog-leg view of the hip there is a long sharp fragment that e xtends into the soft tissues. LEFT HIP: Joint space narrowing with marginal osteophytes on the femoral head and subchondral cysts. PUBIS AND ISCHIUM: No fracture. PELVIS: No fracture. SACRUM: No fracture or dislocation. No worrisome bone lesions. LOWER LUMBAR SPINE: No fracture or dislocation. No worrisome bone lesions. No significant disc disea se. SOFT TISSUES: No findings. OTHER: No other significant finding. IMPRESSION: ORIF of the right hip with findings as described. TECHNICAL DOCUMENTATION: JOB ID: [id number]- All Rights Reserved
[2016-12-03] MEDS: INSULIN LISPRO 100 UNIT/ML 3 ML VIAL SUBCUT PRN (11:13)
--- NOTE | 2016-12-03 12:17 | PDOC TRANSFER SUMMARY ---
General - Admit/Disc Date/PCP Admission Date/Primary Care Provider: 11/19/16 22:09 ETHAN LATHAM, Discharge Date: 12/03/16 - Discharge Diagnosis (1) Femur fracture, right Is this a current diagnosis for this admission?: YesSummary: Continue physical therapy. Continue DVT prophylaxis the patient not being very active with Lovenox 40 mg daily. (2) Rheumatoid arthritis Is this a current diagnosis for this admission?: YesSummary: Continue p.o. steroids and pain medication (3) Obstructive sleep apnea Is this a current diagnosis for this admission?: Yes (4) Hypothyroidism Is this a current diagnosis for this admission?: YesSummary: Current medications (5) Opiate dependence, continuous Is this a current diagnosis for this admission?: YesSummary: We will need to follow-up with pain management Dariana Rich as an outpatient (6) CAD (coronary artery disease) Is this a current diagnosis for this admission?: Yes (7) COPD (chronic obstructive pulmonary disease) Is this a current diagnosis for this admission?: YesSummary: Continue nebulization treatments and steroids (8) Chronic skin ulcer Is this a current diagnosis for this admission?: Yes (9) Atrial fibrillation Is this a current diagnosis for this admission?: YesSummary: Continue amiodarone 200 mg twice a day for 30 days and then follow-up with Dr. Donnelly - Additional Information Resuscitation Status: Full Code Discharge Diet: Diabetic Discharge Activity: Supervised Activity Home Medications: Amlodipine Besylate [Norvasc 10 mg Tablet] 10 mg PO QAM 08/18/16 Glipizide [Glucotrol 10 mg Tablet] 10 mg PO Q12 08/18/16 Levothyroxine Sodium [Synthroid] 125 mcg PO QAM 08/18/16 Lisinopril [Prinivil] 20 mg PO QAM 08/18/16 NPH, Human Insulin Isophane [Humulin N (NPH) Insulin 100 unit/mL] 40 units SQ AC 08/18/16 Omeprazole 20 mg PO QHS 08/18/16 Oxycodone HCl 15 mg PO TIDP PRN 08/18/16 Prednisone [Deltasone 20 mg Tablet] 20 mg PO DAILY 08/18/16 Travoprost (Benzalkonium) [Travatan 0.004% Eye Drop] 1 drop OU QHS 08/18/16 Duloxetine HCl 30 mg PO QHS 11/20/16 Oxycodone HCl [Oxycontin] 40 mg PO Q12 12/02/16 Acetaminophen [Tylenol 325 mg Tablet] 650 mg PO Q4HP PRN #0 tablet 12/03/16 Amiodarone HCl [Cordarone 200 mg Tablet] 200 mg PO BID #0 tablet 12/03/16 Budesonide [Pulmicort Neb 0.5 mg/2 ml Ampul] 0.5 mg NEB RTQ12 #0 ampul.neb 12/03 Docusate Sodium [Colace 100 mg Capsule] 100 mg PO TID #0 capsule 12/03/16 Insulin Glargine,Hum.rec.anlog [Lantus Insulin 100 Unit/mL] 70 unit SUBCUT DAILY #0 insuln.pen 12/03/16 Insulin Lispro [Humalog Insulin (Lispro) 100 unit/mL] 0 - 12 unit SUBCUT ACHSP PRN #0 unit 12/03/16 Insulin Lispro [Humalog Insulin (Lispro) 100 unit/mL] 15 unit SUBCUT AC #0 unit 12/03/16 Ipratropium/Albuterol Sulfate [Duoneb 3 ml Ampul] 3 ml NEB RTQ6 #0 vial.neb Lorazepam [Ativan 1 mg Tablet] 1.5 mg PO Q8HP PRN #60 tablet 12/03/16 Oxycodone HCl [Oxy-Ir 5 mg Tablet] 15 mg PO Q4HP PRN #90 tablet 12/03/16 Oxycodone HCl [Oxycontin Sr 40 mg Tablet] 40 mg PO Q12 #60 tab.sr.12h 12/03/16 Polyethylene Glycol 3350 [Miralax Powder 17 gm/Packet] 17 gm PO DAILY #0 powd.pack 12/03/16 History of Present Illness Admission Date/PCP: 11/19/16 22:09 ETHAN LATHAM, History of Present Illness: 71-year-old female who suffered a fall and suffered a right displaced intertrochanteric hip fracture.She has AIDE,RA.COPD D Mellitus HTN.She is a poor historian but has BRYANT with ADL's She denies cough,hemoptysis and her PPD status is unknown.She denies h(x) of lung disease as a child or adolescent.She admits to exsposure to passive smoke as a child and adult.She has smoked 2 ppd 16 yo to 57 yo+ 81 py hx.She is uncertain as to her occupational exsposure to potential respiratory toxins.She has one dog and denies any recent travel.She denies anginal like chest pain ,sleeps 2 pillows admits to liited PND deies nocturnal cough andmits to edema.She has dianosis of AIDE with limited compliance with CPAP Hospital Course Hospital Course: The patient was admitted because of hip fracture. Scheduled for surgical repair of the right hip. Unfortunately she has developed atrial fibrillation and the surgery needed to be postponed. She was started on amiodarone drip and converted to normal sinus rhythm and was continued on amiodarone 200 mg twice a day by cardiology. Blood sugars were not very well controlled until insulins have been readjusted because of steroid use due to rheumatoid arthritis. He did quite well over the next several days unfortunately because of her rheumatoid arthritis and prior fusion of her left hip the patient is not very mobile and is going to require long-term physical therapy at the rehab center. Physical Exam Vital Signs: Temp Pulse Resp BP Pulse Ox 98.5 F 71 18 142/65 H 95 12/03/16 03:39 12/03/16 08:26 12/03/16 08:26 12/03/16 03:39 12/03/16 08:26 Intake & Output 12/02/16 12/03/16 12/04/16 06:59 06:59 06:59 Intake Total 1886 1779 Output Total 4400 2100 Balance -2514 -321 Weight 99.4 kg 100.2 kg General appearance: PRESENT: mild distress Head exam: PRESENT: atraumatic Eye exam: PRESENT: conjunctiva pink Neck exam: ABSENT: carotid bruit Respiratory exam: PRESENT: rhonchi Cardiovascular exam: PRESENT: RRR, +S1, +S2 Pulses: PRESENT: +1 pedal pulses bilateral Vascular exam: PRESENT: other GI/Abdominal exam: PRESENT: normal bowel sounds, soft Musculoskeletal exam: PRESENT: tenderness Neurological exam: PRESENT: awake Results Laboratory Results: 12/02/16 05:01 12/02/16 05:01 11/20/16 11/20/16 11/20/16 02:25 02:25 08:37 Creatine Kinase 104 113 CK-MB (CK-2) 0.41 Troponin I 0.029 11/20/16 11/25/16 11/25/16 08:37 09:53 19:20 Creatine Kinase CK-MB (CK-2) 0.36 0.27 0.22 Troponin I 0.027 < 0.012 < 0.012 11/25/16 11/26/16 11/26/16 19:20 03:19 03:19 Creatine Kinase 23 L < 20 L CK-MB (CK-2) < 0.22 Troponin I < 0.012 11/26/16 11/26/16 10:55 10:55 Creatine Kinase 23 L CK-MB (CK-2) 0.23 Troponin I < 0.012 Impressions: Chest X-Ray 11/19/16 18:58 IMPRESSION: NO ACUTE RADIOGRAPHIC FINDING IN THE CHEST. Fluoroscopy 11/26/16 00:00 IMPRESSION: IMAGE(S) OBTAINED DURING PROCEDURE. Femur X-Ray 11/27/16 09:00 IMPRESSION: SATISFACTORY POSTOP EVALUATION RIGHT FEMUR ABOVE. Hip/Pelvis X-Ray 12/03/16 00:00 IMPRESSION: ORIF of the right hip with findings as described. Transfer Plan - Disposition Transfer Plan: Patient is being [facility] Please continue with physical therapy and contact orthopedics for any recommendations. Contact pain management Dariana Rich for any further recommendation in adjusting her chronic narcotic use. - Time Spent with Patient Time spent with patient: Greater than 30 Minutes
[2016-12-03] MEDS ORDERED: ONDANSETRON HCL INJ/PF 4 MG/2 ML SDV IV PRN (15:04)
[2016-12-03 16:07] VITALS: BP 152/68
--- NOTE | 2016-12-06 19:41 | PDOC PROGRESS REPORT ---
Subjective Progress Note for:: 11/27/16 Subjective:: lethargic Physical Exam Vital Signs: Temp Pulse Resp BP Pulse Ox 98.2 F 76 20 143/69 H 100 11/30/16 20:07 11/30/16 20:07 11/30/16 20:07 11/30/16 20:07 11/30/16 20:07 Intake & Output 11/29/16 11/30/16 12/01/16 06:59 06:59 06:59 Intake Total 3429 1940 1048 Output Total 4220 4100 1200 Balance -796 -2160 -152 Weight 102 kg 101.1 kg General appearance: PRESENT: disheveled, obese Head exam: PRESENT: atraumatic, normocephalic Eye exam: PRESENT: conjunctiva pale, EOMI Mouth exam: PRESENT: dry mucosa, neck supple Neck exam: ABSENT: carotid bruit, JVD, lymphadenopathy, thyromegaly Respiratory exam: PRESENT: decreased breath sounds, prolonged expiratory phas, rhonchi, symmetrical, unlabored Cardiovascular exam: PRESENT: RRR, +S1, +S2 Pulses: PRESENT: normal radial pulses GI/Abdominal exam: PRESENT: normal bowel sounds, soft. ABSENT: distended, guarding, mass, organolmegaly, rebound, tenderness Rectal exam: PRESENT: deferred Gentrourinary exam: PRESENT: indwelling catheter Neurological exam: PRESENT: altered Skin exam: PRESENT: dry, warm Results Laboratory Results: 11/30/16 04:52 11/30/16 04:52 11/30/16 11/30/16 04:52 04:52 WBC 9.5 RBC 3.90 Hgb 9.8 L Hct 30.0 L MCV 77 L MCH 25.0 L MCHC 32.6 RDW 17.9 H Plt Count 256 Seg Neutrophils % Not Reportable Lymphocytes % Not Reportable Monocytes % Not Reportable Eosinophils % Not Reportable Basophils % Not Reportable Absolute Neutrophils Not Reportable Absolute Lymphocytes Not Reportable Absolute Monocytes Not Reportable Absolute Eosinophils Not Reportable Absolute Basophils Not Reportable Sodium 139.8 Potassium 4.2 Chloride 101 Carbon Dioxide 32 H Anion Gap 7 BUN 21 H Creatinine 0.75 Est GFR ( Amer) > 60 Est GFR (Non-Af Amer) > 60 Glucose 74 L Calcium 8.9 05/12/17 05/12/17 05/12/17 02:25 02:25 08:37 Creatine Kinase 104 113 CK-MB (CK-2) 0.41 Troponin I 0.029 11/20/16 11/25/16 11/25/16 08:37 09:53 19:20 Creatine Kinase CK-MB (CK-2) 0.36 0.27 0.22 Troponin I 0.027 < 0.012 < 0.012 11/25/16 11/26/16 11/26/16 19:20 03:19 03:19 Creatine Kinase 23 L < 20 L CK-MB (CK-2) < 0.22 Troponin I < 0.012 11/26/16 11/26/16 10:55 10:55 Creatine Kinase 23 L CK-MB (CK-2) 0.23 Troponin I < 0.012 Impressions: Chest X-Ray 11/19/16 18:58 IMPRESSION: NO ACUTE RADIOGRAPHIC FINDING IN THE CHEST. Fluoroscopy 11/26/16 00:00 IMPRESSION: IMAGE(S) OBTAINED DURING PROCEDURE. Hip/Pelvis X-Ray 11/26/16 00:00 IMPRESSION: IMAGE(S) OBTAINED DURING PROCEDURE. Femur X-Ray 11/27/16 09:00 IMPRESSION: SATISFACTORY POSTOP EVALUATION RIGHT FEMUR ABOVE. Assessment & Plan - Diagnosis (1) Femur fracture, right Qualifiers: Encounter type: initial encounter Femur location: proximal physis ( incl. Salter-Mahmood) Salter-Mahmood Fracture Type: unspecified configuration Qualified Code(s): S79.001A - Unspecified physeal fracture of upper end of right femur, initial encounter for closed fracture Is this a current diagnosis for this admission?: Yes (2) Opiate dependence, continuous Is this a current diagnosis for this admission?: Yes (3) Rheumatoid arthritis Qualifiers: Rheumatoid arthritis location: multiple sites Rheumatoid factor presence: without rheumatoid factor Qualified Code(s): M06.09 - Rheumatoid arthritis without rheumatoid factor, multiple sites Is this a current diagnosis for this admission?: Yes (4) COPD (chronic obstructive pulmonary disease) Qualifiers: COPD type: unspecified COPD Qualified Code(s): J44.9 - Chronic obstructive pulmonary disease, unspecified Is this a current diagnosis for this admission?: Yes (5) Glaucoma Qualifiers: Glaucoma type: unspecified type Laterality: unspecified laterality Qualified Code(s): H40.9 - Unspecified glaucoma (6) HTN (hypertension) Qualifiers: Hypertension type: essential hypertension Qualified Code(s): I10 - Essential (primary) hypertension Is this a current diagnosis for this admission?: Yes (7) Iron deficiency anemia Qualifiers: Iron deficiency anemia type: unspecified iron deficiency Qualified Code (s): D50.9 - Iron deficiency anemia, unspecified Is this a current diagnosis for this admission?: Yes (8) Atrial fibrillation Qualifiers: Atrial fibrillation type: paroxysmal Qualified Code(s): I48.0 - Paroxysmal atrial fibrillation Is this a current diagnosis for this admission?: Yes
--- NOTE | 2016-12-06 19:46 | PDOC PROGRESS REPORT ---
Subjective Progress Note for:: 11/30/16 Physical Exam Vital Signs: Temp Pulse Resp BP Pulse Ox 98.2 F 76 20 143/69 H 100 11/30/16 20:07 11/30/16 20:07 11/30/16 20:07 11/30/16 20:07 11/30/16 20:07 Intake & Output 11/29/16 11/30/16 12/01/16 06:59 06:59 06:59 Intake Total 3429 1940 1048 Output Total 4222 4100 1200 Balance -796 -2160 -152 Weight 102 kg 101.1 kg General appearance: PRESENT: disheveled, mild distress, obese Head exam: PRESENT: atraumatic, normocephalic Eye exam: PRESENT: conjunctiva pale, EOMI Mouth exam: PRESENT: dry mucosa, neck supple Neck exam: ABSENT: carotid bruit, JVD, lymphadenopathy, thyromegaly Respiratory exam: PRESENT: decreased breath sounds, prolonged expiratory phas, rhonchi, unlabored Cardiovascular exam: PRESENT: irregular rhythm Pulses: PRESENT: normal radial pulses GI/Abdominal exam: PRESENT: normal bowel sounds, soft. ABSENT: distended, guarding, mass, organolmegaly, rebound, tenderness Rectal exam: PRESENT: deferred Gentrourinary exam: PRESENT: indwelling catheter Neurological exam: PRESENT: awake Psychiatric exam: PRESENT: flat affect Skin exam: PRESENT: dry, warm Results Laboratory Results: 11/30/16 04:52 11/30/16 04:52 11/30/16 11/30/16 04:52 04:52 WBC 9.5 RBC 3.90 Hgb 9.8 L Hct 30.0 L MCV 77 L MCH 25.0 L MCHC 32.6 RDW 17.9 H Plt Count 256 Seg Neutrophils % Not Reportable Lymphocytes % Not Reportable Monocytes % Not Reportable Eosinophils % Not Reportable Basophils % Not Reportable Absolute Neutrophils Not Reportable Absolute Lymphocytes Not Reportable Absolute Monocytes Not Reportable Absolute Eosinophils Not Reportable Absolute Basophils Not Reportable Sodium 139.8 Potassium 4.2 Chloride 101 Carbon Dioxide 32 H Anion Gap 7 BUN 21 H Creatinine 0.75 Est GFR ( Amer) > 60 Est GFR (Non-Af Amer) > 60 Glucose 74 L Calcium 8.9 11/20/16 11/20/16 11/20/16 02:25 02:25 08:37 Creatine Kinase 104 113 CK-MB (CK-2) 0.41 Troponin I 0.029 11/20/16 11/25/16 11/25/16 08:37 09:53 19:20 Creatine Kinase CK-MB (CK-2) 0.36 0.27 0.22 Troponin I 0.027 < 0.012 < 0.012 11/25/16 11/26/16 11/26/16 19:20 03:19 03:19 Creatine Kinase 23 L < 20 L CK-MB (CK-2) < 0.22 Troponin I < 0.012 11/26/16 11/26/16 10:55 10:55 Creatine Kinase 23 L CK-MB (CK-2) 0.23 Troponin I < 0.012 Impressions: Chest X-Ray 11/19/16 18:58 IMPRESSION: NO ACUTE RADIOGRAPHIC FINDING IN THE CHEST. Fluoroscopy 11/26/16 00:00 IMPRESSION: IMAGE(S) OBTAINED DURING PROCEDURE. Hip/Pelvis X-Ray 11/26/16 00:00 IMPRESSION: IMAGE(S) OBTAINED DURING PROCEDURE. Femur X-Ray 11/27/16 09:00 IMPRESSION: SATISFACTORY POSTOP EVALUATION RIGHT FEMUR ABOVE. Assessment & Plan - Diagnosis (1) Femur fracture, right Qualifiers: Encounter type: initial encounter Femur location: proximal physis ( incl. Salter-Mahmood) Salter-Mahmood Fracture Type: unspecified configuration Qualified Code(s): S79.001A - Unspecified physeal fracture of upper end of right femur, initial encounter for closed fracture Is this a current diagnosis for this admission?: Yes (2) Opiate dependence, continuous Is this a current diagnosis for this admission?: Yes (3) Rheumatoid arthritis Qualifiers: Rheumatoid arthritis location: multiple sites Rheumatoid factor presence: without rheumatoid factor Qualified Code(s): M06.09 - Rheumatoid arthritis without rheumatoid factor, multiple sites Is this a current diagnosis for this admission?: Yes (4) COPD (chronic obstructive pulmonary disease) Qualifiers: COPD type: unspecified COPD Qualified Code(s): J44.9 - Chronic obstructive pulmonary disease, unspecified Is this a current diagnosis for this admission?: Yes (5) Glaucoma Qualifiers: Glaucoma type: unspecified type Laterality: unspecified laterality Qualified Code(s): H40.9 - Unspecified glaucoma (6) HTN (hypertension) Qualifiers: Hypertension type: essential hypertension Qualified Code(s): I10 - Essential (primary) hypertension Is this a current diagnosis for this admission?: Yes (7) Iron deficiency anemia Qualifiers: Iron deficiency anemia type: unspecified iron deficiency Qualified Code (s): D50.9 - Iron deficiency anemia, unspecified Is this a current diagnosis for this admission?: Yes (8) Atrial fibrillation Qualifiers: Atrial fibrillation type: paroxysmal Qualified Code(s): I48.0 - Paroxysmal atrial fibrillation Is this a current diagnosis for this admission?: Yes
== END 2016-12-03 20:48 | DRG 481 ==
LOC: ER 18:31 → EH 22:09 → UNDOADMIN 22:11 → EH 22:11 → 3S 11-20
PROVIDERS: ADMIT Internal Medicine; ATTEND Internal Medicine
PROC: 30233N1 Transfusion of Nonautologous Red Blood Cells into Peripheral Vein, Percutaneous Approach (ICD-10-PCS; 2016-11-23)
PROC: 0QS604Z Reposition Right Upper Femur with Internal Fixation Device, Open Approach (ICD-10-PCS; principal; 2016-11-26 14:00)
DX: S72.141A Displaced intertrochanteric fracture of right femur, initial encounter for closed fracture (principal); E87.1 Hypo-osmolality and hyponatremia; F11.20 Opioid dependence, uncomplicated; L03.311 Cellulitis of abdominal wall; L03.116 Cellulitis of left lower limb; E87.6 Hypokalemia; E11.40 Type 2 diabetes mellitus with diabetic neuropathy, unspecified; E11.65 Type 2 diabetes mellitus with hyperglycemia; E03.9 Hypothyroidism, unspecified; J44.9 Chronic obstructive pulmonary disease, unspecified; I48.0 Paroxysmal atrial fibrillation; I73.9 Peripheral vascular disease, unspecified; K21.9 Gastro-esophageal reflux disease without esophagitis; K44.9 Diaphragmatic hernia without obstruction or gangrene; L98.491 Non-pressure chronic ulcer of skin of other sites limited to breakdown of skin; D50.9 Iron deficiency anemia, unspecified; M06.9 Rheumatoid arthritis, unspecified; H40.9 Unspecified glaucoma; I25.10 Atherosclerotic heart disease of native coronary artery without angina pectoris; G47.33 Obstructive sleep apnea (adult) (pediatric); L53.9 Erythematous condition, unspecified; E66.01 Morbid (severe) obesity due to excess calories; G89.29 Other chronic pain; F32.9 Major depressive disorder, single episode, unspecified; W18.11XA Fall from or off toilet without subsequent striking against object, initial encounter; Y93.9 Activity, unspecified; Y92.9 Unspecified place or not applicable; Z99.81 Dependence on supplemental oxygen; Z68.39 Body mass index [BMI] 39.0-39.9, adult; Z86.718 Personal history of other venous thrombosis and embolism; Z79.84 Long term (current) use of oral hypoglycemic drugs; Z79.4 Long term (current) use of insulin; Z79.899 Other long term (current) drug therapy; Z87.891 Personal history of nicotine dependence
CPT/HCPCS: 01230; 36415; 36430; 36600; 71010; 80048; 80053; 81001; 82550; 82553; 82607; 82728; 82746; 82803; 82962; 83036; 83540; 83550; 83735; 84443; 84466; 84484; 85025; 85027; 85045; 85610; 85652; 85730; 86140; 86850; 86900; 86901; 86920; 93005; 93010; 93306; 94010; 94640; 94660; 94667; 94668; 94799; 96374; 99285; C1713; G8978-GP; G8979-GP; G8987-GO; G8988-GO; J0282; J0696; J1100; J1644; J1756; J1815; J1940; J2250; J2270; J2370; J2405; J2704; J2930; J3010; J3490; J7030; J7060; J7120; J7512; J7620; P9016

== ENCOUNTER 2017-01-26 12:29 | Emergency (ER) | payer MEDICARE ==
[2017-01-26 13:21] LABS: HEMATOCRIT 33.7 % (36.0-47.0); HEMOGLOBIN 10.4 g/dL (12.0-15.5); HGB HCT DIFFERENCE -2.5; MEAN CORPUSCULAR HEMOGLOBIN 23.3 pg (27.0-33.4); MEAN CORPUSCULAR HGB CONC 30.9 g/dL (32.0-36.0); MEAN CORPUSCULAR VOLUME 76 fl (80-97); RED BLOOD COUNT 4.46 10^6/uL (3.72-5.28); RED CELL DISTRIBUTION WIDTH 17.5 % (11.5-14.0); WHITE BLOOD COUNT 12.5 10^3/uL (4.0-10.5)
[2017-01-26] MEDS ORDERED: OXYCODONE HCL IR 5 MG TABLET PO ONE (13:31)
[2017-01-26 13:36] LABS: ALANINE AMINOTRANSFERASE 48 U/L (9-52); ALBUMIN 3.1 g/dL (3.5-5.0); ALKALINE PHOSPHATASE 176 U/L (38-126); ANION GAP 9 (5-19); ASPARTATE AMINO TRANSFERASE 33 U/L (14-36); BILIRUBIN,DIRECT 0.4 mg/dL (0.0-0.4); BILIRUBIN,TOTAL 0.8 mg/dL (0.2-1.3); BLOOD UREA NITROGEN 11 mg/dL (7-20); CALCIUM 8.9 mg/dL (8.4-10.2); CARBON DIOXIDE 31 mmol/L (22-30); CHLORIDE 94 mmol/L (98-107); CREATININE RESULT 0.74 mg/dL (0.52-1.25); GLUCOSE 315 mg/dL (75-110); LIPASE 79.3 U/L (23-300); POTASSIUM 4.2 mmol/L (3.6-5.0); SODIUM 133.8 mmol/L (137-145); TOTAL PROTEIN 5.8 g/dL (6.3-8.2)
[2017-01-26 13:37] LABS: CREATINE KINASE < 20 U/L (30-135)
[2017-01-26 13:48] LABS: CREATINE KINASE MB 0.32 ng/mL (<4.55); TROPONIN I 0.013 ng/mL
--- NOTE | 2017-01-26 13:50 | RADIOLOGY REPORT (SQ) ---
EXAM DESCRIPTION: CHEST SINGLE VIEW COMPLETED DATE/TIME: 01/26/2017 1:40 pm REASON FOR STUDY: unwell feeling, nausea, sob COMPARISON: 11/19/2016 EXAM PARAMETERS: NUMBER OF VIEWS: One view. TECHNIQUE: Single frontal radiographic view of the chest acquired. RADIATION DOSE: NA LIMITATIONS: None. FINDINGS: LUNGS AND PLEURA: There is elevation the right hemidiaphragm with relatively low lung volu me. No acute infiltrate or effusion or mass is seen MEDIASTINUM AND HILAR STRUCTURES: No masses. Contour normal. HEART AND VASCULAR STRUCTURES: Heart normal in size. Normal vasculature. BONES: No acute findings. HARDWARE: None in the chest. OTHER: No other significant finding. IMPRESSION: NO ACUTE RADIOGRAPHIC FINDING IN THE CHEST. TECHNICAL DOCUMENTATION: JOB ID: [id number]
[2017-01-26 13:52] LABS: BAND NEUTROPHILS % (MANUAL) 1 % (3-5); BASOPHILS % (MANUAL) 0 % (0-2); EOSINOPHILS % (MANUAL) 0 % (0-6); LYMPHOCYTES % (MANUAL) 9 % (13-45); TOTAL CELLS COUNTED 100
[2017-01-26 13:55] LABS: ANISOCYTOSIS 2+; HYPOCHROMASIA SLIGHT; MICROCYTOSIS 1+; POLYCHROMASIA SLIGHT; TOXIC GRANULATION SLIGHT
[2017-01-26 13:56] LABS: APPEARANCE,URINE CLEAR; BILIRUBIN,URINE NEGATIVE (NEGATIVE); GLUCOSE, URINE >=500 mg/dL (NEGATIVE); KETONES,URINE 20 mg/dL (NEGATIVE); LEUKOCYTE ESTERASE,URINE TRACE (NEGATIVE); NITRITE,URINE NEGATIVE (NEGATIVE); PROTEIN,URINE 100 mg/dL (NEGATIVE); UROBILINOGEN,URINE NEGATIVE mg/dL (<2.0)
--- NOTE | 2017-01-26 14:42 | ER Document Report ---
ED GI/ - General Chief Complaint: Nausea/Vomiting Stated Complaint: NAUSEA Time Seen by Provider: 01/26/17 12:50 Mode of Arrival: Medic Information source: Patient Notes: This 71-year-old female who presents to the ER via EMS today for "bone pain all over" her body. Patient states that she fractured her right hip on November 19 and since that time all of her bones all over her body have been hurting her. Patient also complains of nausea and vomiting 3-4 days. She complains of chest pain that comes and goes for approximately 1 week with epigastric pain and also lower abdominal pain with burning with urination. Denies any fevers or chills that she knows of. She does have pain medication at home that she takes for the hip fracture pain. She does have a primary care provider. She denies any diarrhea. TRAVEL OUTSIDE OF THE [place] IN LAST 30 DAYS: No - Related Data Allergies/Adverse Reactions: codeine [Codeine] Allergy (Intermediate, Verified 11/19/16 18:33) itching Past Medical History - General Information source: Patient - Social History Smoking Status: Unknown if Ever Smoked Family History: CAD, COPD, CVA, DM, Malignancy - Past Medical History Cardiac Medical History: Reports: Hx Coronary Artery Disease, Hx DVT - Reports history of right knee blood clot, Hx Hypercholesterolemia, Hx Hypertension, Hx Peripheral Vascular Disease - Left renal artery stenting Pulmonary Medical History: Reports: Hx Asthma, Hx Bronchitis, Hx COPD, Hx Pneumonia, Hx Respiratory Failure - hypercapnic, Hx Sleep Apnea Endocrine Medical History: Reports: Hx Diabetes Mellitus Type 1, Hx Diabetes Mellitus Type 2, Hx Hypothyroidism Renal/ Medical History: Denies: Hx Peritoneal Dialysis Malignancy Medical History: Reports: Hx Cervical Cancer GI Medical History: Reports: Hx Gastroesophageal Reflux Disease, Hx Hiatal Hernia, Hx Ulcer - Diabetic wounds Musculoskeltal Medical History: Reports Hx Arthritis - steroid dependent Rheumatoid arthritis Psychiatric Medical History: Reports: Hx Depression Traumatic Medical History: Reports: Hx Fractures Past Surgical History: Reports: Hx Cardiac Catheterization, Hx Cholecystectomy, Hx Hysterectomy, Hx Orthopedic Surgery - back surgery x 2, left ankle ORIF, right ankle surgery, Hx Vascular Surgery - Left renal artery stent, Other - Right eardrum surgery in 1968 - Immunizations Hx Diphtheria, Pertussis, Tetanus Vaccination: No Review of Systems - Review of Systems Constitutional: No symptoms reported EENT: No symptoms reported Cardiovascular: See HPI Respiratory: No symptoms reported Gastrointestinal: See HPI Genitourinary: See HPI Female Genitourinary: No symptoms reported Musculoskeletal: See HPI Skin: No symptoms reported Hematologic/Lymphatic: No symptoms reported Neurological/Psychological: No symptoms reported Physical Exam - Vital signs Vitals: Temp Pulse Resp BP Pulse Ox 98.5 F 92 16 145/60 H 92 01/26/17 12:35 01/26/17 12:35 01/26/17 12:35 01/26/17 12:35 01/26/17 12:35 - Notes Notes: PHYSICAL EXAMINATION: GENERAL: Well-appearing and in no acute distress. HEAD: Atraumatic, normocephalic. EYES: Pupils equal round and reactive to light, extraocular movements intact, sclera anicteric, conjunctiva are normal. NECK: Normal range of motion, supple without lymphadenopathy LUNGS: CTAB and equal. No wheezes rales or rhonchi. HEART: Regular rate and rhythm without murmurs ABDOMEN: Soft, epigastric, mild suprapubic tenderness. No guarding, no rebound BACK: no vertebral tenderness, normal ROM GI/: no CVA tenderness EXTREMITIES: Normal range of motion but with pain moving the right hip, no pitting edema. No cyanosis. NEUROLOGICAL: Cranial nerves grossly intact. Normal sensory/motor exams. PSYCH: Normal mood, normal affect. SKIN: Warm, Dry, normal turgor, no rashes or lesions noted Course - Re-evaluation Re-evalutation: 01/26/17 14:40 , Elevated white blood cell count, cardiac enzymes are normal today. EKG reveals a normal sinus rhythm at a rate of 88 bpm with no evidence of ischemia. Patient has not complained of any nausea here. Other lab work is unremarkable here today. Chest x-ray was normal.She has trace leukocytes on her urinalysis, I will treat her for UTI as she does have symptoms. 01/26/17 14:41 - Vital Signs Vital signs: Temp Pulse Resp BP Pulse Ox 98.5 F 92 16 145/60 H 97 01/26/17 12:35 01/26/17 12:35 01/26/17 12:35 01/26/17 12:35 01/26/17 12:37 - Laboratory Result Diagrams: 01/26/17 13:05 01/26/17 13:05 Laboratory results interpreted by me: 01/26/17 01/26/17 01/26/17 13:05 13:05 13:42 WBC 12.5 H Hgb 10.4 L Hct 33.7 L MCV 76 L MCH 23.3 L MCHC 30.9 L RDW 17.5 H Seg Neuts % (Manual) 82 H Band Neutrophils % 1 L Lymphocytes % (Manual) 9 L Metamyelocytes % 1 H Abs Neuts (Manual) 10.5 H Sodium 133.8 L Chloride 94 L Carbon Dioxide 31 H Glucose 315 H Alkaline Phosphatase 176 H Creatine Kinase < 20 L Total Protein 5.8 L Albumin 3.1 L Urine Protein 100 H Urine Glucose (UA) >=500 H Urine Ketones 20 H Ur Leukocyte Esterase TRACE H Discharge - Discharge Clinical Impression: Urinary tract infection Qualifiers: Urinary tract infection type: site unspecified Hematuria presence: without hematuria Qualified Code(s): N39.0 - Urinary tract infection, site not specified Nausea and vomiting Qualifiers: Vomiting type: unspecified Vomiting Intractability: non-intractable Qualified Code(s): R11.2 - Nausea with vomiting, unspecified Condition: Stable Disposition: HOME, SELF-CARE Additional Instructions: Return immediately for any new or worsening symptoms. Follow up with primary care provider, call tomorrow to make followup appointment. Prescriptions: Cephalexin Monohydrate [Keflex 500 mg Capsule] 500 mg PO BID 7 Days Famotidine [Pepcid 20 mg Tablet] 20 mg PO DAILY #12 tablet Ondansetron [Zofran Odt 4 mg Tablet] 1 - 2 tab PO Q4H PRN #15 tab.rapdis PRN Reason: For Nausea/Vomiting Referrals: ETHAN LATHAM MD [Primary Care Provider] - Follow up as needed
[2017-01-26 16:22] VITALS: BP 140/72
--- NOTE | 2017-01-26 19:52 | EKG REPORT ---
SEVERITY:- ABNORMAL ECG - SINUS RHYTHM LEFT VENTRICULAR HYPERTROPHY : Confirmed by: Vivian Donnelly 26-Jan-2017 19:51:30
== END 2017-01-26 16:00 | disposition home or self-care (01) ==
LOC: ER 12:29
DX: R11.2 Nausea with vomiting, unspecified (principal); N39.0 Urinary tract infection, site not specified; M89.8X0 Other specified disorders of bone, multiple sites; R07.9 Chest pain, unspecified; R10.13 Epigastric pain; R10.30 Lower abdominal pain, unspecified; R30.0 Dysuria; J44.9 Chronic obstructive pulmonary disease, unspecified; I25.10 Atherosclerotic heart disease of native coronary artery without angina pectoris; I10 Essential (primary) hypertension; E11.9 Type 2 diabetes mellitus without complications; Z88.5 Allergy status to narcotic agent; Z86.718 Personal history of other venous thrombosis and embolism; Z85.41 Personal history of malignant neoplasm of cervix uteri
CPT/HCPCS: 93005; 99284; 36415; 82553; 82550; 83690; 85025; 80053; 81001; 84484; 71010; 93010; A9270

== ENCOUNTER 2017-02-04 18:31 | Emergency (ER) | payer MEDICARE ==
--- NOTE | 2017-02-04 19:16 | ER Document Report ---
ED GI/ - General Chief Complaint: Abdominal Pain Stated Complaint: ABDOMINAL PAIN Time Seen by Provider: 02/04/17 19:01 Mode of Arrival: Ambulatory Information source: Patient Notes: 71-year-old female presents to ED for abdominal pain. She states she has had abdominal pain for more than a week right side pain for several weeks breast painful week nausea and vomiting for the last couple days. She states she had an upset stomach so she took Kaopectate and then had a dark stools a day. States she went to the doctor and he said that there was not anything really going on right now. So she came to the emergency room. States she has not been eating and she did not take her insulin today because she was sick. She is an insulin-dependent diabetic. TRAVEL OUTSIDE OF THE [place] IN LAST 30 DAYS: No - HPI Patient complains to provider of: Abdominal pain, Flank pain, Vomiting Onset: Other - Over a week Timing/Duration: Constant, Persistent Quality of pain: Cramping, Throbbing Severity at maximum: Moderate Severity in ED: Moderate Pain Level: 4 Location: Epigastric, Right flank Vaginal bleeding (Compared to normal period): None Menstrual period history: Post-menopausal Associated symptoms: Nausea, Vomiting Exacerbated by: Denies Relieved by: Denies Similar symptoms previously: Yes Recently seen / treated by doctor: Yes - Related Data Allergies/Adverse Reactions: codeine [Codeine] Allergy (Intermediate, Verified 11/19/16 18:33) itching Past Medical History - General Information source: Patient - Social History Smoking Status: Current Every Day Smoker Cigarette use (# per day): No Chew tobacco use (# tins/day): No Smoking Education Provided: No Frequency of alcohol use: None Drug Abuse: None Family History: CAD, COPD, CVA, DM, Malignancy - Past Medical History Cardiac Medical History: Reports: Hx Coronary Artery Disease, Hx DVT - Reports history of right knee blood clot, Hx Hypercholesterolemia, Hx Hypertension, Hx Peripheral Vascular Disease - Left renal artery stenting Pulmonary Medical History: Reports: Hx Asthma, Hx Bronchitis, Hx COPD, Hx Pneumonia, Hx Respiratory Failure - hypercapnic, Hx Sleep Apnea EENT Medical History: Reports: None Neurological Medical History: Reports: None Endocrine Medical History: Reports: Hx Diabetes Mellitus Type 2, Hx Hypothyroidism Renal/ Medical History: Reports: None Malignancy Medical History: Reports: Hx Cervical Cancer GI Medical History: Reports: Hx Gastroesophageal Reflux Disease, Hx Hiatal Hernia, Hx Ulcer - Diabetic wounds Musculoskeltal Medical History: Reports Hx Arthritis - steroid dependent Rheumatoid arthritis Skin Medical History: Reports None Psychiatric Medical History: Reports: Hx Depression Traumatic Medical History: Reports: Hx Fractures Infectious Medical History: Reports: None Past Surgical History: Reports: Hx Cardiac Catheterization, Hx Cholecystectomy, Hx Hysterectomy, Hx Orthopedic Surgery - back surgery x 2, left ankle ORIF, right ankle surgery, Hx Vascular Surgery - Left renal artery stent, Other - Right eardrum surgery in 1968 - Immunizations Hx Diphtheria, Pertussis, Tetanus Vaccination: No Review of Systems - Review of Systems Constitutional: No symptoms reported EENT: No symptoms reported Cardiovascular: No symptoms reported Respiratory: No symptoms reported Gastrointestinal: Abdominal pain, Nausea, Vomiting, Other - Dark stools after taking Kaopectate Genitourinary: No symptoms reported Female Genitourinary: No symptoms reported Musculoskeletal: No symptoms reported Skin: No symptoms reported Hematologic/Lymphatic: No symptoms reported Neurological/Psychological: No symptoms reported -: Yes All other systems reviewed and negative Physical Exam - Vital signs Vitals: Temp Resp 98.3 F 16 02/04/17 18:40 02/04/17 18:40 Interpretation: Normal - General General appearance: Appears well, Alert - HEENT Head: Normocephalic, Atraumatic Eyes: Normal Pupils: PERRL - Respiratory Respiratory status: No respiratory distress Chest status: Nontender Breath sounds: Normal Chest palpation: Normal - Cardiovascular Rhythm: Regular Heart sounds: Normal auscultation Murmur: No - Abdominal Inspection: Normal Distension: No distension Bowel sounds: Normal Tenderness: Tender Organomegaly: No organomegaly - Back Back: Normal, Nontender - Extremities General upper extremity: Normal inspection, Nontender, Normal color, Normal ROM , Normal temperature General lower extremity: Normal inspection, Nontender, Normal color, Normal ROM , Normal temperature, Normal weight bearing. No: Rao's sign - Neurological Neuro grossly intact: Yes Cognition: Normal Orientation: AAOx4 [place] Coma Scale Eye Opening: Spontaneous [place] Coma Scale Verbal: Oriented Rony Coma Scale Motor: Obeys Commands Rony Coma Scale Total: 15 Speech: Normal Motor strength normal: LUE, RUE, LLE, RLE Sensory: Normal - Psychological Associated symptoms: Normal affect, Normal mood - Skin Skin Temperature: Warm Skin Moisture: Dry Skin Color: Normal Course - Re-evaluation Re-evalutation: 02/05/17 01:33 Patient is being monitored from frequently throughout the night continued to complain of pain in her abdomen. Consulted Dr. Moncada earlier and he stated that if she was continuing to complain of pain that we would need to do a CT to prove that there is nothing going on. CT of abdomen pelvis IV and oral contrast ordered patient has completed her drink and will be going to the CT scan momentarily. 02/05/17 06:[address] was discussed with her daughter when she came to pick her up. Patient was discharged home to follow-up with primary doctor for her masses in her liver and ascites. - Vital Signs Vital signs: Temp Pulse Resp BP Pulse Ox 98.3 F 12 156/96 H 98 02/04/17 18:40 02/05/17 04:30 02/05/17 04:30 02/05/17 04:30 - Laboratory Result Diagrams: 02/04/17 19:10 02/04/17 19:10 Laboratory results interpreted by me: 02/04/17 02/04/17 02/04/17 19:10 19:10 19:25 Hgb 10.7 L Hct 31.8 L MCV 74 L MCH 24.9 L RDW 17.4 H Band Neutrophils % 6 H Metamyelocytes % 1 H Sodium 135.5 L Potassium 3.4 L Chloride 95 L Glucose 278 H POC Glucose 276 H Alkaline Phosphatase 137 H Creatine Kinase 21 L Total Protein 5.6 L Albumin 3.0 L Urine Protein Urine Glucose (UA) Urine Ketones Urine Blood 02/04/17 21:05 Hgb Hct MCV MCH RDW Band Neutrophils % Metamyelocytes % Sodium Potassium Chloride Glucose POC Glucose Alkaline Phosphatase Creatine Kinase Total Protein Albumin Urine Protein 30 H Urine Glucose (UA) >=500 H Urine Ketones 20 H Urine Blood SMALL H - Diagnostic Test Radiology reviewed: Image reviewed, Reports reviewed Discharge - Discharge Clinical Impression: Liver mass Abdominal pain Qualifiers: Abdominal location: generalized Qualified Code(s): R10.84 - Generalized abdominal pain Nausea & vomiting Qualifiers: Vomiting type: unspecified Vomiting Intractability: non-intractable Qualified Code(s): R11.2 - Nausea with vomiting, unspecified Condition: Stable Disposition: HOME, SELF-CARE Instructions: Family Physicians / Practices Additional Instructions: ABDOMINAL PAIN: There are many causes of abdominal pain. Pain can mean a serious problem requiring surgery (such as appendicitis). It can also be an innocent problem that goes away on its own (such as a viral infection). Often, time must pass to determine the cause of pain. The physician does not feel that hospitalization is necessary, at present. Things may change within the next 24 hours. Call the doctor or come back for re- examination if any problems occur, such as: (1) Pain that becomes more severe, steady, or becomes concentrated in one specific area. Also, pain that is more severe with movement or coughing. (2) Vomiting that persists or becomes more frequent. (3) Blood in the vomitus, urine, or bowel movements. Blood in the stool may have a tarry or black appearance. (4) Shaking chills or fever greater than 100 degrees F. (5) The abdomen becomes more distended or swollen. (6) Bowel movements cease. (7) Failure to improve as expected. VOMITING: Vomiting (or nausea without vomiting) can be caused by many other different problems. It can mean that something's wrong with the stomach, such as ulcers or inflammation or the intestinal tract, such as appendicitis. But it can also be a symptom of a problem that has nothing to do with the stomach or intestines. Vomiting is common with severe headaches, earaches, tonsillitis, and kidney infections, etc. We see it with pneumonia or heart attacks. Drugs can cause nausea and vomiting. Many abdominal problems cause vomiting; for example, gallstones, kidney stones, pancreatitis, and intestinal obstruction ( blocked bowels). In most cases, curing the vomiting depends on fixing the problem that caused it. For temporary relief, we may use an anti-nausea medicine. For home use, we can prescribe suppositories, chewable pills, pills that dissolve in the mouth, or liquid anti-nausea drugs. If the vomiting seems to be caused by a problem in the stomach, acid-suppressing drugs may be prescribed as well. It's important to avoid dehydration. Sip small amounts of clear liquids ( soft drinks, tea, broth, etc) . Try to take fluids frequently even if you are vomiting to prevent dehydration. Take increasing amounts of fluid and when liquids are being consumed successfully, advance to small amounts of bland food (toast, soups, mashed potatoes, etc.) until you are able to resume a regular diet. Avoid aspirin, tobacco, and alcohol. If the vomiting worsens, if the problem that's making you vomit worsens, or if there's evidence of bleeding in the stomach (such as black, tarry stool, or bloody or black vomit), you should return immediately. Also, return if abdominal pain worsens or becomes localized to one area or you develop high fever. Call your doctor if you aren't improved in 24 hours. INTRAVENOUS (I V) FLUIDS: As part of your care today, you received intravenous (IV) fluids. IV fluids are administered to patients who are dehydrated or to those who have certain chemical (electrolyte) abnormalities that need correcting. ANT[place] MEDICATION: You have been given a medication to suppress nausea and vomiting. This type of medication can be given as a shot, pill, or suppository. It will usually last for many hours. Pills and shots usually last six to eight hours. For the typical illness, only one or two doses of the medication may be necessary. Mild lightheadedness may occur. This type of medicine can cause drowsiness. Do not drive or operate dangerous machinery while under its influence. Do not mix with alcohol. See your doctor at once if you have muscle spasms or tightness, or uncontrollable motions (particularly of the neck, mouth, or jaw). Persistent vomiting or severe lightheadedness should also be evaluated by the physician. You have several masses on your liver as well as ascites did need to be followed up with your primary doctor promptly. Please call your doctor today and schedule follow-up appointment. These masses are new since your CT in June 2016 and need to be followed up as soon as possible. FOLLOW-UP CARE: If you have been referred to a physician for follow-up care, call the physician s office for an appointment as you were instructed or within the next two days. If you experience worsening or a significant change in your symptoms, notify the physician immediately or return to the Emergency Department at any time for re-evaluation. Prescriptions: Ondansetron [Zofran Odt 4 mg Tablet] 1 tab PO Q6H #15 tab.[email or web address]
[2017-02-04 19:22] LABS: HEMATOCRIT 31.8 % (36.0-47.0); HEMOGLOBIN 10.7 g/dL (12.0-15.5); HGB HCT DIFFERENCE 0.3; MEAN CORPUSCULAR HEMOGLOBIN 24.9 pg (27.0-33.4); MEAN CORPUSCULAR HGB CONC 33.7 g/dL (32.0-36.0); MEAN CORPUSCULAR VOLUME 74 fl (80-97); RED CELL DISTRIBUTION WIDTH 17.4 % (11.5-14.0); WHITE BLOOD COUNT 9.5 10^3/uL (4.0-10.5)
[2017-02-04] MEDS: NORMAL SALINE 1000 ML 1,000 ML IV PRN ×2 (19:30→20:50)
[2017-02-04 19:41] LABS: BAND NEUTROPHILS % (MANUAL) 6 % (3-5); BASOPHILS % (MANUAL) 0 % (0-2); EOSINOPHILS % (MANUAL) 0 % (0-6); LYMPHOCYTES % (MANUAL) 21 % (13-45); TOTAL CELLS COUNTED 100; TOXIC GRANULATION SLIGHT
[2017-02-04 19:45] LABS: ANISOCYTOSIS 1+; HYPOCHROMASIA SLIGHT; MICROCYTOSIS 1+; OVALOCYTES SLIGHT; POIKILOCYTOSIS SLIGHT; POLYCHROMASIA SLIGHT; TARGET CELLS SLIGHT; TEAR DROP CELLS SLIGHT
[2017-02-04 19:47] LABS: ALANINE AMINOTRANSFERASE 30 U/L (9-52); ALKALINE PHOSPHATASE 137 U/L (38-126); ANION GAP 11 (5-19); ASPARTATE AMINO TRANSFERASE 22 U/L (14-36); BILIRUBIN,DIRECT 0.4 mg/dL (0.0-0.4); BILIRUBIN,TOTAL 0.8 mg/dL (0.2-1.3); BLOOD UREA NITROGEN 12 mg/dL (7-20); CALCIUM 8.8 mg/dL (8.4-10.2); CARBON DIOXIDE 30 mmol/L (22-30); CHLORIDE 95 mmol/L (98-107); CREATINE KINASE 21 U/L (30-135); CREATININE RESULT 0.67 mg/dL (0.52-1.25); GLUCOSE 278 mg/dL (75-110); LIPASE 62.2 U/L (23-300); POTASSIUM 3.4 mmol/L (3.6-5.0); SODIUM 135.5 mmol/L (137-145); TOTAL PROTEIN 5.6 g/dL (6.3-8.2)
[2017-02-04 19:58] LABS: CREATINE KINASE MB 0.23 ng/mL (<4.55); TROPONIN I < 0.012 ng/mL
[2017-02-04] MEDS ORDERED: ONDANSETRON HCL INJ/PF 4 MG/2 ML SDV IV ONE (20:43)
[2017-02-04] MEDS ORDERED: ONDANSETRON HCL INJ/PF 4 MG/2 ML SDV ONE (20:46)
[2017-02-04 21:21] LABS: APPEARANCE,URINE CLEAR; BILIRUBIN,URINE NEGATIVE (NEGATIVE); GLUCOSE, URINE >=500 mg/dL (NEGATIVE); KETONES,URINE 20 mg/dL (NEGATIVE); LEUKOCYTE ESTERASE,URINE NEGATIVE (NEGATIVE); NITRITE,URINE NEGATIVE (NEGATIVE); PROTEIN,URINE 30 mg/dL (NEGATIVE); URINE SPECIFIC GRAVITY 1.009; UROBILINOGEN,URINE NEGATIVE mg/dL (<2.0)
[2017-02-04] MEDS ORDERED: POTASSIUM CHLORIDE 10 MEQ TABLET.SA PO ONE (22:48)
--- NOTE | 2017-02-05 02:34 | RADIOLOGY REPORT (SQ) ---
EXAM DESCRIPTION: CT ABD/PELVIS WITH IV ORAL COMPLETED DATE/TIME: 02/05/2017 1:47 am REASON FOR STUDY: abdominal pain COMPARISON: None. TECHNIQUE: CT scan of the abdomen and pelvis performed using helical scanning technique with dynamic intravenous contrast injection. No oral contrast. Images reviewed with lung, soft tissue, and bone windows. Reconstructed coronal and sagittal MPR images reviewed. Delayed images for evaluation of the urinary system also acquired. All images stored on PACS. All CT scanners at this facility use dose modulation, iterative reconstruction, and/or weight based d osing when appropriate to reduce radiation dose to as low as reasonably achievable (ALARA). [facility]: Dose Right [facility]: CareDose [facility]: Dose Right [facility]: Teradose 4D [facility]: Rx Network CONTRAST TYPE AND DOSE: contrast/concentration: Isovue 370.00 mg/ml; Total Contrast Delivered: 100.0 ml; Total Saline Delivered: 43.0 ml RENAL FUNCTION: Creatinine 0.7 all RADIATION DOSE: Up-to-date CT equipment and radiation dose reduction techniques were employed. CTDIv ol: 20.4 - 20.5 mGy. DLP: 2344 mGy-cm.. LIMITATIONS: None. FINDINGS: LOWER CHEST: No significant findings. No nodules or infiltrates. Coronary arterial calcif ication. Minimal atelectasis or scar. LIVER: Mild nodular surface of liver and enlarged caudate lobe suggestive of cirrhosis. Several newl y indeterminate low-attenuation lesions of the liver measure up to 2 cm each. Heterogeneous liver. Interval worsening compared with prior CT, 06/16/2016. Mild dilation of the intrahepatic ducts. SPLEEN: 1.1 cm stable low-attenuation lesion of the spleen, likely benign. PANCREAS: No masses. No significant calcifications. No adjacent inflammation or peripancreatic fluid collections. Pancreatic duct not dilated. GALLBLADDER: Surgically absent. ADRENAL GLANDS: No significant masses or asymmetry. RIGHT KIDNEY AND URETER: Likely benign cysts measuring up to 1.5 cm not definitively characterized. LEFT KIDNEY AND URETER: Severe atrophy of the left kidney. AORTA AND VESSELS: No aneurysm. No dissection. Renal arteries, SMA, celiac without stenosis. Atheros clerosis. RETROPERITONEUM: No retroperitoneal adenopathy, hemorrhage or masses. BOWEL AND PERITONEAL CAVITY: No masses or inflammatory changes. Small to moderate diffuse ascites. APPENDIX: Normal. PELVIS: No mass. No free fluid. Normal bladder. ABDOMINAL WALL: No masses. No hernias. BONES: Partially imaged miguel ángel fixation of the proximal right femur. Vacuum disc desiccation between th e web L1 and L5 levels. Moderate bony demineralization. Moderate osteoarthritis. Moderate desiccat ed-protrusive disc disease between the L1 and S1 levels contributing to [id number] spinal and f oraminal canal compromise. OTHER: No other significant finding. IMPRESSION: 1. Several new low-attenuation lesions of the liver measure up to 2 cm each new compare d with prior CT, 06/16/2016. Malignancy is of 1st consideration. Consider further evaluation with co ntrast MRI of the liver. 2. Moderate cirrhosis pattern. [id number] ascites. TECHNICAL DOCUMENTATION: JOB ID: [id number] Quality ID # [id number]: Final reports with documentation of one or more dose reduction techniques (e.g., Au tomated exposure control, adjustment of the mA and/or kV according to patient size, use of iterative reconstruction technique) 2010 [employer]- All Rights Reserved
[2017-02-05] MEDS ORDERED: POTASSIUM CHLORIDE 10 MEQ TABLET.SA PO ONE (03:24)
[2017-02-05 04:41] VITALS: BP 156/96
--- NOTE | 2017-02-05 12:13 | EKG REPORT ---
SEVERITY:- OTHERWISE NORMAL ECG - SINUS RHYTHM BORDERLINE LEFT AXIS DEVIATION : Confirmed by: Jasmin Mathur MD 05-Feb-2017 12:12:58
== END 2017-02-05 04:41 | disposition home or self-care (01) ==
LOC: ER 18:31
DX: R10.84 Generalized abdominal pain (principal); R11.2 Nausea with vomiting, unspecified; R16.0 Hepatomegaly, not elsewhere classified; F17.200 Nicotine dependence, unspecified, uncomplicated; E11.9 Type 2 diabetes mellitus without complications
CPT/HCPCS: 93005; 99285; 96361; 51701; 96374; 36415; 82553; 82962; 82550; 83690; 85025; 80053; 81001; 84484; 74177; 93010; J2405; J7030; A9270

== ENCOUNTER 2017-02-13 21:28 | Emergency (ER) | payer MEDICARE ==
[2017-02-13] MEDS ORDERED: ONDANSETRON 4 MG TAB.RAPDIS SL ONE (22:30)
--- NOTE | 2017-02-13 23:28 | ER Document Report ---
ED GI/ - General Mode of Arrival: Ambulatory Information source: Patient TRAVEL OUTSIDE OF THE [place] IN LAST 30 DAYS: No - HPI Patient complains to provider of: Abdominal pain Associated symptoms: Other - black/tarry stools Similar symptoms previously: Yes Recently seen / treated by doctor: Yes <ART MCKEON - Last Filed: 02/14/17 03:21> <MILI GREGG - Last Filed: 02/14/17 07:01> - General Chief Complaint: Nausea/Vomiting/Diarrhea Stated Complaint: NAUSEA/VOMITING Time Seen by Provider: 02/13/17 23:04 Notes: Patient is a 71-year-old female who presents to the emergency department today with complaints of vomiting and diarrhea for two weeks. Patient states she has had black tarry stools as well. Patient states the pain is in her upper abdomen and she also describes "side pain". Patient states she has trouble getting comfortable in bed. Patient states she was recently here for similar symptoms and was told she had a masses on her liver. (ART MCKEON) - Related Data Allergies/Adverse Reactions: codeine [Codeine] Allergy (Intermediate, Verified 02/13/17 21:43) itching Past Medical History - General Information source: Patient, [facility] Records - Social History Smoking Status: Former Smoker Cigarette use (# per day): No Chew tobacco use (# tins/day): No Frequency of alcohol use: None Drug Abuse: None Family History: CAD, COPD, CVA, DM, Malignancy - Past Medical History Cardiac Medical History: Reports: Hx Coronary Artery Disease, Hx DVT - Reports history of right knee blood clot, Hx Hypercholesterolemia, Hx Hypertension, Hx Peripheral Vascular Disease - Left renal artery stenting Pulmonary Medical History: Reports: Hx Asthma, Hx Bronchitis, Hx COPD, Hx Pneumonia, Hx Respiratory Failure - hypercapnic, Hx Sleep Apnea Endocrine Medical History: Reports: Hx Diabetes Mellitus Type 1, Hx Diabetes Mellitus Type 2, Hx Hypothyroidism Malignancy Medical History: Reports: Hx Cervical Cancer GI Medical History: Reports: Hx Gastroesophageal Reflux Disease, Hx Hiatal Hernia, Hx Ulcer - Diabetic wounds Musculoskeltal Medical History: Reports Hx Arthritis - steroid dependent Rheumatoid arthritis Psychiatric Medical History: Reports: Hx Depression Traumatic Medical History: Reports: Hx Fractures Past Surgical History: Reports: Hx Cardiac Catheterization, Hx Cholecystectomy, Hx Hysterectomy, Hx Orthopedic Surgery - back surgery x 2, left ankle ORIF, right ankle surgery, Hx Vascular Surgery - Left renal artery stent, Other - Right eardrum surgery in 1969 - Immunizations Hx Diphtheria, Pertussis, Tetanus Vaccination: No <ART MCKEON - Last Filed: 02/14/17 03:21> Review of Systems - Review of Systems Constitutional: No symptoms reported EENT: No symptoms reported Cardiovascular: No symptoms reported Respiratory: No symptoms reported Gastrointestinal: See HPI, Abdominal pain, Diarrhea, Vomiting, Black stools Genitourinary: No symptoms reported Female Genitourinary: No symptoms reported Musculoskeletal: No symptoms reported Skin: No symptoms reported Hematologic/Lymphatic: No symptoms reported Neurological/Psychological: No symptoms reported -: Yes All other systems reviewed and negative <ART MCKEON - Last Filed: 02/14/17 03:21> Physical Exam <ART MCKEON - Last Filed: 02/14/17 03:21> <MILI GREGG - Last Filed: 02/14/17 07:01> - Vital signs Vitals: Temp Pulse Resp BP Pulse Ox 98.7 F 110 H 28 H 171/93 H 93 02/13/17 21:44 02/13/17 21:44 02/13/17 21:44 02/13/17 21:44 02/13/17 21:44 - Notes Notes: PHYSICAL EXAM GENERAL: Alert, interacts well. No acute distress. HEAD: Normocephalic, atraumatic. Hirsute hair pattern. EYES: Pupils equal, round, and reactive to light. Extraocular movements intact. ENT: Oral mucosa moist, tongue midline. NECK: Full range of motion. Supple. Trachea midline. BACK: [place] hump. RECTAL: Melanotic appearing stool, no gross blood. LUNGS: Trace expiratory wheeze bilaterally, no rales or rhonchi. No respiratory distress. HEART: Regular rate and rhythm. No murmurs, gallops, or rubs. ABDOMEN: Mild diffuse abdominal tenderness with palpation, moderate epigastric tenderness with palpation. Palpable nodular mass in left abdomen over area where patient administers insulin injections. Non-distended. Bowel sounds present in all 4 quadrants. EXTREMITIES: Moves all 4 extremities spontaneously. No edema, radial and dorsalis pedis pulses 2/4 bilaterally. No cyanosis. NEUROLOGICAL: Alert and oriented x3. Normal speech. PSYCH: Normal affect, normal mood. SKIN: Warm, dry, normal turgor. Superficial lesion over distal portion of cholycystectomy scar in RUQ with minimal surrounding erythema. (ART MCKEON) Course - Laboratory Result Diagrams: 02/13/17 23:20 02/13/17 23:20 <ART MCKEON - Last Filed: 02/14/17 03:21> - Laboratory Result Diagrams: 02/13/17 23:20 02/13/17 23:20 <MILI GREGG - Last Filed: 02/14/17 07:01> - Re-evaluation Re-evalutation: 02/14/17 01:01 CBC shows anemia with hemoglobin 11.3 but this is improved compared to her hemoglobin approximately 1 week ago, no leukocytosis, CMP does not show any signs of dehydration, glucose is elevated at 381 she is a known diabetic who is insulin-dependent, lipase normal, LFTs grossly unremarkable, ammonia undetectable, urinalysis shows 20 ketones which is the same as last time, no signs of blood or infection, occult blood is negative. Abdomen is not acute. No evidence of acute liver failure today, no evidence of hepatic encephalopathy. Patient has not actively vomited while in the emergency department and is currently requesting water. Patient does ask if she can be admitted to the hospital for the next several days until she is feeling better. Discussed with patient that there is no indication for admission and that there can be complications simply from being hospitalized, discussed that without an indication it would be dangerous to admit her. Patient will be given Zofran, Phenergan and Imodium for symptomatic relief. Strongly encouraged to follow-up with her doctor as well as a commercial hvac service technician. Patient will be discharged to home. (MILI GREGG) - Vital Signs Vital signs: Temp Pulse Resp BP Pulse Ox 98.0 F 82 18 160/82 H 97 02/14/17 06:04 02/14/17 06:04 02/14/17 06:04 02/14/17 06:04 02/14/17 06:04 - Laboratory Laboratory results interpreted by me: 02/13/17 02/13/17 02/13/17 23:20 23:20 23:20 Hgb 11.3 L Hct 35.5 L MCV 74 L MCH 23.7 L RDW 17.2 H Seg Neutrophils % 84.4 H Lymphocytes % 7.9 L Absolute Neutrophils 8.9 H Sodium 135.0 L Chloride 91 L Carbon Dioxide 33 H Glucose 381 H Direct Bilirubin 0.5 H Alkaline Phosphatase 146 H Ammonia < 8.7 L Total Protein 6.1 L Albumin 3.3 L Urine Protein Urine Glucose (UA) Urine Ketones 02/13/17 23:20 Hgb Hct MCV MCH RDW Seg Neutrophils % Lymphocytes % Absolute Neutrophils Sodium Chloride Carbon Dioxide Glucose Direct Bilirubin Alkaline Phosphatase Ammonia Total Protein Albumin Urine Protein 30 H Urine Glucose (UA) >=500 H Urine Ketones 20 H Discharge <ART MCKEON - Last Filed: 02/14/17 03:21> <MILI GREGG - Last Filed: 02/14/17 07:01> - Discharge Clinical Impression: Nausea vomiting and diarrhea, Insulin dependent diabetes mellitus Cirrhosis of liver Qualifiers: Hepatic cirrhosis type: unspecified hepatic cirrhosis Ascites presence: with ascites Qualified Code(s): K74.60 - Unspecified cirrhosis of liver Hyperglycemia due to type 2 diabetes mellitus Qualifiers: Diabetes mellitus halfway insulin use: with terminal gauger use Qualified Code(s): E11.65 - Type 2 diabetes mellitus with hyperglycemia Condition: Stable Disposition: HOME, SELF-CARE Additional Instructions: Despite several weeks of vomiting and diarrhea there are no signs of dehydration today. Please continue to follow a bland diet, start with clear liquids and then advance your diet as tolerated. Avoid greasy and fatty foods. You will need to follow-up with a commercial hvac service technician to have the cirrhosis of your liver followed up further, they may even refer you to a furnace mechanic ( liver doctor). If your primary care physician will not see you in follow-up for this problem you may call Dr. Lamar who is the discharge doctor and he will see you for 1 follow-up appointment after your emergency department visit. Use the Zofran and Phenergan for vomiting. Please use Imodium as directed on the box [id number] for your diarrhea. Please avoid Pepto-Bismol as it can turn your stools black. Prescriptions: Loperamide HCl [Imodium 2 mg Capsule] 2 mg PO Q4HP PRN #21 cap PRN Reason: Ondansetron [Zofran Odt 4 mg Tablet] 1 - 2 tab PO Q4H PRN #15 tab.rapdis PRN Reason: For Nausea/Vomiting Promethazine HCl [Phenergan 25 mg Tablet] 1 - 2 tab PO Q6H PRN #15 tablet PRN Reason: Referrals: HERMAN LAMAR MD [ACTIVE STAFF] - Follow up as needed Scribe Attestation: 02/14/17 07:01 I personally performed the services described in the documentation, reviewed and edited the documentation which was dictated to the scribe in my presence, and it accurately records my words and actions. (MILI GREGG) Scribe Documentation - Scribe Written by Scribe:: Ghazal Mueller, 02/14/2017 0314 acting as scribe for :: Gregory <ART MCKEON - Last Filed: 02/14/17 03:21>
[2017-02-13 23:30] LABS: ABSOLUTE BASOPHILS # (AUTO) 0.1 10^3/uL (0.0-0.2); ABSOLUTE LYMPHOCYTES (AUTO) 0.8 10^3/uL (0.5-4.7); ABSOLUTE MONOCYTES (AUTO) 0.7 10^3/uL (0.1-1.4); ABSOLUTE NEUT (AUTO) 8.9 10^3/uL (1.7-8.2); BASOPHILS % (AUTO) 0.5 % (0-2); EOSINOPHILS % (AUTO) 0.2 % (0-6); HEMATOCRIT 35.5 % (36.0-47.0); HEMOGLOBIN 11.3 g/dL (12.0-15.5); HGB HCT DIFFERENCE -1.6; LYMPHOCYTES % (AUTO) 7.9 % (13-45); MEAN CORPUSCULAR HEMOGLOBIN 23.7 pg (27.0-33.4); MEAN CORPUSCULAR VOLUME 74 fl (80-97); RED BLOOD COUNT 4.78 10^6/uL (3.72-5.28); RED CELL DISTRIBUTION WIDTH 17.2 % (11.5-14.0); SEGMENTED NEUTROPHILS % (AUTO) 84.4 % (42-78); WHITE BLOOD COUNT 10.5 10^3/uL (4.0-10.5)
[2017-02-13 23:54] LABS: ALANINE AMINOTRANSFERASE 23 U/L (9-52); ALBUMIN 3.3 g/dL (3.5-5.0); ALKALINE PHOSPHATASE 146 U/L (38-126); ANION GAP 11 (5-19); ASPARTATE AMINO TRANSFERASE 18 U/L (14-36); BILIRUBIN,DIRECT 0.5 mg/dL (0.0-0.4); BILIRUBIN,TOTAL 0.6 mg/dL (0.2-1.3); BLOOD UREA NITROGEN 9 mg/dL (7-20); CARBON DIOXIDE 33 mmol/L (22-30); CHLORIDE 91 mmol/L (98-107); CREATININE RESULT 0.63 mg/dL (0.52-1.25); GLUCOSE 381 mg/dL (75-110); LIPASE 60.1 U/L (23-300); POTASSIUM 3.7 mmol/L (3.6-5.0); TOTAL PROTEIN 6.1 g/dL (6.3-8.2)
[2017-02-13 23:59] LABS: APPEARANCE,URINE CLEAR; BILIRUBIN,URINE NEGATIVE (NEGATIVE); GLUCOSE, URINE >=500 mg/dL (NEGATIVE); KETONES,URINE 20 mg/dL (NEGATIVE); LEUKOCYTE ESTERASE,URINE NEGATIVE (NEGATIVE); NITRITE,URINE NEGATIVE (NEGATIVE); PROTEIN,URINE 30 mg/dL (NEGATIVE); URINE SPECIFIC GRAVITY 1.013; UROBILINOGEN,URINE NEGATIVE mg/dL (<2.0)
[2017-02-14] MEDS ORDERED: ONDANSETRON ODT 4 MG TAB (6 TAB/DSPK) PO PRN (01:00)
[2017-02-14 06:04] VITALS: BP 160/82
== END 2017-02-14 06:05 | disposition home or self-care (01) ==
LOC: ER 21:28
DX: K74.60 Unspecified cirrhosis of liver (principal); E11.65 Type 2 diabetes mellitus with hyperglycemia; R11.2 Nausea with vomiting, unspecified; R19.7 Diarrhea, unspecified; Z87.891 Personal history of nicotine dependence; Z79.4 Long term (current) use of insulin
CPT/HCPCS: 99284; 36415; 87086; 82140; 83690; 85025; 82272; 80053; 81001; A9270 ×2; S0119

== ENCOUNTER 2017-02-16 10:31 | Inpatient (IN) | payer MEDICARE ==
[2017-02-16] MEDS ORDERED: ONDANSETRON HCL INJ/PF 4 MG/2 ML SDV IV ONE (10:49)
[2017-02-16 11:12] LABS: ABSOLUTE BASOPHILS # (AUTO) 0.1 10^3/uL (0.0-0.2); ABSOLUTE EOSINOPHILS # (AUTO) 0.1 10^3/uL (0.0-0.6); ABSOLUTE LYMPHOCYTES (AUTO) 1.5 10^3/uL (0.5-4.7); ABSOLUTE MONOCYTES (AUTO) 1.3 10^3/uL (0.1-1.4); ABSOLUTE NEUT (AUTO) 11.1 10^3/uL (1.7-8.2); BASOPHILS % (AUTO) 0.6 % (0-2); EOSINOPHILS % (AUTO) 0.4 % (0-6); HEMOGLOBIN 12.7 g/dL (12.0-15.5); HGB HCT DIFFERENCE -1.9; LYMPHOCYTES % (AUTO) 10.9 % (13-45); MEAN CORPUSCULAR HEMOGLOBIN 23.7 pg (27.0-33.4); MEAN CORPUSCULAR HGB CONC 31.8 g/dL (32.0-36.0); MEAN CORPUSCULAR VOLUME 75 fl (80-97); MONOCYTES % (AUTO) 9.3 % (3-13); RED BLOOD COUNT 5.36 10^6/uL (3.72-5.28); RED CELL DISTRIBUTION WIDTH 17.2 % (11.5-14.0); SEGMENTED NEUTROPHILS % (AUTO) 78.8 % (42-78); WHITE BLOOD COUNT 14.1 10^3/uL (4.0-10.5)
[2017-02-16 11:28] LABS: ALANINE AMINOTRANSFERASE 27 U/L (9-52); ALBUMIN 3.3 g/dL (3.5-5.0); ALKALINE PHOSPHATASE 134 U/L (38-126); ANION GAP 13 (5-19); ASPARTATE AMINO TRANSFERASE 14 U/L (14-36); BILIRUBIN,DIRECT 0.5 mg/dL (0.0-0.4); BILIRUBIN,TOTAL 1.1 mg/dL (0.2-1.3); BLOOD UREA NITROGEN 11 mg/dL (7-20); CALCIUM 9.5 mg/dL (8.4-10.2); CARBON DIOXIDE 34 mmol/L (22-30); CHLORIDE 83 mmol/L (98-107); CREATININE RESULT 0.91 mg/dL (0.52-1.25); GLUCOSE 299 mg/dL (75-110); POTASSIUM 3.2 mmol/L (3.6-5.0); SODIUM 130.2 mmol/L (137-145); TOTAL PROTEIN 6.1 g/dL (6.3-8.2)
[2017-02-16 11:29] LABS: VENOUS BLOOD BASE EXCESS 10.6 mmol/L; VENOUS BLOOD HCO3 36.9 mmol/L (20-32); VENOUS BLOOD PCO2 55.9 mmHg (35-63); VENOUS BLOOD PH 7.44 (7.30-7.42)
--- NOTE | 2017-02-16 12:07 | RADIOLOGY REPORT (SQ) ---
EXAM DESCRIPTION: CHEST / AP and lateral upright filming. COMPLETED DATE/TIME: 02/16/2017 11:50 am REASON FOR STUDY: shortness of breath COMPARISON: 11/19/2016 TECHNIQUE: Frontal and lateral radiographic views of the chest acquired. NUMBER OF VIEWS: Two view. LIMITATIONS: Shallow inspiration. Patient body habitus. FINDINGS: LUNGS AND PLEURA: Lungs appear generally clear except for linear atelectatic markings left lung base. MEDIASTINUM AND HILAR STRUCTURES: Stable. HEART AND VASCULAR STRUCTURES: Heart stable. No overt CHF. BONES: No acute findings. HARDWARE: None in the chest. OTHER: No other significant finding. IMPRESSION: Limited filming. Linear atelectasis left lung base. TECHNICAL DOCUMENTATION: JOB ID: [id number] [employer]- All Rights Reserved
[2017-02-16] MEDS: NORMAL SALINE 1000 ML 1,000 ML IV PRN ×2 (12:10→15:14)
--- NOTE | 2017-02-16 12:16 | RADIOLOGY REPORT (SQ) ---
EXAM DESCRIPTION: ABDOMEN 2 VIEWS COMPLETED DATE/TIME: 02/16/2017 11:51 am REASON FOR STUDY: n/v Known ascites. Masses of the liver. COMPARISON: Acute abdomen series 10/07/[address] abdomen and pelvis 02/05/2017 TECHNIQUE: KUB and upright abdomen. 4 films total LIMITATIONS: None. FINDINGS: Multiple dilated loops of small bowel are noted concerning for obstruction. Increased density the upper abdomen, likely combination of known ascites, prominent liver and possibl e distended stomach. Surgical clips right upper quadrant. No free air identified. Atelectatic markings noted lung bases. IMPRESSION: Dilated small bowel concerning for obstruction. Increased density the upper abdomen, likely a combination of known ascites, prominent liver and possi ble distended stomach. TECHNICAL DOCUMENTATION: JOB ID: [id number] [employer]- All Rights Reserved
[2017-02-16] MEDS ORDERED: METOCLOPRAMIDE HCL INJ/PF 10 MG/2 ML SDV IV ONE (12:37)
--- NOTE | 2017-02-16 12:44 | ER Document Report ---
ED GI/ - General Chief Complaint: Vomiting Stated Complaint: VOMITING/WEAKNESS Time Seen by Provider: 02/16/17 10:41 Notes: Patient is a 71-year-old female who returns emergency department after being evaluated here 3 days ago complaining of continued nausea, vomiting and loose bowel movements. Patient states that she is been trying to take the medications that they have not been working and she has been trying to give a chance at home vomiting without improvement. Patient admits to and epigastric discomfort as well as right upper quadrant pain. Most recently patient states that she was evaluated here at CT showed masses on her liver with associated cirrhosis and mild ascites. Patient states that she does not have a history of alcohol abuse or drug abuse. Denies having primary care TRAVEL OUTSIDE OF THE [place] IN LAST 30 DAYS: No - Related Data Allergies/Adverse Reactions: codeine [Codeine] Allergy (Intermediate, Verified 02/16/17 11:07) itching Home Medications: Current Home Medications Amlodipine Besylate [Norvasc 10 mg Tablet] 10 mg PO DAILY 02/16/17 [History] Duloxetine HCl 30 mg PO QHS 02/16/17 [History] Ergocalciferol (Vitamin D2) [Drisdol 50,000 unit (1.25MG) Capsule] 50,000 unit PO [id number] 02/16/17 [History] Famotidine [Pepcid 20 mg Tablet] 20 mg PO DAILY 02/16/17 [History] Glipizide [Glocotrol 10 Mg Tablet] 10 mg PO Q12 02/16/17 [History] Insulin Regular, Human [Humulin R (Pyxis) Insulin 100 Unit/ml 3Ml] 20 unit SUBCUT AC 02/16/17 [History] Levothyroxine Sodium [Synthroid] 125 mcg PO DAILY 02/16/17 [History] Lisinopril [Zestril] 20 mg PO DAILY 02/16/17 [History] Loperamide HCl [Loperamide] 2 mg PO Q4HP PRN 02/16/17 [History] Lorazepam [Ativan 1 mg Tablet] 1.5 mg PO HSP PRN 02/16/17 [History] Metformin HCl [Glucophage XR 500 mg Tablet] 500 mg PO BIDACBS 02/16/17 [History] Montelukast Sodium [Singulair 10 mg Tablet] 10 mg PO QHS 02/16/17 [History] Nystatin 1 applic TOP BID 02/16/17 [History] Omeprazole 20 mg PO QHS 02/16/17 [History] Ondansetron [Zofran Odt 4 mg Tablet] 4 mg PO Q6HP PRN 02/16/17 [History] Oxycodone HCl 15 mg PO Q6HP PRN 02/16/17 [History] Oxycodone HCl [Oxycontin] 40 mg PO Q12 02/16/17 [History] Prednisone [Deltasone 20 mg Tablet] 20 mg PO DAILY 02/16/17 [History] Promethazine HCl [Phenergan 25 mg Tablet] 25 mg PO Q6HP PRN 02/16/17 [History] Travoprost [Travatan Z] 1 drop OU DAILY 02/16/17 [History] Past Medical History - Social History Smoking Status: Never Smoker Chew tobacco use (# tins/day): No Frequency of alcohol use: None Drug Abuse: None Family History: CAD, COPD, CVA, DM, Malignancy - Past Medical History Cardiac Medical History: Reports: Hx Coronary Artery Disease, Hx DVT - Reports history of right knee blood clot, Hx Hypercholesterolemia, Hx Hypertension, Hx Peripheral Vascular Disease - Left renal artery stenting Pulmonary Medical History: Reports: Hx Asthma, Hx Bronchitis, Hx COPD, Hx Pneumonia, Hx Respiratory Failure - hypercapnic, Hx Sleep Apnea Endocrine Medical History: Reports: Hx Diabetes Mellitus Type 1, Hx Diabetes Mellitus Type 2, Hx Hypothyroidism Renal/ Medical History: Denies: Hx Peritoneal Dialysis Malignancy Medical History: Reports: Hx Cervical Cancer GI Medical History: Reports: Hx Gastroesophageal Reflux Disease, Hx Hiatal Hernia, Hx Ulcer - Diabetic wounds Musculoskeltal Medical History: Reports Hx Arthritis - steroid dependent Rheumatoid arthritis Psychiatric Medical History: Reports: Hx Depression Traumatic Medical History: Reports: Hx Fractures Past Surgical History: Reports: Hx Cardiac Catheterization, Hx Cholecystectomy, Hx Hysterectomy, Hx Orthopedic Surgery - back surgery x 2, left ankle ORIF, right ankle surgery, Hx Vascular Surgery - Left renal artery stent, Other - Right eardrum surgery in 1968 - Immunizations Hx Diphtheria, Pertussis, Tetanus Vaccination: No Review of Systems - Review of Systems Constitutional: Malaise, Weakness Cardiovascular: No symptoms reported Respiratory: No symptoms reported Gastrointestinal: See HPI -: Yes All other systems reviewed and negative Physical Exam - Vital signs Vitals: Resp BP Pulse Ox 13 160/109 H 100 02/16/17 10:45 02/16/17 10:45 02/16/17 10:45 - Notes Notes: PHYSICAL EXAM GENERAL: Alert, interacts well. HEAD: Normocephalic, atraumatic. EYES: Pupils equal, round, and reactive to light. Extraocular movements intact. ENT: Oral mucosa moist, tongue midline. NECK: Full range of motion. Supple. Trachea midline. LUNGS: Clear to auscultation bilaterally, no wheezes, rales, or rhonchi. No respiratory distress. HEART: Regular rate and rhythm. No murmurs, gallops, or rubs. ABDOMEN: Soft, mildly distended and mild epigastric tenderness. No guarding, rebound, or rigidity.. Bowel sounds present in all 4 quadrants. EXTREMITIES: Moves all 4 extremities spontaneously. No edema, radial and dorsalis pedis pulses 2/4 bilaterally. No cyanosis. NEUROLOGICAL: Alert and oriented x4. Normal speech. PSYCH: Normal affect, normal mood. SKIN: Warm, dry, normal turgor. No rashes or lesions noted. Course - Re-evaluation Re-evalutation: 02/16/17 12:25 Patient is a 18-year-old female who is hemodynamic stable, no acute distress afebrile. Patient has had 2 episodes of emesis on the department. CBC shows mild elevation in white blood cell count likely consistent with the fact that she has been throwing up evaluated here 3 days ago. Electrolytes show evidence of abnormality due to chronic emesis for the past 3 days. No evidence of elevated liver function. Acute abdomen series shows evidence for small bowel obstruction. Given patient's recent concerns for liver masses patient will be admitted to medicine service for surgical consult. 02/16/17 18:42 Patient has been accepted by hospitalist Dr. Manuel her hospital admission. Patient clinically feeling better and responding well to IV Reglan. Patient is agreeable with plan. - Vital Signs Vital signs: Temp Pulse Resp BP Pulse Ox 99.4 F 94 20 141/68 H 98 02/16/17 15:46 02/16/17 15:46 02/16/17 15:46 02/16/17 15:46 02/16/17 16:48 - Laboratory Result Diagrams: 02/16/17 10:48 02/16/17 10:48 Laboratory results interpreted by me: 02/16/17 02/16/17 02/16/17 10:44 10:48 10:48 WBC 14.1 H RBC 5.36 H MCV 75 L MCH 23.7 L MCHC 31.8 L RDW 17.2 H Plt Count 472 H Seg Neutrophils % 78.8 H Lymphocytes % 10.9 L Absolute Neutrophils 11.1 H VBG pH VBG HCO3 Sodium 130.2 L Potassium 3.2 L Chloride 83 L Carbon Dioxide 34 H Glucose 299 H POC Glucose 331 H Direct Bilirubin 0.5 H Alkaline Phosphatase 134 H Ammonia Total Protein 6.1 L Albumin 3.3 L Amylase Urine Protein Urine Glucose (UA) Urine Ketones Urine Urobilinogen 02/16/17 02/16/17 02/16/17 10:48 11:13 11:13 WBC RBC MCV MCH MCHC RDW Plt Count Seg Neutrophils % Lymphocytes % Absolute Neutrophils VBG pH 7.44 H VBG HCO3 36.9 H Sodium Potassium Chloride Carbon Dioxide Glucose POC Glucose Direct Bilirubin Alkaline Phosphatase Ammonia < 8.7 L Total Protein Albumin Amylase < 30 L Urine Protein Urine Glucose (UA) Urine Ketones Urine Urobilinogen 02/16/17 13:29 WBC RBC MCV MCH MCHC RDW Plt Count Seg Neutrophils % Lymphocytes % Absolute Neutrophils VBG pH VBG HCO3 Sodium Potassium Chloride Carbon Dioxide Glucose POC Glucose Direct Bilirubin Alkaline Phosphatase Ammonia Total Protein Albumin Amylase Urine Protein >=500 H Urine Glucose (UA) >=500 H Urine Ketones 20 H Urine Urobilinogen 4.0 H - Diagnostic Test Radiology reviewed: Image reviewed, Reports reviewed - Consults Dr. Tracy Miller consulted: 12:25 Reason for consultation: 02/16/17 12:44 SBO for admission Consulted provider: will come to ER Dr. Manuel Time consulted: 13:20 Reason for consultation: 02/16/17 13:23 Hospital admission for SBO with associated medical conditions Consulted provider: will come to ER Discharge - Discharge Clinical Impression: SBO (small bowel obstruction) Cirrhosis of liver Qualifiers: Hepatic cirrhosis type: unspecified hepatic cirrhosis Ascites presence: with ascites Qualified Code(s): K74.60 - Unspecified cirrhosis of liver Admitting Provider: Ruth Manuel Unit Admitted: Medical Floor
[2017-02-16 13:49] LABS: APPEARANCE,URINE SLIGHTLY-CLOUDY; BILIRUBIN,URINE NEGATIVE (NEGATIVE); GLUCOSE, URINE >=500 mg/dL (NEGATIVE); KETONES,URINE 20 mg/dL (NEGATIVE); LEUKOCYTE ESTERASE,URINE NEGATIVE (NEGATIVE); NITRITE,URINE NEGATIVE (NEGATIVE); PROTEIN,URINE >=500 mg/dL (NEGATIVE)
--- NOTE | 2017-02-16 14:21 | RADIOLOGY REPORT (SQ) ---
EXAM DESCRIPTION: CHEST SINGLE VIEW COMPLETED DATE/TIME: 02/16/2017 1:48 pm REASON FOR STUDY: NGT placement COMPARISON: Two-view chest 02/16/2017 EXAM PARAMETERS: NUMBER OF VIEWS: One view. TECHNIQUE: Single frontal radiographic view of the chest acquired. RADIATION DOSE: NA LIMITATIONS: None thickened borderline, the demonstrate nasogastric tube placement. Lungs somewhat o verpenetrated. FINDINGS: LUNGS AND PLEURA: Bandlike atelectasis both lung bases. Lungs otherwise grossly clear. N o gross pleural effusions. MEDIASTINUM AND HILAR STRUCTURES: No masses. Contour normal. HEART AND VASCULAR STRUCTURES: Stable mild cardiomegaly BONES: No acute findings. HARDWARE: There is a nasogastric tube present, with the tip and side port in the stomach. Tube tip m arked with an arrow. OTHER: No other significant finding. IMPRESSION: Nasogastric tube tip and side port in the stomach. Bibasilar atelectasis. TECHNICAL DOCUMENTATION: JOB ID: [id number]
[2017-02-16] MEDS ORDERED: NORMAL SALINE 1000 ML 1,000 ML IV PRN (14:22)
[2017-02-16] MEDS ORDERED: GLUCAGON,HUMAN RECOMB 1 MG INJ IM PRN (14:22)
[2017-02-16] MEDS ORDERED: DEXTROSE 40% GEL 15 GM TUBE PO PRN ×4 (14:22)
[2017-02-16] MEDS ORDERED: ACETAMINOPHEN 325 MG TABLET PO PRN (14:22)
[2017-02-16] MEDS ORDERED: DEXTROSE 50%-WATER 25 GM/50 ML DISP.SYRIN IV PRN ×4 (14:22)
[2017-02-16] MEDS ORDERED: GLUCAGON,HUMAN RECOMB 1 MG INJ SUBCUT PRN (14:22)
[2017-02-16] MEDS ORDERED: PHARMACY COMMUNICATION ORDER MC NR (14:30)
[2017-02-16 14:46] LABS: PROTHROMBIN TIME 13.1 SEC (11.4-15.4)
[2017-02-16] MEDS ORDERED: MORPHINE SULFATE 10 MG/ML INJ IV PRN (14:59)
[2017-02-16] MEDS ORDERED: MORPHINE SULFATE 10 MG/ML INJ IV ONE (14:59)
--- NOTE | 2017-02-16 15:05 | PDOC H&P ---
History of Present Illness Admission Date/PCP: 02/16/17 13:45 Patient complains of: Nausea and vomiting History of Present Illness: ABISAI JOHNSON is a 71 year old female She has been complaining of nausea and vomiting and loose bowel movement for the past 3 weeks. This is her 3rd evaluation in ED. A CT scan of the abdomen was done from last presentation at that time showed no evidence of obstruction but has masses in the liver the largest of which is about 2 cm. She also has some ascites. Her past history showed showed that she had a hysterectomy for cervical cancer in 1985. She had a history of also open cholecystectomy. Has chills but no fever, there is abdominal pain, nausea and vomiting. She has chronic back pain and goes to a pain clinic. No melena hematochezia no hematemesis. No dysuria urgency or frequency. No vaginal discharge or bleeding. She had a past history of cervical cancer multiple years ago. She was evaluated by surgery and referred to medicine for admission. Patient's primary care has discharged her from his practice. Past Medical History Cardiac Medical History: Reports: Coronary Artery Disease, DVT - Reports history of right knee blood clot, Hyperlipidema, Hypertension, Peripheral Vascular Disease - Left renal artery stenting Pulmonary Medical History: Reports: Asthma, Bronchitis, Chronic Obstructive Pulmonary Disease (COPD), Pneumonia, Respiratory Failure - hypercapnic, Sleep Apnea Endocrine Medical History: Reports: Diabetes Mellitus Type 1, Diabetes Mellitus Type 2, Hypothyroidism Malignancy Medical History: Reports: Cervical Cancer GI Medical History: Reports: Gastroesophageal Reflux Disease, Hiatal Hernia Musculoskeltal Medical History: Reports: Arthritis - steroid dependent Rheumatoid arthritis Psychiatric Medical History: Reports: Depression Past Surgical History Past Surgical History: Reports: Cardiac Catheterization, Cholecystectomy, Hysterectomy, Orthopedic Surgery - back surgery x 2, left ankle ORIF, right ankle surgery, Vascular Surgery - Left renal artery stent, Other - Right eardrum surgery in 1968 Social History Information Source: Patient Smoking Status: Never Smoker Frequency of Alcohol Use: None Hx Recreational Drug Use: No Drugs: None Hx Prescription Drug Abuse: No Family History Family History: CAD, COPD, CVA, DM, Malignancy Parental Family History Reviewed: Yes Children Family History Reviewed: Yes Sibling(s) Family History Reviewed.: Yes Medication/Allergy Home Medications: Amlodipine Besylate [Norvasc 10 mg Tablet] 10 mg PO DAILY 02/16/17 Duloxetine HCl 30 mg PO QHS 02/16/17 Ergocalciferol (Vitamin D2) [Drisdol 50,000 unit (1.25MG) Capsule] 50,000 unit PO [id number] 02/16/17 Famotidine [Pepcid 20 mg Tablet] 20 mg PO DAILY 02/16/17 Glipizide [Glocotrol 10 Mg Tablet] 10 mg PO Q12 02/16/17 Insulin Regular, Human [Humulin R (Pyxis) Insulin 100 Unit/ml 3Ml] 20 unit SUBCUT AC 02/16/17 Levothyroxine Sodium [Synthroid] 125 mcg PO DAILY 02/16/17 Lisinopril [Zestril] 20 mg PO DAILY 02/16/17 Loperamide HCl [Loperamide] 2 mg PO Q4HP PRN 02/16/17 Lorazepam [Ativan 1 mg Tablet] 1.5 mg PO HSP PRN 02/16/17 Metformin HCl [Glucophage XR 500 mg Tablet] 500 mg PO BIDACBS 02/16/17 Montelukast Sodium [Singulair 10 mg Tablet] 10 mg PO QHS 02/16/17 Nystatin 1 applic TOP BID 02/16/17 Omeprazole 20 mg PO QHS 02/16/17 Ondansetron [Zofran Odt 4 mg Tablet] 4 mg PO Q6HP PRN 02/16/17 Oxycodone HCl 15 mg PO Q6HP PRN 02/16/17 Oxycodone HCl [Oxycontin] 40 mg PO Q12 02/16/17 Prednisone [Deltasone 20 mg Tablet] 20 mg PO DAILY 02/16/17 Promethazine HCl [Phenergan 25 mg Tablet] 25 mg PO Q6HP PRN 02/16/17 Travoprost [Travatan Z] 1 drop OU DAILY 02/16/17 Allergies/Adverse Reactions: codeine [Codeine] Allergy (Intermediate, Verified 02/16/17 11:07) itching Review of Systems Constitutional: PRESENT: chills, night sweats, weakness - Generalized. ABSENT: fever(s), headache(s), weight gain, weight loss Eyes: ABSENT: visual disturbances Ears: ABSENT: hearing changes Nose, Mouth, and Throat: ABSENT: mouth pain, sore throat Cardiovascular: PRESENT: dyspnea on exertion - Chronic. ABSENT: chest pain, edema, orthropnea, palpitations Respiratory: PRESENT: cough - Chronic. ABSENT: hemoptysis Gastrointestinal: PRESENT: abdominal pain, constipation, diarrhea, nausea, vomiting. ABSENT: hematemesis, hematochezia, melena Genitourinary: ABSENT: difficulty urinating, dysuria, hematuria Musculoskeletal: ABSENT: joint swelling Integumentary: ABSENT: pruritus, rash, wounds Neurological: ABSENT: abnormal gait, abnormal speech, confusion, dizziness, focal weakness, syncope Psychiatric: ABSENT: anxiety, depression, homidical ideation, suicidal ideation Endocrine: ABSENT: cold intolerance, heat intolerance, polydipsia, polyphagia, polyuria Hematologic/Lymphatic: ABSENT: easy bleeding, easy bruising Physical Exam Vital Signs: Temp Pulse Resp BP Pulse Ox 98.3 F 23 H 163/83 H 99 02/16/17 11:44 02/16/17 13:01 02/16/17 13:01 02/16/17 13:01 General appearance: PRESENT: cooperative, mild distress - Secondary to pain Head exam: PRESENT: atraumatic, normocephalic Eye exam: PRESENT: conjunctiva pink, EOMI, PERRLA. ABSENT: scleral icterus Ear exam: PRESENT: normal external ear exam. ABSENT: drainage Mouth exam: PRESENT: dry mucosa, neck supple, tongue midline Throat exam: ABSENT: post pharyngeal erythema, tonsillar erythema, tonsillar exudate Neck exam: ABSENT: carotid bruit, JVD, lymphadenopathy, thyromegaly Respiratory exam: PRESENT: clear to auscultation jaclyn, unlabored. ABSENT: rales , rhonchi, wheezes Cardiovascular exam: PRESENT: RRR, +S1, +S2. ABSENT: diastolic murmur, gallop, rubs, systolic murmur Pulses: PRESENT: normal dorsalis pedis pul Vascular exam: PRESENT: normal capillary refill GI/Abdominal exam: PRESENT: distended, guarding - mild voluntary, hyperactive bowel sounds, soft, tenderness - Mild periumbilically and diffusely. ABSENT: mass - Limited due to increased abdominal girth, organolmegaly, rebound Rectal exam: PRESENT: deferred Extremities exam: PRESENT: full ROM. ABSENT: calf tenderness, clubbing, pedal edema Neurological exam: PRESENT: alert, awake, oriented to person, oriented to place , oriented to time, oriented to situation, CN II-XII grossly intact. ABSENT: motor sensory deficit Psychiatric exam: PRESENT: appropriate affect, normal mood. ABSENT: homicidal ideation, suicidal ideation Skin exam: PRESENT: dry, intact, warm. ABSENT: cyanosis, rash Results Impressions: Abdomen X-Ray 02/16/17 10:56 IMPRESSION: Dilated small bowel concerning for obstruction. Increased density the upper abdomen, likely a combination of known ascites, prominent liver and possible distended stomach. Chest X-Ray 02/16/17 13:18 IMPRESSION: Nasogastric tube tip and side port in the stomach. Bibasilar atelectasis. Assessment & Plan - Diagnosis (1) Hypothyroidism (acquired) Is this a current diagnosis for this admission?: Yes (2) SBO (small bowel obstruction) Is this a current diagnosis for this admission?: Yes (3) Hyponatremia Is this a current diagnosis for this admission?: Yes (4) Hypokalemia Is this a current diagnosis for this admission?: Yes (5) Cirrhosis of liver Qualifiers: Hepatic cirrhosis type: unspecified hepatic cirrhosis Ascites presence : with ascites Qualified Code(s): K74.60 - Unspecified cirrhosis of liver Is this a current diagnosis for this admission?: Yes (6) Opiate dependence, continuous Is this a current diagnosis for this admission?: Yes (7) Rheumatoid arthritis Qualifiers: Rheumatoid arthritis location: multiple sites Rheumatoid factor presence: without rheumatoid factor Qualified Code(s): M06.09 - Rheumatoid arthritis without rheumatoid factor, multiple sites (8) Atrial fibrillation Qualifiers: Atrial fibrillation type: paroxysmal Qualified Code(s): I48.0 - Paroxysmal atrial fibrillation Is this a current diagnosis for this admission?: Yes (9) CAD (coronary artery disease) Qualifiers: Coronary Disease-Associated Artery/Lesion type: [place] artery [place] vs. transplanted heart: [place] heart Associated angina: angina presence unspecified Qualified Code(s): I25.10 - Atherosclerotic heart disease of [place] coronary artery without angina pectoris Is this a current diagnosis for this admission?: Yes (10) COPD (chronic obstructive pulmonary disease) Qualifiers: COPD type: unspecified COPD Qualified Code(s): J44.9 - Chronic obstructive pulmonary disease, unspecified (11) Obstructive sleep apnea Is this a current diagnosis for this admission?: Yes - Time Time Spent: 50 to 70 Minutes - Inpatient Certification Based on my medical assessment, after consideration of the patient's comorbidities, presenting symptoms, or acuity I expect that the services needed warrant INPATIENT care.: Yes I certify that my determination is in accordance with my understanding of Medicare's requirements for reasonable and necessary INPATIENT services [42 CFR 412.3e].: Yes Medical Necessity: Need Close Monitoring Due to Risk of Patient Decompensation, Need For IV Fluids, Need For Continuous Telemetry Monitoring, Need for Pain Control Post Hospital Care: D/C Dock Manager Documentation - Plan Summary Plan Summary: The patient will be admitted to telemetry. I will keep the patient n.p.o. and consult surgical service. We will replace potassium. Serial KUBs will be done to monitor/follow-up obstruction. I will hold the patient's diabetic medications and just put her on sliding scale. We will obtain a urinalysis. Monitor electrolytes and WBC. DVT prophylaxis with Lovenox will be placed. Further testing depends on the initial evaluations outlined above. We will consult oncology for hepatic lesions.
[2017-02-16] MEDS ORDERED: ACETAMINOPHEN 325 MG TABLET NG PRN (15:31)
[2017-02-16] MEDS: POTASSI CL 20 MEQ/50 ML RIDER 20 MEQ/50 ML RTUPB IV SCH ×3 (16:03→22:27)
[2017-02-16] MEDS: ONDANSETRON HCL INJ/PF 4 MG/2 ML SDV IV PRN (17:45)
[2017-02-16 18:35] LABS: APPEARANCE,URINE SLIGHTLY-CLOUDY; BILIRUBIN,URINE SMALL (NEGATIVE); GLUCOSE, URINE >=500 mg/dL (NEGATIVE); KETONES,URINE 20 mg/dL (NEGATIVE); LEUKOCYTE ESTERASE,URINE NEGATIVE (NEGATIVE); NITRITE,URINE NEGATIVE (NEGATIVE); PROTEIN,URINE 100 mg/dL (NEGATIVE)
[2017-02-16 18:42] LABS: URINE BARBITURATES SCREEN NEGATIVE; URINE METHADONE SCREEN NEGATIVE; URINE PHENCYCLIDINE SCREEN NEGATIVE
[2017-02-16] MEDS ORDERED: OXYCODONE HCL IR 5 MG TABLET PO PRN (18:45)
[2017-02-16] MEDS ORDERED: LORAZEPAM 1 MG TABLET PO PRN (18:47)
[2017-02-16 18:49] LABS: URINE OPIATES LOW UNCONFIRMED POSITIVE
--- NOTE | 2017-02-16 20:24 | RADIOLOGY REPORT (SQ) ---
EXAM DESCRIPTION: KUB/ABDOMEN (SINGLE VIEW) COMPLETED DATE/TIME: 02/16/2017 8:10 pm REASON FOR STUDY: NG placement COMPARISON: February 2017 NUMBER OF VIEWS: One view. TECHNIQUE: Supine radiographic image of the abdomen acquired. LIMITATIONS: None. FINDINGS: BOWEL GAS PATTERN: There is persistent dilated small bowel. NG tube is in place. Tip lie s in the distal stomach. CALCIFICATIONS: No suspicious calcifications. SOFT TISSUES: No gross mass or suggestion of organomegaly. HARDWARE: None in the abdomen. BONES: No acute fracture. No worrisome bone lesions. OTHER: No other significant finding. IMPRESSION: NG tube has been placed. There is persistent diffuse small bowel dilatation concerning for distal small bowel obstruction. TECHNICAL DOCUMENTATION: JOB ID: [id number] [employer]- All Rights Reserved
[2017-02-16 20:29] LABS: ADD ON TESTING BLD IN LAB ACKNOWLEDGE
[2017-02-16 20:48] LABS: MAGNESIUM 1.5 mg/dL (1.6-2.3)
[2017-02-16] MEDS: FAMOTIDINE INJ/PF 20 MG/2 ML SDV IV SCH (22:23)
[2017-02-16] MEDS: MORPHINE SULFATE 10 MG/ML INJ IV PRN (22:23)
[2017-02-16] MEDS: OXYCODONE HCL SR 40 MG TABLET PO SCH (22:50)
[2017-02-16] MEDS: DULOXETINE HCL 30 MG CAPSULE.DR PO SCH (22:50)
[2017-02-16] MEDS ORDERED: MAGNESIUM SULFATE/D5W 1 GM/100 ML RTUPB IV SCH (23:30)
--- NOTE | 2017-02-17 01:12 | CONSULTATION REPORT E ---
Consultation Report NAME: ABISAI JOHNSON : 1945 AGE: 71Y DATE: 535 A TO: NILDA JOEL M.D. FROM: Requesting Physician REASON FOR CONSULTATION: Patient with small bowel obstruction on abdominal x-rays this morning. HISTORY OF PRESENT ILLNESS: This is a 71-year-old female who has been having nausea, vomiting, and loose bowel movements for the past 3 weeks. She was seen in the ER twice in the past. She had a CT scan of the abdomen recently around 02/13/17, which showed no evidence of obstruction but has some masses in the liver, with the largest being about 2 cm. She also has some ascites. She did have a history of a hysterectomy for cervical cancer in 1985. Also, she has a history of open cholecystectomy. PAST MEDICAL HISTORY AND CARDIAC HISTORY: Reports: 1. Coronary artery disease. 2. DVT with a history of a right knee blood clot. 3. Hyperlipidemia. 4. Hypertension. 5. PVD. 6. Left renal artery stenting. PULMONARY HISTORY: Reports: 1. Asthma. 2. Bronchitis. 3. COPD. 4. Pneumonia. 5. Respiratory failure. 6. Hypercapnia. 7. Sleep apnea. ENDOCRINE HISTORY: Reports: 1. Diabetes mellitus type 1. 2. Diabetes mellitus type 2. 3. Hypothyroidism. MALIGNANCY HISTORY: Reports cervical cancer. GI HISTORY: Reports: 1. Gastroesophageal reflux disease. 2. Hiatal hernia. MUSCULOSKELETAL: Reports arthritis that is steroid dependent. PSYCHIATRIC HISTORY: Reports depression. PAST SURGICAL HISTORY: Reports: 1. Cardiac catheterization. 2. Cholecystectomy. 3. Hysterectomy. 4. Orthopedic surgery with back surgery x2. 5. Left ankle ORIF. 6. Right ankle surgery. 7. Vascular surgery with left renal artery stenting. 8. Right eardrum surgery in 1968. SOCIAL HISTORY: Denies smoking. No alcohol use or recreational drug use. FAMILY HISTORY: Significant for coronary artery disease, COPD, CVA, diabetes mellitus, and malignancy. MEDICATIONS: See Medic Rec list. ALLERGIES: CODEINE WITH COMPLAINT OF ITCHING. REVIEW OF SYSTEMS: CONSTITUTIONAL: Admits to having chills, night sweats, generalized weakness. Denies any fever. EYES: No visual problems. EARS: No hearing problems. NOSE, MOUTH, AND THROAT: Absent mouth pain or sore throat. CARDIOVASCULAR: Dyspnea on exertion that is chronic. Denies any acute chest pains or orthopnea. RESPIRATORY: Chronic cough. Absent hemoptysis. GASTROINTESTINAL: Some abdominal pains, constipation, diarrhea, nausea, and vomiting. GENITOURINARY: No dysuria. MUSCULOSKELETAL: Absent joint swelling. TEGUMENTARY: Absent rash. NEUROLOGIC: No abnormal gait or confusion or seizure. PSYCHIATRIC: No anxiety or depression. ENDOCRINE: Absent cold intolerance or heat intolerance. HEMATOLOGIC: No easy bruisability. PHYSICAL EXAMINATION: VITAL SIGNS: Temperature 98.3 degrees Fahrenheit, respiratory rate 23 per minute, blood pressure 163/83, pulse ox of 99% on room air. GENERAL APPEARANCE: Patient is cooperative with mild distress due to pain. HEAD AND NECK: Head is normocephalic. EYES: PERRLA. EARS: Normal external ears. THROAT: No pharyngeal edema. MOUTH: Dry mucosa. NECK: Supple. No thyromegaly. RESPIRATORY: Clear to auscultation bilaterally. CARDIOVASCULAR: Regular rate and rhythm. No murmur. *------* pulses present. Normal dorsalis pedis. VASCULAR: Normal capillary refill. GASTROINTESTINAL/ABDOMEN: Mild diffuse tenderness with some voluntary guarding. No definite mass palpable. No rebound. RECTAL: Deferred. EXTREMITIES: Full range of motion. No calf tenderness. NEUROLOGIC: Patient alert and oriented x3. PSYCHIATRIC: Appropriate affect and normal mood. SKIN: Dry and intact and warm. IMPRESSION: 1. Dilated small bowel, concerning for obstruction. 2. Hyponatremia. 3. Hypokalemia. 4. Cirrhosis of the liver, unspecified hepatic cirrhosis. 5. Opiate dependence. 6. Rheumatoid arthritis. 7. Atrial fibrillation, paroxysmal. 8. Coronary artery disease. 9. COPD, unspecified. 10. Obstructive sleep apnea. PLAN: 1. Keep the patient n.p.o. and insert NG tube. 2. Correct electrolytes. 3. Serial KUB and serial examination. 4. I will re-evaluate her in the a.m. TIME SPENT: Forty-five minutes. DICTATING PHYSICIAN: NILDA JOEL M.D. [id number] PHY#: [id number] ID: [id number] JOB#: [id number] ACCT: [id number] cc:NILDA JOEL M.D. >
[2017-02-17] MEDS: INSULIN REG, HUMAN 100 UNIT/ML 3 ML VIAL (PYX) SUBCUT PRN (05:42)
[2017-02-17 05:59] LABS: HEMATOCRIT 37.6 % (36.0-47.0); HEMOGLOBIN 12.1 g/dL (12.0-15.5); HGB HCT DIFFERENCE -1.3; MEAN CORPUSCULAR HEMOGLOBIN 23.7 pg (27.0-33.4); MEAN CORPUSCULAR HGB CONC 32.3 g/dL (32.0-36.0); MEAN CORPUSCULAR VOLUME 73 fl (80-97); RED BLOOD COUNT 5.12 10^6/uL (3.72-5.28); RED CELL DISTRIBUTION WIDTH 17.5 % (11.5-14.0); WHITE BLOOD COUNT 12.5 10^3/uL (4.0-10.5)
[2017-02-17 06:11] LABS: ANION GAP 17 (5-19); BLOOD UREA NITROGEN 17 mg/dL (7-20); CALCIUM 9.6 mg/dL (8.4-10.2); CARBON DIOXIDE 32 mmol/L (22-30); CHLORIDE 82 mmol/L (98-107); CREATININE RESULT 1.24 mg/dL (0.52-1.25); GLUCOSE 327 mg/dL (75-110); MAGNESIUM 1.8 mg/dL (1.6-2.3); PHOSPHORUS 4.7 mg/dL (2.5-4.5); POTASSIUM 3.3 mmol/L (3.6-5.0); SODIUM 130.6 mmol/L (137-145)
[2017-02-17] MEDS ORDERED: MAGNESIUM SULFATE/D5W 1 GM/100 ML RTUPB IV ONE (06:30)
--- NOTE | 2017-02-17 08:19 | RADIOLOGY REPORT (SQ) ---
EXAM DESCRIPTION: KUB/ABDOMEN (SINGLE VIEW) COMPLETED DATE/TIME: 02/17/2017 7:59 am REASON FOR STUDY: SBO; F/U COMPARISON: CT abdomen and pelvis 02/05/2017 Abdominal films 02/16/2017, chest films 02/16/2017 NUMBER OF VIEWS: One view. TECHNIQUE: Supine radiographic image of the abdomen acquired. LIMITATIONS: None. FINDINGS: BOWEL GAS PATTERN: There is a nasogastric tube with the tip and side-port in the duodenum. Stomach is decompressed. There is gaseous distension of small bowel loops which are dilated out of proportion to colon. Findi ngs are worrisome for distal small bowel obstruction versus ileus. CALCIFICATIONS: No suspicious calcifications. SOFT TISSUES: No gross mass or suggestion of organomegaly. HARDWARE: Nasogastric tube tip and side-port in the duodenum. Stein catheter in the bladder. Right hip hardware post ORIF, clips right upper quadrant post cholecystectomy BONES: Osteoporotic with convex leftward lumbar curvature OTHER: Bibasilar atelectasis IMPRESSION: Nasogastric tube tip and side-port in the duodenum. Persistent dilated small bowel loops out of proportion to colon. Question ileus versus distal small bowel obstruction. TECHNICAL DOCUMENTATION: JOB ID: [id number] [employer]- All Rights Reserved
[2017-02-17] MEDS: POTASSI CL 20 MEQ/50 ML RIDER 20 MEQ/50 ML RTUPB IV SCH ×3 (08:48→13:37)
--- NOTE | 2017-02-17 08:52 | PROGRESS NOTE E ---
Progress Note NAME: ABISAI JOHNSON : 1945 AGE: 71Y DATE: 02/17/2017 ROOM: 535 SUBJECTIVE: Patient feels more comfortable this morning. She just had a bowel movement. She still has some RUQ pains. She is very anxious. She claims she takes Ativan 2 mgs po daily. OBJECTIVE: She is afebrile. Her labs showed white count is down to 12.5 but her electrolytes are still abnormal with a sodium 130, potassium 3.3, and chloride of 82.Abd is soft mildly distended and mild tenderness at the RUQ. NGT draining 700 ccs in the canister right now but nurse claims they emptied full canister few times through the night. Plan Leave NGT for now. Limit ice chips so will have more accurate drainage amount. Hospitalist to correct lytes. Increase IVF to 150/hr Re check KUB DICTATING PHYSICIAN: NILDA JOEL M.D. [id number] PHY#: [id number] ID: [id number] JOB#: [id number] ACCT: [id number] cc: > MTDD
[2017-02-17] MEDS ORDERED: LORAZEPAM 1 MG TABLET NG PRN (09:05)
[2017-02-17] MEDS ORDERED: OXYCODONE HCL IR 5 MG TABLET NG PRN (09:06)
--- NOTE | 2017-02-17 09:18 | PDOC PROGRESS REPORT ---
Subjective Progress Note for:: 02/17/17 Subjective:: Patient still having episodes of nausea and vomiting. Patient however having a lot of intake of ice chips and water. Yellowish to greenish aspirate is obtained through suction. Patient getting anxious and jittery at times. No reported temperature spikes, nor diarrhea,. Patient reports that she is passing gas and flatus. Physical Exam Vital Signs: Temp Pulse Resp BP Pulse Ox 97.9 F 95 16 131/75 H 96 02/17/17 08:24 02/17/17 08:24 02/17/17 08:24 02/17/17 08:24 02/17/17 08:24 Intake & Output 02/16/17 02/17/17 02/18/17 06:59 06:59 06:59 Intake Total 2080 Output Total 3670 Balance -1590 Weight 87.2 kg General appearance: PRESENT: cooperative, mild distress Head exam: PRESENT: normocephalic Eye exam: PRESENT: EOMI Mouth exam: PRESENT: moist, neck supple Neck exam: ABSENT: JVD Respiratory exam: PRESENT: clear to auscultation jaclyn Cardiovascular exam: PRESENT: RRR. ABSENT: gallop GI/Abdominal exam: PRESENT: hyperactive bowel sounds, soft Extremities exam: ABSENT: pedal edema Neurological exam: PRESENT: alert, awake, oriented to situation Psychiatric exam: PRESENT: anxious - Mildly Skin exam: PRESENT: dry, warm. ABSENT: cyanosis Results Laboratory Results: 02/17/17 05:38 02/17/17 05:38 02/16/17 02/17/17 02/17/17 18:05 05:38 05:38 WBC 12.5 H RBC 5.12 Hgb 12.1 Hct 37.6 MCV 73 L MCH 23.7 L MCHC 32.3 RDW 17.5 H Plt Count 421 Sodium 130.6 L Potassium 3.3 L Chloride 82 L Carbon Dioxide 32 H Anion Gap 17 BUN 17 Creatinine 1.24 Est GFR ( Amer) 52 L Est GFR (Non-Af Amer) 43 L Glucose 327 H Calcium 9.6 Phosphorus 4.7 H Magnesium 1.8 Free T4 Urine Color MANOJ Urine Appearance SLIGHTLY-CLOUDY Urine pH 5.0 Ur Specific [place] 1.030 Urine Protein 100 H Urine Glucose (UA) >=500 H Urine Ketones 20 H Urine Blood NEGATIVE Urine Nitrite NEGATIVE Ur Leukocyte Esterase NEGATIVE Urine WBC (Auto) 4 Urine RBC (Auto) 5 02/17/17 05:38 WBC RBC Hgb Hct MCV MCH MCHC RDW Plt Count Sodium Potassium Chloride Carbon Dioxide Anion Gap BUN Creatinine Est GFR ( Amer) Est GFR (Non-Af Amer) Glucose Calcium Phosphorus Magnesium Free T4 1.67 Urine Color Urine Appearance Urine pH Ur Specific [place] Urine Protein Urine Glucose (UA) Urine Ketones Urine Blood Urine Nitrite Ur Leukocyte Esterase Urine WBC (Auto) Urine RBC (Auto) Impressions: Abdomen X-Ray 02/16/17 10:56 IMPRESSION: Dilated small bowel concerning for obstruction. Increased density the upper abdomen, likely a combination of known ascites, prominent liver and possible distended stomach. Chest X-Ray 02/16/17 13:18 IMPRESSION: Nasogastric tube tip and side port in the stomach. Bibasilar atelectasis. KUB X-Ray 02/17/17 07:00 IMPRESSION: Nasogastric tube tip and side-port in the duodenum. Persistent dilated small bowel loops out of proportion to colon. Question ileus versus distal small bowel obstruction. Assessment & Plan - Diagnosis (1) SBO (small bowel obstruction) Is this a current diagnosis for this admission?: Yes (2) Hyponatremia Is this a current diagnosis for this admission?: Yes (3) Hypokalemia Is this a current diagnosis for this admission?: Yes (4) Hypothyroidism (acquired) Is this a current diagnosis for this admission?: Yes (5) Cirrhosis of liver Qualifiers: Hepatic cirrhosis type: unspecified hepatic cirrhosis Ascites presence : with ascites Qualified Code(s): K74.60 - Unspecified cirrhosis of liver Is this a current diagnosis for this admission?: Yes (6) Opiate dependence, continuous Is this a current diagnosis for this admission?: Yes (7) Rheumatoid arthritis Qualifiers: Rheumatoid arthritis location: multiple sites Rheumatoid factor presence: without rheumatoid factor Qualified Code(s): M06.09 - Rheumatoid arthritis without rheumatoid factor, multiple sites (8) Atrial fibrillation Qualifiers: Atrial fibrillation type: paroxysmal Qualified Code(s): I48.0 - Paroxysmal atrial fibrillation Is this a current diagnosis for this admission?: Yes (9) CAD (coronary artery disease) Qualifiers: Coronary Disease-Associated Artery/Lesion type: [place] artery [place] vs. transplanted heart: [place] heart Associated angina: angina presence unspecified Qualified Code(s): I25.10 - Atherosclerotic heart disease of [place] coronary artery without angina pectoris Is this a current diagnosis for this admission?: Yes (10) COPD (chronic obstructive pulmonary disease) Qualifiers: COPD type: unspecified COPD Qualified Code(s): J44.9 - Chronic obstructive pulmonary disease, unspecified (11) Obstructive sleep apnea Is this a current diagnosis for this admission?: Yes - Time Time Spent with patient: 25-34 minutes - Plan Summary Plan Summary: We will replace potassium and monitor magnesium and serum sodium. Keep the nasogastric tube. Follow-up KUB. Try intravenous Ativan as needed and hold oral Ativan. Keep patient n.p.o. at this time. Continue IV fluids and electrolyte monitoring.
[2017-02-17] MEDS: PREDNISONE 20 MG TABLET NG SCH (09:27)
[2017-02-17] MEDS: LORAZEPAM INJ 2 MG/1 ML VIAL IV PRN ×2 (09:27→23:54)
[2017-02-17] MEDS: ENOXAPARIN SODIUM INJ 40 MG/0.4 ML DISP.SYRIN SUBCUT SCH (09:27)
[2017-02-17] MEDS: OXYCODONE HCL SR 40 MG TABLET PO SCH ×2 (09:27→23:00)
[2017-02-17] MEDS: FAMOTIDINE INJ/PF 20 MG/2 ML SDV IV SCH ×2 (09:27→23:00)
[2017-02-17] MEDS ORDERED: (PENDING PHARMACY ID) (Travoprost [Travatan Z] 1 DROP) OU SCH (10:00)
[2017-02-17] MEDS ORDERED: LEVOTHYROXINE SODIUM 0.025 MG TABLET NG SCH (10:00)
[2017-02-17] MEDS ORDERED: LEVOTHYROXINE SODIUM 0.1 MG TABLET NG SCH (10:00)
[2017-02-17] MEDS ORDERED: (PENDING PHARMACY ID) (Levothyroxine Sodium [Synthroid] 125 MCG) PO SCH (10:00)
[2017-02-17] MEDS: ONDANSETRON HCL INJ/PF 4 MG/2 ML SDV IV PRN (13:38)
--- NOTE | 2017-02-17 14:09 | RADIOLOGY REPORT (SQ) ---
EXAM DESCRIPTION: SMALL BOWEL SERIES COMPLETED DATE/TIME: 02/17/2017 1:44 pm REASON FOR STUDY: SBO COMPARISON: CT abdomen pelvis 02/05/2017 Abdominal films 02/16/2017, 02/17/2017 FLUOROSCOPY TIME: No fluoroscopy 7 digital abdominal radiographic images saved to PACS. LIMITATIONS: None. PROCEDURE: KUB from earlier today was reviewed, followed by administration of water-soluble Gastrogr afin oral contrast. Serial radiographic images acquired. Fluoroscopic images recorded of the termin al ileum and other indicated areas. All images stored on PACS. FINDINGS: Water-soluble contrast was administered through the patient's nasogastric tube, filling th e duodenum. The nasogastric tube tip and side port are in the 2nd portion of the duodenum. The duod enum and jejunum are dilated. Clips right upper quadrant post cholecystectomy. Subsequent films up to 90 minutes demonstrate no antegrade passage of contrast from the duodenum. Th ere is reflux of contrast back into the stomach. Persistent dilated duodenum launch jejunal loops. Findings may represent an ileus. There is air in the hepatic flexure and splenic flexure colon, sugg esting against high-grade distal small-bowel obstruction. Report called to Dr. Molina. IMPRESSION: No antegrade passage of contrast from the duodenum over 90 minutes interval. Findings a re worrisome for ileus rather than bowel obstruction. Recommend obtaining a delayed KUB later this evening, to determine if there is any antegrade motion o f contrast through the small bowel. COMMENT: Quality ID [id number]: Final reports for procedures using fluoroscopy that document radiation exp osure indices, or exposure time and number of fluorographic images (if radiation exposure indices are not available) TECHNICAL DOCUMENTATION: JOB ID: [id number] [employer]- All Rights Reserved
--- NOTE | 2017-02-17 14:37 | PDOC PROGRESS REPORT ---
Subjective Progress Note for:: 02/17/17 Subjective:: Patient actually had a lot of drainage from the NG tube of about 3 L in the past 24 hours she had a KUB this morning which showed ileus a subsequent small bowel follow-through was done which showed dye did not move from the jejunum have discussed the situation with Dr. Whitley to read the radiologist and we would like to wait a few more hours for another follow-up x-ray at 7 PM. I just want to make sure there is no definite distal mechanical obstruction. In the meantime, patient claims she just had another passage of flatus. Patient's electrolytes is getting corrected and hopefully have a better bowel function when electrolytes are corrected properly. Awaiting further x-ray later today and will repeat all the lab work in the morning. Will also resume NG tube drainage Physical Exam Vital Signs: Temp Pulse Resp BP Pulse Ox 97.9 F 95 16 131/75 H 96 02/17/17 08:24 02/17/17 08:24 02/17/17 08:24 02/17/17 08:24 02/17/17 08:24 Intake & Output 02/16/17 02/17/17 02/18/17 06:59 06:59 06:59 Intake Total 2080 Output Total 3670 Balance -1590 Weight 87.2 kg Exam: Her abdomen remains soft with slight distention and mild diffuse tenderness. Results Laboratory Results: 02/17/17 05:38 02/17/17 05:38 02/16/17 02/17/17 02/17/17 18:05 05:38 05:38 WBC 12.5 H RBC 5.12 Hgb 12.1 Hct 37.6 MCV 73 L MCH 23.7 L MCHC 32.3 RDW 17.5 H Plt Count 421 Sodium 130.6 L Potassium 3.3 L Chloride 82 L Carbon Dioxide 32 H Anion Gap 17 BUN 17 Creatinine 1.24 Est GFR ( Amer) 52 L Est GFR (Non-Af Amer) 43 L Glucose 327 H Calcium 9.6 Phosphorus 4.7 H Magnesium 1.8 Free T4 Urine Color MANOJ Urine Appearance SLIGHTLY-CLOUDY Urine pH 5.0 Ur Specific Meraux 1.030 Urine Protein 100 H Urine Glucose (UA) >=500 H Urine Ketones 20 H Urine Blood NEGATIVE Urine Nitrite NEGATIVE Ur Leukocyte Esterase NEGATIVE Urine WBC (Auto) 4 Urine RBC (Auto) 5 02/17/17 05:38 WBC RBC Hgb Hct MCV MCH MCHC RDW Plt Count Sodium Potassium Chloride Carbon Dioxide Anion Gap BUN Creatinine Est GFR ( Amer) Est GFR (Non-Af Amer) Glucose Calcium Phosphorus Magnesium Free T4 1.67 Urine Color Urine Appearance Urine pH Ur Specific Meraux Urine Protein Urine Glucose (UA) Urine Ketones Urine Blood Urine Nitrite Ur Leukocyte Esterase Urine WBC (Auto) Urine RBC (Auto) Impressions: Abdomen X-Ray 02/16/17 10:56 IMPRESSION: Dilated small bowel concerning for obstruction. Increased density the upper abdomen, likely a combination of known ascites, prominent liver and possible distended stomach. Chest X-Ray 02/16/17 13:18 IMPRESSION: Nasogastric tube tip and side port in the stomach. Bibasilar atelectasis. Small Bowel X-Ray 02/17/17 00:00 IMPRESSION: No antegrade passage of contrast from the duodenum over 90 minutes interval. Findings are worrisome for ileus rather than bowel obstruction. Recommend obtaining a delayed KUB later this evening, to determine if there is any antegrade motion of contrast through the small bowel. KUB X-Ray 02/17/17 07:00 IMPRESSION: Nasogastric tube tip and side-port in the duodenum. Persistent dilated small bowel loops out of proportion to colon. Question ileus versus distal small bowel obstruction. Assessment & Plan - Diagnosis (1) Chronic skin ulcer Qualifiers: Non-pressure ulcer stage: limited to breakdown of skin Qualified Code(s ): L98.491 - Non-pressure chronic ulcer of skin of other sites limited to breakdown of skin (2) Cirrhosis of liver Qualifiers: Hepatic cirrhosis type: unspecified hepatic cirrhosis Ascites presence : with ascites Qualified Code(s): K74.60 - Unspecified cirrhosis of liver Is this a current diagnosis for this admission?: Yes (3) Failure of outpatient treatment Is this a current diagnosis for this admission?: Yes (4) Opiate dependence, continuous Is this a current diagnosis for this admission?: Yes (5) Rheumatoid arthritis Qualifiers: Rheumatoid arthritis location: multiple sites Rheumatoid factor presence: without rheumatoid factor Qualified Code(s): M06.09 - Rheumatoid arthritis without rheumatoid factor, multiple sites (6) Partial small bowel obstruction Is this a current diagnosis for this admission?: YesPlan: Continue with NG tube for now. Correct her electrolytes. She does have some episodes of loose stools so sure if she definite definitely has a bowel obstruction. However if her x-rays are unchanged by tomorrow then she may benefit from a small bowel follow-through x-rays. - Time Time Spent with patient: 15-24 minutes
--- NOTE | 2017-02-17 14:45 | Physician Advisory Note ---
Physician Advisor ProgressNote .: Pursuant to the plan for [facility], I have reviewed the medical record for this patient. Physician Advisor Statement: Please consider documentin. "chronic hypercapneic resp failure" 2. most likely cause of acute hyponatremia 3. ?- "SIRS, due to SBO" - or just tachycardia/leukocytosis due to pain? Thanks! CK
--- NOTE | 2017-02-17 17:32 | CONSULTATION REPORT E ---
Consultation Report NAME: ABISAI JOHNSON : 1945 AGE: 71Y DATE: 02/17/2017 535 A TO: ZAKI BARRETO M.D. FROM: Requesting Physician REASON FOR CONSULTATION: Patient admitted with nausea and vomiting. HISTORY OF PRESENT ILLNESS: The patient is a 71-year-old woman who was admitted on 02/16/2017 with complaint of nausea and vomiting and loose bowel movements for the last 3 weeks. This was a third evaluation in the emergency department. The CAT scan of the abdomen that was done during one of her presentations had shown masses in the liver, the largest one measured 2 cm. There was also some ascites. She has a remote history of cervical cancer in 1985 for which she underwent hysterectomy. She has also had open cholecystectomy. She presently has an NG tube in place and she tells me she feels slightly better. PAST MEDICAL HISTORY: As stated above includes history of cervical cancer, arthritis, depression, diabetes, hypothyroidism, COPD, coronary artery disease, possible DVT with right knee blood clots. SOCIAL HISTORY: She does not smoke cigarettes. PHYSICAL EXAMINATION: GENERAL: She is an elderly woman. She appears frail. She was laying in bed but was able and answer all questions appropriately. She is alert. ABDOMEN: Bowel sounds are present. EXTREMITIES: No edema. RADIOLOGICAL TESTS: Chest x-ray shows bibasilar atelectasis with the NG tube in the stomach. *------* dilated small bowel concerning for obstruction. She had a CAT scan of the abdomen June 16, 2016 that had shown normal sized liver, no masses identified, post cholecystectomy, possible fatty infiltration of the liver. The CAT scan done February 13, 2017 showed small masses in the liver, largest one measuring 2 cm. IMPRESSION AND PLAN: The patient is a 71-year-old woman whose most recent CT scan showed multiple lesions in the liver. She appears to be improving from the small bowel obstruction. I would recommend an ultrasound guided or CT guided biopsy of the liver lesion to help with diagnosis. If this is consistent with malignancy and she is stable on discharge, I would be glad to follow as an outpatient. I thank you for this consultation and allowing me to be a part of her care. DICTATING PHYSICIAN: ZAKI BARRETO M.D. [id number] Y#: [id number] ID: [id number] JOB#: [id number] ACCT: [id number] cc:ZAKI BARRETO M.D. >
--- NOTE | 2017-02-17 18:15 | PDOC CONSULTATION ---
Consultation Consult Date: 02/17/17 Attending physician:: RONDA GALVAN Consult reason:: possible colon cancer History of Present Illness Admission Date/PCP: 02/16/17 14:22 History of Present Illness: Asked to see this patient by Dr Manuel both hematology and surgery has seen this patient she does have a liver lesion and appears to have an ileus due to dilated small intestinal loops, may not be able to get liver biopsy done patient does have an NG tube requested that she will need a colonoscopy done make sure no metastatic lesion to the liver patient does have air in both splenic and hepatic flexure ? of whether or not she will be able to be prepped spoke with Dr Manuel will try to perform a colonoscopy Past Medical History Cardiac Medical History: Reports: Coronary Artery Disease, DVT - Reports history of right knee blood clot, Hyperlipidema, Hypertension, Peripheral Vascular Disease - Left renal artery stenting Pulmonary Medical History: Reports: Asthma, Bronchitis, Chronic Obstructive Pulmonary Disease (COPD), Pneumonia, Respiratory Failure - hypercapnic, Sleep Apnea Endocrine Medical History: Reports: Diabetes Mellitus Type 1, Diabetes Mellitus Type 2, Hypothyroidism Malignancy Medical History: Reports: Cervical Cancer GI Medical History: Reports: Gastroesophageal Reflux Disease, Hiatal Hernia Musculoskeltal Medical History: Reports: Arthritis - steroid dependent Rheumatoid arthritis Psychiatric Medical History: Reports: Depression Past Surgical History Past Surgical History: Reports: Cardiac Catheterization, Cholecystectomy, Hysterectomy, Orthopedic Surgery - back surgery x 2, left ankle ORIF, right ankle surgery, Vascular Surgery - Left renal artery stent, Other - Right eardrum surgery in 1968 Social History Smoking Status: Never Smoker Frequency of Alcohol Use: None Hx Recreational Drug Use: No Drugs: None Hx Prescription Drug Abuse: No - Advance Directive Resuscitation Status: Full Code Family History Family History: CAD, COPD, CVA, DM, Malignancy Parental Family History Reviewed: Yes Children Family History Reviewed: Unknown Sibling(s) Family History Reviewed.: Unknown Medication/Allergy Home Medications: Amlodipine Besylate [Norvasc 10 mg Tablet] 10 mg PO DAILY 02/16/17 Duloxetine HCl 30 mg PO QHS 02/16/17 Ergocalciferol (Vitamin D2) [Drisdol 50,000 unit (1.25MG) Capsule] 50,000 unit PO [id number] 02/16/17 Famotidine [Pepcid 20 mg Tablet] 20 mg PO DAILY 02/16/17 Glipizide [Glocotrol 10 Mg Tablet] 10 mg PO Q12 02/16/17 Insulin Regular, Human [Humulin R (Pyxis) Insulin 100 Unit/ml 3Ml] 20 unit SUBCUT AC 02/16/17 Levothyroxine Sodium [Synthroid] 125 mcg PO DAILY 02/16/17 Lisinopril [Zestril] 20 mg PO DAILY 02/16/17 Loperamide HCl [Loperamide] 2 mg PO Q4HP PRN 02/16/17 Lorazepam [Ativan 1 mg Tablet] 1.5 mg PO HSP PRN 02/16/17 Metformin HCl [Glucophage XR 500 mg Tablet] 500 mg PO BIDACBS 02/16/17 Montelukast Sodium [Singulair 10 mg Tablet] 10 mg PO QHS 02/16/17 Nystatin 1 applic TOP BID 02/16/17 Omeprazole 20 mg PO QHS 02/16/17 Ondansetron [Zofran Odt 4 mg Tablet] 4 mg PO Q6HP PRN 02/16/17 Oxycodone HCl 15 mg PO Q6HP PRN 02/16/17 Oxycodone HCl [Oxycontin] 40 mg PO Q12 02/16/17 Prednisone [Deltasone 20 mg Tablet] 20 mg PO DAILY 02/16/17 Promethazine HCl [Phenergan 25 mg Tablet] 25 mg PO Q6HP PRN 02/16/17 Travoprost [Travatan Z] 1 drop OU DAILY 02/16/17 Allergies/Adverse Reactions: codeine [Codeine] Allergy (Intermediate, Verified 02/16/17 21:42) itching Review of Systems Constitutional: ABSENT: fever(s), headache(s), night sweats, weakness Eyes: ABSENT: visual disturbances Ears: ABSENT: hearing changes Nose, Mouth, and Throat: ABSENT: mouth pain, sore throat Cardiovascular: ABSENT: chest pain, edema Respiratory: ABSENT: hemoptysis Gastrointestinal: PRESENT: abdominal pain, bloating, nausea Genitourinary: ABSENT: dysuria, hematuria Musculoskeletal: ABSENT: deformity, joint swelling Integumentary: ABSENT: lesions, pruritus Neurological: ABSENT: syncope, tingling, tremor(s), vertigo Endocrine: ABSENT: polydipsia, polyphagia, polyuria Hematologic/Lymphatic: ABSENT: easy bruising Physical Exam Vital Signs: Temp Pulse Resp BP Pulse Ox 98 F 97 24 H 119/59 L 96 02/17/17 15:00 02/17/17 15:00 02/17/17 15:00 02/17/17 15:00 02/17/17 17:23 Intake & Output 02/16/17 02/17/17 02/18/17 06:59 06:59 06:59 Intake Total 2080 Output Total 3670 1070 Balance -1590 -1070 Weight 87.2 kg General appearance: PRESENT: mild distress, obese Head exam: PRESENT: atraumatic, normocephalic Eye exam: PRESENT: EOMI, PERRLA. ABSENT: scleral icterus Mouth exam: PRESENT: neck supple Throat exam: ABSENT: tonsillar exudate, tonsillogmegaly Neck exam: ABSENT: meningismus, tenderness, thyromegaly Respiratory exam: PRESENT: symmetrical, tachypnea. ABSENT: chest wall tenderness Cardiovascular exam: PRESENT: RRR, +S1, +S2 GI/Abdominal exam: PRESENT: diminished bowel sounds, distended, firm, tenderness. ABSENT: rebound Extremities exam: ABSENT: joint swelling Musculoskeletal exam: PRESENT: full ROM Neurological exam: PRESENT: oriented to time, oriented to situation, motor sensory deficit Psychiatric exam: PRESENT: flat affect Skin exam: PRESENT: normal color. ABSENT: mottled, pallor, petechiae Results Laboratory Results: 02/17/17 05:38 02/17/17 05:38 02/16/17 02/17/17 02/17/17 18:05 05:38 05:38 WBC 12.5 H RBC 5.12 Hgb 12.1 Hct 37.6 MCV 73 L MCH 23.7 L MCHC 32.3 RDW 17.5 H Plt Count 421 Sodium 130.6 L Potassium 3.3 L Chloride 82 L Carbon Dioxide 32 H Anion Gap 17 BUN 17 Creatinine 1.24 Est GFR ( Amer) 52 L Est GFR (Non-Af Amer) 43 L Glucose 327 H Calcium 9.6 Phosphorus 4.7 H Magnesium 1.8 Free T4 Urine Color MANOJ Urine Appearance SLIGHTLY-CLOUDY Urine pH 5.0 Ur Specific Witter 1.030 Urine Protein 100 H Urine Glucose (UA) >=500 H Urine Ketones 20 H Urine Blood NEGATIVE Urine Nitrite NEGATIVE Ur Leukocyte Esterase NEGATIVE Urine WBC (Auto) 4 Urine RBC (Auto) 5 02/17/17 05:38 WBC RBC Hgb Hct MCV MCH MCHC RDW Plt Count Sodium Potassium Chloride Carbon Dioxide Anion Gap BUN Creatinine Est GFR ( Amer) Est GFR (Non-Af Amer) Glucose Calcium Phosphorus Magnesium Free T4 1.67 Urine Color Urine Appearance Urine pH Ur Specific Witter Urine Protein Urine Glucose (UA) Urine Ketones Urine Blood Urine Nitrite Ur Leukocyte Esterase Urine WBC (Auto) Urine RBC (Auto) Impressions: Abdomen X-Ray 02/16/17 10:56 IMPRESSION: Dilated small bowel concerning for obstruction. Increased density the upper abdomen, likely a combination of known ascites, prominent liver and possible distended stomach. Chest X-Ray 02/16/17 13:18 IMPRESSION: Nasogastric tube tip and side port in the stomach. Bibasilar atelectasis. Small Bowel X-Ray 02/17/17 00:00 IMPRESSION: No antegrade passage of contrast from the duodenum over 90 minutes interval. Findings are worrisome for ileus rather than bowel obstruction. Recommend obtaining a delayed KUB later this evening, to determine if there is any antegrade motion of contrast through the small bowel. KUB X-Ray 02/17/17 07:00 IMPRESSION: Nasogastric tube tip and side-port in the duodenum. Persistent dilated small bowel loops out of proportion to colon. Question ileus versus distal small bowel obstruction. Assessment & Plan - Diagnosis (1) SBO (small bowel obstruction) Is this a current diagnosis for this admission?: YesPlan: small bowel suggesting of an ileus although the concern is for possible malignancy with mets to the liver (2) Iron deficiency anemia Qualifiers: Iron deficiency anemia type: unspecified iron deficiency Qualified Code (s): D50.9 - Iron deficiency anemia, unspecified Plan: will need to try and get colonoscopy done prep will be the challenging part will attempt rule out malignancy (3) Nausea vomiting and diarrhea Plan: GI work up in progress, if colonoscopy is negative ? of whether she will need EGD Risks, benefits and alternatives are discussed with the patient further recommendations to follow - Time Time Spent: 50 to 70 Minutes
[2017-02-17] MEDS: PEG 3350/NA SULF,BICARB,CL/KCL 4000 ML PO PRN ×2 (21:40→21:49)
[2017-02-17] MEDS ORDERED: LIDOCAINE 0.5% INJ-PF (5 MG/ML) 50 ML SDV ONE (22:11)
[2017-02-17] MEDS: DULOXETINE HCL 30 MG CAPSULE.DR PO SCH (23:00)
--- NOTE | 2017-02-17 23:25 | RADIOLOGY REPORT (SQ) ---
EXAM DESCRIPTION: CHEST SINGLE VIEW COMPLETED DATE/TIME: 02/17/2017 11:17 pm REASON FOR STUDY: central line placement COMPARISON: 02/16/2017 EXAM PARAMETERS: NUMBER OF VIEWS: One view. TECHNIQUE: Single frontal radiographic view of the chest acquired. RADIATION DOSE: NA LIMITATIONS: None. FINDINGS: LUNGS AND PLEURA: A right-sided central line has been placed. Catheter tip overlies the S VC. There is bibasilar atelectasis. No pneumothorax. NG tube is been added. Tip is cold in the le ft upper quadrant. MEDIASTINUM AND HILAR STRUCTURES: No masses. Contour normal. HEART AND VASCULAR STRUCTURES: Heart normal in size. Normal vasculature. BONES: No acute findings. HARDWARE: None in the chest. OTHER: No other significant finding. IMPRESSION: Minimal basilar atelectasis. NG tube and central line are in satisfactory position. No acute findings. TECHNICAL DOCUMENTATION: JOB ID: [id number]
--- NOTE | 2017-02-17 23:27 | RADIOLOGY REPORT (SQ) ---
EXAM DESCRIPTION: KUB/ABDOMEN (SINGLE VIEW) COMPLETED DATE/TIME: 02/17/2017 11:17 pm REASON FOR STUDY: follow up small bowel sesries COMPARISON: 02/17/2017 NUMBER OF VIEWS: One view. TECHNIQUE: Supine radiographic image of the abdomen acquired. LIMITATIONS: None. FINDINGS: BOWEL GAS PATTERN: There is persistent small-bowel distention. There is colonic air. NG tube is in place. CALCIFICATIONS: No suspicious calcifications. SOFT TISSUES: No gross mass or suggestion of organomegaly. HARDWARE: There are clips in the right upper quadrant. BONES: No acute fracture. No worrisome bone lesions. OTHER: No other significant finding. IMPRESSION: Persistent small-bowel distention improved from prior study. NG tube is in place. TECHNICAL DOCUMENTATION: JOB ID: [id number] [employer]- All Rights Reserved
[2017-02-17] MEDS ORDERED: NORMAL SALINE 1000 ML 1,000 ML IV ONE (23:45)
--- NOTE | 2017-02-17 23:57 | OPERATIVE REPORT E ---
Operative Report NAME: ABISAI JOHNSON : 1945 AGE: 71Y DATE OF SURGERY: 02/17/2017 ROOM: 535 PREOPERATIVE DIAGNOSIS: Poor veins for IV access and ileus. POSTOPERATIVE DIAGNOSIS: Poor veins for IV access and ileus. OPERATION: Placement of right subclavian triple-lumen catheter. SURGEON: NILDA JOEL M.D. ANESTHESIA: Local. INDICATION: This is a 71-year-old female who needed IV fluids. At the present time the IV came out and is a difficult stick. Therefore, the patient needed a central line. Also her urine output was only 100 mL in the past 12 hours. Her urine is highly colored. DESCRIPTION OF PROCEDURE: The patient placed in Trendelenburg position and the right upper chest and neck prepped and draped in the usual sterile fashion. Local anesthesia infiltrated at right infraclavicular area and the right subclavian vein was then punctured and guidewire passed through the needle towards the area of the superior vena cava. The needle was removed and the puncture site enlarged. A triple-lumen catheter was then inserted through the guidewire towards the superior vena cava. About 14 cm of the catheter was inserted. The catheter was then anchored to the skin with 3-0 silk. A Biopatch placed at the insertion site and a transparent dressing was used. All the 3 ports aspirated of blood quite easily and injected saline easily. A chest x-ray was obtained and noted to be in good position right at the superior vena cava close to the right atrium. No obvious pneumothorax was noted on informal reading of x-ray at bedside. The patient tolerated the procedure well. DICTATING PHYSICIAN: NILDA JOEL M.D. [id number] PHY#: [id number] ID: [id number] JOB#: [id number] ACCT: [id number] cc:NILDA JOEL M.D. >
[2017-02-18] MEDS: MORPHINE SULFATE 10 MG/ML INJ IV PRN (04:25)
[2017-02-18] MEDS: ONDANSETRON HCL INJ/PF 4 MG/2 ML SDV IV PRN (04:26)
[2017-02-18] MEDS ORDERED: NORMAL SALINE 1000 ML 1,000 ML IV ONE ×2 (05:30→10:00)
[2017-02-18 06:08] LABS: HEMOGLOBIN 11.8 g/dL (12.0-15.5); HGB HCT DIFFERENCE -1.6; MEAN CORPUSCULAR HEMOGLOBIN 23.5 pg (27.0-33.4); MEAN CORPUSCULAR HGB CONC 31.8 g/dL (32.0-36.0); MEAN CORPUSCULAR VOLUME 74 fl (80-97); RED CELL DISTRIBUTION WIDTH 17.7 % (11.5-14.0); WHITE BLOOD COUNT 12.2 10^3/uL (4.0-10.5)
[2017-02-18 06:34] LABS: ANION GAP 16 (5-19); BLOOD UREA NITROGEN 30 mg/dL (7-20); CARBON DIOXIDE 33 mmol/L (22-30); CHLORIDE 84 mmol/L (98-107); CREATININE RESULT 1.93 mg/dL (0.52-1.25); GLUCOSE 397 mg/dL (75-110); MAGNESIUM 1.9 mg/dL (1.6-2.3); POTASSIUM 4.1 mmol/L (3.6-5.0); SODIUM 132.5 mmol/L (137-145)
[2017-02-18] MEDS ORDERED: NA PHOS,M-B/NA PHOS,DI-BA (ADULT) 133 ML ENEMA PR ONE (06:45)
[2017-02-18] MEDS: INSULIN REG, HUMAN 100 UNIT/ML 3 ML VIAL (PYX) SUBCUT PRN (06:55)
--- NOTE | 2017-02-18 08:36 | PDOC PROGRESS REPORT ---
Subjective Progress Note for:: 02/18/17 Subjective:: Feels better. Had small bowel movement and passage of gas yesterday. Has some burning discomfort in the epigastric region but no severe abdominal pain. Physical Exam Vital Signs: Temp Pulse Resp BP Pulse Ox 97.7 F 93 18 134/76 H 93 02/18/17 03:45 02/18/17 07:00 02/18/17 03:45 02/18/17 03:45 02/18/17 03:45 Intake & Output 02/17/17 02/18/17 02/19/17 06:59 06:59 06:59 Intake Total 2080 5325 Output Total 3670 6805 Balance -1590 -1480 Weight 87.2 kg 86.2 kg General appearance: PRESENT: no acute distress, cooperative Respiratory exam: PRESENT: clear to auscultation [email or web address] Cardiovascular exam: PRESENT: RRR GI/Abdominal exam: PRESENT: other - Soft, mildly distended, mild epigastric abdominal tenderness without peritoneal signs. Multiple superficial skin ulcerations. Positive bowel sounds. Results Laboratory Results: 02/18/17 05:20 02/18/17 05:20 02/18/17 02/18/17 05:20 05:20 WBC 12.2 H RBC 5.00 Hgb 11.8 L Hct 37.0 MCV 74 L MCH 23.5 L MCHC 31.8 L RDW 17.7 H Plt Count 520 H Sodium 132.5 L Potassium 4.1 Chloride 84 L Carbon Dioxide 33 H Anion Gap 16 BUN 30 H Creatinine 1.93 H Est GFR ( Amer) 31 L Est GFR (Non-Af Amer) 26 L Glucose 397 H Calcium 9.0 Magnesium 1.9 Impressions: Abdomen X-Ray 02/16/17 10:56 IMPRESSION: Dilated small bowel concerning for obstruction. Increased density the upper abdomen, likely a combination of known ascites, prominent liver and possible distended stomach. Chest X-Ray 02/17/17 00:00 IMPRESSION: Minimal basilar atelectasis. NG tube and central line are in satisfactory position. No acute findings. Small Bowel X-Ray 02/17/17 00:00 IMPRESSION: No antegrade passage of contrast from the duodenum over 90 minutes interval. Findings are worrisome for ileus rather than bowel obstruction. Recommend obtaining a delayed KUB later this evening, to determine if there is any antegrade motion of contrast through the small bowel. KUB X-Ray 02/17/17 07:00 IMPRESSION: Nasogastric tube tip and side-port in the duodenum. Persistent dilated small bowel loops out of proportion to colon. Question ileus versus distal small bowel obstruction. Assessment & Plan - Diagnosis (1) Partial small bowel obstruction Is this a current diagnosis for this admission?: YesPlan: Partial small bowel obstruction appears to be improving as indicated by bowel movements and passage of gas yesterday. NG tube appears to be in the small bowel on KUB. The output is thus bilious. Will hold off colonoscopy until we have determined that she does not have a small bowel obstruction. Will obtain a abdominal pelvic CT scan today with contrast via the NG tube. Continue to fluid resuscitate the patient.
[2017-02-18] MEDS: FAMOTIDINE INJ/PF 20 MG/2 ML SDV IV SCH ×2 (09:34→22:09)
[2017-02-18] MEDS: LEVOTHYROXINE SODIUM 0.1 MG TABLET NG SCH (09:34)
[2017-02-18] MEDS: PREDNISONE 20 MG TABLET NG SCH (09:35)
[2017-02-18] MEDS: LEVOTHYROXINE SODIUM 0.025 MG TABLET NG SCH (09:35)
[2017-02-18] MEDS: OXYCODONE HCL SR 40 MG TABLET PO SCH ×2 (09:35→22:10)
[2017-02-18] MEDS: ENOXAPARIN SODIUM INJ 40 MG/0.4 ML DISP.SYRIN SUBCUT SCH (09:35)
--- NOTE | 2017-02-18 09:40 | PDOC PROGRESS REPORT ---
Subjective Progress Note for:: 02/18/17 Subjective:: Patient remains on nasogastric tube. Patient still takes fluids and ice chips. Billous aspirate was noted on the NG tube. That she will apparently is in the small intestine. No reported temperature spikes. Patient having flattus and reported bowel movement. Small bowel film reports no reflux. Patient evaluated by oncology service who recommended colonoscopy for polyp or colon cancer causing liver lesions if not then liver biopsy via ultrasound-guided or CT-guided when patient's ileus improved. Physical Exam Vital Signs: Temp Pulse Resp BP Pulse Ox 97.7 F 93 18 134/76 H 97 02/18/17 03:45 02/18/17 07:00 02/18/17 03:45 02/18/17 03:45 02/18/17 08:32 Intake & Output 02/17/17 02/18/17 02/19/17 06:59 06:59 06:59 Intake Total 2080 5325 Output Total 3670 6805 Balance -1590 -1480 Weight 87.2 kg 86.2 kg General appearance: PRESENT: cooperative, mild distress - Due to nasogastric tube. Head exam: PRESENT: normocephalic Eye exam: PRESENT: conjunctiva pale, EOMI Mouth exam: PRESENT: moist, neck supple Neck exam: ABSENT: JVD Respiratory exam: PRESENT: clear to auscultation jaclyn. ABSENT: rhonchi, wheezes Cardiovascular exam: PRESENT: RRR. ABSENT: gallop GI/Abdominal exam: PRESENT: distended - Mildly, hypoactive bowel sounds, soft Extremities exam: ABSENT: pedal edema Neurological exam: PRESENT: alert, awake, oriented to situation Skin exam: PRESENT: dry, warm. ABSENT: cyanosis Results Laboratory Results: 02/18/17 05:20 02/18/17 05:20 02/18/17 02/18/17 05:20 05:20 WBC 12.2 H RBC 5.00 Hgb 11.8 L Hct 37.0 MCV 74 L MCH 23.5 L MCHC 31.8 L RDW 17.7 H Plt Count 520 H Sodium 132.5 L Potassium 4.1 Chloride 84 L Carbon Dioxide 33 H Anion Gap 16 BUN 30 H Creatinine 1.93 H Est GFR ( Amer) 31 L Est GFR (Non-Af Amer) 26 L Glucose 397 H Calcium 9.0 Magnesium 1.9 Impressions: Abdomen X-Ray 02/16/17 10:56 IMPRESSION: Dilated small bowel concerning for obstruction. Increased density the upper abdomen, likely a combination of known ascites, prominent liver and possible distended stomach. Chest X-Ray 02/17/17 00:00 IMPRESSION: Minimal basilar atelectasis. NG tube and central line are in satisfactory position. No acute findings. Small Bowel X-Ray 02/17/17 00:00 IMPRESSION: No antegrade passage of contrast from the duodenum over 90 minutes interval. Findings are worrisome for ileus rather than bowel obstruction. Recommend obtaining a delayed KUB later this evening, to determine if there is any antegrade motion of contrast through the small bowel. KUB X-Ray 02/17/17 07:00 IMPRESSION: Nasogastric tube tip and side-port in the duodenum. Persistent dilated small bowel loops out of proportion to colon. Question ileus versus distal small bowel obstruction. Assessment & Plan - Diagnosis (1) SBO (small bowel obstruction) Is this a current diagnosis for this admission?: Yes (2) Hyponatremia Is this a current diagnosis for this admission?: Yes (3) Hypokalemia Is this a current diagnosis for this admission?: Yes (4) Hypothyroidism (acquired) Is this a current diagnosis for this admission?: Yes (5) Cirrhosis of liver Qualifiers: Hepatic cirrhosis type: unspecified hepatic cirrhosis Ascites presence : with ascites Qualified Code(s): K74.60 - Unspecified cirrhosis of liver Is this a current diagnosis for this admission?: Yes (6) Opiate dependence, continuous Is this a current diagnosis for this admission?: Yes (7) Rheumatoid arthritis Qualifiers: Rheumatoid arthritis location: multiple sites Rheumatoid factor presence: without rheumatoid factor Qualified Code(s): M06.09 - Rheumatoid arthritis without rheumatoid factor, multiple sites (8) Atrial fibrillation Qualifiers: Atrial fibrillation type: paroxysmal Qualified Code(s): I48.0 - Paroxysmal atrial fibrillation Is this a current diagnosis for this admission?: Yes (9) CAD (coronary artery disease) Qualifiers: Coronary Disease-Associated Artery/Lesion type: [place] artery [place] vs. transplanted heart: [place] heart Associated angina: angina presence unspecified Qualified Code(s): I25.10 - Atherosclerotic heart disease of [place] coronary artery without angina pectoris Is this a current diagnosis for this admission?: Yes (10) COPD (chronic obstructive pulmonary disease) Qualifiers: COPD type: unspecified COPD Qualified Code(s): J44.9 - Chronic obstructive pulmonary disease, unspecified (11) Obstructive sleep apnea Is this a current diagnosis for this admission?: Yes - Time Time Spent with patient: 25-34 minutes - Plan Summary Plan Summary: Patient's creatinine noted to increase. We will obtain a renal ultrasound and increase intravenous fluids. No hypotension was reported nor patient is on any nephrotoxic agents at this time. Patient is going for CT as per surgical service to follow-up ileus. Continue supportive care for now. Advancement of diet when cleared by surgery.
[2017-02-18] MEDS: LORAZEPAM INJ 2 MG/1 ML VIAL IV PRN (12:46)
[2017-02-18] MEDS ORDERED: LORAZEPAM 1 MG TABLET NG PRN (13:08)
--- NOTE | 2017-02-18 14:20 | PDOC PROGRESS REPORT ---
Subjective Progress Note for:: 02/18/17 Subjective:: Patient not able to tolerated prep was given some enemas earlier today was scheduled for a GI work up Dr Mustafa saw patient, wanted to do a CT scan in the patient had small bowel x -ray , revealing suspicious for an ileus. The radiologist feels that there may be some sort of obstruction because of the persistent dilation of the colon and stomach. However patient is still having ice chips at this point in time. Since she is not n.p.o. and not able to perform any procedure. We will wait until the official reading of the CAT scan becomes available and we will postpone the procedure of the central tomorrow, question is however since she is not able to prep for that will be able to accomplish anything on colonoscopy. Physical Exam Vital Signs: Temp Pulse Resp BP Pulse Ox 97.7 F 92 18 134/76 H 97 02/18/17 03:45 02/18/17 14:00 02/18/17 03:45 02/18/17 03:45 02/18/17 08:32 Intake & Output 02/17/17 02/18/17 02/19/17 06:59 06:59 06:59 Intake Total 2080 5325 Output Total 3670 6805 Balance -1590 -1480 Weight 87.2 kg 86.2 kg General appearance: PRESENT: mild distress, well-developed, well-nourished Head exam: PRESENT: atraumatic, normocephalic Eye exam: PRESENT: EOMI, PERRLA. ABSENT: nystagmus, periorbital swelling, scleral icterus Mouth exam: PRESENT: moist Throat exam: ABSENT: tonsillar exudate, tonsillogmegaly Neck exam: ABSENT: meningismus, tenderness, thyromegaly Respiratory exam: PRESENT: crackles, symmetrical, tachypnea. ABSENT: wheezes Cardiovascular exam: PRESENT: RRR, +S1, +S2. ABSENT: rubs GI/Abdominal exam: PRESENT: diminished bowel sounds, rigid, tenderness. ABSENT : Phillips's sign, rebound Neurological exam: PRESENT: oriented to time, oriented to situation, CN II-XII grossly intact Skin exam: PRESENT: normal color. ABSENT: mottled, pallor, urticaria, vesicles Results Laboratory Results: 02/18/17 05:20 02/18/17 05:20 02/18/17 02/18/17 05:20 05:20 WBC 12.2 H RBC 5.00 Hgb 11.8 L Hct 37.0 MCV 74 L MCH 23.5 L MCHC 31.8 L RDW 17.7 H Plt Count 520 H Sodium 132.5 L Potassium 4.1 Chloride 84 L Carbon Dioxide 33 H Anion Gap 16 BUN 30 H Creatinine 1.93 H Est GFR ( Amer) 31 L Est GFR (Non-Af Amer) 26 L Glucose 397 H Calcium 9.0 Magnesium 1.9 Impressions: Abdomen X-Ray 02/16/17 10:56 IMPRESSION: Dilated small bowel concerning for obstruction. Increased density the upper abdomen, likely a combination of known ascites, prominent liver and possible distended stomach. Chest X-Ray 02/17/17 00:00 IMPRESSION: Minimal basilar atelectasis. NG tube and central line are in satisfactory position. No acute findings. Small Bowel X-Ray 02/17/17 00:00 IMPRESSION: No antegrade passage of contrast from the duodenum over 90 minutes interval. Findings are worrisome for ileus rather than bowel obstruction. Recommend obtaining a delayed KUB later this evening, to determine if there is any antegrade motion of contrast through the small bowel. KUB X-Ray 02/17/17 07:00 IMPRESSION: Nasogastric tube tip and side-port in the duodenum. Persistent dilated small bowel loops out of proportion to colon. Question ileus versus distal small bowel obstruction. Assessment & Plan - Diagnosis (1) SBO (small bowel obstruction) Is this a current diagnosis for this admission?: YesPlan: if there is a suspicion of small bowel obstruction, then the patient should be NPO and not on ice chips her NGT is draining bilious materiel CT scan pending although since small bowel series was done ? any new information surgery needs to be considered, otherwise further work up needs to take place will defer on any endoscopic procedures pending surgery evaluation (2) Iron deficiency anemia Qualifiers: Iron deficiency anemia type: unspecified iron deficiency Qualified Code (s): D50.9 - Iron deficiency anemia, unspecified Plan: needs work up to exclude a malignancy (3) Nausea vomiting and diarrhea Plan: continue to watch carefully - Time Time Spent with patient: 25-34 minutes
--- NOTE | 2017-02-18 15:30 | RADIOLOGY REPORT (SQ) ---
EXAM DESCRIPTION: CT ABD/PELVIS ORAL ONLY COMPLETED DATE/TIME: 02/18/2017 2:48 pm REASON FOR STUDY: sbo. please give contrast via ng COMPARISON: CT abdomen pelvis 06/16/2016, 02/05/2017 Abdominal films 02/16/2017, 02/17/2017 Small bowel follow-through 02/17/2017 TECHNIQUE: CT scan of the abdomen and pelvis performed without intravenous or oral contrast. Images reviewed with lung, soft tissue, and bone windows. Reconstructed coronal and sagittal MPR images revi ewed. All images stored on PACS. All CT scanners at this facility use dose modulation, iterative reconstruction, and/or weight based d osing when appropriate to reduce radiation dose to as low as reasonably achievable (ALARA). [facility]: Dose Right [facility]: CareDose [facility]: Dose Right [facility]: Teradose 4D [facility]: [employer] RADIATION DOSE: Up-to-date CT equipment and radiation dose reduction techniques were employed. CTDIv ol: 17.4 mGy. DLP: 1031 mGy-cm.mGy. LIMITATIONS: None. FINDINGS: Patient was given oral contrast today through the nasogastric tube. The nasogastric tube tip and side [place] in the 2nd portion of the duodenum. Patient was also given water-soluble contras t through the nasogastric tube 03/31/2017 for small-bowel follow-through. On today's study, there is a small amount of oral contrast in decompressed colon. There is oral contrast in the distended stomach, duodenum, and proximal small bowel. There is a transition point between dilated proximal and mid small bowel, and nondilated distal small bowel in the right abdomen. Findings most likely represent a partial small bowel obstruction. There is a moderate amount of ascites present. Inflammation or tumor involvement of the omentum, wit h increased attenuation. Patient has a history of [employer] malignancy in the past. No free intraperitoneal air. LOWER CHEST: Mild bibasilar atelectasis NON-CONTRASTED LIVER, SPLEEN, ADRENALS: Multiple low-attenuation liver lesions seen on 02/05/2017 worr isome for metastatic disease, stable. Small subcentimeter low-attenuation splenic lesions could also be metastatic lesions. These are stable. Adrenal glands unremarkable. PANCREAS: No masses. No peripancreatic inflammatory changes. GALLBLADDER: Surgically absent RIGHT KIDNEY AND URETER: 1 cm cyst right mid-pole kidney. No significant calcifications. No hydro nephrosis or hydroureter. LEFT KIDNEY AND URETER: Diffusely small left kidney without worrisome nodules. No significant calci fications. No hydronephrosis or hydroureter. AORTA AND RETROPERITONEUM: No aneurysm. No retroperitoneal masses or adenopathy. BOWEL AND PERITONEAL CAVITY: As above APPENDIX: Not identified PELVIS, BLADDER, AND ABDOMINAL WALL:Post hysterectomy. Moderate free fluid. Stein catheter drains t he bladder. BONES: Osteoporotic with advanced degenerative endplate changes in the lumbar spine. OTHER: No other significant finding. IMPRESSION: Findings suggest a partial small bowel obstruction, with oral contrast given for yesterd ay small bowel study seen in the colon. There are dilated proximal small bowel loops out of proporti on to distal small bowel loops and colon with a transition point in the right lower quadrant. Bowel distention is similar compared to study from 02/05/2017 History of [employer] malignancy with small to moderate amount of ascites, increased attenuation of the omen jass fat, liver and spleen lesions worrisome for metastatic disease. TECHNICAL DOCUMENTATION: JOB ID: [id number] Quality ID # [id number]: Final reports with documentation of one or more dose reduction techniques (e.g., Au tomated exposure control, adjustment of the mA and/or kV according to patient size, use of iterative reconstruction technique) 2010 [employer]- All Rights Reserved
--- NOTE | 2017-02-18 15:46 | RADIOLOGY REPORT (SQ) ---
EXAM DESCRIPTION: U/S RETROPERITON LTD COMPLETED DATE/TIME: 02/18/2017 3:24 pm REASON FOR STUDY: acute renal failure COMPARISON: Exam limited by body habitus. Patient was unable to roll or hold her breath. TECHNIQUE: Dynamic and static grayscale images acquired of the kidneys and bladder and recorded on P ACS. Additional selected color Doppler and spectral images recorded. LIMITATIONS: None. FINDINGS: RIGHT KIDNEY: Normal size, 12.1 cm. Normal echogenicity. No solid masses. There is a ppear to be a 14 x 12 x 16 mm cyst. No hydronephrosis. No calcifications. LEFT KIDNEY: Left kidney is not seen. On CT the left kidney can be seen to be quite atrophic or hyp oplastic. BLADDER: Not able to be seen. OTHER FINDINGS: A small amount of free fluid was seen in the right kidney. 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 TECHNICAL DOCUMENTATION: JOB ID: [id number] [employer]- All Rights Reserved
[2017-02-18] MEDS: DULOXETINE HCL 30 MG CAPSULE.DR PO SCH (22:10)
[2017-02-18] MEDS: LATANOPROST 0.005% OPH SOLN 2.5 ML OU SCH (23:00)
[2017-02-19 05:59] LABS: HEMATOCRIT 34.8 % (36.0-47.0); HGB HCT DIFFERENCE -1.8; MEAN CORPUSCULAR HEMOGLOBIN 23.4 pg (27.0-33.4); MEAN CORPUSCULAR HGB CONC 31.7 g/dL (32.0-36.0); MEAN CORPUSCULAR VOLUME 74 fl (80-97); RED CELL DISTRIBUTION WIDTH 17.5 % (11.5-14.0); WHITE BLOOD COUNT 12.7 10^3/uL (4.0-10.5)
[2017-02-19 06:11] LABS: ANION GAP 8 (5-19); BLOOD UREA NITROGEN 25 mg/dL (7-20); CARBON DIOXIDE 30 mmol/L (22-30); CHLORIDE 96 mmol/L (98-107); CREATININE RESULT 1.09 mg/dL (0.52-1.25); GLUCOSE 188 mg/dL (75-110); SODIUM 134.1 mmol/L (137-145)
[2017-02-19 06:20] LABS: CALCIUM 6.9 mg/dL (8.4-10.2)
[2017-02-19 06:21] LABS: POTASSIUM 2.8 mmol/L (3.6-5.0)
[2017-02-19 07:39] LABS: ADD ON TESTING BLD IN LAB ACKNOWLEDGE
[2017-02-19] MEDS: POTASSI CL 20 MEQ/50 ML RIDER 20 MEQ/50 ML RTUPB IV SCH ×3 (07:39→12:23)
[2017-02-19 08:04] LABS: ALBUMIN 2.4 g/dL (3.5-5.0); MAGNESIUM 1.6 mg/dL (1.6-2.3)
[2017-02-19] MEDS ORDERED: DIPHENHYDRAMINE HCL 50 MG/ML VIAL ONE (08:23)
[2017-02-19] MEDS ORDERED: NALOXONE HCL INJ/PF 0.4 MG/1 ML SDV ONE (08:24)
[2017-02-19] MEDS ORDERED: ONDANSETRON HCL INJ/PF 4 MG/2 ML SDV ONE (08:24)
[2017-02-19] MEDS ORDERED: FLUMAZENIL INJ 0.5 MG/5 ML VIAL IV ONE (08:25)
[2017-02-19] MEDS ORDERED: GLUCAGON,HUMAN RECOMB 1 MG INJ ONE (08:25)
[2017-02-19] MEDS ORDERED: EPINEPHRINE INJ 1 MG/10 ML DISP.SYRIN ONE (08:25)
[2017-02-19] MEDS: LEVOTHYROXINE SODIUM 0.025 MG TABLET NG SCH (08:47)
[2017-02-19] MEDS: LEVOTHYROXINE SODIUM 0.1 MG TABLET NG SCH (08:47)
--- NOTE | 2017-02-19 08:52 | PDOC PROGRESS REPORT ---
Subjective Progress Note for:: 02/19/17 Subjective:: Patient pulled nasogastric tube. Does not want Stein catheter to remain as well. Patient reports burning sensation. No reported chills or fever. Passing bowel movements but only in little amounts. Still nauseous. Patient wanting to eat. Physical Exam Vital Signs: Temp Pulse Resp BP Pulse Ox 97.4 F 91 18 171/85 H 99 02/19/17 08:20 02/19/17 08:20 02/19/17 08:20 02/19/17 08:20 02/19/17 08:20 Intake & Output 02/18/17 02/19/17 02/20/17 06:59 06:59 06:59 Intake Total 5325 4380 Output Total 6805 340 Balance -1480 4040 Weight 86.2 kg 86.7 kg General appearance: PRESENT: no acute distress, cooperative Head exam: PRESENT: normocephalic Eye exam: PRESENT: EOMI Mouth exam: PRESENT: moist, neck supple Neck exam: ABSENT: JVD Respiratory exam: PRESENT: clear to auscultation jaclyn Cardiovascular exam: PRESENT: RRR. ABSENT: gallop GI/Abdominal exam: PRESENT: distended - Soft, hyperactive bowel sounds, tenderness - Mild discomfort diffusely Extremities exam: PRESENT: other - Trace edema Neurological exam: PRESENT: alert, awake, oriented to person, oriented to place , oriented to time, oriented to situation Skin exam: PRESENT: dry, warm. ABSENT: cyanosis Results Laboratory Results: 02/19/17 05:50 02/19/17 05:50 02/19/17 02/19/17 02/19/17 05:50 05:50 05:50 WBC 12.7 H RBC 4.70 Hgb 11.0 L Hct 34.8 L MCV 74 L MCH 23.4 L MCHC 31.7 L RDW 17.5 H Plt Count 401 Sodium 134.1 L Potassium 2.8 L* Chloride 96 L Carbon Dioxide 30 Anion Gap 8 BUN 25 H Creatinine 1.09 Est GFR ( Amer) > 60 Est GFR (Non-Af Amer) 50 L Glucose 188 H Calcium 6.9 L* Magnesium 1.6 Albumin 2.4 L Impressions: Abdomen X-Ray 02/16/17 10:56 IMPRESSION: Dilated small bowel concerning for obstruction. Increased density the upper abdomen, likely a combination of known ascites, prominent liver and possible distended stomach. Chest X-Ray 02/17/17 00:00 IMPRESSION: Minimal basilar atelectasis. NG tube and central line are in satisfactory position. No acute findings. Small Bowel X-Ray 02/17/17 00:00 IMPRESSION: No antegrade passage of contrast from the duodenum over 90 minutes interval. Findings are worrisome for ileus rather than bowel obstruction. Recommend obtaining a delayed KUB later this evening, to determine if there is any antegrade motion of contrast through the small bowel. KUB X-Ray 02/17/17 07:00 IMPRESSION: Nasogastric tube tip and side-port in the duodenum. Persistent dilated small bowel loops out of proportion to colon. Question ileus versus distal small bowel obstruction. Abdomen/Pelvis CT 02/18/17 00:00 IMPRESSION: Findings suggest a partial small bowel obstruction, with oral contrast given for yesterday small bowel study seen in the colon. There are dilated proximal small bowel loops out of proportion to distal small bowel loops and colon with a transition point in the right lower quadrant. Bowel distention is similar compared to study from 02/05/2017 History of [employer] malignancy with small to moderate amount of ascites, increased attenuation of the omental fat, liver and spleen lesions worrisome for metastatic disease. Renal Ultrasound 02/18/17 00:00 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 Assessment & Plan - Diagnosis (1) SBO (small bowel obstruction) Is this a current diagnosis for this admission?: Yes (2) Hyponatremia Is this a current diagnosis for this admission?: Yes (3) Hypokalemia Is this a current diagnosis for this admission?: Yes (4) Hypothyroidism (acquired) Is this a current diagnosis for this admission?: Yes (5) Cirrhosis of liver Qualifiers: Hepatic cirrhosis type: unspecified hepatic cirrhosis Ascites presence : with ascites Qualified Code(s): K74.60 - Unspecified cirrhosis of liver Is this a current diagnosis for this admission?: Yes (6) Opiate dependence, continuous Is this a current diagnosis for this admission?: Yes (7) Rheumatoid arthritis Qualifiers: Rheumatoid arthritis location: multiple sites Rheumatoid factor presence: without rheumatoid factor Qualified Code(s): M06.09 - Rheumatoid arthritis without rheumatoid factor, multiple sites (8) Atrial fibrillation Qualifiers: Atrial fibrillation type: paroxysmal Qualified Code(s): I48.0 - Paroxysmal atrial fibrillation Is this a current diagnosis for this admission?: Yes (9) CAD (coronary artery disease) Qualifiers: Coronary Disease-Associated Artery/Lesion type: [place] artery [place] vs. transplanted heart: [place] heart Associated angina: angina presence unspecified Qualified Code(s): I25.10 - Atherosclerotic heart disease of [place] coronary artery without angina pectoris Is this a current diagnosis for this admission?: Yes (10) COPD (chronic obstructive pulmonary disease) Qualifiers: COPD type: unspecified COPD Qualified Code(s): J44.9 - Chronic obstructive pulmonary disease, unspecified (11) Obstructive sleep apnea Is this a current diagnosis for this admission?: Yes - Time Time Spent with patient: 25-34 minutes - Plan Summary Plan Summary: Awaiting colonoscopy. We will discontinue Stein catheter and obtain a urine culture. Keep her n.p.o. at this time unless cleared by surgical service. Continue supportive care and IV fluids. Replace potassium and magnesium and recheck levels in the morning.
[2017-02-19] MEDS: NORMAL SALINE 1000 ML 1,000 ML IV PRN ×3 (09:25→22:20)
[2017-02-19] MEDS ORDERED: MAGNESIUM SULFATE/D5W 1 GM/100 ML RTUPB IV ONE (09:30)
[2017-02-19] MEDS: MIDAZOLAM 2 MG/2 ML INJ ONE ×4 (10:39→11:06)
[2017-02-19] MEDS: FENTANYL CITRATE INJ/PF 100 MCG/2 ML AMPUL ONE ×4 (10:41→11:33)
--- NOTE | 2017-02-19 10:42 | PDOC CONSULTATION ---
History of Present Illness Admission Date/PCP: 02/16/17 14:22 Patient complains of: ?liver Mets History of Present Illness: 71yo who was admitted for a h/o n/v and diarrhea Pt was worked up and found to have several liver masses Py has a remote history of cervical cancer in 1985, just requiring hysterectomy and NO radiation or chemo Pt reports no vaginal bleeding Past Medical History LMP: 1985 1 Baby 1 Delivery: Spontaneous Vaginal Delivery Baby 2 Delivery: Spontaneous Vaginal Delivery Baby 3 Delivery: Spontaneous Vaginal Delivery Cardiac Medical History: Reports: Coronary Artery Disease, DVT - Reports history of right knee blood clot, Hyperlipidema, Hypertension, Peripheral Vascular Disease - Left renal artery stenting Pulmonary Medical History: Reports: Asthma, Bronchitis, Chronic Obstructive Pulmonary Disease (COPD), Pneumonia, Respiratory Failure - hypercapnic, Sleep Apnea Endocrine Medical History: Reports: Diabetes Mellitus Type 1, Diabetes Mellitus Type 2, Hypothyroidism Malignancy Medical History: Reports: Cervical Cancer GI Medical History: Reports: Gastroesophageal Reflux Disease, Hiatal Hernia Musculoskeltal Medical History: Reports: Arthritis - steroid dependent Rheumatoid arthritis Psychiatric Medical History: Reports: Depression Social History Smoking Status: Never Smoker Frequency of Alcohol Use: None Hx Recreational Drug Use: No Drugs: None Hx Prescription Drug Abuse: No - Advance Directive Resuscitation Status: Full Code Family History Family History: CAD, COPD, CVA, DM, Malignancy Parental Family History Reviewed: Yes Children Family History Reviewed: Yes Sibling(s) Family History Reviewed.: Yes Medication/Allergy Home Medications: Amlodipine Besylate [Norvasc 10 mg Tablet] 10 mg PO DAILY 02/16/17 Duloxetine HCl 30 mg PO QHS 02/16/17 Ergocalciferol (Vitamin D2) [Drisdol 50,000 unit (1.25MG) Capsule] 50,000 unit PO [id number] 02/16/17 Famotidine [Pepcid 20 mg Tablet] 20 mg PO DAILY 02/16/17 Glipizide [Glocotrol 10 Mg Tablet] 10 mg PO Q12 02/16/17 Insulin Regular, Human [Humulin R (Pyxis) Insulin 100 Unit/ml 3Ml] 20 unit SUBCUT AC 02/16/17 Levothyroxine Sodium [Synthroid] 125 mcg PO DAILY 02/16/17 Lisinopril [Zestril] 20 mg PO DAILY 02/16/17 Loperamide HCl [Loperamide] 2 mg PO Q4HP PRN 02/16/17 Lorazepam [Ativan 1 mg Tablet] 1.5 mg PO HSP PRN 02/16/17 Metformin HCl [Glucophage XR 500 mg Tablet] 500 mg PO BIDACBS 02/16/17 Montelukast Sodium [Singulair 10 mg Tablet] 10 mg PO QHS 02/16/17 Nystatin 1 applic TOP BID 02/16/17 Omeprazole 20 mg PO QHS 02/16/17 Ondansetron [Zofran Odt 4 mg Tablet] 4 mg PO Q6HP PRN 02/16/17 Oxycodone HCl 15 mg PO Q6HP PRN 02/16/17 Oxycodone HCl [Oxycontin] 40 mg PO Q12 02/16/17 Prednisone [Deltasone 20 mg Tablet] 20 mg PO DAILY 02/16/17 Promethazine HCl [Phenergan 25 mg Tablet] 25 mg PO Q6HP PRN 02/16/17 Travoprost [Travatan Z] 1 drop OU DAILY 02/16/17 Allergies/Adverse Reactions: codeine [Codeine] Allergy (Intermediate, Verified 02/16/17 21:42) itching Review of Systems All systems: reviewed and no additional remarkable complaints except as stated Physical Exam - Physical Exam Vital Signs: Temp Pulse Resp BP Pulse Ox 97.4 F 98 18 142/66 H 94 02/19/17 08:20 02/19/17 10:25 02/19/17 10:25 02/19/17 10:25 02/19/17 10:25 Intake & Output 02/18/17 02/19/17 02/20/17 06:59 06:59 06:59 Intake Total 5325 4380 Output Total 6805 340 Balance -1480 4040 Weight 86.2 kg 86.7 kg General appearance: PRESENT: no acute distress, cooperative, obese - Gynecological Exam Labia: other Introitus: other - External genetalia is very raw and red from her adult diaper. Vaginal introtus is VERY STENOTIC, only able to pass my little finger through the introtus. No blood seen. Unable to pass speculum into vaginal vault due to stenosis Result Laboratory Results: 02/19/17 05:50 02/19/17 05:50 02/19/17 02/19/1702/19/17 05:50 05:50 05:50 WBC 12.7 H RBC 4.70 Hgb 11.0 L Hct 34.8 L MCV 74 L MCH 23.4 L MCHC 31.7 L RDW 17.5 H Plt Count 401 Sodium 134.1 L Potassium 2.8 L* Chloride 96 L Carbon Dioxide 30 Anion Gap 8 BUN 25 H Creatinine 1.09 Est GFR ( Amer) > 60 Est GFR (Non-Af Amer) 50 L Glucose 188 H Calcium 6.9 L* Magnesium 1.6 Albumin 2.4 L Impressions: Abdomen X-Ray 02/16/17 10:56 IMPRESSION: Dilated small bowel concerning for obstruction. Increased density the upper abdomen, likely a combination of known ascites, prominent liver and possible distended stomach. Chest X-Ray 02/17/17 00:00 IMPRESSION: Minimal basilar atelectasis. NG tube and central line are in satisfactory position. No acute findings. Small Bowel X-Ray 02/17/17 00:00 IMPRESSION: No antegrade passage of contrast from the duodenum over 90 minutes interval. Findings are worrisome for ileus rather than bowel obstruction. Recommend obtaining a delayed KUB later this evening, to determine if there is any antegrade motion of contrast through the small bowel. KUB X-Ray 02/17/17 07:00 IMPRESSION: Nasogastric tube tip and side-port in the duodenum. Persistent dilated small bowel loops out of proportion to colon. Question ileus versus distal small bowel obstruction. Abdomen/Pelvis CT 02/18/17 00:00 IMPRESSION: Findings suggest a partial small bowel obstruction, with oral contrast given for yesterday small bowel study seen in the colon. There are dilated proximal small bowel loops out of proportion to distal small bowel loops and colon with a transition point in the right lower quadrant. 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 Renal Ultrasound 02/18/17 00:00 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 Assessment & Plan - Diagnosis (1) Cirrhosis of liver Qualifiers: Hepatic cirrhosis type: unspecified hepatic cirrhosis Ascites presence : with ascites Qualified Code(s): K74.60 - Unspecified cirrhosis of liver Is this a current diagnosis for this admission?: Yes (2) Opiate dependence, continuous Is this a current diagnosis for this admission?: Yes - Time Time Spent: 30 to 50 Minutes Medications reviewed and adjusted accordingly: Yes Anticipated discharge: Tertiary Hospital - Recommend transfer pt to [facility] to further workup her liver masses and possible Cabin Crew Oncology care
--- NOTE | 2017-02-19 11:49 | Operative Report ---
Operative Report DATE OF SURGERY: 02/19/17 Operative Report: The risks, benefits and alternatives of the procedure including risks of bleeding, perforation requiring surgery I explained to the patient in detail and informed consent was obtained. Patient was taken to the endoscopy suite and placed in the left, lateral decubital position. Timeout was called. Conscious sedation medications are provided. The rectal examination was done which did not reveal any masses, tears or fissures. An Olympus videoscope is introduced into the rectum. There appears to be some melena. The scope is attempted to be affects however incomplete colonoscopy due to inability of the scope to be advanced beyond the hepatic flexure. Despite multiple changes in patient position as well as the application of abdominal pressure and was unsuccessful to advance the scope beyond what I felt to be the hepatic flexure area. The stretcher was turned around to perform EGD given the melena that was noted the esophagus, stomach and duodenum are examined. PREOPERATIVE DIAGNOSIS: Possible partial small bowel obstruction POSTOPERATIVE DIAGNOSIS: An apple core lesion that is noted likely in the descending colon area status post biopsy along with injection of [place] a full location for possible surgery. Incomplete colonoscopy; scope unable to be advanced much beyond the hepatic flexure. Polypremoved via snare polypectomy in the transverse colon. Gastric polyps. Gastritis. Status post biopsy to rule out Helicobacter pylori. No obstruction up to the second portion of the duodenum. About 500 cc of bilious material suction during upper endoscopy. No ulcers noted OPERATION: Colonoscopy incomplete. Colonoscopy with snare polypectomy. Colonoscopy with biopsy, along with submucosal injection. EGD with biopsy SURGEON: RONDA GALVAN ANESTHESIA: Moderate Sedation - 6 mg of Versed, 125 mcg of fentanyl. Extendedprocedure. Conscious sedation monitoring 60 minutes. TISSUE REMOVED OR ALTERED: Biopsy of the apple core lesion was noted. Snare polypectomy of the polyp. Gastric biopsy COMPLICATIONS: None. The patient is passing flatus postprocedure ESTIMATED BLOOD LOSS: None. INTRAOPERATIVE FINDINGS: As described above. PROCEDURE: Patient tolerated the procedure well. No immediate postprocedure complications are noted. Patient was sent back to her room in good condition. We will await biopsies. I probably would not resume a regular diet on her. She will most probably benefit from NG tube replacement Spoke with Dr. Manuel following the procedure
[2017-02-19] MEDS: INSULIN REG, HUMAN 100 UNIT/ML 3 ML VIAL (PYX) SUBCUT PRN ×2 (12:46→16:29)
[2017-02-19] MEDS: ENOXAPARIN SODIUM INJ 40 MG/0.4 ML DISP.SYRIN SUBCUT SCH (14:04)
[2017-02-19] MEDS: OXYCODONE HCL SR 40 MG TABLET PO SCH ×2 (14:05→22:12)
[2017-02-19] MEDS: PREDNISONE 20 MG TABLET NG SCH (14:05)
[2017-02-19] MEDS: FAMOTIDINE INJ/PF 20 MG/2 ML SDV IV SCH ×2 (14:06→22:14)
--- NOTE | 2017-02-19 15:31 | PDOC TRANSFER SUMMARY ---
General Admission Date/PCP: 02/16/17 14:22 Transfer Date: 02/21/17 Accepting Facility: [facility] Accepting Physician: Dr. Morris at [facility] Resuscitation Status: Full Code - Transfer Diagnosis (1) Colonic mass Is this a current diagnosis for this admission?: Yes (2) Liver lesion Is this a current diagnosis for this admission?: Yes (3) SBO (small bowel obstruction) Is this a current diagnosis for this admission?: Yes (4) Urinary tract infection Is this a current diagnosis for this admission?: Yes (5) Hyponatremia Is this a current diagnosis for this admission?: Yes (6) Hypokalemia Is this a current diagnosis for this admission?: Yes (7) Hypothyroidism (acquired) Is this a current diagnosis for this admission?: Yes (8) Cirrhosis of liver Is this a current diagnosis for this admission?: Yes (9) Opiate dependence, continuous Is this a current diagnosis for this admission?: Yes (11) Atrial fibrillation Is this a current diagnosis for this admission?: Yes (12) CAD (coronary artery disease) Is this a current diagnosis for this admission?: Yes (14) Obstructive sleep apnea Is this a current diagnosis for this admission?: Yes - Transfer Medications Home Medications: Amlodipine Besylate [Norvasc 10 mg Tablet] 10 mg PO DAILY 02/16/17 Duloxetine HCl 30 mg PO QHS 02/16/17 Ergocalciferol (Vitamin D2) [Drisdol 50,000 unit (1.25MG) Capsule] 50,000 unit PO [id number] 02/16/17 Famotidine [Pepcid 20 mg Tablet] 20 mg PO DAILY 02/16/17 Glipizide [Glocotrol 10 Mg Tablet] 10 mg PO Q12 02/16/17 Insulin Regular, Human [Humulin R (Pyxis) Insulin 100 Unit/ml 3Ml] 20 unit SUBCUT AC 02/16/17 Levothyroxine Sodium [Synthroid] 125 mcg PO DAILY 02/16/17 Lisinopril [Zestril] 20 mg PO DAILY 02/16/17 Loperamide HCl [Loperamide] 2 mg PO Q4HP PRN 02/16/17 Lorazepam [Ativan 1 mg Tablet] 1.5 mg PO HSP PRN 02/16/17 Metformin HCl [Glucophage XR 500 mg Tablet] 500 mg PO BIDACBS 02/16/17 Montelukast Sodium [Singulair 10 mg Tablet] 10 mg PO QHS 02/16/17 Nystatin 1 applic TOP BID 02/16/17 Omeprazole 20 mg PO QHS 02/16/17 Ondansetron [Zofran Odt 4 mg Tablet] 4 mg PO Q6HP PRN 02/16/17 Oxycodone HCl 15 mg PO Q6HP PRN 02/16/17 Oxycodone HCl [Oxycontin] 40 mg PO Q12 02/16/17 Prednisone [Deltasone 20 mg Tablet] 20 mg PO DAILY 02/16/17 Promethazine HCl [Phenergan 25 mg Tablet] 25 mg PO Q6HP PRN 02/16/17 Travoprost [Travatan Z] 1 drop OU DAILY 02/16/17 Transfer Medications: Current Medications Acetaminophen (Tylenol 325 Mg Tablet) 650 mg NG Q4HP PRN PRN Reason: fever Stop: 03/18/17 14:21 Dextrose (Dextrose Inj 50% Syringe (25 Gm/50 Ml)) 12.5 gm IV PRN PRN; Protocol PRN Reason: FOR BG 50-69 IN ALERT PATIENT Stop: 03/18/17 14:21 Dextrose (Dextrose Inj 50% Syringe (25 Gm/50 Ml)) 25 gm IV PRN PRN; Protocol PRN Reason: See Label Comments Stop: 03/18/17 14:21 Duloxetine HCl (Cymbalta 30 Mg Capsule.Dr) 30 mg PO QHS [facility] Stop: 03/18/17 21:59 Last Admin: 02/18/17 22:10 Dose: 30 mg Enoxaparin Sodium (Lovenox Inj 40 Mg/0.4 Ml Disp.Syrin) 40 mg SUBCUT DAILY [facility] Stop: 03/19/17 09:59 Last Admin: 02/19/17 14:04 Dose: 40 mg Famotidine (Pepcid Inj/Pf 20 Mg/2 Ml Sdv) 20 mg IV Q12 [facility] Stop: 03/18/17 21:59 Last Admin: 02/19/17 14:06 Dose: 20 mg Glucagon (Glucagen Inj 1 Mg Vial) 1 mg SUBCUT PRN PRN; Protocol PRN Reason: Evaluate for BG < 70 Stop: 03/18/17 14:21 Glucose (Glutose 40% Gel 15 Gm Tube) 15 gm PO PRN PRN; Protocol PRN Reason: For BG 50-69 in Alert Patient Stop: 03/18/17 14:21 Glucose (Glutose 40% Gel 15 Gm Tube) 30 gm PO PRN PRN; Protocol PRN Reason: FOR BG < 50 IN ALERT PATIENT Stop: 03/18/17 14:21 Sodium Chloride (Nacl 0.9% 1000 Ml Iv Soln) 1,000 mls @ 200 mls/hr IV CONTINUOUS PRN PRN Reason: THIS MED IS NOT "PRN" Stop: 03/18/17 14:21 Last Admin: 02/19/17 09:25 Dose: 1,000 ml Insulin Human Regular (Humulin R (Pyxis) Insulin 100 Unit/Ml 3ml) 0 - 12 unit SUBCUT Q6HP PRN PRN Reason: Protocol Stop: 03/18/17 14:21 Last Admin: 02/19/17 12:46 Dose: 4 unit Latanoprost (Xalatan 0.005% Oph Soln 2.5 Ml) 1 drop OU QHS [facility] Stop: 03/20/17 21:59 Last Admin: 02/18/17 23:00 Dose: Not Given Levothyroxine Sodium (Synthroid 0.025 Mg Tablet) 0.025 mg NG QAM [facility] Stop: 03/20/17 07:59 Last Admin: 02/19/17 08:47 Dose: 0.025 mg Levothyroxine Sodium (Synthroid 0.1 Mg Tablet) 0.1 mg NG QAM [facility] Stop: 03/20/17 07:59 Last Admin: 02/19/17 08:47 Dose: 0.1 mg Lorazepam (Ativan Inj 2 Mg/1 Ml Vial) 1 mg IV Q6HP PRN PRN Reason: ANXIETY/AGITATION Stop: 02/24/17 09:01 Last Admin: 02/18/17 12:46 Dose: 1 mg Lorazepam (Ativan 1 Mg Tablet) 1.5 mg NG HSP PRN PRN Reason: SLEEP OR INSOMNIA Stop: 02/23/17 18:46 Last Admin: 02/18/17 22:10 Dose: 1.5 mg Morphine Sulfate (Morphine 10 Mg/Ml Inj) 4 mg IV Q2HP PRN PRN Reason: PAIN Stop: 02/23/17 21:40 Last Admin: 02/18/17 04:25 Dose: 4 mg Ondansetron HCl (Zofran Inj/Pf 4 Mg/2 Ml Sdv) 4 mg IV Q4HP PRN PRN Reason: FOR NAUSEA/VOMITING Stop: 03/18/17 14:31 Oxycodone HCl (Oxycontin Sr 40 Mg Tablet) 40 mg PO Q12 [facility] Stop: 02/23/17 21:59 Last Admin: 02/19/17 14:05 Dose: 40 mg Oxycodone HCl (Oxy-Ir 5 Mg Tablet) 15 mg NG Q6HP PRN PRN Reason: PAIN Stop: 02/23/17 18:44 Pharmacy Profile Note (Medication Communication Order) 1 each [facility] .NOTICE NR Stop: 03/18/17 14:29 Prednisone (Deltasone 20 Mg Tablet) 20 mg NG DAILY [facility] Stop: 03/19/17 09:59 Last Admin: 02/19/17 14:05 Dose: 20 mg - Allergies Allergies/Adverse Reactions: codeine [Codeine] Allergy (Intermediate, Verified 02/16/17 21:42) itching - Diet/Activity Discharge Diet: Other (Comments) - NPO exept medications/ice chips Discharge Activity: [facility]rest - [facility] Hospital Course Hospital Course: The patient was admitted to the medical floor. Electrolyte replacements were given. Intravenous hydration was started and the patient was placed on nasogastric tube with low intermittent suction. Bilious material were obtained and KUBs were checked showing nasogastric tube in the duodenum. Surgery was consulted and eventually performed a CT of the abdomen and pelvis showing findings suggestive of partial small bowel obstruction with liver splenic and omental lesions suggestive of metastatic disease. Course was noted for increasing creatinine and IV fluid was increased and the renal ultrasound did not reveal any hydronephrosis or obstruction. Subsequent creatinine monitoring showed improvement. In terms of the patient's lesions suggestive of malignancy oncology was consulted, gastroenterology was consulted for colonoscopic studies , and OB gynecology was consulted for prior history of cervical malignancy. Dr. El or NON MORSE INTERCEPT TECHNICIAN evaluated the patient noting stricture and inability to apply speculum, digital examination did reveal narrowing and therefore recommended patient to be transferred to a tertiary facility. Dr. Sethi of Gastroenterology eventually perform colonoscopy showing an apple core deformity and unable to advance further the endoscope. At this point surgical service reevaluated the patient for possible intervention, however patient requested to be transferred to a tertiary facility. Surgery reportedly could offer diverting colostomy but will probably require evaluation by surgical oncology service. TPN started. Blood sugars noted to be elevated upon TPN administration and Levemir started. Urine culture grew Enterobacter. Ceftriaxone started. She will have bouts of nausea and vomiting but continues to refuse to have the nasogastric tube placed again. She developed heartburn and was placed on intravenous proton pump inhibitor. The patient was referred to [facility] for her bowel obstruction. Patient was accepted under hospitalist service by Dr. Morris. The rest of the hospital stay is unremarkable. Physical Exam Vital Signs: Temp Pulse Resp BP Pulse Ox 97.6 F 92 18 153/77 H 100 02/19/17 13:45 02/19/17 13:45 02/19/17 13:45 02/19/17 13:45 02/19/17 13:45 Intake & Output 02/18/17 02/19/17 02/20/17 06:59 06:59 06:59 Intake Total 5325 4380 Output Total 6805 340 Balance -1480 4040 Weight 86.2 kg 86.7 kg General appearance: PRESENT: no acute distress, cooperative Head exam: PRESENT: normocephalic Eye exam: PRESENT: conjunctiva pale, EOMI Mouth exam: PRESENT: moist, neck supple Neck exam: ABSENT: JVD Respiratory exam: PRESENT: clear to auscultation jaclyn, unlabored. ABSENT: rhonchi, wheezes Cardiovascular exam: PRESENT: RRR. ABSENT: gallop GI/Abdominal exam: PRESENT: distended, hyperactive bowel sounds, soft, other - tympany Extremities exam: ABSENT: pedal edema Neurological exam: PRESENT: alert, awake, oriented to person, oriented to place , oriented to time, oriented to situation Skin exam: PRESENT: dry, warm. ABSENT: cyanosis Results Laboratory Results: 02/19/17 05:50 02/19/17 05:50 02/19/17 02/19/17 02/19/17 05:50 05:50 05:50 WBC 12.7 H RBC 4.70 Hgb 11.0 L Hct 34.8 L MCV 74 L MCH 23.4 L MCHC 31.7 L RDW 17.5 H Plt Count 401 Sodium 134.1 L Potassium 2.8 L* Chloride 96 L Carbon Dioxide 30 Anion Gap 8 BUN 25 H Creatinine 1.09 Est GFR ( Amer) > 60 Est GFR (Non-Af Amer) 50 L Glucose 188 H Calcium 6.9 L* Magnesium 1.6 Albumin 2.4 L Impressions: Abdomen X-Ray 02/16/17 10:56 IMPRESSION: Dilated small bowel concerning for obstruction. Increased density the upper abdomen, likely a combination of known ascites, prominent liver and possible distended stomach. Chest X-Ray 02/17/17 00:00 IMPRESSION: Minimal basilar atelectasis. NG tube and central line are in satisfactory position. No acute findings. Small Bowel X-Ray 02/17/17 00:00 IMPRESSION: No antegrade passage of contrast from the duodenum over 90 minutes interval. Findings are worrisome for ileus rather than bowel obstruction. Recommend obtaining a delayed KUB later this evening, to determine if there is any antegrade motion of contrast through the small bowel. KUB X-Ray 02/17/17 07:00 IMPRESSION: Nasogastric tube tip and side-port in the duodenum. Persistent dilated small bowel loops out of proportion to colon. Question ileus versus distal small bowel obstruction. Abdomen/Pelvis CT 02/18/17 00:00 IMPRESSION: Findings suggest a partial small bowel obstruction, with oral contrast given for yesterday small bowel study seen in the colon. There are dilated proximal small bowel loops out of proportion to distal small bowel loops and colon with a transition point in the right lower quadrant. 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 Renal Ultrasound 02/18/17 00:00 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 Plan Discharge Plan: Transfer to tertiary facility for further evaluation and management. Time Spent: Less than 30 Minutes
--- NOTE | 2017-02-19 16:01 | PROGRESS NOTE E ---
Progress Note NAME: ABISAI JOHNSON : 1945 AGE: 71Y DATE: 02/19/2017 ROOM: 535 The patient just had a colonoscopy, which showed an apple core lesion in the colon, about 60 cm from the anal verge. Apparently this almost occluded the colon since Dr. Sethi apparently could barely pass the scope through. This appears to be the main problem that the patient has, causing obstruction at this site, causing considerable NG tube drainage. Unfortunately, the patient pulled his NG tube out and had some vomiting of 600 mL after tube was pulled out. Anyway, at any rate, the patient does not like the tube put back and since her lesion appeared to be metastatic to the liver and with some ascites, she might very well have some carcinomatosis. Because of this, she would need to be in a tertiary facility for better management. The patient also decided to go to [facility] since she will feel more comfortable there. This was actually requested by the patient, since we could probably have operated on her here at [place]. At any rate, I think it is best for her to be transferred to [facility] and this was discussed with the hospitalist who will transfer her to [facility]. DICTATING PHYSICIAN: NILDA JOEL M.D. [id number] PHY#: [id number] ID: [id number] JOB#: [id number] ACCT: [id number] cc: >
[2017-02-19] MEDS: LATANOPROST 0.005% OPH SOLN 2.5 ML OU SCH (22:13)
[2017-02-19] MEDS: DULOXETINE HCL 30 MG CAPSULE.DR PO SCH (22:13)
[2017-02-20] MEDS: INSULIN REG, HUMAN 100 UNIT/ML 3 ML VIAL (PYX) SUBCUT PRN (01:02)
[2017-02-20] MEDS: LORAZEPAM INJ 2 MG/1 ML VIAL IV PRN (02:36)
[2017-02-20] MEDS: NORMAL SALINE 1000 ML 1,000 ML IV PRN ×2 (03:26→10:46)
[2017-02-20] MEDS: MORPHINE SULFATE 10 MG/ML INJ IV PRN ×3 (04:49→18:17)
[2017-02-20 05:33] LABS: MAGNESIUM 1.9 mg/dL (1.6-2.3); PHOSPHORUS 3.3 mg/dL (2.5-4.5)
[2017-02-20 05:38] LABS: ALANINE AMINOTRANSFERASE 17 U/L (9-52); ALBUMIN 2.8 g/dL (3.5-5.0); ALKALINE PHOSPHATASE 111 U/L (38-126); ANION GAP 9 (5-19); ASPARTATE AMINO TRANSFERASE 13 U/L (14-36); BILIRUBIN,DIRECT 0.5 mg/dL (0.0-0.4); BILIRUBIN,TOTAL 0.6 mg/dL (0.2-1.3); BLOOD UREA NITROGEN 22 mg/dL (7-20); CALCIUM 8.6 mg/dL (8.4-10.2); CARBON DIOXIDE 32 mmol/L (22-30); CHLORIDE 95 mmol/L (98-107); CREATININE RESULT 0.88 mg/dL (0.52-1.25); GLUCOSE 179 mg/dL (75-110); POTASSIUM 3.4 mmol/L (3.6-5.0); TOTAL PROTEIN 5.5 g/dL (6.3-8.2)
[2017-02-20 05:40] LABS: PREALBUMIN 7.9 mg/dL (17.6-36.0)
[2017-02-20] MEDS: LEVOTHYROXINE SODIUM 0.1 MG TABLET NG SCH (08:13)
[2017-02-20] MEDS: LEVOTHYROXINE SODIUM 0.025 MG TABLET NG SCH (08:14)
--- NOTE | 2017-02-20 10:30 | PDOC PROGRESS REPORT ---
Subjective Progress Note for:: 02/20/17 Subjective:: Off nasogastric tube. Remain n.p.o. except medications. No reported vomiting. No chills or fever. Denies any increasing abdominal pain. Physical Exam Vital Signs: Temp Pulse Resp BP Pulse Ox 97.6 F 85 18 148/63 H 100 02/20/17 07:52 02/20/17 07:52 02/20/17 07:52 02/20/17 07:52 02/20/17 07:52 Intake & Output 02/19/17 02/20/17 02/21/17 06:59 06:59 06:59 Intake Total 4380 4850 Output Total 340 900 Balance 4040 3950 Weight 86.7 kg 90.1 kg 90.1 kg General appearance: PRESENT: no acute distress, cooperative Head exam: PRESENT: normocephalic Eye exam: PRESENT: EOMI Mouth exam: PRESENT: moist, neck supple Neck exam: ABSENT: JVD Respiratory exam: PRESENT: clear to auscultation jaclyn Cardiovascular exam: PRESENT: RRR GI/Abdominal exam: PRESENT: distended, hyperactive bowel sounds Extremities exam: ABSENT: pedal edema Neurological exam: PRESENT: alert, awake, oriented to situation Skin exam: PRESENT: dry, warm. ABSENT: cyanosis Results Laboratory Results: 02/19/17 05:50 02/20/17 04:45 02/19/17 02/20/17 02/20/17 18:50 04:45 04:45 Sodium Cancelled 136.0 L Potassium Cancelled 3.4 L Chloride Cancelled 95 L Carbon Dioxide Cancelled 32 H Anion Gap Cancelled 9 BUN Cancelled 22 H Creatinine Cancelled 0.88 Est GFR ( Amer) Cancelled > 60 Est GFR (Non-Af Amer) Cancelled > 60 Glucose Cancelled 179 H Calcium Cancelled 8.6 Phosphorus 3.3 Magnesium 1.9 Total Bilirubin 0.6 AST 13 L ALT 17 Alkaline Phosphatase 111 Total Protein 5.5 L Albumin 2.8 L Prealbumin 7.9 L Triglycerides 204 H Impressions: Abdomen X-Ray 02/16/17 10:56 IMPRESSION: Dilated small bowel concerning for obstruction. Increased density the upper abdomen, likely a combination of known ascites, prominent liver and possible distended stomach. Chest X-Ray 02/17/17 00:00 IMPRESSION: Minimal basilar atelectasis. NG tube and central line are in satisfactory position. No acute findings. Small Bowel X-Ray 02/17/17 00:00 IMPRESSION: No antegrade passage of contrast from the duodenum over 90 minutes interval. Findings are worrisome for ileus rather than bowel obstruction. Recommend obtaining a delayed KUB later this evening, to determine if there is any antegrade motion of contrast through the small bowel. KUB X-Ray 02/17/17 07:00 IMPRESSION: Nasogastric tube tip and side-port in the duodenum. Persistent dilated small bowel loops out of proportion to colon. Question ileus versus distal small bowel obstruction. Abdomen/Pelvis CT 02/18/17 00:00 IMPRESSION: Findings suggest a partial small bowel obstruction, with oral contrast given for yesterday small bowel study seen in the colon. There are dilated proximal small bowel loops out of proportion to distal small bowel loops and colon with a transition point in the right lower quadrant. Bowel distention is similar compared to study from 02/05/2017 History of [employer]AL[employer] ASSOCIATE malignancy with small to moderate amount of ascites, increased attenuation of the omental fat, liver and spleen lesions worrisome for metastatic disease. Renal Ultrasound 02/18/17 00:00 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 Assessment & Plan - Diagnosis (1) Colonic mass Is this a current diagnosis for this admission?: Yes (2) Liver lesion Is this a current diagnosis for this admission?: Yes (3) SBO (small bowel obstruction) Is this a current diagnosis for this admission?: Yes (4) Hyponatremia Is this a current diagnosis for this admission?: Yes (5) Hypokalemia Is this a current diagnosis for this admission?: Yes (6) Hypothyroidism (acquired) Is this a current diagnosis for this admission?: Yes (7) Cirrhosis of liver Qualifiers: Hepatic cirrhosis type: unspecified hepatic cirrhosis Ascites presence : with ascites Qualified Code(s): K74.60 - Unspecified cirrhosis of liver Is this a current diagnosis for this admission?: Yes (8) Opiate dependence, continuous Is this a current diagnosis for this admission?: Yes (9) Rheumatoid arthritis Qualifiers: Rheumatoid arthritis location: multiple sites Rheumatoid factor presence: without rheumatoid factor Qualified Code(s): M06.09 - Rheumatoid arthritis without rheumatoid factor, multiple sites (10) Atrial fibrillation Qualifiers: Atrial fibrillation type: paroxysmal Qualified Code(s): I48.0 - Paroxysmal atrial fibrillation Is this a current diagnosis for this admission?: Yes (11) CAD (coronary artery disease) Qualifiers: Coronary Disease-Associated Artery/Lesion type: [place] artery [place] vs. transplanted heart: [place] heart Associated angina: angina presence unspecified Qualified Code(s): I25.10 - Atherosclerotic heart disease of [place] coronary artery without angina pectoris Is this a current diagnosis for this admission?: Yes (12) COPD (chronic obstructive pulmonary disease) Qualifiers: COPD type: unspecified COPD Qualified Code(s): J44.9 - Chronic obstructive pulmonary disease, unspecified (13) Obstructive sleep apnea Is this a current diagnosis for this admission?: Yes - Time Time Spent with patient: Less than 15 minutes - Plan Summary Plan Summary: Keep the patient n.p.o., begin TPN. Awaiting bed at tertiary facility. Continue supportive care. Replace potassium and monitor electrolytes.
[2017-02-20] MEDS: ONDANSETRON HCL INJ/PF 4 MG/2 ML SDV IV PRN ×2 (10:38→18:22)
[2017-02-20] MEDS: OXYCODONE HCL SR 40 MG TABLET PO SCH ×2 (10:39→21:43)
[2017-02-20] MEDS: PREDNISONE 20 MG TABLET NG SCH (10:39)
[2017-02-20] MEDS: FAMOTIDINE INJ/PF 20 MG/2 ML SDV IV SCH (10:39)
[2017-02-20] MEDS: ENOXAPARIN SODIUM INJ 40 MG/0.4 ML DISP.SYRIN SUBCUT SCH (10:40)
[2017-02-20] MEDS ORDERED: DEXTROSE 10%-WATER 1,000 ML IV PRN (11:07)
[2017-02-20] MEDS: POTASSI CL 20 MEQ/50 ML RIDER 50 ML IV SCH ×3 (11:59→16:09)
--- NOTE | 2017-02-20 13:26 | PDOC PROGRESS REPORT ---
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 possible malignancy, ? colon plus HIGH SCHOOL DIRECTOR also possibly has hepatic metastasis as well patent being transferred to [facility] for further management patient pulled NGT out, does not want it replaced I had suctioned about 500cc of bilious fluid during her EGD as well Physical Exam Vital Signs: Temp Pulse Resp BP Pulse Ox 97.9 F 88 18 150/62 H 98 02/20/17 11:55 02/20/17 11:55 02/20/17 11:55 02/20/17 11:55 02/20/17 11:55 Intake & Output 02/19/17 02/20/17 02/21/17 06:59 06:59 06:59 Intake Total 4380 4850 Output Total 340 900 Balance 4040 3950 Weight 86.7 kg 90.1 kg 90.1 kg General appearance: PRESENT: mild distress Head exam: PRESENT: atraumatic, normocephalic Eye exam: PRESENT: EOMI, PERRLA. ABSENT: periorbital swelling, scleral icterus Mouth exam: PRESENT: moist Throat exam: ABSENT: tonsillar exudate, tonsillogmegaly Neck exam: ABSENT: meningismus, tenderness, thyromegaly Respiratory exam: PRESENT: symmetrical, tachypnea. ABSENT: wheezes GI/Abdominal exam: PRESENT: soft, tenderness. ABSENT: Phillips's sign, rebound, rigid Extremities exam: PRESENT: pedal edema, +1 edema Neurological exam: PRESENT: oriented to time, oriented to situation, CN II-XII grossly intact Skin exam: PRESENT: normal color. ABSENT: mottled, pallor, petechiae, urticaria , vesicles Results Laboratory Results: 02/19/17 05:50 02/20/17 04:45 02/19/17 02/20/17 02/20/17 18:50 04:45 04:45 Sodium Cancelled 136.0 L Potassium Cancelled 3.4 L Chloride Cancelled 95 L Carbon Dioxide Cancelled 32 H Anion Gap Cancelled 9 BUN Cancelled 22 H Creatinine Cancelled 0.88 Est GFR ( Amer) Cancelled > 60 Est GFR (Non-Af Amer) Cancelled > 60 Glucose Cancelled 179 H Calcium Cancelled 8.6 Phosphorus 3.3 Magnesium 1.9 Total Bilirubin 0.6 AST 13 L ALT 17 Alkaline Phosphatase 111 Total Protein 5.5 L Albumin 2.8 L Prealbumin 7.9 L Triglycerides 204 H Impressions: Abdomen X-Ray 02/16/17 10:56 IMPRESSION: Dilated small bowel concerning for obstruction. Increased density the upper abdomen, likely a combination of known ascites, prominent liver and possible distended stomach. Chest X-Ray 02/17/17 00:00 IMPRESSION: Minimal basilar atelectasis. NG tube and central line are in satisfactory position. No acute findings. Small Bowel X-Ray 02/17/17 00:00 IMPRESSION: No antegrade passage of contrast from the duodenum over 90 minutes interval. Findings are worrisome for ileus rather than bowel obstruction. Recommend obtaining a delayed KUB later this evening, to determine if there is any antegrade motion of contrast through the small bowel. KUB X-Ray 02/17/17 07:00 IMPRESSION: Nasogastric tube tip and side-port in the duodenum. Persistent dilated small bowel loops out of proportion to colon. Question ileus versus distal small bowel obstruction. Abdomen/Pelvis CT 02/18/17 00:00 IMPRESSION: Findings suggest a partial small bowel obstruction, with oral contrast given for yesterday small bowel study seen in the colon. There are dilated proximal small bowel loops out of proportion to distal small bowel loops and colon with a transition point in the right lower quadrant. 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 Renal Ultrasound 02/18/17 00:00 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 Assessment & Plan - Diagnosis (1) SBO (small bowel obstruction) Is this a current diagnosis for this admission?: YesPlan: I do suspect that patient has a malignancy the question is whether she has also a HIGH SCHOOL DIRECTOR malignancy as well she has a partial small jaye obstruction likely due to external compression she is being transferred to [facility] for further management will wait on biopsy at this point it is unclear as to whether she will be a surgical candidate due to her poor functional status but that will have to be decided at the tertiary institution she does not want to have an NG tube replaced, she is at risk for aspiration (2) Iron deficiency anemia Qualifiers: Iron deficiency anemia type: unspecified iron deficiency Qualified Code (s): D50.9 - Iron deficiency anemia, unspecified Plan: likely due to underlying malignancy (3) Nausea vomiting and diarrhea Plan: small bowel obstruction due to likely external compression of bowel - Time Time Spent with patient: 25-34 minutes
[2017-02-20] MEDS: AMINO ACIDS 5%/D25W 1,000 ML IV PRN (16:10)
[2017-02-20] MEDS ORDERED: DEXTROSE 40% GEL 15 GM TUBE X 2 PO PRN (16:20)
[2017-02-20] MEDS ORDERED: DEXTROSE 40% GEL 15 GM TUBE PO PRN (16:20)
[2017-02-20] MEDS ORDERED: GLUCAGON,HUMAN RECOMB 1 MG INJ IM PRN (16:20)
[2017-02-20] MEDS ORDERED: DEXTROSE 50%-WATER SYRINGE 12.5 GM/25 ML DOSE IV PRN (16:20)
[2017-02-20] MEDS ORDERED: DEXTROSE 50%-WATER SYRINGE 25 GM/50 ML DOSE IV PRN (16:20)
[2017-02-20] MEDS: INSULIN REG, HUMAN 100 UNIT/ML 3 ML VIAL (PYX) SUBCUT SCH (18:10)
[2017-02-20] MEDS ORDERED: FLUCONAZOLE 200 MG/NS RTU 100 ML IV ONE (19:30)
[2017-02-20] MEDS: DULOXETINE HCL 30 MG CAPSULE.DR PO SCH (21:43)
[2017-02-20] MEDS: LATANOPROST 0.005% OPH SOLN 2.5 ML OU SCH (21:44)
[2017-02-21] MEDS: INSULIN REG, HUMAN 100 UNIT/ML 3 ML VIAL (PYX) SUBCUT SCH ×2 (02:25→06:33)
[2017-02-21] MEDS: LORAZEPAM INJ 2 MG/1 ML VIAL IV PRN (03:54)
[2017-02-21] MEDS: NORMAL SALINE 1000 ML 1,000 ML IV PRN ×2 (03:54→15:28)
[2017-02-21 05:42] LABS: ABSOLUTE LYMPHOCYTES (AUTO) 0.9 10^3/uL (0.5-4.7); ABSOLUTE NEUT (AUTO) 7.6 10^3/uL (1.7-8.2); BASOPHILS % (AUTO) 0.3 % (0-2); EOSINOPHILS % (AUTO) 0.1 % (0-6); HEMATOCRIT 33.8 % (36.0-47.0); HEMOGLOBIN 10.8 g/dL (12.0-15.5); HGB HCT DIFFERENCE -1.4; LYMPHOCYTES % (AUTO) 9.7 % (13-45); MEAN CORPUSCULAR HEMOGLOBIN 23.7 pg (27.0-33.4); MEAN CORPUSCULAR HGB CONC 31.9 g/dL (32.0-36.0); MEAN CORPUSCULAR VOLUME 74 fl (80-97); RED BLOOD COUNT 4.56 10^6/uL (3.72-5.28); RED CELL DISTRIBUTION WIDTH 17.4 % (11.5-14.0); SEGMENTED NEUTROPHILS % (AUTO) 79.9 % (42-78); WHITE BLOOD COUNT 9.5 10^3/uL (4.0-10.5)
[2017-02-21 05:56] LABS: ANION GAP 11 (5-19); BLOOD UREA NITROGEN 18 mg/dL (7-20); CALCIUM 9.1 mg/dL (8.4-10.2); CARBON DIOXIDE 31 mmol/L (22-30); CHLORIDE 96 mmol/L (98-107); CREATININE RESULT 0.71 mg/dL (0.52-1.25); MAGNESIUM 1.8 mg/dL (1.6-2.3); SODIUM 137.5 mmol/L (137-145)
[2017-02-21 06:19] LABS: GLUCOSE 429 mg/dL (75-110)
[2017-02-21] MEDS: LEVOTHYROXINE SODIUM 0.1 MG TABLET NG SCH ×2 (07:57→10:19)
[2017-02-21] MEDS: LEVOTHYROXINE SODIUM 0.025 MG TABLET NG SCH ×2 (07:57→10:19)
[2017-02-21] MEDS: ONDANSETRON HCL INJ/PF 4 MG/2 ML SDV IV PRN ×2 (07:57→16:54)
--- NOTE | 2017-02-21 08:03 | PDOC PROGRESS REPORT ---
Subjective Progress Note for:: 02/21/17 Subjective:: Still with some nausea and vomiting, able to tolerate ice chips, blood sugar starting to increase upon administration of TPN, urine culture finally came back Enterobacter. Denies any melena. Patient reportedly had some urinary leaking from around the Stein catheter site. Stein catheter however is patent as reported. Physical Exam Vital Signs: Temp Pulse Resp BP Pulse Ox 97.9 F 76 16 151/70 H 96 02/21/17 04:17 02/21/17 04:17 02/21/17 04:17 02/21/17 04:17 02/21/17 04:17 Intake & Output 02/20/17 02/21/17 02/22/17 06:59 06:59 06:59 Intake Total 4850 3129 Output Total 900 700 Balance 3950 2429 Weight 90.1 kg 90.1 kg General appearance: PRESENT: cooperative, mild distress Head exam: PRESENT: normocephalic Eye exam: PRESENT: EOMI Mouth exam: PRESENT: moist, neck supple Neck exam: ABSENT: JVD Respiratory exam: PRESENT: clear to auscultation jaclyn, unlabored. ABSENT: rhonchi, wheezes Cardiovascular exam: PRESENT: RRR. ABSENT: gallop GI/Abdominal exam: PRESENT: distended, hyperactive bowel sounds Extremities exam: ABSENT: pedal edema Neurological exam: PRESENT: alert, awake, oriented to person, oriented to place , oriented to time, oriented to situation Skin exam: PRESENT: dry, warm. ABSENT: cyanosis Results Laboratory Results: 02/21/17 05:35 02/21/17 05:35 02/21/17 02/21/17 02/21/17 04:00 05:35 05:35 WBC 9.5 RBC 4.56 Hgb 10.8 L Hct 33.8 L MCV 74 L MCH 23.7 L MCHC 31.9 L RDW 17.4 H Plt Count 289 Seg Neutrophils % 79.9 H Lymphocytes % 9.7 L Monocytes % 10.0 Eosinophils % 0.1 Basophils % 0.3 Absolute Neutrophils 7.6 Absolute Lymphocytes 0.9 Absolute Monocytes 1.0 Absolute Eosinophils 0.0 Absolute Basophils 0.0 Sodium Cancelled 137.5 Potassium Cancelled 4.0 Chloride Cancelled 96 L Carbon Dioxide Cancelled 31 H Anion Gap Cancelled 11 BUN Cancelled 18 Creatinine Cancelled 0.71 Est GFR ( Amer) Cancelled > 60 Est GFR (Non-Af Amer) Cancelled > 60 Glucose Cancelled 429 H* Calcium Cancelled 9.1 Phosphorus Cancelled 3.0 Magnesium 1.8 02/19/17 09:00 Catheterized Urine Urine Culture - Final Enterobacter [place] Impressions: Abdomen X-Ray 02/16/17 10:56 IMPRESSION: Dilated small bowel concerning for obstruction. Increased density the upper abdomen, likely a combination of known ascites, prominent liver and possible distended stomach. Chest X-Ray 02/17/17 00:00 IMPRESSION: Minimal basilar atelectasis. NG tube and central line are in satisfactory position. No acute findings. Small Bowel X-Ray 02/17/17 00:00 IMPRESSION: No antegrade passage of contrast from the duodenum over 90 minutes interval. Findings are worrisome for ileus rather than bowel obstruction. Recommend obtaining a delayed KUB later this evening, to determine if there is any antegrade motion of contrast through the small bowel. KUB X-Ray 02/17/17 07:00 IMPRESSION: Nasogastric tube tip and side-port in the duodenum. Persistent dilated small bowel loops out of proportion to colon. Question ileus versus distal small bowel obstruction. Abdomen/Pelvis CT 02/18/17 00:00 IMPRESSION: Findings suggest a partial small bowel obstruction, with oral contrast given for yesterday small bowel study seen in the colon. There are dilated proximal small bowel loops out of proportion to distal small bowel loops and colon with a transition point in the right lower quadrant. 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 Renal Ultrasound 02/18/17 00:00 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 Assessment & Plan - Diagnosis (1) Colonic mass Is this a current diagnosis for this admission?: Yes (2) Liver lesion Is this a current diagnosis for this admission?: Yes (3) SBO (small bowel obstruction) Is this a current diagnosis for this admission?: Yes (4) Hyponatremia Is this a current diagnosis for this admission?: Yes (5) Hypokalemia Is this a current diagnosis for this admission?: Yes (6) Hypothyroidism (acquired) Is this a current diagnosis for this admission?: Yes (7) Cirrhosis of liver Qualifiers: Hepatic cirrhosis type: unspecified hepatic cirrhosis Ascites presence : with ascites Qualified Code(s): K74.60 - Unspecified cirrhosis of liver Is this a current diagnosis for this admission?: Yes (8) Opiate dependence, continuous Is this a current diagnosis for this admission?: Yes (9) Rheumatoid arthritis Qualifiers: Rheumatoid arthritis location: multiple sites Rheumatoid factor presence: without rheumatoid factor Qualified Code(s): M06.09 - Rheumatoid arthritis without rheumatoid factor, multiple sites (10) Atrial fibrillation Qualifiers: Atrial fibrillation type: paroxysmal Qualified Code(s): I48.0 - Paroxysmal atrial fibrillation Is this a current diagnosis for this admission?: Yes (11) CAD (coronary artery disease) Qualifiers: Coronary Disease-Associated Artery/Lesion type: [place] artery [place] vs. transplanted heart: [place] heart Associated angina: angina presence unspecified Qualified Code(s): I25.10 - Atherosclerotic heart disease of [place] coronary artery without angina pectoris Is this a current diagnosis for this admission?: Yes (12) COPD (chronic obstructive pulmonary disease) Qualifiers: COPD type: unspecified COPD Qualified Code(s): J44.9 - Chronic obstructive pulmonary disease, unspecified (13) Obstructive sleep apnea Is this a current diagnosis for this admission?: Yes - Time Time Spent with patient: 25-34 minutes - Plan Summary Plan Summary: Begin Rocephin. We will add Levemir and continue sliding scale. Continue TPN and supportive care. Monitor electrolytes. Awaiting bed at tertiary care facility. Keep her n.p.o.
[2017-02-21] MEDS ORDERED: CEFTRIAXONE 1 GM/D5W RTU 50 ML IV SCH (10:00)
[2017-02-21] MEDS ORDERED: INSULIN DETEMIR 100 UNIT/ML 3 ML PEN SUBCUT SCH (10:00)
[2017-02-21] MEDS: ENOXAPARIN SODIUM INJ 40 MG/0.4 ML DISP.SYRIN SUBCUT SCH (10:17)
[2017-02-21] MEDS: OXYCODONE HCL SR 40 MG TABLET PO SCH (10:18)
[2017-02-21] MEDS: PREDNISONE 20 MG TABLET NG SCH (10:19)
[2017-02-21] MEDS: MORPHINE SULFATE 10 MG/ML INJ IV PRN ×3 (12:19→17:20)
[2017-02-21] MEDS: INSULIN REG, HUMAN 100 UNIT/ML 3 ML VIAL (PYX) SUBCUT PRN (12:19)
[2017-02-21 15:52] VITALS: BP 172/87
[2017-02-21] MEDS: AMINO ACIDS 5%/D25W 1,000 ML IV PRN (15:59)
[2017-02-21] MEDS ORDERED: PANTOPRAZOLE SODIUM 40 MG VIAL IV SCH (22:00)
[2017-02-22] MEDS ORDERED: FAT EMULSIONS 250 ML IV SCH (10:00)
== END 2017-02-21 17:45 | disposition short-term general hospital (02) | DRG 375 ==
LOC: ER 10:31 → UNDOADMIN 13:45 → EH 13:45 → 5 14:22 → EH 15:35
PROC: 02HV33Z Insertion of Infusion Device into Superior Vena Cava, Percutaneous Approach (ICD-10-PCS; 2017-02-17)
PROC: 0DBL8ZZ Excision of Transverse Colon, Via Natural or Artificial Opening Endoscopic (ICD-10-PCS; principal; 2017-02-19 09:30)
PROC: 0DBM8ZX Excision of Descending Colon, Via Natural or Artificial Opening Endoscopic, Diagnostic (ICD-10-PCS; 2017-02-19 09:30)
DX: C18.6 Malignant neoplasm of descending colon (principal); E87.1 Hypo-osmolality and hyponatremia; N39.0 Urinary tract infection, site not specified; F11.20 Opioid dependence, uncomplicated; D12.3 Benign neoplasm of transverse colon; K29.70 Gastritis, unspecified, without bleeding; I25.10 Atherosclerotic heart disease of native coronary artery without angina pectoris; E87.6 Hypokalemia; K74.60 Unspecified cirrhosis of liver; M06.09 Rheumatoid arthritis without rheumatoid factor, multiple sites; I48.0 Paroxysmal atrial fibrillation; G47.33 Obstructive sleep apnea (adult) (pediatric); K76.9 Liver disease, unspecified; D50.9 Iron deficiency anemia, unspecified; E78.5 Hyperlipidemia, unspecified; J44.9 Chronic obstructive pulmonary disease, unspecified; E11.9 Type 2 diabetes mellitus without complications; K21.9 Gastro-esophageal reflux disease without esophagitis; Z85.41 Personal history of malignant neoplasm of cervix uteri; M19.90 Unspecified osteoarthritis, unspecified site; Z79.4 Long term (current) use of insulin; Z79.899 Other long term (current) drug therapy; Z79.84 Long term (current) use of oral hypoglycemic drugs; Z86.718 Personal history of other venous thrombosis and embolism; Z88.5 Allergy status to narcotic agent; Z90.49 Acquired absence of other specified parts of digestive tract; Z90.710 Acquired absence of both cervix and uterus
CPT/HCPCS: 36415; 43239; 45380; 45381; 45385; 71010; 71020; 74000; 74020; 74176; 74250; 76775; 80048; 80053; 80307; 81001; 82040; 82140; 82150; 82272; 82803; 82962; 83690; 83735; 84100; 84134; 84439; 84478; 85025; 85027; 85610; 85730; 87086; 87088; 87186; 88305; 88342; 96374; 96375; 99284; 99285; C1751; J0171; J0696; J1200; J1450; J1610; J1650; J1815; J2060; J2250; J2270; J2310; J2405; J2765; J3010; J3475; J3480; J3490; J7030; J7512; S0028; S0119